=== PATIENT | male | born 1960 | race Caucasian/White ===

== ENCOUNTER 2016-09-09 06:21 | Emergency (ER) | payer OTHER ==
[~2016-09-09] VITALS: Ht 180.3 cm; Wt 150.7 kg
[~2016-09-09 06:21] MED LIST: METF-382 PO; MULTTAB PO; RANI300C PO
[2016-09-09 06:26] VITALS: Ht 180.3 cm; Wt 150.7 kg
--- NOTE | 2016-09-09 07:19 | DIAGNOSTIC IMAGING REPORT ---
LEFT KNEE 3 VIEWS CLINICAL HISTORY: fall, pain trauma. Pain. COMPARISON: None. DISCUSSION: Severe degenerative change medial joint compartment as well as patellofemoral joint. Small joint effusion. Moderate reactive osteophytic changes throughout. Lateral compartment is generally intact. There is no evidence for soft tissue swelling. IMPRESSION: Severe degenerative change. No acute bony abnormality. Electronically signed by: Adalberto Carrillo M.D. 09/09/2016 7:18 AM Dictated Date/Time: 09/09/2016 7:16 AM
[2016-09-09] MEDS ORDERED: IBUPROFEN 600 MG TAB PO STA (07:20)
[2016-09-09 08:09] VITALS: BP 142/96; PULSE 107; TEMP 36.7; O2SAT 97
--- NOTE | 2016-09-09 08:38 | EMERGENCY ROOM VISIT NOTE ---
History Report prepared by Raheel: Julieta Thomas Under the Supervision of: Dr. Hermelindo Mondragon M.D. First contact with patient: 06:37 Chief Complaint: KNEEPAIN Stated Complaint: FELL- HURT LEFT KNEE History of Present Illness The patient is a 56 year old male who presents to the Emergency Room with complaints of left knee pain that has worsened since yesterday afternoon. The patient was working outside in the snow yesterday and had a mechanical fall. Denies hitting his head. Since then, he has had left knee pain. He is able to walk, but states that his knee pain is worse with walking. He has had his right knee replaced and was told he will also eventually need a left knee replacement. Currently, his worst pain is around his medial and posterior knee. He reports that his left knee is more swollen than baseline. He used a knee brace yesterday, but it became very uncomfortable to wear due to the swelling so he took it off. He is not on a blood thinner. He has not taken anything for pain. He denies any other injuries from the fall. Source of History: patient Onset: yesterday afternoon Position: knee (left) Timing: worsening Modifying Factors (Worsening): other (walking) Review of Systems See HPI for pertinent positives & negatives. A total of 6 systems reviewed and were otherwise negative. Past Medical & Surgical Medical Problems: (1) Hypertension Surgical Problems: (1) History of appendectomy (2) History of right knee joint replacement Family History Diabetes mellitus FH: heart disease Hypertension Social History Smoking Status: Never Smoker Alcohol Use: none Drug Use: none Marital Status: Occupation Status: retired Current/Historical Medications No Active Prescriptions or Reported Meds Allergies Coded Allergies: Quinolones (Verified Allergy, Mild, HIVES, 09/09/16) Sibutramine (Verified Allergy, Unknown, TACHYCARDIA, 09/09/16) Physical Exam Vital Signs Date Time Temp Pulse Resp B/P Pulse Ox O2 Delivery O2 Flow Rate FiO2 09/09/16 08:09 36.7 107 24 142/96 97 09/09/16 06:26 36.5 71 20 169/99 95 Room Air Physical Exam GENERAL: Sitting on the stretcher, no acute distress. NEURO: Awake, alert, oriented x3, no focal motor deficits. EXTREMITIES : The left knee is swollen with a joint effusion, there is no erythema or warmth, no focal bony discomfort, the knee in general is diffusely tender, no laxity of the joint appreciated, pain noted with flexion of the knee. Medical Decision & Procedures ER Provider Diagnostic Interpretation: Radiology results and stated below per my review and radiologist interpretation: LEFT KNEE 3 VIEWS CLINICAL HISTORY: fall, pain trauma. Pain. COMPARISON: None. DISCUSSION: Severe degenerative change medial joint compartment as well as patellofemoral joint. Small joint effusion. Moderate reactive osteophytic changes throughout. Lateral compartment is generally intact. There is no evidence for soft tissue swelling. IMPRESSION: Severe degenerative change. No acute bony abnormality. Electronically signed by: Adalberto Carrillo M.D. 09/09/2016 7:18 AM Dictated Date/Time: 09/09/2016 7:16 AM Medications Administered Medications (Trade) Dose Ordered Sig/Suzi Route Start Time Stop Time Status Last Admin Dose Admin Ibuprofen (Motrin Tab) 600 mg NOW STAT PO 09/09/16 07:20 09/09/16 07:22 DC 09/09/16 07:36 600 MG ED Course 0716: The patient was evaluated in room B3. A complete history and physical exam was performed. 0720: Ordered Ibuprofen 600 mg PO. 0742: Reevaluated the patient. Discussed results and discharge instructions: He verbalized understanding and agreement. The patient is ready for discharge. Medical Decision Differential includes but is not limited to fracture vs. dislocation, joint effusion, contusion, strain. The patient presents with an injury to his knee. He fell onto the knee yesterday. On exam, the knee was somewhat swollen but seemed stable, there was no cellulitis. Films of the left knee show severe arthritis, no fracture, no large joint effusion. The patient was given oral Motrin, he had an Oleksandr wrap applied to the knee, he was given an ice pack. He is being discharged with the above treatment and orthopedic follow-up. The knee has been sprained and contused. Impression Primary Impression: Contusion of left knee Additional Impression: Arthritis Scribe Attestation The scribe's documentation has been prepared under my direction and personally reviewed by me in its entirety. I confirm that the note above accurately reflects all work, treatment, procedures, and medical decision making performed by me. Departure Information Dispostion Home / Self-Care Prescriptions No Active Prescriptions or Reported Meds Referrals No Doctor, Assigned (PCP) Patient Instructions My [facility] Additional Instructions motrin or advil 600 mg 3x per day for 5 days ice to the knee every few hours stay off the leg rest call orthopedics for an appt return if worsening Problem Qualifiers
[2017-02-17] MEDS ORDERED: MORP-157 PO (21:18)
[2017-02-17] MEDS ORDERED: RXC5 PO (21:18)
[2017-02-17] MEDS ORDERED: ASPEC325 PO (21:18)
[2017-02-17] MEDS ORDERED: ACET-24 PO (21:18)
== END 2016-09-09 08:12 | disposition home or self-care (01) ==
LOC: C.EDB 06:22
DX: S80.02XA Contusion of left knee, initial encounter (principal); M19.90 Unspecified osteoarthritis, unspecified site; W00.9XXA Unspecified fall due to ice and snow, initial encounter; I10 Essential (primary) hypertension; Z96.651 Presence of right artificial knee joint

== ENCOUNTER → 2016-10-13 | Outpatient (CLI) | payer OTHER ==
[~2016-10-13] MED LIST changes: +ACET-24 PO; +ASPEC325 PO; -METF-382 PO; +MORP-157 PO; -MULTTAB PO; -RANI300C PO; +RXC5 PO
--- NOTE | 2016-10-13 16:21 | DIAGNOSTIC IMAGING REPORT ---
LEFT KNEE 1 OR 2 VIEWS ROUTINE CLINICAL HISTORY: L KNEE SPRAIN PAIN COMPARISON: 09/09/2016 DISCUSSION: No acute fractures are visualized. There are moderate to severe osteoarthritic changes present, involving the medial joint compartment. There is a suprapatellar joint effusion. There are degenerative changes present within the patellofemoral joint with prominent dorsal patellar spurs. IMPRESSION: 1. No acute fractures 2. Advanced osteoarthritic changes 3. Suprapatellar joint effusion Electronically signed by: Alexys Castro M.D. 10/13/2016 4:19 PM Dictated Date/Time: 10/13/2016 4:17 PM
== END | disposition home or self-care (01) ==
LOC: C.RAD1850 15:48 → EDSTATUS 10-26 10:35
PROVIDERS: ATTEND Preventive Medicine Occupational Medicine
DX: S83.92XA Sprain of unspecified site of left knee, initial encounter (principal); X58.XXXA Exposure to other specified factors, initial encounter

== ENCOUNTER 2017-02-16 09:55 | Inpatient (IN) | payer OTHER ==
[2017-01-22 11:20] VITALS: BMI 44.0
[2017-01-22 12:27] LABS: BASO % 0.3 %; BASO ABS # 0.02 K/uL (0-0.2); COMPLETE YES; EOS % 5.8 %; IG% 0.1 %; LYMPH % 21.9 %; LYMPH ABS # 1.56 K/uL (1.2-3.4); MEAN CELL VOLUME 86.9 fL (80-100); MEAN CORPUSCULAR HEMOGLOBIN 28.2 pg (25-34); MEAN CORPUSCULAR HGB CONC 32.4 g/dl (32-36); MEAN PLATELET VOLUME 9.8 fL (7.4-10.4); MONO % 6.8 %; NEUT % 65.1 %; PLATELET COUNT 277 K/uL (130-400); RED BLOOD COUNT 5.18 M/uL (4.7-6.1); WHITE BLOOD COUNT 7.11 K/uL (4.8-10.8)
[2017-01-22 12:36] LABS: PROTHROMBIN TIME (PATIENT) 10.5 SECONDS (9.0-12.0)
--- NOTE | 2017-01-22 12:37 | DIAGNOSTIC IMAGING REPORT ---
CHEST PREADMISSION(PA/LAT) CLINICAL HISTORY: Preoperative evaluation. COMPARISON STUDY: Chest radiograph January 06, 2010. FINDINGS: Right-sided rib deformities are incidentally noted. There is no pneumothorax or pleural effusion. There is no evidence of pulmonary edema. No consolidation is identified. There is mild lung hyperexpansion. Cardiomediastinal silhouette is normal. IMPRESSION: No acute cardiopulmonary findings. Electronically signed by: Tristen Ansari M.D. 01/22/2017 12:35 PM Dictated Date/Time: 01/22/2017 12:35 PM
[2017-01-22 13:41] LABS: BUN/CREATININE RATIO 18.5 (10-20); C-REACTIVE PROTEIN 0.4 mg/dl (0-0.29); CALCIUM 8.9 mg/dl (8.5-10.1); CREATININE 0.99 mg/dl (0.60-1.40); POTASSIUM 4.7 mmol/L (3.5-5.1)
--- NOTE | 2017-02-08 19:50 | HISTORY & PHYSICAL EXAMINATION ---
DATE OF ADMISSION: 02/16/2017 CHIEF COMPLAINT: Left knee pain, discomfort and swelling. 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 He has had on and off left knee pain for several years, but it has got significantly worse over the past 6 months. This was filed initially under workers' compensation, but denied. He has got persistent pain in his knee. He has actually had to use crutches to get around. It is global in his knee. He has been treated by Dr. Goel, my partner and now sent to me for definitive treatment/knee replacement. The patient's pain is increased with weightbearing. He has failed all conservative care. PAST MEDICAL HISTORY: 1. Obesity with a BMI of 44. 2. Hypertension. PREVIOUS SURGIES: None. ALLERGIES: CIPRO. CURRENT MEDICATIONS: None. 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 He is currently going through a divorce. One to two drinks of alcohol per day. He chews snuff. He does not smoke. FAMILY HISTORY: Noncontributory. REVIEW OF SYSTEMS: Negative for diabetes, neurologic problems, vascular problems or bleeding disorders. He denies any chest pain or shortness of breath. No evidence of DVT or PE. PHYSICAL EXAMINATION: GENERAL: Reveals a healthy, pleasant and obese middle-aged male. He looks a little older than his stated age. HEENT: Benign. NECK: Supple. No lymphadenopathy. LUNGS: Clear to auscultation. HEART: Has a regular rate and rhythm. ABDOMEN: Soft, nontender and nondistended. EXTREMITIES: Grossly neurovascularly intact except as follows: Examination of the left lower extremity reveals the patient walks with an antalgic gait. He has got moderate-sized knee effusion. He has got varus alignment to his knee. He is tender over the medial joint line. Range of motion is 5-120. No instability. No particular pain with hip motion. X-RAYS: X-rays of the left knee were reviewed. It shows advanced medial compartment DJD. He has got complete loss of his medial joint space. It looks like there is a loose body in the intercondylar notch area. ASSESSMENT: A 56-year-old male, with advanced left knee aggravated by a relatively recent work-related injury. He has got longstanding arthritis. He has failed conservative treatments. He would like to have his left knee replaced. PLAN: We are going to take him to the operating room and do a left total knee replacement. The risks and benefits of this procedure were explained to the patient including but not limited to DVT, PE, , infection, neurological injury, vascular injury, bleeding problems, pain, limited range of motion, stiffness, failure to relieve her symptoms, incomplete relief of symptoms, need for further surgery in the future, fracture, leg length inequality, nerve palsy, persistent pain, need for revision surgery, etc. The patient understands and desires to proceed. Informed consent was obtained. The patient had a preoperative workup. Chest x-ray showed no acute disease. EKG was normal. Labs were all pretty normal except for just a slightly elevated CRP. We may consider putting some vancomycin in the cement due to his obesity and large body habitus. As far as discharge plans, he is going to be discharged to home likely with some home health. SOY
[2017-02-16] VITALS (7 sets, daily range): BP systolic 102–137; BP diastolic 67–97; PULSE 65–111; TEMP 34.8–37.1; O2SAT 94–98; Ht 180.3 cm; Wt 144.0 kg
[~2017-02-16] VITALS: Ht 180.3 cm; Wt 144.0 kg
[~2017-02-16 09:55] MED LIST changes: -ACET-24 PO; +ACETAMINOPHEN 500 MG TAB PO SCH; -ASPEC325 PO; +BUPIVACAINE 0.5 % 5 MG/1 ML PF 10ML VIAL ONE; +BUPIVACAINE LIPOSOME 266 MG, BUPIVACAINE/EPINEPHRINE INJ 50 ML, SODIUM CHLORIDE 0.9% PF... INFIL SCH; +BUPIVACAINE/EPINEPHRINE 0.25% 10 ML VIAL ONE; +CEFAZOLIN 3000 MG/65 ML D5W 65 ML IV SCH; +FAMOTIDINE 20 MG TAB PO SCH; +GABAPENTIN 300 MG CAP PO SCH; +LACTATED RINGER'S 1000ML 1,000 ML IV SCH; +LACTATED RINGER'S 1000ML 500 ML IV ONE; +LACTATED RINGER'S 1000ML IV SCH; +METOCLOPRAMIDE HCL 10 MG TAB PO SCH; -MORP-157 PO; -RXC5 PO; +SCOPOLAMINE 1.5 MG TDSY TD SCH; +TRANEXAMIC ACID INJ 1,000 MG in SODIUM CHLORIDE 0.9% 100ML 100 ML IV SCH
--- NOTE | 2017-02-16 10:28 | History & Physical Bridge Note ---
H&P Re-Evaluation Bridge Note: I have examined the patient, reviewed the History & Physical and in the interval since the performance of the History & Physical I have noted the following changes of clinical significance: No changes noted
[2017-02-16] MEDS ORDERED: MIDAZOLAM HCL 1 MG/ML 2ML VIAL ONE ×2 (12:07→13:50)
[2017-02-16] MEDS ORDERED: SODIUM CHLORIDE 0.9% PF 50 ML VIAL ONE (13:22)
[2017-02-16] MEDS ORDERED: BUPIVACAINE/EPINEPHRINE 0.25% 1:200,000 30 ML VIAL ONE (13:22)
[2017-02-16] MEDS ORDERED: BACITRACIN 50000 UNIT VIAL ONE (13:22)
[2017-02-16] MEDS ORDERED: BUPIVACAINE LIPOSOME 1/3% 266 MG/20 ML VIAL INFIL ONE (13:22)
[2017-02-16] MEDS ORDERED: MEPERIDINE HCL 25 MG/ML CARP IV PRN (14:15)
[2017-02-16] MEDS ORDERED: PHENYLEPHRINE 100MCG/ML 5ML SYR IV PRN (14:15)
[2017-02-16] MEDS ORDERED: VANCOMYCIN HCL 1000MG/20ML VIAL ONE (14:15)
[2017-02-16] MEDS ORDERED: FLUMAZENIL 0.1 MG/1 ML 10 ML VIAL IV PRN (14:15)
[2017-02-16] MEDS ORDERED: LABETALOL HCL IV 5 MG/ML 20ML IV PRN (14:15)
[2017-02-16] MEDS ORDERED: FENTANYL CITRATE INJ 50 MCG/1 ML 2 ML VIAL IV PRN (14:15)
[2017-02-16] MEDS ORDERED: HYDROmorphone INJ 2 MG/ML SYR/VIAL IV PRN (14:15)
[2017-02-16] MEDS ORDERED: EpHEDrine SULFATE INJ 50 MG/ML AMP IV PRN (14:15)
[2017-02-16] MEDS ORDERED: NALOXONE HCL 0.4 MG/1 ML VIAL/CARP IV PRN (14:15)
[2017-02-16] MEDS ORDERED: ONDANSETRON INJ 2 MG/ML 2 ML VIAL IV PRN ×2 (14:15→15:30)
[2017-02-16] MEDS ORDERED: ATROPINE SULFATE 0.1 MG/ML 5ML SYR IV PRN (14:15)
[2017-02-16] MEDS ORDERED: GLYCOPYRROLATE INJ 0.2 MG/ML VIAL ONE (14:40)
[2017-02-16] MEDS ORDERED: PROPOFOL IV EMULSION 10 MG/ML 20 ML VIAL IV ONE (14:40)
[2017-02-16] MEDS ORDERED: LIDOCAINE HCL 2% 2 ML VIAL (20MG/ML) ONE (14:40)
[2017-02-16] MEDS ORDERED: ONDANSETRON INJ 2 MG/ML 2 ML VIAL ONE (14:40)
[2017-02-16] MEDS ORDERED: METOCLOPRAMIDE HCL INJ 5 MG/ML 2 ML VIAL IV PRN (15:30)
[2017-02-16] MEDS ORDERED: ZOLPIDEM TARTRATE 5 MG TAB PO PRN (15:30)
[2017-02-16] MEDS ORDERED: TAMSULOSIN HCL 0.4 MG CAP PO PRN (15:30)
[2017-02-16] MEDS ORDERED: DiphenhydrAMINE HCL 50 MG/ML VIAL IV PRN (15:30)
[2017-02-16] MEDS ORDERED: BISACODYL 10 MG SUPP PR PRN (15:30)
[2017-02-16] MEDS ORDERED: MoRPHine SULFATE 2 MG/ML CARP IV PRN (15:30)
[2017-02-16] MEDS ORDERED: SILVER SULFADIAZINE 1% CR 50 GM JAR EXT PRN (15:30)
[2017-02-16] MEDS ORDERED: MAGNESIUM HYDROXIDE SUSP 30 ML UDC PO PRN (15:30)
--- NOTE | 2017-02-16 15:30 | [facility] Post Operative Brief Note ---
Immediate Operative Summary Operative Date Feb 16, 2017. Pre-Operative Diagnosis Left Knee Advanced Degenerative Joint Disease Post-Operative Diagnosis Left Knee Advanced Degenerative Joint Disease Procedure(s) Performed Left Total Knee Arthroplasty Surgeon Dr. Loaiza Handyman Surgeon(s) JAYCEE Condon Estimated Blood Loss 50 ml Findings Left Knee DJD Fluids (cc crystalloids) 800 cc Specimens A. Left Knee Bone and Tissue Drains None Anesthesia Spinal Complication(s) None Disposition Recovery Room / PACU
[2017-02-16] MEDS: CHECK SCOPOLAMINE PATCH PLACEMENT SCH (16:00)
--- NOTE | 2017-02-16 16:08 | DIAGNOSTIC IMAGING REPORT ---
LEFT KNEE 1 OR 2 VIEWS ROUTINE CLINICAL HISTORY: Postoperative evaluation. COMPARISON: Left knee radiographs October 13, 2016. FINDINGS: Alignment of the total left knee arthroplasty is anatomic. There is no fracture or unexpected radiopaque foreign body. Skin glenis are present. IMPRESSION: Expected findings following total left knee arthroplasty. Electronically signed by: Tristen Ansari M.D. 02/16/2017 4:07 PM Dictated Date/Time: 02/16/2017 4:06 PM
--- NOTE | 2017-02-16 16:26 | OPERATIVE REPORT ---
DATE OF OPERATION: 02/16/2017 SURGEON: Tommie Loaiza MD CHIEF POWER DISPATCHER: JAYCEE Roberts PREOPERATIVE DIAGNOSIS: Left knee degenerative joint disease. POSTOPERATIVE DIAGNOSIS: Same. PROCEDURE PERFORMED: Left cemented posterior stabilized total knee arthroplasty. COMPLICATIONS: None. ESTIMATED BLOOD LOSS: 50 mL. FLUID REPLACEMENT: 800 mL crystalloid fluid replacement. TOURNIQUET TIME: 63 minutes at 300 mmHg. ANESTHESIA: Spinal with adductor canal block. DRAINS: None. SPECIMENS: Left knee sent for pathology. 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 Over the past several months, he developed markedly increased left knee pain. He actually had to use crutches to get around. He was treated conservatively by my partner Dr. Goel without adequate relief. He continued to have debilitating pain and the patient elected to proceed with operative treatment. OPERATIVE FINDINGS: Operative findings revealed advanced left knee DJD. He had extensive grade 4 changes of the medial and patellofemoral compartments and some grade 3 changes of the lateral compartment. He had a large loose body in the intercondylar notch area. He had a large knee joint effusion. OPERATIVE IMPLANTS: Operative implants consisted of: 1. Biomet Vanguard size 70 left posterior stabilized femoral component. 2. Biomet size 83 tibial tray. 3. A 14-mm posterior stabilized polyethylene insert. 4. A 34 x 8.5 all poly patella. OPERATIVE PROCEDURE: The patient was taken to the operating room, identified and placed on the operating table in the supine position. All contact areas were appropriately padded. IV antibiotics were provided by anesthesia team. A spinal anesthetic and adductor canal block had been provided in the holding area. Hogan catheter was placed in sterile fashion. A left thigh tourniquet was then placed and left lower extremity was then prepped and draped in the usual sterile fashion. Left leg was elevated and exsanguinated with Esmarch and tourniquet was placed at 300 mmHg. An anterior approach to the left knee was then performed through a longitudinal incision centered over the patella. Sharp dissection was carried through the subcutaneous tissue down to the level of the extensor mechanism. A medial parapatellar arthrotomy incision was made. Some subperiosteal dissection was carried out medially. The fat pad was resected from beneath the patellar tendon. The lateral patellofemoral ligament was released. The patella was everted and the knee was flexed. The osteophytes were taken off the distal femur. Of note, the patient had extremely wide femur with a large intercondylar notch area. The ACL and PCL were then released from the distal femur and the tibia subluxated anteriorly. The external tibial alignment jig was then placed in the anterior face of the tibia and adjusted 16 mm medially. Proximal tibial cut was made to remove about 3 mm of bone from the most deficient aspect of the medial tibial plateau. I did take a fairly large piece of bone due to his significant stiffness and limited range of motion and flexion contracture preoperatively. The tibia was then sized to an 83. Attention was then drawn to the femur. The distal femur was entered with a sharp drill. The intramedullary canal was suctioned. A left 6-degree valgus cutting guide was placed. Distal femoral cutting block was pinned in place. Distal femoral cut was made to take an additional 3 mm of bone off the distal femur. The femur was then sized to a size 70. We did downsize this slightly. The AP cutting block was pinned parallel to the epicondylar axis, which was 5 degrees of external rotation. The anterior cut, anterior chamfer, posterior cut, and posterior chamfer cuts were made. Box cutting guide was placed and adjusted slightly lateral and the box cut was made. The knee was flexed. The remnants of the medial and lateral meniscus were excised. The osteophytes were taken off the posterior aspect of the femur. Trial femoral component was placed. Tibial tray was pinned in maximum external rotation and the drill and stem punch were used to create defect in the proximal tibia for the tibial tray. The knee was then trialed and the 14-mm insert fit most appropriately. There was a fairly large gap medially due to the lateralization of the component and it did create a little bit more laxity on the MCL. Attention was then drawn to the patella. The patella was cleaned of all soft tissues. Patella thickness measured 25 mm and cut down to 15. It was sized for size 34 patella. Lug holes were drilled for a 34 patella. Lateral osteophyte was removed. Patella button was placed. Knee was taken through range of motion and the patella tracked nicely with no thumbs test. Attention was then drawn toward placement of the permanent components. All trial components were removed. Bone plug was placed in the distal femur to limit blood loss. The wound was irrigated with copious amounts of pulsatile lavage solution. A double batch of Palacos G cement was mixed. A left size 70 posterior stabilized femoral component, size 83 tibial tray, 14-mm posterior stabilized polyethylene insert, and a 34 x 8.5 all poly patella were then cemented in place. Knee was brought out into full extension until cement hardened. A final cement check was then performed. Pericapsular tissues were injected with 100 mL of a combination of 20 mL of Exparel, 30 mL of normal saline, and 50 mL of 0.25% Marcaine with epinephrine. The patient did receive 1 gram of tranexamic acid. The tourniquet was let down for a tourniquet time 63 minutes. Hemostasis was assured with the use of electrocautery. The extensor mechanism was then closed with a combination of #1 PDS suture and #1 Vicryl suture in a [id number] fashion. Extensor mechanism was checked and found to be intact. The subcutaneous tissues were then closed with 2-0 Dexon suture in a buried interrupted fashion. Skin was closed skin glenis. Leg was then cleaned and dried and a sterile dressing of Xeroform, 4 x 4, sterile cast padding and Oleksandr bandage were applied. The patient then transferred to the recovery room in stable condition. The patient tolerated the procedure well with no complications. All needle and sponge counts were correct at the end of the operation. I attest to the content of the Intraoperative Record and any orders documented therein. Any exception s are noted below.
--- NOTE | 2017-02-16 16:31 | Anesthesiology Progress Note ---
Anesthesia Post Op Note Date & Time Feb 16, 2017 at 16:31 Vital Signs Pain Intensity: 0 Vital Signs Past 12 Hours Date Time Temp Pulse Resp B/P (MAP) Pulse Ox O2 Delivery O2 Flow Rate FiO2 02/16/17 16:22 36.4 50 16 126/74 (82) 95 Room Air 02/16/17 16:15 126/80 02/16/17 16:14 62 13 96 02/16/17 16:14 62 13 02/16/17 16:11 105/70 02/16/17 16:10 51 13 105/70 (81) 97 Room Air 02/16/17 16:09 66 13 02/16/17 16:09 71 13 116/74 98 02/16/17 16:00 53 18 112/70 (80) 96 Room Air 02/16/17 15:50 56 20 110/66 (81) 87 Room Air 02/16/17 15:40 36.0 85 20 86/48 (67) 93 Room Air 02/16/17 10:17 37.1 65 16 132/97 97 Room Air Notes Mental Status: alert / awake / arousable, participated in evaluation Pt Amnestic to Procedure: Yes Nausea / Vomiting: adequately controlled Pain: adequately controlled Airway Patency, RR, SpO2: stable & adequate BP & HR: stable & adequate Hydration State: stable & adequate Neuraxial Anesthesia: was administered, sensory block is resolving Anesthetic Complications: no major complications apparent
[2017-02-16] MEDS: D5W AND 1/2NSS + 20MEQ KCL 1,000 ML IV SCH (19:06)
[2017-02-16] MEDS: FERROUS GLUCONATE 324 MG TAB PO SCH (19:07)
[2017-02-16] MEDS ORDERED: OXYCODONE HCL IR 5 MG TAB (IMMEDIATE RELEASE) ONE (19:14)
[2017-02-16] MEDS: OXYCODONE HCL IR 5 MG TAB (IMMEDIATE RELEASE) PO PRN (19:15)
[2017-02-16] MEDS: TAPENTADOL ER 50 MG TABCR PO SCH (21:41)
[2017-02-16] MEDS: ASPIRIN 325 MG ECTAB PO SCH (21:41)
[2017-02-16] MEDS: DOCUSATE SODIUM 100 MG CAP PO SCH (21:41)
[2017-02-16] MEDS: SENNA 8.6 MG TAB PO SCH (21:41)
[2017-02-16] MEDS: ACETAMINOPHEN 500 MG TAB PO SCH (21:42)
[2017-02-16] MEDS: KETOROLAC TROMETHAMINE 30 MG/ML VIAL IV. SCH (21:42)
[2017-02-16] MEDS: CEFAZOLIN IV 2,000 MG in DEXTROSE 5% 50ML 50 ML IV SCH (21:53)
[2017-02-16] MEDS ORDERED: TRANEXAMIC ACID INJ 1,000 MG in SODIUM CHLORIDE 0.9% 100ML 100 ML IV SCH (22:00)
[2017-02-17] MEDS: CHECK SCOPOLAMINE PATCH PLACEMENT SCH ×4 (00:24→23:23)
[2017-02-17] MEDS: D5W AND 1/2NSS + 20MEQ KCL 1,000 ML IV SCH ×3 (00:24→14:07)
[2017-02-17 03:30] VITALS: BP 97/67; PULSE 60; TEMP 36.8; O2SAT 96
[2017-02-17] MEDS: CEFAZOLIN IV 2,000 MG in DEXTROSE 5% 50ML 50 ML IV SCH (03:39)
[2017-02-17] MEDS: KETOROLAC TROMETHAMINE 30 MG/ML VIAL IV. SCH ×4 (03:41→21:35)
[2017-02-17] MEDS: OXYCODONE HCL IR 5 MG TAB (IMMEDIATE RELEASE) PO PRN ×3 (03:45→15:44)
[2017-02-17] MEDS: ACETAMINOPHEN 500 MG TAB PO SCH ×3 (05:51→21:35)
[2017-02-17 07:16] LABS: HEMATOCRIT 36.2 % (42-52); MEAN CELL VOLUME 83.8 fL (80-100); MEAN CORPUSCULAR HEMOGLOBIN 28.7 pg (25-34); MEAN CORPUSCULAR HGB CONC 34.3 g/dl (32-36); MEAN PLATELET VOLUME 9.5 fL (7.4-10.4); PLATELET COUNT 203 K/uL (130-400); RED BLOOD COUNT 4.32 M/uL (4.7-6.1); WHITE BLOOD COUNT 9.15 K/uL (4.8-10.8)
[2017-02-17 07:30] VITALS: BP 102/66; PULSE 63; TEMP 36.9; O2SAT 97
[2017-02-17 07:52] LABS: BUN/CREATININE RATIO 8.9 (10-20); CREATININE 1.2 mg/dl (0.60-1.40); POTASSIUM 3.9 mmol/L (3.5-5.1)
--- NOTE | 2017-02-17 08:03 | Anesthesiology Progress Note ---
Anesthesia Post Op Note Date & Time Feb 17, 2017 at 08:03 Vital Signs Pain Intensity: 0.0 Vital Signs Past 12 Hours Date Time Temp Pulse Resp B/P (MAP) Pulse Ox O2 Delivery O2 Flow Rate FiO2 02/17/17 07:05 Room Air 02/17/17 03:30 36.8 60 18 97/67 (77) 96 Room Air 02/16/17 23:40 36.8 78 18 137/92 (107) 94 Room Air 02/16/17 23:30 Room Air 02/16/17 20:28 36.7 111 20 120/74 (89) 97 Room Air Notes Mental Status: alert / awake / arousable, participated in evaluation Pt Amnestic to Procedure: Yes Nausea / Vomiting: adequately controlled Pain: adequately controlled Airway Patency, RR, SpO2: stable & adequate BP & HR: stable & adequate Hydration State: stable & adequate Neuraxial Anesthesia: was administered, sensory block resolved Anesthetic Complications: no major complications apparent
[2017-02-17] MEDS: FERROUS GLUCONATE 324 MG TAB PO SCH ×3 (08:46→18:01)
[2017-02-17] MEDS: DOCUSATE SODIUM 100 MG CAP PO SCH ×2 (08:46→20:35)
[2017-02-17] MEDS: PANTOprazole SOD 40 MG TAB PO SCH (08:47)
[2017-02-17] MEDS: ASPIRIN 325 MG ECTAB PO SCH ×2 (08:47→20:35)
[2017-02-17] MEDS: MULTIVITAMIN TAB PO SCH (08:47)
[2017-02-17] MEDS: TAPENTADOL ER 50 MG TABCR PO SCH ×2 (08:49→20:35)
[2017-02-17 11:38] VITALS: BP 113/73; PULSE 63; TEMP 37; O2SAT 97
--- NOTE | 2017-02-17 15:20 | PROGRESS NOTE ---
DATE: 02/17/2017 SUBJECTIVE: A 56-year-old gentleman postop day 1 from a left knee replacement. He is doing pretty well. Knee is sore but manageable. Denies any chest pain or shortness of breath. Not feeling dizzy or lightheaded. OBJECTIVE: VITAL SIGNS: Temperature is 37.0. Vital signs stable. PHYSICAL EXAMINATION: GENERAL: Reveals a healthy, pleasant, middle-aged male. He is sitting up in bed, watching TV, looks pretty comfortable. LUNGS: Clear to auscultation. HEART: Regular rate and rhythm. ABDOMEN: Soft, nontender, nondistended. EXTREMITIES: Grossly neurovascularly intact except as follows: Examination of the left leg reveals the dressing to be in place. There is a little bit of bloody drainage on the upper portion anteriorly. He can dorsiflex and plantarflex his foot appropriately. He is neurologically intact. LABORATORY DATA: Hemoglobin 12.4. Hematocrit 36.2. Electrolytes are stable. ASSESSMENT: A 56-year-old gentleman postop day 1 from left knee replacement, doing pretty well. PLAN: 1. DVT prophylaxis including thigh-high TEDs, SCDs, and aspirin twice a day. 2. PT/OT. Weightbearing as tolerated. Left total knee protocol. 3. Pain control, doing pretty well with current pain regimen. 4. Disposition: He is planning to be discharged to home. He does not feel like he can afford the home health cost. He is going to talk with his employer about helping him out. Ideally he did have some home health versus outpatient therapy for 6 weeks.
[2017-02-17 15:24] VITALS: BP 94/57; PULSE 72; TEMP 37.4; O2SAT 95
[2017-02-17] MEDS: SENNA 8.6 MG TAB PO SCH (20:35)
[2017-02-17] MEDS: ALUMINUM/MAGNESIUM/SIMETH (MAALOX MAX) 30 ML UDC PO PRN (20:35)
[2017-02-17] MEDS ORDERED: RXC5 PO (21:18)
[2017-02-17] MEDS ORDERED: MORP-157 PO (21:18)
[2017-02-17] MEDS ORDERED: ASPEC325 PO (21:18)
[2017-02-17] MEDS ORDERED: ACET-24 PO (21:18)
--- NOTE | 2017-02-17 21:23 | Discharge Instructions ---
Discharge Instructions Date of Service Feb 17, 2017. Admission Reason for Admission: Left Knee Degenerative Joint Disease Discharge Discharge Diagnosis / Problem: Left Knee Replacement Discharge Goals Goal(s): Decrease discomfort, Improve function, Increase independence, Improve disease control, Therapeutic intervention Activity Recommendations Activity Limitations: per Instructions/Follow-up section Weightbearing Status: Left weightbearing . Instructions / Follow-Up Instructions / Follow-Up ACTIVITY RECOMMENDATIONS: Physical Therapy: * You will go to physical therapy three times each week for four to six weeks after your surgery in order to regain your knee range of motion and to retrain your knee to work properly. * It is just as important to make sure you are getting your knee perfectly straight as it is to regain your knee bend. * Taking a pain pill an hour before therapy can help you have a more productive and comfortable therapy session. Home Exercise: * You were shown a series of exercises (heel props, heel slides, etc.) in the hospital. Do these exercises three to four times each day including the exercises you were shown in physical therapy. Walking: * Get up and walk several times each day. For the first four weeks, try not to stand or walk for more than one hour at a time. If you do stand or walk for more than one hour, you will not hurt anything, but your knee and leg will likely swell. * As you feel comfortable, you may change from the walker or crutches to a cane and then to independent walking. MEDICATIONS: New Medicine: * You will likely be taking one or more of these medications: 1. MS Contin - A long-acting pain medication. Take 1 tablet twice a day for the first ten days to decrease your baseline level of pain. 2. Oxycodone - A quick and shorter-acting pain medication. Take one to two tablets every four to six hours to lessen your pain. 3. Aspirin - Thins your blood to lessen the chance of forming a blood clot. * The most common side effects of pain medicine and iron are nausea and constipation. If nausea or constipation is too much of a problem or if you have any questions about your new medicines or doses, call [facility] at [phone]. We will try to help you manage these issues. VERY IMPORTANT TO READ AND REVIEW" Pain: * The immediate post-operative period after knee replacement surgery is often quite painful. * You are given a prescription for pain medicine. You should take it, as directed, when you need it, especially before physical therapy and before going to bed. Pain that interferes with sleep is very common and can last several months. * You will likely need pain medicine for the first four to six weeks. It will not stop all of the pain. The pain will lessen and as you feel better, you may change to milder pain medicine such as Tylenol. * The most common side effects of pain medicine are nausea and constipation, so don't take more than you need. SPECIAL CARE INSTRUCTIONS: TEDs/Elastic Stockings: * The white elastic stockings help limit swelling and prevent blood clots from forming in your legs. The more you wear them, the more they work. * Wear them for six weeks after knee replacement surgery and four weeks after partial knee replacement. Prevention of Infection: * Take antibiotics one hour before any dental cleaning, dental work, urological procedure, gastrointestinal procedure or any invasive surgery in order to prevent your new joint from getting infected. * You may get the antibiotics from the doctor performing the procedure or you may call our office at before and we will call in a prescription to the pharmacy of your choice. Things to Watch For: * Drainage from the incision site that occurs more than one week after your surgery. * Severely increased knee/leg pain or swelling. * Increased redness at the incision site. * Fever above 102 degrees Fahrenheit. * Unusual chest pain or shortness of breath. * Unusual pain or burning with urination. Call [facility] at with any of the above problems or if you have any questions about your medicines or recovery. FOLLOW UP VISIT: Make an appointment to see your doctor for approximately two weeks after surgery for a progress check and staple removal by calling the office at . Current Hospital Diet Patient's current hospital diet: Regular Diet Discharge Diet Recommended Diet: Regular Diet Procedures Procedures Performed: Left Total Knee Arthroplasty Pending Studies Studies pending at discharge: no Medical Emergencies . Who to Call and When: Medical Emergencies: If at any time you feel your situation is an emergency, please call 201 immediately. . Non-Emergent Contact Non-Emergency issues call your: Surgeon . "Provider Documentation" section prepared by Tommie Loaiza. . VTE Core Measure Inpt VTE Proph given/why not?: Other Anticoagulation, T.E.D. Stockings, SCD's
[2017-02-17 23:30] VITALS: BP 93/60; PULSE 66; TEMP 36.9; O2SAT 95
[2017-02-18] MEDS: ALUMINUM/MAGNESIUM/SIMETH (MAALOX MAX) 30 ML UDC PO PRN (01:44)
[2017-02-18] MEDS: KETOROLAC TROMETHAMINE 30 MG/ML VIAL IV. SCH ×3 (03:39→16:32)
[2017-02-18] MEDS: ACETAMINOPHEN 500 MG TAB PO SCH ×3 (05:34→22:16)
[2017-02-18 07:01] VITALS: BP 102/64; PULSE 65; TEMP 36.6; O2SAT 95
[2017-02-18] MEDS: DOCUSATE SODIUM 100 MG CAP PO SCH ×2 (08:58→21:00)
[2017-02-18] MEDS: FERROUS GLUCONATE 324 MG TAB PO SCH ×3 (08:58→17:56)
[2017-02-18] MEDS: MULTIVITAMIN TAB PO SCH (08:58)
[2017-02-18] MEDS: ASPIRIN 325 MG ECTAB PO SCH ×2 (08:58→22:15)
[2017-02-18] MEDS: PANTOprazole SOD 40 MG TAB PO SCH (08:58)
[2017-02-18] MEDS: TAPENTADOL ER 50 MG TABCR PO SCH ×2 (09:01→22:16)
--- NOTE | 2017-02-18 14:28 | PROGRESS NOTE ---
DATE: 02/18/2017 DATE: 02/18/2017 SUBJECTIVE: A 56-year-old white gentleman postop day 2 from a left knee replacement. He is doing pretty well. He had quite a bit of bloody drainage from his dressing this morning and has actually bled through a little bit more. His pain is pretty well controlled. Denies any chest pain or shortness of breath. Not feeling dizzy or lightheaded. OBJECTIVE: VITAL SIGNS: Temperature 36.6. Vital signs stable. PHYSICAL EXAMINATION: EXTREMITIES: Physical examination of his left leg reveals the patient is sitting at his bedside. His dressing does have some blood on it even from just changing it about 2 hours ago. His leg is well aligned. He can dorsiflex and plantarflex his foot appropriately. He is neurologically intact. ASSESSMENT: A 56-year-old white gentleman postop day 2 from left knee replacement, doing reasonably well. He has had quite a bit of bloody drainage on his dressing. I think we need to keep an eye on this over the next day or two. We are going to decrease his knee motion to try and get this to seal up. PLAN: 1. DVT prophylaxis including thigh-high TEDs, SCDs, and aspirin twice a day. 2. PT/OT. Weightbearing as tolerated. Left total knee protocol. We are going to hold knee range of motion for now and put him in a knee immobilizer as I think he has likely been pretty noncompliant. 3. Pain control. Doing well with current pain regimen. 4. Disposition. He is planning to be discharged likely to home eventually. We need to watch his knee and his drainage here for a day or two before we can safely send him home.
[2017-02-18 15:40] VITALS: BP 115/70; PULSE 82; TEMP 37.1; O2SAT 98
[2017-02-18] MEDS: SENNA 8.6 MG TAB PO SCH (21:00)
[2017-02-18 23:41] VITALS: BP 139/89; PULSE 80; TEMP 37; O2SAT 96
[2017-02-19] MEDS: ACETAMINOPHEN 500 MG TAB PO SCH ×2 (05:40→11:57)
[2017-02-19] MEDS: OXYCODONE HCL IR 5 MG TAB (IMMEDIATE RELEASE) PO PRN (07:08)
[2017-02-19 07:12] VITALS: BP 102/68; PULSE 79; TEMP 36.6; O2SAT 96
--- NOTE | 2017-02-19 07:55 | PROGRESS NOTE ---
DATE: 02/19/2017 SUBJECTIVE: 56-year-old gentleman postop day 3 from a left knee replacement. He has had quite a bit of thigh discomfort. Initially had quite a bit of bloody drainage, but this is markedly decreased over the past day. Denies any chest pain or shortness of breath. Not feeling dizzy or lightheaded. OBJECTIVE: VITAL SIGNS: Temperature 36.6. Vital signs stable. PHYSICAL EXAMINATION: GENERAL: Reveals a pleasant, middle-aged male. I had to wake him this morning. LUNGS: Clear to auscultation. HEART: Regular rate and rhythm. ABDOMEN: Soft, nontender, nondistended. EXTREMITIES: Grossly neurovascularly intact except as follows: Examination of the left leg reveals the dressing to be in place. There is just a little bit of bloody drainage at the very top of his dressing. I looked at his wound and the wound edges are well approximated. There is no active bleeding. He does have some bruising in the front of his knee. He can do a good straight leg raise. He bends his knee quite well. ASSESSMENT: 56-year-old gentleman postop day 3 from a left knee replacement, doing pretty well. He has really not been very compliant in the hospital as we have tried to decrease his motion and he is not wearing his knee immobilizer at all. Despite this his drainage has decreased markedly. PLAN: 1. DVT prophylaxis including thigh-high TEDs, SCDs, and aspirin twice a day. 2. PT/OT. Will limit his range of motion to just therapy and then should keep it straight most of the rest of the time until this completely seals up. 3. Pain control, doing well with current pain regimen. 4. Disposition: He is planning to be discharged to home and he is going to some home health. I am a bit concerned about his compliance. We talked about drainage and limiting knee motion and I emphasized the importance of exercising just a little bit and then keeping it straight most of the rest of time. I did my best to enforce this to him regarding the importance of this. He should be discharged to home likely today with home health.
[2017-02-19] MEDS: DOCUSATE SODIUM 100 MG CAP PO SCH (09:00)
[2017-02-19] MEDS: ASPIRIN 325 MG ECTAB PO SCH (09:00)
[2017-02-19] MEDS: FERROUS GLUCONATE 324 MG TAB PO SCH ×2 (09:01→12:56)
[2017-02-19] MEDS: PANTOprazole SOD 40 MG TAB PO SCH (09:01)
[2017-02-19] MEDS: MULTIVITAMIN TAB PO SCH (09:01)
[2017-02-19] MEDS: TAPENTADOL ER 50 MG TABCR PO SCH (09:03)
[2017-02-19 13:48] VITALS: BP 102/68; PULSE 79; TEMP 36.6; O2SAT 96
--- NOTE | 2017-02-23 15:55 | DISCHARGE SUMMARY ---
ADMITTING PHYSICIAN AND SURGEON: Dr. Loaiza. ADMITTING DIAGNOSIS: Left knee degenerative joint disease. SURGERY PERFORMED: Left total knee arthroplasty. SECONDARY DIAGNOSES: Includes obesity, hypertension. CONSULTS: None obtained. HISTORY AND PHYSICAL EXAMINATION: Well documented in the patient's chart. HOSPITAL COURSE: The patient was admitted on 02/16/2017 underwent total knee arthroplasty, tolerated the procedure well, there were no complications. He was transferred to the PACU postoperatively and later to the orthopedic floor for further care. He was given Ancef for antibiotic prophylaxis, MARIO stockings, SCDs and aspirin for DVT prophylaxis. Hemoglobin, hematocrit and vital signs were monitored during his hospital stay and remained stable, did not require any blood transfusions. There were no complications during his hospital stay. By postoperative day 3, he was tolerating a general diet, pain was controlled with oral pain medicine. He was participating in physical therapy and had no signs or symptoms of deep vein thrombosis. He did have some bloody drainage from his knee from the incision area. His range of motion was limited as far as physical therapy until the drainage decreased. The drainage was decreased by postoperative day 3. On postoperative day 3, he was discharged home. He was given printed discharge instructions including new prescriptions for Extra Strength Tylenol, aspirin 325 mg b.i.d., MS Contin and oxycodone. Continue physical therapy, weightbearing as tolerated, MARIO stockings. He was instructed though as far as drainage from the knee to limit his knee motion and to keep his knee straight most of the time after his exercises. He is to follow up in 10-12 days or sooner if there are any problems or concerns.
== END 2017-02-19 15:45 | disposition home health service (06) | DRG 470 ==
LOC: C.ACU 09:55 → C.MSN 10:00 → ENRESERV 16:44
PROVIDERS: ADMIT Orthopaedic Surgery Sports Medicine; ATTEND Orthopaedic Surgery Sports Medicine
PROC: 0SRD0J9 Replacement of Left Knee Joint with Synthetic Substitute, Cemented, Open Approach (ICD-10-PCS; principal; 2017-02-16 12:30)
DX: M17.12 Unilateral primary osteoarthritis, left knee (principal); Z68.41 Body mass index [BMI] 40.0-44.9, adult; E66.9 Obesity, unspecified; I10 Essential (primary) hypertension

== ENCOUNTER 2021-01-13 20:13 | Inpatient (IN) ==
--- NOTE | 2021-01-13 20:37 | Emergency Department Note ---
Impression & Plan Suicidal ideations, Anxiety ED Provider Note NAME: VITALY CUI JR AGE: 60 SEX: M : 1960 ARRIVES VIA: Walk-In INFORMANT: Patient, PSP ED PROVIDER(S): Jaylen Novoa DO CHIEF COMPLAINT: Mental health evaluation HPI: The patient is a 60-year-old male who presented to the emergency department for an evaluation of a mental health evaluation. The patient arrived with police. He is going through break-up and at this time is very distraught because his ex- is starting to date. The ex- was with another man this evening on a date and the patient started sending text messages to her that were suggestive that he was going to harm himself. In 1 text message there was a handgun. The patient was sending text messages and stating that he was going to harm himself and then the police were notified. The patient arrives via state police. 9 state police responded to the home but the patient came out of his bedroom where he was sitting with a handgun on his own volition. At this time the patient is denying any suicidal homicidal ideation. He is never had similar symptoms in the past. He does admit that he drank some alcohol this evening. He has had no recent trauma. He has no fever. 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 The patient has never had a history of suicidal ideation or gesture in the past. ROS: See above HPI for pertinent positives & negatives. A total of 10 systems reviewed and were otherwise negative. PAST MEDICAL HISTORY: See Below PAST SURGICAL HISTORY: See Below FAMILY HISTORY: See Below SOCIAL HISTORY: See Below HOME MEDICATIONS: See Below ALLERGIES: See Below VITALS: See Below PHYSICAL EXAMINATION: GENERAL: The patient is awake and alert. He is somewhat guarded appearing. EYES: The conjunctivae are clear. The pupils are round and reactive. EARS, NOSE, MOUTH AND THROAT: The nose is without any evidence of any deformity. NECK: The neck is nontender and supple. RESPIRATORY: Normal respiratory effort is noted there is no evidence of wheezing rhonchi or rales CARDIOVASCULAR: Regular rate and rhythm noted there no murmurs rubs or gallops normal S1 normal S2. GASTROINTESTINAL: The abdomen is soft. Abdomen is nontender. MUSCULOSKELETAL/EXTREMITIES: There is no evidence of gross deformity full range of motion is noted in the hips and shoulders. SKIN: Skin was warm and dry. Trace pedal edema was noted bilaterally. NEUROLOGIC: Patient is awake alert and oriented x3. Gait is steady. PSYCH: The patient makes good eye contact for most of the evaluation. His affect is flat. He appears guarded and somewhat anxious. He is currently denying any suicidal homicidal ideation. MEDICAL DECISION MAKING: The patient is a 60-year-old male who presented to the emergency department for mental health evaluation. The patient presented with police with a 302 petition. The patient made suicidal ideation known to his ex- via text message. The text messaging was very vague but the patient appeared to be threatening himself and possibly threatening his significant other. The patient presented to the em ergency department with police who were called to intervene because of the possibility of a handgun being involved. 9 law enforcement officers presented to the patient's home but he was able to be brought to the emergency department without any harm to himself or others. The patient was very vague about the episode. He was in denial and had very poor insight into what actually happened but he did have a few episodes where he made comments that he would only hurt somebody if they hurt him. I was very concerned that the patient may require inpatient management to ensure his safety as well as safety of others around him. The patient did not agree with this and ultimately the 302 petition was up held by myself. The patient was medically cleared in the emergency department. At this time bed search is underway. The patient was referred to [facility] He was felt to be a good candidate for inpatient management and was ultimately accepted at [facility]. 302 paperwork was filled out by myself. Triage Nursing notes reviewed. Prior medical records reviewed Vital Signs: reviewed and remarkable for no significant abnormalities Differential diagnosis: Mood disorder, infection, hypoglycemia, electrolyte abnormalities, cardiac sources, intracerebral event, toxicologic, trauma, neurologic, as well as other pathologies. ER treatment provided: See below Diagnostics interpreted by me: ECG: none Laboratory studies: As stated above and show below. Imaging studies: See below Consultation(s): none Past Med/Surg History Surgical History History of appendectomy History of right knee joint replacement Social History Smoking Status: Smoker, status unknown Tobacco Type: Smokeless Tobacco (Dip or Chew) Hx Alcohol Use: Yes Alcohol type: beer Feels Safe at Home: Yes Allergies Allergies Allergy/AdvReac Type Severity Reaction Status Date / Time Quinolones Allergy Mild HIVES Verified 01/09/20 14:03 Home Meds Home Medications Medication Instructions Recorded Confirmed No Known Home Medications 01/13/21 01/13/21 Results & Data (ED) Vital Signs Vital Signs - 24 hr 01/13/21 20:21 01/13/21 23:29 Temperature 36.9 C Temperature Source Oral Pulse Rate 86 Pulse Rate [Right Finger] 77 Respiratory Rate 20 20 Respiratory Effort / Characteristics Non-Labored Respiratory Depth Normal Blood Pressure 153/93 H Blood Pressure [Left Arm] 122/74 Blood Pressure Mean 113 Blood Pressure Mean [Left Arm] 90 Pulse Oximetry 96 98 Oxygen Delivery Method Room Air Room Air Sepsis Recent Fever Within 48 Hours No Sepsis New/Unexplained Change in Mental Status N/A Sepsis Action Taken by Nursing No Action Required Laboratory Data Result diagrams: 01/13/21 20:34 01/13/21 20:34 Lab Results 01/13/21 01/13/21 01/13/21 Range/Units 20:34 20:34 20:34 WBC 7.62 (4.8-10.8) K/uL RBC 5.35 (4.7-6.1) M/uL Hgb 15.5 (14.0-18.0) g/dL Hct 45.1 (42-52) % MCV 84.3 (80-100) fL MCH 29.0 (25-34) pg MCHC 34.4 (32-36) g/dL RDW Std Deviation 41.4 (36.4-46.3) fL RDW Coeff of Charity 13.5 (11.5-14.5) % Plt Count 291 (130-400) K/uL MPV 9.3 (7.4-10.4) fL Immature Gran % (Auto) 0.1 % Neut % (Auto) 58.3 % Lymph % (Auto) 29.5 % Perkins % (Auto) 8.0 % Eos % (Auto) 3.8 % Baso % (Auto) 0.3 % Neut # (Auto) 4.44 (1.4-6.5) K/uL Lymph # (Auto) 2.25 (1.2-3.4) K/uL Perkins # (Auto) 0.61 H (0.11-0.59) K/uL Eos # (Auto) 0.29 (0-0.5) K/uL Baso # (Auto) 0.02 (0-0.2) K/uL Immature Gran # (Auto) 0.01 (0.00-0.02) K/uL Sodium 140 (136-145) mmol/L Potassium 4.1 (3.5-5.1) mmol/L Chloride 107 (98-107) mmol/L Carbon Dioxide 26 (21-32) mmol/L Anion Gap 7.0 (3-11) BUN 12 (7-18) mg/dl Creatinine 0.94 (0.6-1.4) mg/dl Est Cr Clr Drug Dosing Not Reportable Est GFR ( Amer) 101.7 ml/min Est GFR (Non-Af Amer) 87.8 ml/min BUN/Creatinine Ratio 12.9 (10-20) Glucose 102 H (70-99) mg/dl Calcium 8.6 (8.5-10.1) mg/dl Total Bilirubin 0.7 (0.2-1) mg/dl AST 21 (15-37) U/L ALT 29 (12-78) U/L Alkaline Phosphatase 88 (45-117) U/L Total Protein 7.3 (6.4-8.2) gm/dl Albumin 3.8 (3.4-5.0) gm/dl Globulin 3.5 (2.5-4.0) gm/dl Albumin/Globulin Ratio 1.1 (0.9-2) TSH 1.300 (0.300-4.500) uIu/ml Urine Color Urine Appearance (Clear) Urine pH (4.5-7.5) Ur Specific Kane (1.000-1.030) Urine Protein (Negative) Urine Glucose (UA) (Negative) Urine Ketones (Negative) Urine Blood (Negative) Urine Nitrite (Negative) Urine Bilirubin (Negative) Urine Urobilinogen (Negative) Ur Leukocyte Esterase (Negative) Salicylates < 1.7 L (2.8-20) mg/dl Urine Opiates Screen (Neg) Ur Methadone, Qual (Neg) Acetaminophen < 2 L (10-30) ug/ml Urine Barbiturates (Neg) Ur Phencyclidine (PCP) (Neg) U Amphetamin/Meth Scrn (Neg) MDMA (Ecstasy) Screen (Neg) U Benzodiazepines Scrn (Neg) Ur Cocaine Metabolite (Neg) U Marijuana (THC) Screen (Neg) Ethyl Alcohol mg/dL (0-3) mg/dl COVID-19 Eval Order SARS-CoV-2 (PCR) SARS-CoV-2, RNA, NAAT (NEGATIVE) 01/13/21 01/13/21 01/13/21 Range/Units 20:34 20:35 20:35 WBC (4.8-10.8) K/uL RBC (4.7-6.1) M/uL Hgb (14.0-18.0) g/dL Hct (42-52) % MCV (80-100) fL MCH (25-34) pg MCHC (32-36) g/dL RDW Std Deviation (36.4-46.3) fL RDW Coeff of Charity (11.5-14.5) % Plt Count (130-400) K/uL MPV (7.4-10.4) fL Immature Gran % (Auto) % Neut % (Auto) % Lymph % (Auto) % Perkins % (Auto) % Eos % (Auto) % Baso % (Auto) % Neut # (Auto) (1.4-6.5) K/uL Lymph # (Auto) (1.2-3.4) K/uL Perkins # (Auto) (0.11-0.59) K/uL Eos # (Auto) (0-0.5) K/uL Baso # (Auto) (0-0.2) K/uL Immature Gran # (Auto) (0.00-0.02) K/uL Sodium (136-145) mmol/L Potassium (3.5-5.1) mmol/L Chloride (98-107) mmol/L Carbon Dioxide (21-32) mmol/L Anion Gap (3-11) BUN (7-18) mg/dl Creatinine (0.6-1.4) mg/dl Est Cr Clr Drug Dosing Est GFR ( Amer) ml/min Est GFR (Non-Af Amer) ml/min BUN/Creatinine Ratio (10-20) Glucose (70-99) mg/dl Calcium (8.5-10.1) mg/dl Total Bilirubin (0.2-1) mg/dl AST (15-37) U/L ALT (12-78) U/L Alkaline Phosphatase (45-117) U/L Total Protein (6.4-8.2) gm/dl Albumin (3.4-5.0) gm/dl Globulin (2.5-4.0) gm/dl Albumin/Globulin Ratio (0.9-2) TSH (0.300-4.500) uIu/ml Urine Color Urine Appearance (Clear) Urine pH (4.5-7.5) Ur Specific Kane (1.000-1.030) Urine Protein (Negative) Urine Glucose (UA) (Negative) Urine Ketones (Negative) Urine Blood (Negative) Urine Nitrite (Negative) Urine Bilirubin (Negative) Urine Urobilinogen (Negative) Ur Leukocyte Esterase (Negative) Salicylates (2.8-20) mg/dl Urine Opiates Screen (Neg) Ur Methadone, Qual (Neg) Acetaminophen (10-30) ug/ml Urine Barbiturates (Neg) Ur Phencyclidine (PCP) (Neg) U Amphetamin/Meth Scrn (Neg) MDMA (Ecstasy) Screen (Neg) U Benzodiazepines Scrn (Neg) Ur Cocaine Metabolite (Neg) U Marijuana (THC) Screen (Neg) Ethyl Alcohol mg/dL < 3.0 (0-3) mg/dl COVID-19 Eval Order Covid19 at [facility] SARS-CoV-2 (PCR) Cancelled SARS-CoV-2, RNA, NAAT (NEGATIVE) 01/13/21 01/13/21 01/13/21 Range/Units 20:35 20:39 20:39 WBC (4.8-10.8) K/uL RBC (4.7-6.1) M/uL Hgb (14.0-18.0) g/dL Hct (42-52) % MCV (80-100) fL MCH (25-34) pg MCHC (32-36) g/dL RDW Std Deviation (36.4-46.3) fL RDW Coeff of Charity (11.5-14.5) % Plt Count (130-400) K/uL MPV (7.4-10.4) fL Immature Gran % (Auto) % Neut % (Auto) % Lymph % (Auto) % Perkins % (Auto) % Eos % (Auto) % Baso % (Auto) % Neut # (Auto) (1.4-6.5) K/uL Lymph # (Auto) (1.2-3.4) K/uL Perkins # (Auto) (0.11-0.59) K/uL Eos # (Auto) (0-0.5) K/uL Baso # (Auto) (0-0.2) K/uL Immature Gran # (Auto) (0.00-0.02) K/uL Sodium (136-145) mmol/L Potassium (3.5-5.1) mmol/L Chloride (98-107) mmol/L Carbon Dioxide (21-32) mmol/L Anion Gap (3-11) BUN (7-18) mg/dl Creatinine (0.6-1.4) mg/dl Est Cr Clr Drug Dosing Est GFR ( Amer) ml/min Est GFR (Non-Af Amer) ml/min BUN/Creatinine Ratio (10-20) Glucose (70-99) mg/dl Calcium (8.5-10.1) mg/dl Total Bilirubin (0.2-1) mg/dl AST (15-37) U/L ALT (12-78) U/L Alkaline Phosphatase (45-117) U/L Total Protein (6.4-8.2) gm/dl Albumin (3.4-5.0) gm/dl Globulin (2.5-4.0) gm/dl Albumin/Globulin Ratio (0.9-2) TSH (0.300-4.500) uIu/ml Urine Color Yellow Urine Appearance Clear (Clear) Urine pH 6.0 (4.5-7.5) Ur Specific Kane 1.019 (1.000-1.030) Urine Protein Negative (Negative) Urine Glucose (UA) Negative (Negative) Urine Ketones Trace H (Negative) Urine Blood Negative (Negative) Urine Nitrite Negative (Negative) Urine Bilirubin Negative (Negative) Urine Urobilinogen Negative (Negative) Ur Leukocyte Esterase Negative (Negative) Salicylates (2.8-20) mg/dl Urine Opiates Screen Neg (Neg) Ur Methadone, Qual Neg (Neg) Acetaminophen (10-30) ug/ml Urine Barbiturates Neg (Neg) Ur Phencyclidine (PCP) Neg (Neg) U Amphetamin/Meth Scrn Neg (Neg) MDMA (Ecstasy) Screen Neg (Neg) U Benzodiazepines Scrn Neg (Neg) Ur Cocaine Metabolite Neg (Neg) U Marijuana (THC) Screen Neg (Neg) Ethyl Alcohol mg/dL (0-3) mg/dl COVID-19 Eval Order SARS-CoV-2 (PCR) SARS-CoV-2, RNA, NAAT NEGATIVE (NEGATIVE) Discharge Plan Visit Data Chief Complaint: Mental Health Evaluation Stated Complaint: MENTAL HEALTH EVALUATION ED Provider: Jaylen Novoa Discharge Problem: Suicidal ideations, Anxiety Patient Disposition: Still a Patient Condition: Good Discharge Instructions Interventions: ED Discharge Assessment Last Done: 01/14/21 00:30 Forms Stand Alone Forms: [facility], Suicide Prevention Resources Prescriptions Prescriptions: No Action No Known Home Medications RF: 0 Referrals Referrals: PCP,NO [Primary Care Provider] -
[2021-01-13 20:46] LABS: Basophils # (auto) 0.02 K/uL (0-0.2); Basophils % (auto) 0.3 %; Eosinophils # (auto) 0.29 K/uL (0-0.5); Eosinophils % (auto) 3.8 %; Hematocrit (blood only) 45.1 % (42-52); Hemoglobin 15.5 g/dL (14.0-18.0); Immature Granulocytes # (auto) 0.01 K/uL (0.00-0.02); Immature Granulocytes % (auto) 0.1 %; Lymphocytes # (auto) 2.25 K/uL (1.2-3.4); Lymphocytes % (auto) 29.5 %; Mean Corpuscular Hgb Conc 34.4 g/dL (32-36); Mean Corpuscular Volume 84.3 fL (80-100); Mean Platelet Volume 9.3 fL (7.4-10.4); Monocytes # (auto) 0.61 K/uL (0.11-0.59); Neutrophils # (auto) 4.44 K/uL (1.4-6.5); Neutrophils % (auto) 58.3 %; Platelet Count 291 K/uL (130-400); RDW Coefficient of Variation 13.5 % (11.5-14.5); RDW Standard Deviation 41.4 fL (36.4-46.3); Red Blood Count 5.35 M/uL (4.7-6.1); White Blood Count 7.62 K/uL (4.8-10.8)
[2021-01-13 21:04] LABS: Alanine Aminotransferase 29 U/L (12-78); Albumin Level 3.8 gm/dl (3.4-5.0); Aspartate Aminotransferase 21 U/L (15-37); BUN Creatinine Ratio 12.9 (10-20); Blood Urea Nitrogen 12 mg/dl (7-18); Calcium 8.6 mg/dl (8.5-10.1); Carbon Dioxide 26 mmol/L (21-32); Chloride 107 mmol/L (98-107); Est GFR (African American) 101.7 ml/min; Est GFR (Non-African American) 87.8 ml/min; Glucose 102 mg/dl (70-99); Potassium 4.1 mmol/L (3.5-5.1); Sodium 140 mmol/L (136-145)
[2021-01-13 21:04] LABS: Appearance Urine Clear (Clear); Bilirubin Urine Negative (Negative); Blood Urine Negative (Negative); Color Urine Yellow; Glucose Urine UA Negative (Negative); Ketones Urine Trace (Negative); Leukocyte Esterase Urine Negative (Negative); Nitrite Urine Negative (Negative); Protein Urine Negative (Negative); Specific Gravity Urine 1.019 (1.000-1.030); Urobilinogen Urine Negative (Negative)
[2021-01-13 21:13] LABS: Albumin Globulin Ratio 1.1 (0.9-2); Alkaline Phosphatase 88 U/L (45-117); Bilirubin,Total 0.7 mg/dl (0.2-1); Globulin 3.5 gm/dl (2.5-4.0); Total Protein 7.3 gm/dl (6.4-8.2)
[2021-01-13 21:31] LABS: Acetaminophen < 2 ug/ml (10-30); Salicylate < 1.7 mg/dl (2.8-20)
[2021-01-13 22:06] LABS: Amphetamines+Metham, Urine Neg (Neg); Barbiturates, Urine Neg (Neg); Benzodiazepine, Urine Neg (Neg); Cocaine, Urine Neg (Neg); MDMA (Ecstacy), Urine Neg (Neg); Methadone, Urine Neg (Neg); Opiate, Urine Neg (Neg); Phencyclidine, Urine Neg (Neg)
--- NOTE | 2021-01-14 00:12 | Emergency Department Note ---
ED Visit Note Patient accepted to [address] [place] [address] Novoa care.
[2021-01-14] MEDS ORDERED: BISMUTH SUBSALICYLATE LIQD 236 ML PO PRN (01:41)
[2021-01-14] MEDS ORDERED: ALUMINUM/MAGNESIUM SUSP 30 ML UDC PO PRN (01:41)
[2021-01-14] MEDS ORDERED: SODIUM CHLORIDE 0.65% NA SOLN 45 ML (OCEAN) PRN (01:41)
[2021-01-14] MEDS ORDERED: MAGNESIUM HYDROXIDE SUSP 30 ML UDC PO PRN (01:41)
[2021-01-14] MEDS ORDERED: ACETAMINOPHEN 325 MG TAB PO PRN (01:41)
[2021-01-14] MEDS ORDERED: hydrOXYzine HCl 25 MG TAB PO PRN ×2 (01:41)
[2021-01-14] MEDS ORDERED: diazePAM 5 MG TABLET PO ONE (01:58)
--- NOTE | 2021-01-14 14:53 | History & Physical ---
Date of Service January 14, 2021 Impression / Recommendations Impression 60-year-old male who made a suicidal comment in the context of interpersonal relationship difficulties and alcohol use. Patient is denying any psychiatric symptoms at this time, is able to reasonably and rationally explain the situation as well as list reasons for living. We will continue to monitor patient for an additional 24 hours before making discharge decisions. (1) Suicidal ideations: The patient was admitted to the [facility] on every 15 minute checks (behavioral with suicide precautions for safety. The patient will participate in group, recreational, and milieu therapies and will be offered additional individual and family sessions as clinically appropriate. No medications for now, we will continue to monitor observe patient to determine need for further treatment. Protective Factors Assessment Employed: Yes Psychiatric History Identifying Data VITALY GRANDA is a 60-year-old M who currently lives in [place] with his 2 daughters and ex-, has no psychiatric history, and was admitted on 01/14/21 00:22 on a 302 involuntary commitment for suicidal ideation. Chief Complaint "It is a big misunderstanding, I am not suicidal, that message was only meant for 1 person.". 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 The patient reports I got stupid. He reports he is in love with a woman who doesnt love him and has been bringing another man into his home. The patient reports he isnt a violent man and would never do anything since a friend completed suicide as did his ex-wifes brother. The patient denies a history of mental health problems or attempting to harm himself. The patient reports he was going to tell his ex- he was cleaning his gun but it went differently. The patient reports he has situation with his ex- and hes trying to get help because he cant get the feelings out of his head. Officer Adriel statement reads: on 01/13/21, at approx. 1900 hrs, I was called to [address] [place] [address] to investigate Vitaly Granda threatening to harm himself. Upon my arrival I was shown text messages sent by Kalee showing a handgun in his hands. The messages I told you you pushed me to the point I dont care, and its too late for me. Upon contact with Kalee he related he had sent the messages. Met with the patient and his daughter Arline to complete [facility] Psychiatric Mental Health Evaluation. The patient continues to deny he was trying to harm himself (scored a 0 on his Suicide Assessment) when he had the gun mentioned in his 302 and denies being depressed (I just have anger issues, but Arline reports she thinks he is depressed based on things he has said and the text messages he sent to his ex- [Arline referenced messages on her phone that were the same as statements in Terell Morel statement]). The patient reports stressors of his ex- still living in their home (still on the deed) and bringing her new boyfriend into the house (reports he told her she could do anything she wants except bring new boyfriend into the house). He also reports the house is overcrowded. The patient denies being anxious and reports I wouldnt even know if I had it. The patient admits to drinking 3 16 oz. beers tonight but denies drug use (I dont like taking meds). Updated Dr. Novoa and based on patients lack of insight and judgement, 302 upheld." Upon evaluation today patient endorsed the above information is accurate. He still maintains that he was not suicidal or homicidal during this encounter, and rather that the message was made as an attempt to express his frustration to his and in the context of alcohol use. He is expressing regret for having made suicidal threats, as well as feeling embarrassed for having to come to the hospital because of it. Patient was encouraged to share his feelings but mainta ined that he has not been depressed or anxious and is void of psychiatric symptoms. He denied any hallucinations or psychotic symptoms, paranoia or sleeping difficulty. Patient goes on to explain the situation as he has been from his for 3 years yet they continue to share residence. More recently patient's ex- has been bringing her boyfriend into his house which he feels is wrong and he is in the process of trying to evict her from the house. Patient denies that he would do anything to harm himself for her. He denies any prior suicide attempts or any prior acts of violence. Patient himself has had his guns removed from the home by his adult daughter. He is unwilling to take any medication at this time. Patient was spoken to regarding his traumatic past including loss of a and child approximately 20 years ago. Patient becomes tearful when discussing this. He acknowledged that therapy may be beneficial although is unsure if he will be able to make therapy schedule work with his current work schedule. He was calm and cooperative throughout the encounter and agreeable to the plan to monitor for another 24 hours prior to making any discharge decisions. Past Psychiatric History Current Psychiatric Diagnosis: MDD Allergies Allergy/AdvReac Type Severity Reaction Status Date / Time Quinolones Allergy Mild HIVES Verified 01/09/20 14:03 Home Medications Medication Instructions Recorded Confirmed Type No Known Home Medications 01/13/21 01/13/21 History Family History Family History of: Depression and Anxiety Alcohol History Hx of Alcohol Use Over the Past 12 Months: Yes (occasional; "2 beers here and there") AUDIT Total Score: 2 Smoking Use Have You Smoked or Used Tobacco Products in the Last 30 Days: Yes tobacco type: smokeless tobacco Smoking Status: Heavy tobacco smoker Smoking packs per day: 1 Substance History Hx of Prescription Med Misuse Over the Past 12 Months: No Hx of Over the Counter Med Misuse Over the Past 12 Months: No Hx of Inhalent Misuse Over the Past 12 Months: No Hx of Organic Substance Use Over the Past 12 Months: No Hx of Illegal Substances/Street Drug Use Over Past 12 Months: No Problems as a Result of Past Substance Use: None Identified Personal History Living Arrangements: Home Highest Grade Completed: High School Graduate Marital Status: Beliefs That Will Affect Care: None Patient History Surgical History History of appendectomy History of right knee joint replacement Social History Smoking Status: Heavy tobacco smoker Tobacco Type: Smokeless Tobacco (Dip or Chew) Hx Alcohol Use: Yes Alcohol type: beer Preferred Language: Slovak Communication Ability: Effective Service Specialist Required: No Beliefs That Will Affect Care: None Feels Safe at Home: Yes Assistive Devices: Glasses Review of Systems Review of Systems: All systems reviewed & are unremarkable except as noted in HPI & below Physical Exam Psychiatric: A+Ox3, euthymic affect Orientation: alert and oriented x 3 Apperance: appropriately groomed Eye Contact: good eye contact Motor Behavior: no abnormal motor movements Speech: normal rate/rhythm/volume of speech Affect: euthymic affect Mood: no depressed mood and no dysphoric mood Thought Process: linear/logical thought process Thought Content: reality based without delusions Suicidal Thoughts: + reports suicidal thoughts and + reports suicidal plan Homicidal Thoughts: denies homicidal plan; + reports homicidal thoughts Hallucinations: no auditory hallucinations and no visual hallucinations Cognition: attention grossly intact Estimated Intelligence: consistent with education level Insight: + fair insight Judgement: + fair judgement Vital Signs (Past 24 Hours): Last Vital Signs Temp 36.5 C 01/14/21 06:43 Pulse 98 H 01/14/21 06:44 Resp 16 01/14/21 06:43 BP 105/61 01/14/21 06:44 Pulse Ox 98 01/14/21 01:43 Exam Statement: A physical exam was performed in the ER prior to admission to the unit by Dr. Novoa. I accept that physical as correct/medical clearance for the inpatient physical exam. Results & Data ([facility]) Laboratory Results Laboratory Results - last 24 hr 01/13/21 01/13/21 01/13/21 20:34 20:34 20:34 WBC 7.62 RBC 5.35 Hgb 15.5 Hct 45.1 MCV 84.3 MCH 29.0 MCHC 34.4 RDW Std Deviation 41.4 RDW Coeff of Charity 13.5 Plt Count 291 MPV 9.3 Immature Gran % (Auto) 0.1 Neut % (Auto) 58.3 Lymph % (Auto) 29.5 [place] % (Auto) 8.0 Eos % (Auto) 3.8 Baso % (Auto) 0.3 Neut # (Auto) 4.44 Lymph # (Auto) 2.25 [place] # (Auto) 0.61 H Eos # (Auto) 0.29 Baso # (Auto) 0.02 Immature Gran # (Auto) 0.01 Sodium 140 Potassium 4.1 Chloride 107 Carbon Dioxide 26 Anion Gap 7.0 BUN 12 Creatinine 0.94 Est Cr Clr Drug Dosing Not Reportable Est GFR ( Amer) 101.7 Est GFR (Non-Af Amer) 87.8 BUN/Creatinine Ratio 12.9 Glucose 102 H Calcium 8.6 Total Bilirubin 0.7 AST 21 ALT 29 Alkaline Phosphatase 88 Total Protein 7.3 Albumin 3.8 Globulin 3.5 Albumin/Globulin Ratio 1.1 TSH 1.300 Urine Color Urine Appearance Urine pH Ur Specific [place] Urine Protein Urine Glucose (UA) Urine Ketones Urine Blood Urine Nitrite Urine Bilirubin Urine Urobilinogen Ur Leukocyte Esterase Salicylates < 1.7 L Urine Opiates Screen Ur Methadone, Qual Acetaminophen < 2 L Urine Barbiturates Ur Phencyclidine (PCP) U Amphetamin/Meth Scrn MDMA (Ecstasy) Screen U Benzodiazepines Scrn Ur Cocaine Metabolite U Marijuana (THC) Screen Ethyl Alcohol mg/dL COVID-19 Eval Order SARS-CoV-2 (PCR) SARS-CoV-2, RNA, NAAT 01/13/21 01/13/21 01/13/21 20:34 20:35 20:35 WBC RBC Hgb Hct MCV MCH MCHC RDW Std Deviation RDW Coeff of Charity Plt Count MPV Immature Gran % (Auto) Neut % (Auto) Lymph % (Auto) [place] % (Auto) Eos % (Auto) Baso % (Auto) Neut # (Auto) Lymph # (Auto) [place] # (Auto) Eos # (Auto) Baso # (Auto) Immature Gran # (Auto) Sodium Potassium Chloride Carbon Dioxide Anion Gap BUN Creatinine Est Cr Clr Drug Dosing Est GFR ( Amer) Est GFR (Non-Af Amer) BUN/Creatinine Ratio Glucose Calcium Total Bilirubin AST ALT Alkaline Phosphatase Total Protein Albumin Globulin Albumin/Globulin Ratio TSH Urine Color Urine Appearance Urine pH Ur Specific [place] Urine Protein Urine Glucose (UA) Urine Ketones Urine Blood Urine Nitrite Urine Bilirubin Urine Urobilinogen Ur Leukocyte Esterase Salicylates Urine Opiates Screen Ur Methadone, Qual Acetaminophen Urine Barbiturates Ur Phencyclidine (PCP) U Amphetamin/Meth Scrn MDMA (Ecstasy) Screen U Benzodiazepines Scrn Ur Cocaine Metabolite U Marijuana (THC) Screen Ethyl Alcohol mg/dL < 3.0 COVID-19 Eval Order Covid19 at [facility] SARS-CoV-2 (PCR) Cancelled SARS-CoV-2, RNA, NAAT 01/13/21 01/13/21 01/13/21 20:35 20:39 20:39 WBC RBC Hgb Hct MCV MCH MCHC RDW Std Deviation RDW Coeff of Charity Plt Count MPV Immature Gran % (Auto) Neut % (Auto) Lymph % (Auto) [place] % (Auto) Eos % (Auto) Baso % (Auto) Neut # (Auto) Lymph # (Auto) [place] # (Auto) Eos # (Auto) Baso # (Auto) Immature Gran # (Auto) Sodium Potassium Chloride Carbon Dioxide Anion Gap BUN Creatinine Est Cr Clr Drug Dosing Est GFR ( Amer) Est GFR (Non-Af Amer) BUN/Creatinine Ratio Glucose Calcium Total Bilirubin AST ALT Alkaline Phosphatase Total Protein Albumin Globulin Albumin/Globulin Ratio TSH Urine Color Yellow Urine Appearance Clear Urine pH 6.0 Ur Specific [place] 1.019 Urine Protein Negative Urine Glucose (UA) Negative Urine Ketones Trace H Urine Blood Negative Urine Nitrite Negative Urine Bilirubin Negative Urine Urobilinogen Negative Ur Leukocyte Esterase Negative Salicylates Urine Opiates Screen Neg Ur Methadone, Qual Neg Acetaminophen Urine Barbiturates Neg Ur Phencyclidine (PCP) Neg U Amphetamin/Meth Scrn Neg MDMA (Ecstasy) Screen Neg U Benzodiazepines Scrn Neg Ur Cocaine Metabolite Neg U Marijuana (THC) Screen Neg Ethyl Alcohol mg/dL COVID-19 Eval Order SARS-CoV-2 (PCR) SARS-CoV-2, RNA, NAAT NEGATIVE Current Inpatient Medications Current Inpatient Medications: Current Inpatient Medications Acetaminophen (Acetaminophen 325 Mg Tab) 650 mg PO Q4H PRN PRN Reason: Headache or Minor Fever Stop: 02/13/21 01:40 Al Hydrox/Mg Hydrox/Simethicone (Aluminum/Magnesium Susp 30 Ml Udc) 30 ml PO Q4H PRN PRN Reason: GI Upset Stop: 02/13/21 01:40 Bismuth Subsalicylate (Bismuth Subsalicylate Liqd 236 Ml) 15 ml PO PRN PRN PRN Reason: Loose Stool Stop: 02/13/21 01:40 Hydroxyzine HCl (Hydroxyzine Hcl 25 Mg Tab) 50 mg PO HSZ PRN PRN Reason: Insomnia Stop: 02/13/21 01:40 Hydroxyzine HCl (Hydroxyzine Hcl 25 Mg Tab) 25 mg PO Q4H PRN PRN Reason: Anxiety Stop: 02/13/21 01:40 Magnesium Hydroxide (Magnesium Hydroxide Susp 30 Ml Udc) 30 ml PO DAILY PRN PRN Reason: Constipation Stop: 02/13/21 01:40 Sodium Chloride (Sodium Chloride 0.65% Na Soln 45 Ml ([place])) 1 - 2 sprays NA PRN PRN PRN Reason: Nasal Dryness/Congestion Stop: 02/13/21 01:40
--- NOTE | 2021-01-15 09:57 | Discharge Summary ---
Date of Service January 15, 2021 History of Present Illness HPI as per psychiatric showcase maker " Patient brought in by [facility] Police and Box B completed by Terell Bassett. The patient reports I got stupid. He reports he is in love with a woman who doesnt love him and has been bringing another man into his home. The patient reports he isnt a violent man and would never do anything since a friend completed suicide as did his ex-wifes brother. The patient denies a history of mental health problems or attempting to harm himself. The patient reports he was going to tell his ex- he was cleaning his gun but it went differently. The patient reports he has situation with his ex- and hes trying to get help because he cant get the feelings out of his head. Officer Adriel statement reads: on 01/13/21, at approx. 1900 hrs, I was called to [address] [place] [address] to investigate Ge Granda threatening to harm himself. Upon my arrival I was shown text messages sent by Kalee showing a handgun in his hands. The messages I told you you pushed me to the point I dont care, and its too late for me. Upon contact with Yane he related he had sent the messages. Met with the patient and his daughter Arline to complete [facility] Psychiatric Mental Health Evaluation. The patient continues to deny he was trying to harm himself (scored a 0 on his Suicide Assessment) when he had the gun mentioned in his 302 and denies being depressed (I just have anger issues, but Arline reports she thinks he is depressed based on things he has said and the text messages he sent to his ex- [Arline referenced messages on her phone that were the same as statements in Terell Morel statement]). The patient reports stressors of his ex- still living in their home (still on the deed) and bringing her new boyfriend into the house (reports he told her she could do anything she wants except bring new boyfriend into the house). He also reports the house is overcrowded. The patient denies being anxious and reports I wouldnt even know if I had it. The patient admits to drinking 3 16 oz. beers tonight but denies drug use (I dont like taking meds). Updated Dr. Novoa and based on patients lack of insight and judgement, 302 upheld." Upon evaluation today patient endorsed the above information is accurate. He still maintains that he was not suicidal or homicidal during this encounter, and rather that the message was made as an attempt to express his frustration to his and in the context of alcohol use. He is expressing regret for having made suicidal threats, as well as feeling embarrassed for having to come to the hospital because of it. Patient was encouraged to share his feelings but maintained that he has not been depressed or anxious and is void of psychiatric symptoms. He denied any hallucinations or psychotic symptoms, paranoia or sleeping difficulty. Patient goes on to explain the situation as he has been from his for 3 years yet they continue to share residence. More recently patient's ex- has been bringing her boyfriend into his house which he feels is wrong and he is in the process of trying to evict her from the house. Patient denies that he would do anything to harm himself for her. He denies any prior suicide att empts or any prior acts of violence. Patient himself has had his guns removed from the home by his adult daughter. He is unwilling to take any medication at this time. Patient was spoken to regarding his traumatic past including loss of a and child approximately 20 years ago. Patient becomes tearful when discussing this. He acknowledged that therapy may be beneficial although is unsure if he will be able to make therapy schedule work with his current work schedule. He was calm and cooperative throughout the encounter and agreeable to the plan to monitor for another 24 hours prior to making any discharge decisions. Physical Exam Psychiatric A+Ox3, euthymic affect Orientation: alert and oriented x 3 Apperance: appropriately groomed Eye Contact: good eye contact Motor Behavior: no abnormal motor movements Speech: normal rate/rhythm/volume of speech Affect: euthymic affect Mood: no depressed mood and no dysphoric mood Thought Process: linear/logical thought process Thought Content: reality based without delusions Suicidal Thoughts: + reports suicidal thoughts and + reports suicidal plan Homicidal Thoughts: denies homicidal plan; + reports homicidal thoughts Hallucinations: no auditory hallucinations and no visual hallucinations Cognition: attention grossly intact Estimated Intelligence: consistent with education level Insight: + fair insight Judgement: + fair judgement Vital Signs (Past 24 Hours) Last Vital Signs Temp 36.6 C 01/15/21 06:45 Pulse 66 01/15/21 06:46 Resp 16 01/15/21 06:45 BP 132/85 01/15/21 06:46 Pulse Ox 98 01/14/21 01:43 Principal Diagnosis Adjustment disorder Psychiatric Data See daily stay summary. In short, safety was maintained, and the patient was cooperative with care. No medication as patient was devoid of psychiatric symptoms upon arrival to the unit. He was able to reasonably and logically explain that his suicidal statement was made provocatively as a way of manipulating his . He expressed appropriate regret for having done so.he was able to list numerous protective factors and reasons for living and was future oriented throughout the entire stay. A family session was held and safety plan was completed prior to discharge. Day of Discharge Assessment Today the patient voices readiness for discharge. They note improvement in mood and deny thoughts to harm self or others. Thoughts remain organized and they are improved from admission. There is no evidence of psychosis. They are stable for discharge. It was our recommendation that patient obtain therapist in order to talk about the difficult situation he was currently living in however patient adamantly refused. Advance Directives Advance Directives Information Provided: Yes Advance Directives: No Mental Health Advance Directive: No Advance Directives on File: No Living Will: No Power of Stogie Packer: No Advance Directives Reason:: Declines as Mental Health Visit. Protective Factors Assessment Employed: Yes Discharge Data Lab Results 01/13/21 01/13/21 01/13/21 20:34 20:34 20:34 WBC 7.62 RBC 5.35 Hgb 15.5 Hct 45.1 MCV 84.3 MCH 29.0 MCHC 34.4 RDW Std Deviation 41.4 RDW Coeff of Charity 13.5 Plt Count 291 MPV 9.3 Immature Gran % (Auto) 0.1 Neut % (Auto) 58.3 Lymph % (Auto) 29.5 [place] % (Auto) 8.0 Eos % (Auto) 3.8 Baso % (Auto) 0.3 Neut # (Auto) 4.44 Lymph # (Auto) 2.25 [place] # (Auto) 0.61 H Eos # (Auto) 0.29 Baso # (Auto) 0.02 Immature Gran # (Auto) 0.01 Sodium 140 Potassium 4.1 Chloride 107 Carbon Dioxide 26 Anion Gap 7.0 BUN 12 Creatinine 0.94 Est Cr Clr Drug Dosing Not Reportable Est GFR ( Amer) 101.7 Est GFR (Non-Af Amer) 87.8 BUN/Creatinine Ratio 12.9 Glucose 102 H Calcium 8.6 Total Bilirubin 0.7 AST 21 ALT 29 Alkaline Phosphatase 88 Total Protein 7.3 Albumin 3.8 Globulin 3.5 Albumin/Globulin Ratio 1.1 TSH 1.300 Urine Color Urine Appearance Urine pH Ur Specific [place] Urine Protein Urine Glucose (UA) Urine Ketones Urine Blood Urine Nitrite Urine Bilirubin Urine Urobilinogen Ur Leukocyte Esterase Salicylates < 1.7 L Urine Opiates Screen Ur Methadone, Qual Acetaminophen < 2 L Urine Barbiturates Ur Phencyclidine (PCP) U Amphetamin/Meth Scrn MDMA (Ecstasy) Screen U Benzodiazepines Scrn Ur Cocaine Metabolite U Marijuana (THC) Screen Ethyl Alcohol mg/dL COVID-19 Eval Order SARS-CoV-2 (PCR) SARS-CoV-2, RNA, NAAT 01/13/21 01/13/21 01/13/21 20:34 20:35 20:35 WBC RBC Hgb Hct MCV MCH MCHC RDW Std Deviation RDW Coeff of Charity Plt Count MPV Immature Gran % (Auto) Neut % (Auto) Lymph % (Auto) [place] % (Auto) Eos % (Auto) Baso % (Auto) Neut # (Auto) Lymph # (Auto) [place] # (Auto) Eos # (Auto) Baso # (Auto) Immature Gran # (Auto) Sodium Potassium Chloride Carbon Dioxide Anion Gap BUN Creatinine Est Cr Clr Drug Dosing Est GFR ( Amer) Est GFR (Non-Af Amer) BUN/Creatinine Ratio Glucose Calcium Total Bilirubin AST ALT Alkaline Phosphatase Total Protein Albumin Globulin Albumin/Globulin Ratio TSH Urine Color Urine Appearance Urine pH Ur Specific [place] Urine Protein Urine Glucose (UA) Urine Ketones Urine Blood Urine Nitrite Urine Bilirubin Urine Urobilinogen Ur Leukocyte Esterase Salicylates Urine Opiates Screen Ur Methadone, Qual Acetaminophen Urine Barbiturates Ur Phencyclidine (PCP) U Amphetamin/Meth Scrn MDMA (Ecstasy) Screen U Benzodiazepines Scrn Ur Cocaine Metabolite U Marijuana (THC) Screen Ethyl Alcohol mg/dL < 3.0 COVID-19 Eval Order Covid19 at [facility] SARS-CoV-2 (PCR) Cancelled SARS-CoV-2, RNA, NAAT 01/13/21 01/13/21 01/13/21 20:35 20:39 20:39 WBC RBC Hgb Hct MCV MCH MCHC RDW Std Deviation RDW Coeff of Charity Plt Count MPV Immature Gran % (Auto) Neut % (Auto) Lymph % (Auto) [place] % (Auto) Eos % (Auto) Baso % (Auto) Neut # (Auto) Lymph # (Auto) [place] # (Auto) Eos # (Auto) Baso # (Auto) Immature Gran # (Auto) Sodium Potassium Chloride Carbon Dioxide Anion Gap BUN Creatinine Est Cr Clr Drug Dosing Est GFR ( Amer) Est GFR (Non-Af Amer) BUN/Creatinine Ratio Glucose Calcium Total Bilirubin AST ALT Alkaline Phosphatase Total Protein Albumin Globulin Albumin/Globulin Ratio TSH Urine Color Yellow Urine Appearance Clear Urine pH 6.0 Ur Specific [place] 1.019 Urine Protein Negative Urine Glucose (UA) Negative Urine Ketones Trace H Urine Blood Negative Urine Nitrite Negative Urine Bilirubin Negative Urine Urobilinogen Negative Ur Leukocyte Esterase Negative Salicylates Urine Opiates Screen Neg Ur Methadone, Qual Neg Acetaminophen Urine Barbiturates Neg Ur Phencyclidine (PCP) Neg U Amphetamin/Meth Scrn Neg MDMA (Ecstasy) Screen Neg U Benzodiazepines Scrn Neg Ur Cocaine Metabolite Neg U Marijuana (THC) Screen Neg Ethyl Alcohol mg/dL COVID-19 Eval Order SARS-CoV-2 (PCR) SARS-CoV-2, RNA, NAAT NEGATIVE Hospital Course (1) Suicidal ideations: Mental Health & Subst Abuse Tx Psychiatrist Name of Psychiatrist: Pt declining need for psychiatry Therapist Name of Therapist: Please see potential options listed below Post Discharge Appointments Primary Care Physician Name Of Family Doctor: Pt declining need for PCP Specialist Name of Specialist: Lester Bennett & Yang Song Jr Phone Number for Specialist: [phone] Date of Appointment with Specialist: 01/17/21 Time of Appointment with Specialist: 10:30 a.m. Specialty Appointment Comment: [address] [facility], [address], [place] Other #1: Name of Aftercare Appointment: Potential Therapy Option - [facility] Phone Number of Aftercare Appointment: [phone] #2: Name of Aftercare Appointment: Potential Therapy - [facility] Phone Number of Aftercare Appointment: #3: Name of Aftercare Appointment: Potential Therapy - [facility] Phone Number of Aftercare Appointment: Contact Information Discharge Discharge Address: [place] [address] Discharge Plan Discharge Items Patient Disposition: Home - Self-Care Reason For Visit: MDD Discharge Diagnosis: Adjustment Disorder Condition on Discharge: Good Activity: Resume your previous activity Non-emergency contact: Primary Care Provider Call non-emergency contact if: you have any medication questions and your symptoms worsen Follow-up/Referrals: PCP,NO [Primary Care Provider] - Diet: Regular Addtl Attending Provider Instructions: SPECIAL CARE INSTRUCTIONS: Obtain A Primary Care Provider Refer to resources if you change your mind and choose to follow our recommenda tions to obtain outpatient psychiatric providers Utilize new healthy coping skills, anger management skills, and stress management skills learned during your hospitalization. Journal feelings and process them with a support person. Identify stressors or situations that may result in relapse, deterioration or inappropriate behaviors and develop a plan to deal with those issues. If your coping skills are ineffective and you are in crisis, contact your outpatient providers for direction. If unable to reach your providers, please call the [facility] CRISIS LINE AT , go to the [facility] walk-in center at [address] [place] [address] A, [place], or go to the closest Emergency Room. Avoid alcohol and un-prescribed drugs. You have been provided with the Mental Health Advance Directives Pamphlet for your review. WHO TO CALL AND WHEN: Medical Emergencies: For questions or emergencies related to your hospital stay, please contact the Inpatient Behavioral Health Unit at [phone]. A desktop publishing operator is on-call 18/01 for the Behavioral Health Unit for emergencies At any time you feel your situation is an emergency, you may also call 911 immediately. Pending Studies at Discharge: No Stand-Alone Forms: My [employer], Smoking Cessation Medications and DC Order Prescriptions: No Action No Known Home Medications RF: 0 Discharge Orders: Discharge Order (Routine); Ordered 01/15/21 Ordered By: Jason Soto Admission Data Admit Date/Time: 01/14/21 00:22 Attending Provider: Jason Soto Admit Provider: Jason Soto Primary Care Provider: PCP,NO Other Interventions: PSY Interdisciplinary Discharge Planning Last Done: 01/14/21 11:02 Coding Level of Care Code 71374 D/C day mgmt 30 min or < Diagnoses Suicidal ideations R45.851
== END 2021-01-15 11:00 | disposition home or self-care (01) | DRG 882 ==
LOC: ED 20:13 → 3S 01-14 00:22

== ENCOUNTER 2022-04-07 11:53 | Observation (INO) ==
--- NOTE | 2022-04-06 12:59 | History & Physical Report ---
Date of Service April 06, 2022 Assessment & Plan (1) Dislocation of left shoulder joint: Plan: PRE-OP Diagnosis: Traumatic left shoulder dislocation Planned Procedure: Left shoulder arthroscopy, bony Bankart repair, possible open procedure Plan: Patient is scheduled to undergo this procedure at [facility] with a 23-hour observation admission with Dr. Coreas tomorrow Thursday April 07, 2022. Risks and complications of the procedure such as: Infection, bleeding, pain, scarring, nerve blood vessel damage, weakness, wound problems, stiffness, incomplete relief of symptoms, recurrent tear, arthritis, tendon or ligament injury, blood clots, embolism, heart attack, stroke and were explained to the patient at his visit today by Dr. Coreas and informed consent for the procedure was obtained. Patient was also advised of the risks of proceeding with surgical intervention during the COVID-19 pandemic. Currently he is asymptomatic and has not been in contact with anyone positive for the virus. Testing for this is not indicated. Patient will need a CBC and a basic metabolic panel. He will proceed to laboratory upstairs to obtain these tests. We performed an EKG while he was in our clinic today. Preoperative medical clearance not indicated. During today's visit the PDMP was checked and no red flags were raised that would prevent us from prescribing the patient an opioid analgesic for postoperative pain control. A prescription for [place] was sent to the patient's pharmacy for postoperative pain control. Patient is scheduled for his 2-week postoperative follow-up visit with Dr. Coreas on April 20 at noon. He is scheduled for his initial physical therapy appointment in our clinic on April 10 at 3:30 PM. Patient verbalized understanding of all information provided during today's visit. He thanks for t he care that he received. If he has questions or concerns should arise prior to his surgery tomorrow, he will contact clinic. This chart was completed utilizing [employer] voice recognition software. Grammatical errors, random word insertions, pronoun errors, and in complete sentences are an occasional consequence of the system. Any questions or concerns about the content, text, or information contained within the body of this dictation should be addressed directly to the physician for clarification. History of Present Illness Chief Complaint: Chief Complaint: Traumatic left shoulder injury Primary Care Provider: NO PCP History of Present Illness (including history relevant to procedure): This 62-year-old male presents the clinic today for evaluation by Dr. Coreas and subsequent preoperative history and physical. 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 He states that he was seen at the emergency department there and advised to follow-up with an orthopedist near his home. Patient states he has been using a sling since his ED evaluation. He has been taking Toradol and acetaminophen for pain control. He states that anytime he tries to move his shoulder by lifting his arm up it dislocates. Patient denies any numbness or tingling left upper extremity has constant pain. Review Of Systems: A 12 point review of systems performed is unremarkable except for those things stated in the HPI past medical history. Past Medical History: Problems: Pre-op exam Dislocation of left shoulder joint Right shoulder pain Morbid obesity Procedure History Procedure Procedure Date Comments Appendectomy Left total knee arthroplasty Allergies and Sensitivities: Cipro(hives) Social history: Patient states that he chews 1 tin of snuff per day. He denies smoking, alcohol or illicit drug use Family history: Heart disease, COPD Current Home Meds: (Last Updated 04/06 12:35) acetaminophen-HYDROcodone ([place] 5 mg-325 mg oral tablet) 1 tab PO q6h PRN: as needed for pain acetaminophen (Tylenol) ketorolac (ketorolac 10 mg oral tablet) lidocaine topical (lidocaine 4% patch) oxyCODONE (oxyCODONE 5 mg oral tablet) 5 mg PO q6h PRN: as needed for pain max 6 a day No Vital Signs Data Available Initial Wt: No Data Available Allergies Allergy/AdvReac Type Severity Reaction Status Date / Time Quinolones Allergy Mild HIVES Verified 01/09/20 14:03 Home Medications Medication Instructions Recorded Confirmed Type No Known Home Medications 01/13/21 01/13/21 History Past Med/Surg History Medical History Anxiety Suicidal ideations Surgical History History of appendectomy History of right knee joint replacement Social History Smoking Status: Heavy tobacco smoker Tobacco Type: Smokeless Tobacco (Dip or Chew) Hx Alcohol Use: Yes Alcohol type: beer Preferred Language: Latvian Communication Ability: Effective Certified Professional Midwife Required: No Beliefs That Will Affect Care: None Feels Safe at Home: Yes Assistive Devices: Glasses Review of Systems All systems reviewed & are unremarkable except as noted in Subjective Physical Exam Physical Exam: Physical Exam: (relevant to the procedure, including heart and lung evaluation) General: Alert and oriented x3 with proper grooming and hygiene Eyes: Pupils are equal react to light with accommodation. Extraocular movements are intact Throat: Deferred due to COVID-19 precautions Cardiac: Regular rate and rhythm with no murmurs or gallops appreciated Lungs: Clear to auscultation throughout no wheezing, rales or rhonchi Abdomen: Morbidly obese, nondistended, nontender with NABS Extremities: Left upper extremity: Range of motion of the patient's left shoulder was not performed. He is able to reach terminal flexion extension his elbow. Has full range of motion of his wrist. Appropriate dexterity of his fingers. He is neurovascular intact left upper extremity. Neuro: Cranial nerves II through XII intact no motor or sensory deficit Skin: Normal appearance no open skin areas or discharge
--- NOTE | 2022-04-06 15:48 | Anesthesiology Consultation ---
Date of Service April 06, 2022 Assessment & Plan (1) Encounter for pre-operative examination: - check EKG STAT am DOS. To anesthesiologist discretion if additional testing needed DOS. - COVID screening: Per rn visiting on 04/06/2022: Travel screen negative, no known COVID-19 positive contacts or current COVID-19 related symptoms in past 2 weeks. To surgeon's discretion if preop COVID testing needed. Chart Review Chart Review: Acceptable Risk for Surgery and Patient NOT seen in Pre Admission Testing History Surgery Operation Date: 04/07/22 14:00 Proposed Procedures p Left Shoulder Arthroscopy and Bony Bankart Repair, Possible Open Bony Bankart Repair - Jason Coreas MD Height/Weight Height: 5 ft 11 in Weight: 154.221 kg Allergies Allergy/AdvReac Type Severity Reaction Status Date / Time ciprofloxacin Allergy Mild Hives Verified 04/06/22 15:07 Quinolones Allergy Mild HIVES Verified 04/06/22 15:07 meridia Allergy Unknown Uncoded 04/06/22 15:46 Medications Home Medications Medication Instructions Recorded Confirmed Last Taken aspirin 325 mg tablet 325 mg PO DAILY PRN Pain 04/06/22 04/06/22 Unknown Past Medical History Medical History (Updated 04/06/22 @ 15:42 by Margarita Capone PA-C) Anxiety History of COVID-19 ?2019- flu symtoms- no hospitalization, no current issues Hypertension pt denies, no meds Past Family History Family History Other No family history of adverse response to anesthesia Past Surgical History Surgical History History of appendectomy History of left knee replacement History of surgery on arm Hx of colonoscopy Social History Smoking Status: Former smoker tobacco type: smokeless tobacco Do You Dip or Chew Tobacco: Yes (advised) Hx Alcohol Use: Yes Alcohol type: beer alcohol intake frequency: 0-2 drinks per day Hx Substance Use: No substance use type: does not use Testing Laboratory Results 04/06/2022 WBC: 6.7 H/H: 15/45 PLATELETS: 306 SODIUM: 138 POTASSIUM: 4.5 CHLORIDE: 107 CO2: 25 BUN: 20 CREATININE: 0.9 GLUCOSE: 103
[~2022-04-07 11:53] MED LIST changes: -ACETAMINOPHEN 500 MG TAB PO SCH; -BUPIVACAINE LIPOSOME 266 MG, BUPIVACAINE/EPINEPHRINE INJ 50 ML, SODIUM CHLORIDE 0.9% PF... INFIL SCH; -BUPIVACAINE/EPINEPHRINE 0.25% 10 ML VIAL ONE; -CEFAZOLIN 3000 MG/65 ML D5W 65 ML IV SCH; -FAMOTIDINE 20 MG TAB PO SCH; -GABAPENTIN 300 MG CAP PO SCH; +LACTATED RINGER'S 1,000 ML IV SCH; -LACTATED RINGER'S 1000ML 1,000 ML IV SCH; -LACTATED RINGER'S 1000ML 500 ML IV ONE; -LACTATED RINGER'S 1000ML IV SCH; +LR 15ML/HR IV SCH; -METOCLOPRAMIDE HCL 10 MG TAB PO SCH; -SCOPOLAMINE 1.5 MG TDSY TD SCH; -TRANEXAMIC ACID INJ 1,000 MG in SODIUM CHLORIDE 0.9% 100ML 100 ML IV SCH
[2022-04-07] MEDS ORDERED: MIDAZOLAM HCL 1 MG/ML 2ML VIAL ONE (12:00)
[2022-04-07] MEDS ORDERED: fentaNYL citrate 100 MCG/2 ML VIAL ONE (12:01)
[2022-04-07] MEDS ORDERED: ONDANSETRON INJ 2 MG/ML 2 ML VIAL ONE (12:03)
[2022-04-07] MEDS ORDERED: ROCURONIUM BROMIDE 10 MG/ML 5 ML VIAL IV ONE (12:03)
[2022-04-07] MEDS ORDERED: DEXAMETHASONE SOD INJ 4 MG/ML VIAL ONE (12:03)
[2022-04-07] MEDS ORDERED: LIDOCAINE 2% MPF LOCAL 5 ML VIAL INFIL ONE (12:03)
[2022-04-07] MEDS ORDERED: PROPOFOL IV EMULSION 10 MG/ML 20 ML VIAL IV ONE (12:03)
[2022-04-07] MEDS ORDERED: fentaNYL citrate 100 MCG/2 ML VIAL IV PRN (12:57)
[2022-04-07] MEDS ORDERED: ONDANSETRON INJ 2 MG/ML 2 ML VIAL IV PRN ×2 (12:57→18:08)
[2022-04-07] MEDS ORDERED: PROMETHAZINE HCL 12.5 MG in SODIUM CHLORIDE 0.9% 50 ML IV PRN (12:57)
[2022-04-07] MEDS ORDERED: ATROPINE SULFATE 0.1 MG/ML 10ML SYR IV PRN (12:57)
[2022-04-07] MEDS ORDERED: ePHEDrine sulfate 50 MG/ML AMP IV PRN (12:57)
[2022-04-07] MEDS ORDERED: HYDROmorphone INJ 2 MG/ML SYR/VIAL IV PRN (12:57)
--- NOTE | 2022-04-07 12:57 | History & Physical Bridge Note ---
Date of Service April 07, 2022 History & Physical Bridge Note I have examined the patient, reviewed the History & Physical and in the interval since the performance of the History & Physical I have noted the following changes of clinical significance: no changes noted
[2022-04-07] MEDS ORDERED: LIDOCAINE 1%/EPINEPHRINE 1:100,000 50 ML VIAL ONE (13:08)
[2022-04-07] MEDS ORDERED: EpINEphrine HCL INJ 1 MG/ML 1ML SYRINGE ONE (13:09)
[2022-04-07] MEDS ORDERED: TRANEXAMIC ACID / 0.7% NACL 1,000 MG/100 ML BAG IV ONE (14:02)
[2022-04-07] MEDS ORDERED: SUCCINYLCHOLINE CHLORIDE 20 MG/ML 10 ML VIAL IV ONE (14:04)
[2022-04-07] MEDS ORDERED: GLYCOPYRROLATE 0.2 MG/ML VIAL ONE (14:06)
[2022-04-07] MEDS ORDERED: ePHEDrine sulfate 50 MG/ML SYR ONE (14:36)
[2022-04-07] MEDS ORDERED: LABETALOL HCL IV 5 MG/ML 20ML IV ONE ×3 (14:55→15:19)
--- NOTE | 2022-04-07 14:58 | Electrocardiogram Report ---
Test Reason : Blood Pressure : / mmHG Vent. Rate : 060 BPM Atrial Rate : 060 BPM P-R Int : 160 ms QRS Dur : 088 ms QT Int : 428 ms P-R-T Axes : 054 045 034 degrees QTc Int : 428 ms Normal sinus rhythm Normal ECG When compared with ECG of 22-JAN-2017 12:03, No significant change was found Confirmed by Jaylen Guerrero ([id number]) on 04/07/2022 2:58:01 PM Referred By: Jason Coreas Confirmed By:Jaylen Guerrero
--- NOTE | 2022-04-07 16:22 | Operative Report ---
Post Operative Report Pre & Post Diagnosis Operation Date: 04/07/22 14:00 Pre-Op Diagnosis: Dislocation of Left Shoulder Joint Post-Op Diagnosis: Dislocation of Left Shoulder Joint I identified the patient and participated in the time-out.: Yes Procedure Operation Date: 04/07/22 14:00 Actual Procedures p Left Shoulder Arthroscopy and Bony Bankart Repair(Left) - Jason Coreas MD Surgeon Jason Coreas MD Acting Section Chief Olaf Bonner DO Estimated Blood Loss 10 Findings Consistent with Post-Op Diagnosis Specimens None Disposition Accompanied Patient To Recovery: Yes Disposition: Recovery Room Description of Procedure Patient was taken to the operating room where anesthesia was administered. Patient was prepped and draped in the usual sterile fashion. Please see attending's operative report for specifics of the procedure. I was present for the entire case from initial patient positioning through final wound closure. Assistance was provided in tissue retraction, hemostasis, and final wound closure. Patient was taken to the recovery room in satisfactory condition. I attest to the content of the Intraoperative Record and any orders documented therein. Any exceptions are noted below.
--- NOTE | 2022-04-07 16:36 | Operative Report ---
Post Operative Report Pre & Post Diagnosis Operation Date: 04/07/22 14:00 Pre-Op Diagnosis: Dislocation of Left Shoulder Joint with anterior glenoid rim fracture Post-Op Diagnosis: Same I identified the patient and participated in the time-out.: Yes Procedure Operation Date: 04/07/22 14:00 Actual Procedures p Left Shoulder Arthroscopy and Bony Bankart Repair(Left) - Jason Coreas MD Surgeon Jason Coreas MD Mechanical Apprentice Jerome Coelho MD, orestes Bonner DO fellow Estimated Blood Loss 10 Findings Consistent with Post-Op Diagnosis Specimens None Anesthesia Type General Regional Complications none Disposition Accompanied Patient To Recovery: No Disposition: Recovery Room Indications 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 The right shoulder has a rotator cuff tear acute on chronic. The left shoulder he dislocated. He sustained a anterior glenoid fracture and has had recurrent left shoulder instability. Has been wo rked up with x-rays MRI and CT scan. I recommended surgery he agreed to proceed on the left side. Description of Procedure Informed consent obtained. Patient identified. He identified the operative site as the left shoulder. I marked with my initials. Preop surgical timeout was performed and a preop dose of IV antibiotics was given. He was taken to the operating room positioned supine on the OR table and the anesthetic was administered. I did not do a significant examination under anesthesia as the patient's shoulder was proven to be unstable as a dislocated in the office when I had initially evaluated him. I did not want to risk further traumatic injury to the shoulder having known what the diagnosis is. He was positioned decubitus with the left side up. Bony prominences of the lower extremity were inspected and padded. The peroneal nerve was protected with foam padding pillows were placed between the knees and axillary roll was inserted the neck was held in neutral alignment the torso secured the table with a beanbag and 3 inch tape plus a strap. The Arthrex shoulder tower was utilized. The arm was prepped and draped in usual sterile fashion and placed into lateral distraction and 10 pounds of longitudinal traction. DVT prophylaxis intraoperatively with mechanical devices postoperatively mechanical devices plus early mobility. Posterior soft spot viewing portal was established followed by a anterior inferior mid glenoid working portal using the outside in technique and then then anterosuperior portal using the same technique. 8 mm cannula inferior 6 mm cannula superior. Diagnostic arthroscopy was performed. There was a moderate sized anterior inferior glenoid fracture which was displaced. The fracture site was debrided of soft tissue and mobilized with an elevator. Due to the largeness of the shoulder mobility was limited. The glenoid otherwise looked okay there was circumferential global labral deterioration and laxity. The biceps tendon appeared to be in place and intact. The middle glenohumeral ligament and the upper border the subscapularis were identified. I have visualized the rotator cuff supraspinatus infraspinatus and teres minor and saw no evidence of full-thickness tearing. There was some chondrosis of the humeral head especially posteriorly likely from the previous instability episodes. Grade 1 or 2 changes. A small Hill-Sachs lesion was noted. Multiple loose bodies were noted in front of the shoulder and these were debrided as encountered. An accessory Hyman subscapularis portal was then created using a spinal needle and this was instrumented with a 5 mm cannula. After mobilizing the Bankart bone lesion a double loaded with tapes peek three-point 0 suture tack was inserted at the central portion of the fracture on the glenoid surface but medial. This was done through the Hyman subscapularis portal. Suture management was performed. Prior to this we introduced a Jag around the fragment. We attempted to do this from the anteroinferior portal however it was not possible. We then went ahead and did percutaneously through the Hyman subscap portal and passed Truong is 1 at the upper and middle third 1 at the middle and lower third junctions. Both were placed somewhat through the bone. Manipulation with a grasper through the anterior superior portal was performed. We then manage and shuttled the sutures and then inserted 2 push lock anchors. The inferior 1 was inserted through the anterior inferior portal and the anterior superior 1 was inserted through the Hyman subscapularis portal. These were placed on the face of the glenoid and all anchors had good bony contact. These push locks were secured and deployed with excellent tension and reduction of the bony fragment. There was not room available to go inferior. We did insert a peak three-point 0 suture tack superior and repaired the labrum at the upper portion of the lesion. SCOI knot. backed up with reverse half hitches on alternating posts. This provided good security and apposition of the fracture. The shaver was run through the shoulder to parts picker loose debris. The portals were closed with 4-0 nylon after removing the cannulas. The arm was cleaned wet and dry sponges soft sterile dressing was applied Xeroform 4 x 4's ABD including the armpit and foam tape along with a sling and swath. An UltraSling would not fit around his abdomen. Patient awakened from anesthesia difficulty taken to the cover room in stable condition. There were no specimens or complications counts were correct and blood loss is estimated to be 10 cc. At the conclusion the operation spoke the patient's contact informed of my findings. Plan is to admit him to the hospital overnight for pain control. He can be rehabilitated according to the arthroscopic Bankart repair protocol with some conservative restrictions. The size of the fragment was about 3 cm top to bottom and about a centimeter on the articular surface and may be 1.5 cm medial to lateral. There was some comminution of the fragment some of the small fragments were removed. I attest to the content of the Intraoperative Record and any orders documented therein. Any exceptions are noted below.
--- NOTE | 2022-04-07 17:06 | Anesthesiology Progress Note ---
Date of Service April 07, 2022 Anesthesia Post Procedure Vital Signs Vital Signs: Temp Pulse Pulse Resp BP Pulse Ox O2 Del Method 04/07/22 17:00 36.5 C 78 15 139/67 94 Room Air 04/07/22 16:50 75 20 126/88 94 Room Air 04/07/22 16:40 76 20 152/91 H 99 Room Air 04/07/22 16:30 85 19 142/93 H 98 Oxymask 04/07/22 16:24 36.1 C L 85 16 125/94 99 Oxymask 04/07/22 12:23 36.7 C 68 20 173/102 H 96 Room Air O2 Flow Rate 04/07/22 17:00 04/07/22 16:50 04/07/22 16:40 04/07/22 16:30 9 04/07/22 16:24 9 04/07/22 12:23 Transfer of Care Handoff Completed per policy Notes Mental Status: alert / awake / arousable Patient Amnestic to Procedure: Yes Nausea / Vomiting: adequately controlled Pain: adequately controlled Airway Patency, RR, SpO2: stable & adequate BP & HR: stable & adequate Hydration State: stable & adequate Anesthetic Complications: no major complications apparent and Pt Satisfied with anesthetic care Notes: The patient is awake and comfortable.
[2022-04-07] MEDS ORDERED: TAMSULOSIN HCL 0.4 MG CAP PO PRN (18:08)
[2022-04-07] MEDS ORDERED: MAGNESIUM HYDROXIDE SUSP 30 ML UDC PO PRN (18:08)
[2022-04-07] MEDS ORDERED: HYDROmorphone INJ 0.5 MG/0.5 ML SYR IV PRN (18:08)
[2022-04-07] MEDS ORDERED: HYDROmorphone INJ 1 MG/ML SYRINGE IV PRN (18:08)
[2022-04-07] MEDS ORDERED: bisacodyL 10 MG SUPP PR PRN (18:08)
[2022-04-07] MEDS ORDERED: hydrALAZINE HCL 20 MG/ML VIAL IV PRN (18:08)
[2022-04-07] MEDS ORDERED: traMADol HCL 50 MG TABLET PO PRN (18:08)
[2022-04-07] MEDS ORDERED: oxyCODONE HCL IR 5 MG TAB (IMMEDIATE RELEASE) PO PRN (18:08)
[2022-04-07] MEDS ORDERED: METOCLOPRAMIDE HCL INJ 5 MG/ML 2 ML VIAL IV PRN (18:08)
[2022-04-07] MEDS ORDERED: diphenhydrAMINE 50 MG/ML VIAL IV PRN (18:08)
[2022-04-07] MEDS ORDERED: NALOXONE HCL 0.4 MG/1 ML VIAL/CARP IV PRN (18:08)
[2022-04-07] MEDS ORDERED: Nursing to Pharmacy Communication SCH (18:30)
[2022-04-07] MEDS ORDERED: COUGH DROP (SUGAR FREE) LOZ 24 LOZ/1 BOX BUCCAL PRN (18:56)
[2022-04-07] MEDS: KETOROLAC TROMETHAMINE 15 MG/ML VIAL IV SCH (19:46)
[2022-04-07] MEDS: SODIUM CHLORIDE 0.9% 1000ML 1,000 ML IV SCH (19:47)
[2022-04-07] MEDS: DOCUSATE SODIUM 100 MG CAP PO SCH (19:47)
[2022-04-07] MEDS ORDERED: SENNA 8.6 MG TAB PO SCH (21:00)
[2022-04-07] MEDS: ceFAZolin 2000MG 2,000 MG/15 ML SYR IV SCH (21:48)
[2022-04-07] MEDS: ACETAMINOPHEN 500 MG TAB PO SCH (21:48)
[2022-04-07] MEDS ORDERED: TRANEXAMIC ACID / 0.7% NACL 1,000 MG/100 ML BAG IV SCH (22:30)
[2022-04-08] MEDS: KETOROLAC TROMETHAMINE 15 MG/ML VIAL IV SCH ×3 (01:13→12:23)
[2022-04-08] MEDS: SODIUM CHLORIDE 0.9% 1000ML 1,000 ML IV SCH (06:03)
[2022-04-08] MEDS: ceFAZolin 2000MG 2,000 MG/15 ML SYR IV SCH (06:18)
[2022-04-08] MEDS: ACETAMINOPHEN 500 MG TAB PO SCH ×2 (06:18→14:15)
[2022-04-08] MEDS: DOCUSATE SODIUM 100 MG CAP PO SCH (08:31)
[2022-04-08] MEDS ORDERED: MULTIVITAMIN TAB PO SCH (09:00)
--- NOTE | 2022-04-08 11:34 | Progress Notes ---
DATE OF SERVICE: 04/08/2022 Postop day #1 status post left shoulder arthroscopic stabilization. No problems are reported. There is no pain in the left arm. The right arm hurts him. The arm is still on block. He is afebrile. His vital signs are stable. Sats are 95+ percent on room air. No new labs today. On exam, the dres sing is clean, dry and intact. He has trace deltoid activation. The entire arm has varying degrees o f tingling and numbness due to the block. He has a trace activation of biceps. Perhaps 3/5 triceps. Wrist and finger extension is 3/5, palmar abduction of the thumb 3/5. He is 4/5 on finger abductio n. Radial pulse is 1+. Findings from surgery are discussed and reviewed. He will need to continue in the sling and is not t o do any lifting, pulling or pushing. We will start him off on active movement of the hand, wrist, a nd elbow with some pendulums and getting him into therapy this Wednesday. Sleep in a recliner. We talk ed about his pain medication, bathing instructions, followup and things to watch out for. He will be discharged home today after PT. Elevate and ice. Job ID: [id number]
--- NOTE | 2022-04-08 12:00 | Discharge Summary ---
Date of Service April 08, 2022 Admission HPI Per Admitting Provider History of Present Illness (including history relevant to procedure): This 62-year-old male presents the clinic today for evaluation by Dr. Coreas and subsequent preoperative history and physical. 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 He states that he was seen at the emergency department there and advised to follow-up with an orthopedist near his home. Patient states he has been using a sling since his ED evaluation. He has been taking Toradol and acetaminophen for pain control. He states that anytime he tries to move his shoulder by lifting his arm up it dislocates. Patient denies any numbness or tingling left upper extremity has constant pain. Review Of Systems: A 12 point review of systems performed is unremarkable except for those things stated in the HPI past medical history. Past Medical History: Problems: Pre-op exam Dislocation of left shoulder joint Right shoulder pain Morbid obesity Procedure History Procedure Procedure Date Comments Appendectomy Left total knee arthroplasty Allergies and Sensitivities: Cipro(hives) Social history: Patient states that he chews 1 tin of snuff per day. He denies smoking, alcohol or illicit drug use Family history: Heart disease, COPD Current Home Meds: (Last Updated 04/06 12:35) acetaminophen-HYDROcodone (Newton 5 mg-325 mg oral tablet) 1 tab PO q6h PRN: as needed for pain acetaminophen (Tylenol) ketorolac (ketorolac 10 mg oral tablet) lidocaine topical (lidocaine 4% patch) oxyCODONE (oxyCODONE 5 mg oral tablet) 5 mg PO q6h PRN: as needed for pain max 6 a day No Vital Signs Data Available Initial Wt: No Data Available Discharge Data Procedures Performed Operation Date: 04/07/22 14:00 Actual Procedures p Left Shoulder Arthroscopy and Bony Bankart Repair(Left) - Jason Coreas MD Hospital Course (1) Dislocation of left shoulder joint: Patient underwent a left shoulder arthroscopy, repair of bony Bankart with Dr. Coreas on April 07, 2022 at [facility]. His surgery was performed with general anesthesia and a peripheral nerve block. He tolerated the surgery well without any intraoperative complications. He was given 3 g of IV Ancef for surgical prophylaxis which was continued for 24 hours after his procedure. He was allowed out of bed as tolerated. A sling was placed on his left upper extremity to remain on at all times. His regular home medications were continued. He was given a regular diet which he tolerated during his inpatient stay. He denies any significant pain in his left shoulder. He did h ave some continued numbness and tingling in his left upper extremity due to the peripheral nerve block. He was given oxycodone, Tylenol and tramadol for postoperative pain control. On postoperative day 1 he developed some heartburn which was unrelieved with Maalox. He then drank some milk which he states usually helps after period of time. Prior to discharge due to his unrelieved heartburn we did get an EKG which showed normal sinus rhythm. He thought that the heartburn was from the medications that he was taking. He did well out of bed and was safe for discharge to his home by occupational and physical therapy. His vital signs remained stable postoperatively. He was discharged to his home in stable condition on April 08, 2022. He will follow-up and postoperative physical therapy as scheduled on Sunday, April 10, 2022. He will also follow- up with Dr. Coreas as scheduled. All questions were answered. Discharge instructions were reviewed and as below.
[2022-04-08] MEDS ORDERED: ALUMINUM/MAGNESIUM SUSP 30 ML UDC PO PRN (12:06)
--- NOTE | 2022-04-09 22:40 | Electrocardiogram Report ---
Test Reason : Blood Pressure : / mmHG Vent. Rate : 063 BPM Atrial Rate : 063 BPM P-R Int : 162 ms QRS Dur : 094 ms QT Int : 406 ms P-R-T Axes : 061 031 044 degrees QTc Int : 415 ms Normal sinus rhythm Normal ECG When compared with ECG of 07-APR-2022 12:27, No significant change was found Confirmed by Elan Lopez ([id number]) on 04/09/2022 10:39:47 PM Referred By: Jason Coreas Confirmed By:Elan Lopez
== END 2022-04-08 16:40 | disposition home or self-care (01) ==
LOC: ASU 11:53 → 3E 11:53
DX: S43.005A Unspecified dislocation of left shoulder joint, initial encounter; Z86.16 Personal history of COVID-19; Z79.82 Long term (current) use of aspirin; Z88.1 Allergy status to other antibiotic agents; S42.142A Displaced fracture of glenoid cavity of scapula, left shoulder, initial encounter for closed fracture; Z88.8 Allergy status to other drugs, medicaments and biological substances; Z87.891 Personal history of nicotine dependence; W17.89XA Other fall from one level to another, initial encounter

== ENCOUNTER 2023-11-10 22:06 | Inpatient (IN) ==
--- NOTE | 2023-11-10 22:20 | Emergency Department Note ---
History of Present Illness General Chief Complaint: Chest Pain Stated Complaint: CHEST PAIN, SOB Time Seen by Provider: 11/10/23 22:18 History of Present Illness Provider Complaint: chest pain Onset (ago): hour(s) 1 Duration: constant Onset: during rest Pain Location: substernal Pain Radiation: neck and jaw/teeth Severity: severe Maximum Pain Intensity: 9 Current Pain Intensity: 9 Quality: + heaviness Relieved By: + nothing Exacerbated By: + nothing Context: no recent illness, no recent surgery, no recent immobilization, no recent travel or no trauma/injury Associated symptoms: no nausea, no vomiting, no syncope or no cough Treatments prior to arrival: none Allergies Allergy/AdvReac Type Severity Reaction Status Date / Time ciprofloxacin Allergy Mild Hives Verified 04/07/22 12:25 Quinolones Allergy Mild HIVES Verified 04/07/22 12:25 sibutramine Allergy Unknown Unknown Verified 04/07/22 18:49 Past Med/Surg History Problem List (Updated 11/10/23 @ 22:53 by Bandar Khalil MD) ST elevation myocardial infarction (STEMI) (Acute) Morbid obesity Fracture of thumb, right, closed (Acute) Adjustment disorder Dislocation of left shoulder joint Hypertension (Chronic) pt denies, no meds Medical History History of COVID-19 ?2020- flu symtoms- no hospitalization, no current issues Anxiety Surgical History Hx of colonoscopy History of left knee replacement History of surgery on arm Family History Other No family history of adverse response to anesthesia Social History Smoking Status: Light tobacco smoker Tobacco Type: Smokeless Tobacco (Dip or Chew) Second Hand Exposure: No; Do You Dip or Chew Tobacco: Yes (advised); Hx Alcohol Use: Yes Alcohol type: beer Hx Substance Use: No Preferred Language: Dutch Communication Ability: Effective Lpn Per Diem Required: No Beliefs That Will Affect Care: None Current Living Situation: Alone Feels Safe at Home: Yes Assistive Devices: Cane Physical Exam Vital Signs Vital Signs - 24 hr 11/10/23 22:09 11/10/23 22:28 Temperature 36.6 C Temperature Source Temporal Artery Scan Pulse Rate 68 79 Respiratory Rate 16 Respiratory Effort / Characteristics Non-Labored Spontaneous Respiratory Depth Normal Respiratory Pattern Regular Blood Pressure 187/107 H Blood Pressure Mean 133 Blood Pressure Position Sitting Pulse Oximetry 98 Oxygen Delivery Method Room Air Sepsis Recent Fever Within 48 Hours No Sepsis New/Unexplained Change in Mental Status N/A Sepsis Action Taken by Nursing No Action Required Physical Exam GENERAL: oriented to person, place, and time. appears well-developed and well- nourished. HENT: Exam performed. - Head: Normocephalic and atraumatic. EYES: Conjunctivae and EOM are normal. Right eye exhibits no discharge. Left eye exhibits no discharge. No scleral icterus. NECK: Normal range of motion. Neck supple. No JVD present. CV: Normal rate, regular rhythm, normal heart sounds and intact distal pulses. There is no peripheral edema. Palpable radial pulses bue. PULM/CHEST: Effort normal and breath sounds normal. No respiratory distress. No stridor. no wheezes. no rales. ABD: The abdomen is soft and morbidly obese. There is no tenderness. NEURO: Motor and sensation grossly intact. SKIN: Skin is warm and dry. He is not diaphoretic. PSYCH: normal mood and affect. Behavior is normal. Judgment and thought content normal. Course Course 2217: The patient was evaluated in room C8. A complete history and physical exam was performed Cardiac monitoring: An order was placed for continuous cardiac monitoring. The monitor shows a rate of 80 with sinus rhythm interpreted by me heart alert called fentanyl 100 asa 324 and zofran ordered metoprolol 5 mg IVP ordered 2300: Dr. Koo at bedside and will take the patient to Ward Attendant. Medical Decision Making Laboratory Data Attestation: I reviewed the patient's lab results. 11/10/23 22:29 11/10/23 22:29 Labs: Lab Results 11/10/23 11/10/23 Range/Units 22:29 22:34 WBC 12.97 H (4.8-10.8) K/ul RBC 5.68 (4.70-6.10) M/uL Hgb 15.8 (14.0-18.0) g/dl POC Hgb 16.3 (14.0-18.0) g/dl Hct 46.8 (42.0-52.0) % POC Hct 48 (42-52) % MCV 82.4 (80.0-100.0) fL MCH 27.8 (25.0-34.0) pg MCHC 33.8 (32.0-36.0) g/dL RDW Std Deviation 41.3 (36.4-46.3) fL RDW Coeff of Charity 13.8 (11.5-14.5) % Plt Count 338 (130-400) K/uL MPV 9.2 L (9.4-12.4) fL Immature Gran % (Auto) 0.3 % Neut % (Auto) 68.1 % Lymph % (Auto) 21.1 % Sumter % (Auto) 7.1 % Eos % (Auto) 2.9 % Baso % (Auto) 0.5 % Neut # (Auto) 8.82 H (1.40-6.50) K/uL Lymph # (Auto) 2.74 (1.20-3.40) K/uL Sumter # (Auto) 0.92 H (0.11-0.59) K/uL Eos # (Auto) 0.38 (0.00-0.50) K/uL Baso # (Auto) 0.07 (0.00-0.20) K/uL Immature Gran # (Auto) 0.04 (0.01-0.20) K/uL POC Sodium 138 (135-144) mmol/L Sodium 137 (136-145) mmol/L POC Potassium 3.9 (3.3-5.0) mmol/L Potassium 4.0 (3.5-5.1) mmol/L POC Chloride 101 (101-112) mmol/L Chloride 102 (98-107) mmol/L Carbon Dioxide 27 (21-32) mmol/L POC Total CO2 26 (24-31) mmol/L Anion Gap 8 (3-11) POC Anion Gap 17.0 (16-25) mmol/L POC BUN 20 H (7-18) mg/dl BUN 19 (6-23) mg/dl Creatinine 1.16 (0.6-1.4) mg/dl POC Creatinine 1.1 (0.6-1.3) mg/dl Est Cr Clr Drug Dosing Not Reportable Est GFR ( Amer) 77.2 ml/min Est GFR (Non-Af Amer) 66.7 ml/min BUN/Creatinine Ratio 16.4 (10-20) Glucose 164 H (70-99(Fasting)) mg/dl POC Glucose (other) 166 H (70-99) mg/dl Calcium 9.5 (8.6-10.3) mg/dl POC Ioniz Calcium Rm 1.17 (1.12-1.32) mmol/l Magnesium 1.9 (1.7-2.4) mg/dl Total Bilirubin 0.9 (0.2-1.0) mg/dl AST 18 (13-39) U/L ALT 12 (7-52) U/L Alkaline Phosphatase 96 (34-104) U/L Total Creatine Kinase 121 (30-223) U/L B-Natriuretic Peptide 37 (0-100) pg/ml Total Protein 7.3 (6.0-8.3) gm/dl Albumin 4.2 (3.4-5.0) gm/dl Globulin 3.1 (2.5-4.0) gm/dl Albumin/Globulin Ratio 1.4 (0.9-2) Lipase 19 (11-82) U/L Imaging Data Chest x-ray: Attestation: I personally reviewed and interpreted this imaging study as follows: My impression: Airway clear. No pneumothorax. No consolidation. cardiomegaly with mild cephalization.. No free air under the diaphragm. No fractures of the skeletal structures. ECG Data Attestation: I personally reviewed and interpreted this ECG as follows: Indication: chest pain Rate (beats per minute): 69 Rhythm: normal sinus Findings: + ST depression (avL V1V2) and + ST elevation (II, III, aVF); no prolonged QT MDM Narrative 2218: The patient was evaluated in room C8. A complete history and physical exam was performed Cardiac monitoring: An order was placed for continuous cardiac monitoring. The monitor shows a rate of 80 with sinus rhythm interpreted by me heart alert called fentanyl 100 asa 324 and zofran ordered metoprolol 5 mg IVP ordered 2300: Dr. Koo at bedside and will take the patient to Ward Attendant. Impression & Plan ST elevation myocardial infarction (STEMI) Critical Care Time Critical Care Time: Yes Total Critical Care Time: 46 I have personally spent greater than 46 minutes of critical care time in the direct management of this patient. This includes bedside care, interpretation of diagnostic studies, and testing, discussion with consultants, patient, and family members, and other required patient management activities. This 46 minutes is in excess of all separately billable procedures. Discharge Plan Visit Data Chief Complaint: Chest Pain Stated Complaint: CHEST PAIN, SOB ED Provider: Bandar Khalil Discharge Problem: ST elevation myocardial infarction (STEMI) Patient Disposition: Admitted As Inpatient Forms Stand Alone Forms: Count Includes [facility] Referrals Referrals: PCP,NO [Primary Care Provider] - Discharge Problem: ST elevation myocardial infarction (STEMI) Qualifiers: Involved coronary artery: right coronary artery Qualified Code(s): I21.11 - ST elevation (STEMI) myocardial infarction involving right coronary artery
[2023-11-10] MEDS: ONDANSETRON INJ 2 MG/ML 2 ML VIAL IV STA (22:21)
[2023-11-10] MEDS: fentaNYL citrate PF 100 MCG/2 ML VIAL IV STA ×2 (22:21→22:54)
[2023-11-10] MEDS: ASPIRIN CHEW 324 MG PO STA (22:21)
[2023-11-10] MEDS: METOPROLOL TARTRATE 1 MG/ML VIAL IV PRN (22:29)
[2023-11-10] MEDS: TICAGRELOR 90 MG TAB PO ONE (22:43)
[2023-11-10 22:45] LABS: Basophils # (auto) 0.07 K/uL (0.00-0.20); Basophils % (auto) 0.5 %; Eosinophils # (auto) 0.38 K/uL (0.00-0.50); Eosinophils % (auto) 2.9 %; Hematocrit (blood only) 46.8 % (42.0-52.0); Hemoglobin 15.8 g/dl (14.0-18.0); Immature Granulocytes # (auto) 0.04 K/uL (0.01-0.20); Immature Granulocytes % (auto) 0.3 %; Lymphocytes # (auto) 2.74 K/uL (1.20-3.40); Lymphocytes % (auto) 21.1 %; Mean Corpuscular Hemoglobin 27.8 pg (25.0-34.0); Mean Corpuscular Hgb Conc 33.8 g/dL (32.0-36.0); Mean Corpuscular Volume 82.4 fL (80.0-100.0); Mean Platelet Volume 9.2 fL (9.4-12.4); Monocytes # (auto) 0.92 K/uL (0.11-0.59); Monocytes % (auto) 7.1 %; Neutrophils # (auto) 8.82 K/uL (1.40-6.50); Neutrophils % (auto) 68.1 %; Platelet Count 338 K/uL (130-400); RDW Coefficient of Variation 13.8 % (11.5-14.5); RDW Standard Deviation 41.3 fL (36.4-46.3); Red Blood Count 5.68 M/uL (4.70-6.10); White Blood Count 12.97 K/ul (4.8-10.8)
[2023-11-10 22:46] LABS: iSTAT Creatinine 1.1 mg/dl (0.6-1.3); iSTAT Hemoglobin 16.3 g/dl (14.0-18.0); iSTAT Ionized Calcium 1.17 mmol/l (1.12-1.32); iSTAT Potassium 3.9 mmol/L (3.3-5.0)
[2023-11-10 23:02] LABS: Alanine Aminotransferase 12 U/L (7-52); Albumin Globulin Ratio 1.4 (0.9-2); Albumin Level 4.2 gm/dl (3.4-5.0); Alkaline Phosphatase 96 U/L (34-104); Anion Gap 8 (3-11); Aspartate Aminotransferase 18 U/L (13-39); BUN Creatinine Ratio 16.4 (10-20); Bilirubin,Total 0.9 mg/dl (0.2-1.0); Blood Urea Nitrogen 19 mg/dl (6-23); Calcium 9.5 mg/dl (8.6-10.3); Carbon Dioxide 27 mmol/L (21-32); Chloride 102 mmol/L (98-107); Creatine Kinase 121 U/L (30-223); Est GFR (African American) 77.2 ml/min; Est GFR (Non-African American) 66.7 ml/min; Globulin 3.1 gm/dl (2.5-4.0); Glucose 164 mg/dl (70-99(Fasting)); Lipase 19 U/L (11-82); Magnesium 1.9 mg/dl (1.7-2.4); Sodium 137 mmol/L (136-145); Total Protein 7.3 gm/dl (6.0-8.3)
--- NOTE | 2023-11-10 23:03 | Pre Anesthesia Assessment ---
Date of Service November 10, 2023 Pre Sedation Assessment Vital Signs Temp Pulse Resp BP Pulse Ox O2 Del Method 11/10/23 22:28 79 11/10/23 22:09 36.6 C 68 16 187/107 H 98 Room Air Cardiovascular RRR, no murmur, no edema Respiratory normal respiratory effort, lungs clear to auscultation Pre-Sedation Airway Assessment Smoking Status: Light tobacco smoker MALLAMPATI 3 ASA 4 Notes The planned sedation has been discussed with the patient. Informed Consent was obtained. I have identified the patient, determined the appropriateness of sedation and have assessed the patient immediately prior to the procedure. All medicine(s) and interventions are by my order. [facility] Procedure Codes (Charges) Indication for Procedure Indication for procedure: STEMI
[2023-11-10 23:18] LABS: Thyroid Stimulating Hormone 2.637 uIu/ml (0.300-4.500)
[2023-11-10 23:20] LABS: Troponin I High Sensitivity 96.3 pg/ml (0-20)
[2023-11-10] MEDS: ASPIRIN CHEW 324 MG ONE (23:36)
[2023-11-10 23:37] LABS: Partial Thromboplastin Ratio 0.9; Partial Thromboplastin Time 24 Seconds (21-31); Prothrombin Time 10.6 Seconds (9.0-12.0)
[2023-11-10] MEDS: fentaNYL citrate PF 100 MCG/2 ML VIAL ONE ×2 (23:37→23:40)
[2023-11-10] MEDS: NITROGLYCERIN/D5W 100MCG/ML 20ML SYR ONE (23:39)
[2023-11-10] MEDS: NITROGLYCERIN 2% OINTMENT 30GM TUBE EXT ONE (23:41)
[2023-11-10] MEDS: METOPROLOL TARTRATE 1 MG/ML VIAL IV ONE ×2 (23:52)
--- NOTE | 2023-11-11 00:01 | Post Anesthesia Assessment ---
Date of Service November 10, 2023 Post Sedation Assessment Vital Signs Temp Pulse Resp BP Pulse Ox O2 Del Method 11/10/23 22:55 74 19 169/124 H 99 Room Air 11/10/23 22:40 72 27 H 175/139 H 97 Room Air 11/10/23 22:39 78 21 184/128 H 97 Room Air 11/10/23 22:36 78 21 201/134 H 97 Room Air 11/10/23 22:31 75 19 203/144 H 98 Room Air 11/10/23 22:28 79 11/10/23 22:27 78 15 171/115 H 98 Room Air 11/10/23 22:09 36.6 C 68 16 187/107 H 98 Room Air Recovery Score Activity: Moves 4 extremities Respiration: Deep Breath/Cough Circulation: +/-20% PreAnes Value Consciousness: Fully Awake Oxygen Saturation: > 92% On Room Air Discharge Sedation Level of Care: Fast Track Phase II Post Sedation Plan On clinical assessment, the patient appears to have tolerated the sedation without complications. Patient is recovering as anticipated. Patient will continue to be monitored by nursing and may be discharged when sedation discharge criteria are met per below protocol. Upon Completions of procedure up to 15 minutes continue every 5 minute vital signs and the P.A.R. score; then discharge to a Phase I or Fast Track to Phase II per the following guidelines: * Discharge Patient to appropriate Phase II area if PAR is 8 or greater or return to pre- procedure baseline. The post - procedure orders will be as directed. * If PAR score is less than 8 or not return to pre-procedure baseline then patient will follow Phase I monitoring till PAR is reached for Phase II. The Phase I may be done in procedure room or may call to secure a Phase I area. * If naloxone or flumazenil are used for reversal, hold in Phase I for continued monitoring from when last reversal dose was given for a minimum of 60 minutes or longer pending the nurse and/or physician discretion of patient condition before discharge to Phase II. Please call the Sedation Physician to re-evaluate and complete post-note for discharge to Phase II area. Do NOT discharge from procedure sedation or Phase 1 until post- sedation evaluation note is complete by procedure /sedation MD Sedation Discharge Instructions to be given to the patient at discharge to [place]. [facility] Codes (Charges) Indication for Procedure Indication for procedure: STEMI Sedation/Anesthesia Procedure 1: Sedation/Anesthesia: 40139 Mod Sedation by the same physician;Init15 Min Child Age 5 & Up (INITIAL 15, START 2309) Total Sedation Time (minutes): 55 Procedure 2: Sedation/Anesthesia: 26389 Mod Sedation by the same physician; Ea [id number] Minutes (ADDITIONAL 40 MIN, END 2354) Total Sedation Time (minutes): 55
[2023-11-11] MEDS ORDERED: EPTIFIBATIDE BOLUS/DRIP IV STA (00:06)
[2023-11-11] MEDS: MIDAZOLAM HCL 1 MG/ML 2ML VIAL ONE (00:15)
[2023-11-11] MEDS: HEPARIN (PORCINE) 1000 UNIT/ML 10 ML (CATH LAB USE ONLY) ONE ×2 (00:16→01:08)
[2023-11-11] MEDS: niCARdipine HCL INJ 2.5 MG/ML 10 ML AMP ONE (00:16)
[2023-11-11] MEDS: OPTIRAY 350 ONE (00:17)
[2023-11-11] MEDS: AMIODARONE 150MG / 100ML D5W (CATH LAB USE ONLY) IV ONE ×2 (00:17→01:07)
[2023-11-11] MEDS: EPTIFIBATIDE 2 MG/ML 10 ML VIAL (CATH LAB USE ONLY) IV ONE ×2 (00:18→01:05)
--- NOTE | 2023-11-11 00:27 | Critical Care Consultation ---
Date of Consultation November 11, 2023 Assessment & Plan (1) ST elevation myocardial infarction (STEMI): (2) Morbid obesity: (3) Hypertension: (4) Elevated serum glucose: Plan Reason Critically Ill: STEMI s/p LYNDSAY to LAD to the ICU post procedure for monitoring of symptoms, telemetry, and hemodynamics. Neuro - No acute needs CAM ICU: Negative Cardiac - STEMI s/p LYNDSAY to LAD, HTN, - Patient presents wtih acute STEMI- is now post LYNDSAY to LAD - He will continue on Integrilin for 12 hour infusion per interventional cardiology - BB initiated - JOHN/ARB initiated - ECHO in morning determine EF - Lipid profile in am- high intensity statin initiated - DAPT therapy per interventional cardiology - Ventricular ectopy noted non-sustained at this time- this should decrease as night progresses- If becomes constant or hemodynamic compromise- start amiodarone infusion vs. lidocaine - replete magnesium as this time Respiratory - No acute needs - Patient has body habitus consistent with metabolic syndrome- recommend follow up for BENJAMIN screening for further risk factor modificaitons - STOPBANG- 6- high risk GI - No acute needs - Consider PPI while on DAPT RENAL/LYTES No acute needs- - ICU electrolyte protocol - NO acute needs ENDO - Elevated serum glucose without diagnosis of DM - HGB A1c in am- GDM per results HEME - No acute needs - mild leukocytosis likely stress response- follow ID - No concern at this time for infective process LINES/IV ACCESS - PIV Continue use of these lines DVT PROPHYLAXIS - SCDS, ASA, Ambulation DISPO: ICU until hemodynamics proven stable following PCI with LYNDSAY to LAD I have personally spent 45 minutes of critical care time in the direct management of this patient. This is a life/limb threatening event. This includes time spent evaluating patient, direct bedside care, chart review, placing orders, interpretation of diagnostic studies, discussion with consultants, patient, and family members, as well as other required patient management activities. This time is exclusive of all separately billable procedures, and teaching time and separate from and in addition to any other critical care service time. Thank you for allowing us to participate in the care of this patient. Please refer to my attending physician's documentation for any further recommendations. Supervising Physician Co-Signing Physician Notes I have personally evaluated and examined this patient. I agree with assessment and plan of Arielle LERNER. Patient having episodes of nonsustained ventricular tachycardia. Patient to receive beta-jake this morning otherwise continued observation given ectopy. History of Present Illness Reason for Consultation: STEMI Requesting Physician: Boone Hdez MD Attending Physician: Tommie Koo MD, PhD History of Present Illness 63 YOM with medical history of : HTN, Obesity. Patient reports that he is on no medications at home and no CPAP/BIPAP at home. Patient reports that he had acute onset of chest pain earlier in the day that started in the center of his chest, 8. This was associated with nausea but no vomiting. The pain intensified and radiated up his neck into the back of his head to the top, as well as into shoulders. Patient was brought to the EMD and was noted to be hypertensive on arrival. ECG revealed acute STEMI and the patient was taken to the manager lab where by report he received 1 LYNDSAY to his LAD. Patient arrives to the ICU awake, tolerating ice chips, on no vasoactive medications and Integrilin infusion for 12 hours. He is noted with right TR band. Reveiw of notes, dose note he received 300mg IV amiodarone during the case secondary to ventricular ectopy. Patient will be admitted to the ICU for monitoring of symptoms, hemodynamics, and telemetry. CODE: FULL Allergies Allergy/AdvReac Type Severity Reaction Status Date / Time ciprofloxacin Allergy Mild Hives Verified 11/11/23 12:23 Quinolones Allergy Mild HIVES Verified 11/11/23 12:23 sibutramine Allergy Unknown Unknown Verified 11/11/23 12:23 Home Medications Medication Instructions Recorded Confirmed Type No Known Home Medications 11/11/23 11/11/23 History Patient History Medical History History of COVID-19 ?2020- flu symtoms- no hospitalization, no current issues Anxiety Surgical History Hx of colonoscopy History of left knee replacement History of surgery on arm Family History Other No family history of adverse response to anesthesia Social History Smoking Status: Never smoker Tobacco Type: Smokeless Tobacco (Dip or Chew) Second Hand Exposure: No; Do You Dip or Chew Tobacco: Yes (advised); Hx Alcohol Use: Yes Alcohol type: beer Hx Substance Use: No Preferred Language: Icelandic Communication Ability: Effective Nike Athlete Required: No Beliefs That Will Affect Care: None Current Living Situation: Alone Feels Safe at Home: Yes Safety Concerns: Feels Safe At This Time Assistive Devices: Glasses Review of Systems Review of Systems: REVIEW OF SYSTEMS: Constitutional: No fever, sweats or chills Eyes: No diplopia, no worsening or blurred vision ENT: normal hearing, no trouble swallowing Respiratory: No cough, sputum, dyspnea at rest or on exertion Cardiovascular: (+) chest pain- resolved, tightness or palpitations Abdomen: No pain, nausea, vomiting, diarrhea or constipation Musculoskeletal: No joint pain, calf pain, swelling Neurologic: No weakness, numbness/tingling, or balance problems Psychiatric: No anxiety or depression Skin: No rash or itch Physical Exam Physical Exam: PHYSICAL EXAM: General: awake, alert, no apparent distress Head: Normocephalic, atraumatic ENT: PERRL, EOMI, no pharyngeal exudate, mucous membranes moist Neuro: AAO x 3, speech clear and appropriate, strength intact bilaterally 5/5, sensation intact and equal all extremities and dermatomes, no pronator drift Chest: equal rise and fall of the chest, no accessory muscle use, no heaves or thrills, Clear to auscultation, on 2LNC, Cardiac: Regular rate and rhythm, telemetry reviewed- NSR with ventricular ectopy, skin warm dry, cap refill <3 seconds, peripheral pulses +2 no JVD, no murmur, no edema, right radial TR band in place normal sensation and movement of right hand and fingers. GI: NABS x 4 quadrants, soft, nontender to palpation, no rebound, guarding or tenderness : Spontaneously voiding, no pain, no CVA tenderness, Psych: Normal mood and affect Skin: no rash or erythema Results & Data Results & Data Vital Signs (Past 12 Hours) Vital Signs Temp Pulse Resp BP Pulse Ox O2 Del Method 11/10/23 22:55 74 19 169/124 H 99 Room Air 11/10/23 22:40 72 27 H 175/139 H 97 Room Air 11/10/23 22:39 78 21 184/128 H 97 Room Air 11/10/23 22:36 78 21 201/134 H 97 Room Air 11/10/23 22:31 75 19 203/144 H 98 Room Air 11/10/23 22:28 79 11/10/23 22:27 78 15 171/115 H 98 Room Air 11/10/23 22:09 36.6 C 68 16 187/107 H 98 Room Air Laboratory Results Abnormal lab results 11/10/23 11/10/23 11/10/23 Range/Units 22:29 22:34 23:28 WBC 12.97 H (4.8-10.8) K/ul MPV 9.2 L (9.4-12.4) fL Neut # (Auto) 8.82 H (1.40-6.50) K/uL [place] # (Auto) 0.92 H (0.11-0.59) K/uL Activ Coag Time Kaolin 839 H (94-140) SECONDS POC BUN 20 H (7-18) mg/dl Glucose 164 H (70-99(Fasting)) mg/dl POC Glucose (other) 166 H (70-99) mg/dl Troponin I High Sens 96.3 H* (0-20) pg/ml 11/10/23 Range/Units 23:43 WBC (4.8-10.8) K/ul MPV (9.4-12.4) fL Neut # (Auto) (1.40-6.50) K/uL [place] # (Auto) (0.11-0.59) K/uL Activ Coag Time Kaolin 206 H (94-140) SECONDS POC BUN (7-18) mg/dl Glucose (70-99(Fasting)) mg/dl POC Glucose (other) (70-99) mg/dl Troponin I High Sens (0-20) pg/ml Coding Level of Care Code 40296 CRITICAL CARE 1ST 30-74M Diagnoses ST elevation myocardial infarction (STEMI) I21.11 Involved coronary artery: right coronary artery Morbid obesity E66.01 Hypertension I10 Elevated serum glucose R73.9 (1) ST elevation myocardial infarction (STEMI) Involved coronary artery: right coronary artery Qualified Code(s): I21.11 - ST elevation (STEMI) myocardial infarction involving right coronary artery
--- NOTE | 2023-11-11 00:37 | Cardiology Consultation ---
Date of Consultation November 11, 2023 Assessment & Plan (1) ST elevation myocardial infarction (STEMI): Acute occlusion of the large OM branch status post PCI with large caliber drug- eluting stents. Good angiographic result. He will remain on dual antiplatelet therapy with aspirin 81 mg and Brilinta 90 mg p.o. twice daily. He will complete 12 hours of Integrilin infusion. He is admitted to the ICU for approximately 24 hours per standard of care. We will obtain an echocardiogram to evaluate LV function, wall motion abnormalities, and valvular function. We will also trend his cardiac troponin. We will be obtaining lipid panel as well as hemoglobin A1c regarding risk factor assessment. And nutrition consultation has been placed for dietary evaluation. We are initiating guideline directed medical therapy for secondary prevention of coronary disease including; low-dose aspirin, high intensity statin therapy, beta-jake, plus or minus JOHN inhibitor/ARB. I strongly encouraged him to participate in cardiac rehab after discharge. Consultation has been requested. We will adjust the plan of care based upon the findings of his additional testing/labs. (2) Hypertension: Blood pressure was very elevated on admission. We initiated metoprolol tartrate 25 mg p.o. twice daily. Will likely also initiate angiotensin receptor jake/JOHN inhibitor and titrate as tolerated by blood pressure, heart rate, and renal function. We will additionally consider a long-acting nitrate. In the short-term, we can utilize hydralazine IV as needed to maintain systolic blood pressure below 150 mmHg. (3) Atherogenic dyslipidemia: Patient is high risk. High intensity statin therapy is initiated with a atorvastatin 40 mg daily. Fasting lipid panel this morning. Per guidelines, we are targeting a greater than or equal to 50% of untreated baseline LDL reduction target. History of Present Illness Reason for Consultation: ST elevation NJ Attending Physician: Tommie Koo MD, PhD History of Present Illness 63-year-old morbidly obese gentleman who denies a history of diabetes, high blood pressure, smoking, or dyslipidemia developed sudden onset chest pain with radiation to the neck and jaw with associated dyspnea while walking at [facility]. Came to the emergency department where initial EKG suggested acute inferior ST elevation NJ. A "heart alert" was called on on my arrival patient continued with severe pain. He received Brilinta and aspirin in the emergency department as well as metoprolol for very elevated blood pressure. Patient admitted that he chews tobacco but does not smoke. Also drinks alcohol but states that no alcohol was involved recently. We discussed my recommendation for emergent cardiac catheterization to which she agreed to undergo the procedure. He was taken emergently to the cardiac catheterization suite where he underwent diagno stic coronary angiography and PCI of a very large obtuse marginal branch of the circumflex with implantation of a single large caliber drug-eluting stent. Good angiographic results. Mild nonocclusive residual disease in the LAD and a nondominant RCA. He did have AIVR associated with reperfusion and was placed on amiodarone during the procedure. Had a fairly large thrombus burden but this did resolve with judicious heparin and initiation of Integrilin drip. At this time he is asymptomatic postprocedure with good angiographic results of the PCI. He is being admitted to the ICU for further workup and management. Patient denies preceding chest pain to today's episode. He does have dyspnea on exertion. No syncope, near syncope, orthopnea, PND, racing heartbeat, palpitations, or edema. Patient has a family history positive for premature coronary disease in his father who at age 51 from myocardial infarction. He is accompanied by his friend who is also his neighbor. She confirms history of today's event. Allergies Allergy/AdvReac Type Severity Reaction Status Date / Time ciprofloxacin Allergy Mild Hives Verified 04/07/22 12:25 Quinolones Allergy Mild HIVES Verified 04/07/22 12:25 sibutramine Allergy Unknown Unknown Verified 04/07/22 18:49 Home Medications Medication Instructions Recorded Confirmed Type Unobtainable 11/10/23 11/10/23 History Patient History Medical History History of COVID-19 ?2020- flu symtoms- no hospitalization, no current issues Anxiety Surgical History Hx of colonoscopy History of left knee replacement History of surgery on arm Family History Other No family history of adverse response to anesthesia Social History Smoking Status: Light tobacco smoker Tobacco Type: Smokeless Tobacco (Dip or Chew) Second Hand Exposure: No; Do You Dip or Chew Tobacco: Yes (advised); Hx Alcohol Use: Yes Alcohol type: beer Hx Substance Use: No Preferred Language: German Communication Ability: Effective Veterinary Pathologist Required: No Beliefs That Will Affect Care: None Current Living Situation: Alone Feels Safe at Home: Yes Assistive Devices: Cane Review of Systems Review of Systems: Negative except as per HPI Physical Exam Constitutional: WD/WN, vitals as above Eyes: Extraocular muscles intact. Sclera are anicteric. ENMT: Oral mucosa is pink moist and intact. Neck: Thick. No JVD appreciated. Respiratory: Clear to auscultation bilaterally. No wheezing, rhonchi, or rales. Fair air movement. Cardiovascular: Regular rate and rhythm. Distant heart sounds. I do not appreciate any rubs or murmurs. No edema. Musculoskeletal: no cyanosis or clubbing, extremities motor strength 5/5 (Right radial artery access is intact. TR band in place.) Neurologic: Cognition is intact. Speech is fluent. No focal deficits. Psychiatric: A+Ox3, euthymic affect Results & Data Vital Signs (Past 12 Hours) Vital Signs Temp Pulse Resp BP Pulse Ox O2 Del Method 11/10/23 22:55 74 19 169/124 H 99 Room Air 11/10/23 22:40 72 27 H 175/139 H 97 Room Air 11/10/23 22:39 78 21 184/128 H 97 Room Air 11/10/23 22:36 78 21 201/134 H 97 Room Air 11/10/23 22:31 75 19 203/144 H 98 Room Air 11/10/23 22:28 79 11/10/23 22:27 78 15 171/115 H 98 Room Air 11/10/23 22:09 36.6 C 68 16 187/107 H 98 Room Air PG Care Time/CCT Total # of Minutes Spent Total Time Spent with Patient: Total time spent is greater than 50% in coordination of care (as documented) at patient's floor/unit and/or counseling patient: Total Critical Care Time: 55 I spent a total of 55 minutes critical care time in the initial evaluation/examination of the patient, review of the records in the emergency department as well as later in the Tennis Racket Repairer, discussion with the medical staff in the emergency department and in the Tennis Racket Repairer in addition to discussion with the patient and family. Furthermore, this time includes formulation and implementation of a plan of care and all associated documentation. This time is exclusive of the time spent for the procedure. Coding Level of Care Code 93130 CRITICAL CARE 1ST 30-74M Diagn[address] ST elevation myocardial infarction (STEMI) I21.11 Involved coronary artery: right coronary artery Hypertension I10 Atherogenic dyslipidemia E78.5 Time Spent (min) 55 (1) ST elevation myocardial infarction (STEMI) Involved coronary artery: right coronary artery Qualified Code(s): I21.11 - ST elevation (STEMI) myocardial infarction involving right coronary artery
[2023-11-11] MEDS: EPTIFIBATIDE 0.75 MG/ML 75MG VIAL (CATH LAB USE ONLY) IV ONE (00:42)
[2023-11-11] MEDS ORDERED: hydrALAZINE HCL 20 MG/ML VIAL IV PRN (00:50)
[2023-11-11] MEDS ORDERED: GLUCAGON FOR INJ 1 MG VIAL SQ PRN (01:05)
[2023-11-11] MEDS ORDERED: CARBOHYDRATES FOR HYPOGLYCEMIA PO PRN (01:05)
[2023-11-11] MEDS ORDERED: GLUCOSE 40% GEL 15 GM TUBE PO PRN (01:05)
[2023-11-11] MEDS ORDERED: DEXTROSE 50% 50 ML SYRINGE IV PRN (01:05)
[2023-11-11] MEDS ORDERED: GLUCOSE 10 TAB/TUBE PO PRN (01:05)
[2023-11-11] MEDS: Patient's HEIGHT &/or WEIGHT Needed SCH (01:07)
[2023-11-11] MEDS: ONDANSETRON INJ 2 MG/ML 2 ML VIAL IV STA (01:08)
[2023-11-11] MEDS: SODIUM CHLORIDE 0.9% 1,000 ML IV SCH (01:24)
[2023-11-11] MEDS: MAGNESIUM SULFATE / D5W 1 GM/100 ML BAG IV SCH (01:25)
[2023-11-11] MEDS: EPTIFIBATIDE 75 MG/100 ML VIAL IV SCH (02:01)
[2023-11-11 02:28] LABS: Basophils # (auto) 0.05 K/uL (0.00-0.20); Basophils % (auto) 0.3 %; Eosinophils # (auto) 0.06 K/uL (0.00-0.50); Eosinophils % (auto) 0.4 %; Hemoglobin 14.9 g/dl (14.0-18.0); Immature Granulocytes # (auto) 0.06 K/uL (0.01-0.20); Immature Granulocytes % (auto) 0.4 %; Lymphocytes # (auto) 1.44 K/uL (1.20-3.40); Lymphocytes % (auto) 9.9 %; Mean Corpuscular Hemoglobin 27.7 pg (25.0-34.0); Mean Corpuscular Hgb Conc 33.9 g/dL (32.0-36.0); Mean Corpuscular Volume 81.8 fL (80.0-100.0); Mean Platelet Volume 9.1 fL (9.4-12.4); Monocytes # (auto) 0.63 K/uL (0.11-0.59); Monocytes % (auto) 4.4 %; Neutrophils # (auto) 12.24 K/uL (1.40-6.50); Neutrophils % (auto) 84.6 %; Platelet Count 318 K/uL (130-400); RDW Coefficient of Variation 13.9 % (11.5-14.5); RDW Standard Deviation 40.9 fL (36.4-46.3); Red Blood Count 5.38 M/uL (4.70-6.10); White Blood Count 14.48 K/ul (4.8-10.8)
[2023-11-11 02:40] LABS: Chol HDL Ratio 5.2 (0-5)
[2023-11-11 03:16] LABS: Troponin I High Sensitivity 75441.2 pg/ml (0-20)
--- NOTE | 2023-11-11 03:58 | History & Physical Report ---
"Date of Service November 11, 2023 Assessment & Plan (1) Elevated serum glucose: (2) Atherogenic dyslipidemia: (3) ST elevation myocardial infarction (STEMI): (4) Morbid obesity: (5) Hypertension: Plan STEMI | Post-Cardiac Catheterization with LYNDSAY to LAD -S/P cardiac cath with LYNDSAY to LAD -Management per ICU and cardiology -Trend troponin: 96.3 -> 75141.2 -Lipid panel pending, will start atorvastatin 40mg -DAPT with aspirin and Brilinta -Echocardiogram ordered -Cardiology recommending cardiac rehab at discharge and nutrition consult Hypertension -IV hydralazine PRN -Started on metoprolol tartrate 25mg BID by cardiology Elevated Serum Glucose -No prior diagnosis of diabetes mellitus -Hgb A1C pending * Patient would benefit from establishing with a PCP at time of discharge in addition to following up with cardiology Admit to ICU Diet: Heart healthy Code Status: Full Code Admission and Anticipated Discharge Date Admission Date: November 11, 2023 History of Present Illness Primary Care Provider: NO PCP Ge Granda is a 63 year-old male without significant past medical history who presented to the ED for concerns of acute onset of chest pain. He endorses that prior to arrival at the hospital he experienced sudden onset chest pain and shortness of breath. He was evaluated in the ED and diagnosed with STEMI, a heart alert was called and patient subsequently underwent cardiac catheterization and had drug eluting stent placement. After completion of catheterization, patient was transferred to ICU for standard monitoring. Patient denies any current chest pain, shortness of breath, nausea/vomiting upon exam post-cath. Patient denies taking any home medications and states that he does does not go to the doctor so he does not have a PCP. He endorses cardiac history in both parents (states they both had NJ), is the youngest of five siblings but states he is the first sibling to have cardiac disease. 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 ED Course: -EKG, chest x-ray -CBC, CMP, troponin, magnesium, lipase, TSH -Received Fentanyl, aspirin, Zofran, Metoprolol Allergies Allergy/AdvReac Type Severity Reaction Status Date / Time ciprofloxacin Allergy Mild Hives Verified 11/11/23 12:23 Quinolones Allergy Mild HIVES Verified 11/11/23 12:23 sibutramine Allergy Unknown Unknown Verified 11/11/23 12:23 Home Medications Medication Instructions Recorded Confirmed Type No Known Home Medications 11/11/23 11/11/23 History Past Med/Surg History Problem List (Updated 11/11/23 @ 14:00 by Tommie Koo MD, PhD) Ischemic cardiomyopathy Elevated serum glucose Atherogenic dyslipidemia ST elevation myocardial infarction (STEMI) (Acute) Morbid obesity Fracture of thumb, right, closed (Acute) Adjustment disorder Dislocation of left shoulder joint Hypertension (Chronic) pt denies, no meds Medical History History of COVID-19 ?2020- flu symtoms- no hospitalization, no current issues Anxiety Surgical History Hx of colonoscopy History of left knee replacement History of surgery on arm Family History Other No family history of adverse response to anesthesia Social History Smoking Status: Never smoker Tobacco Type: Smokeless Tobacco (Dip or Chew) Second Hand Exposure: No; Do You Dip or Chew Tobacco: Yes (advised); Hx Alcohol Use: Yes Alcohol type: beer Hx Substance Use: No Preferred Language: Norwegian Communication Ability: Effective Mud Boss Required: No Beliefs That Will Affect Care: None Current Living Situation: Alone Feels Safe at Home: Yes Safety Concerns: Feels Safe At This Time Assistive Devices: Glasses Review of Systems Review of Systems: As per above Physical Exam Constitutional: + obese and cooperative; no acute distre ss Eyes: + anicteric sclerae; no conjunctival abn ormality ENMT: Ears: no external ear abnormality Nose: no external nose abnormality Moist mucous membranes Respiratory: normal respiratory effort, lungs clear to auscultation Cardiovascular: Rate/Rhythm: regular rate and regular rhythm No significant lower extremity edema Gastrointestinal (Abdomen): Inspection/Auscultation: abdomen normal to inspection Percussion/Palpation: + abdomen tender and abdomen soft; no guarding Musculoskeletal: Moves all limbs independently Skin: no rashes, warm and dry Neurologic: no focal motor deficits Psychiatric: A+Ox3, euthymic affect Results & Data Results & Data Vital Signs (Past 12 Hours) Vital Signs Temp Pulse Pulse Resp BP BP Pulse Ox 11/11/23 03:35 62 23 137/88 96 11/11/23 03:00 36.5 C 66 137/87 96 11/11/23 02:31 62 22 143/92 H 96 11/11/23 02:01 120/70 11/11/23 02:00 70 25 H 96 11/11/23 02:00 36.8 C 61 21 120/70 95 11/11/23 01:31 124/68 11/11/23 01:31 73 24 96 11/11/23 01:30 72 19 96 11/11/23 01:11 71 22 92 11/11/23 01:03 70 22 141/90 H 95 11/10/23 22:55 74 19 169/124 H 99 11/10/23 22:40 72 27 H 175/139 H 97 11/10/23 22:39 78 21 184/128 H 97 11/10/23 22:36 78 21 201/134 H 97 11/10/23 22:31 75 19 203/144 H 98 11/10/23 22:28 79 11/10/23 22:27 78 15 171/115 H 98 11/10/23 22:09 36.6 C 68 16 187/107 H 98 O2 Del Method 11/11/23 03:35 Room Air 11/11/23 03:00 Room Air 11/11/23 02:31 Room Air 11/11/23 02:01 11/11/23 02:00 11/11/23 02:00 Room Air 11/11/23 01:31 11/11/23 01:31 11/11/23 01:30 11/11/23 01:11 11/11/23 01:03 Room Air 11/10/23 22:55 Room Air 11/10/23 22:40 Room Air 11/10/23 22:39 Room Air 11/10/23 22:36 Room Air 11/10/23 22:31 Room Air 11/10/23 22:28 11/10/23 22:27 Room Air 11/10/23 22:09 Room Air Critical Care Time 40 minutes Supervising Physician Co-Signing Physician Notes Attending addendum: I have physically seen this patient, have supervised the medical residents activities, and agree with the H&P unless as otherwise noted. Assessment and Plan: Inferior wall STEMI/hypertension- Heart alert EKG with ST elevations in leads II, III and aVF Taken emergently to the cardiac Vision Mixer, with LYNDSAY to LAD Admission to ICU Dual antiplatelet therapy with aspirin and Brilinta Echocardiogram in the a.m. Metoprolol tartrate 25 mg p.o. twice daily Check a fasting lipid panel and hemoglobin A1c Hyperglycemia- Check hemoglobin A1c as noted Morbid obesity- Dietary counseling Resident Activity Tracking Resident Involvement: Resident Care Provided Care Provided: Adult Hospital Medicine (3) ST elevation myocardial infarction (STEMI) Involved coronary artery: right coronary artery Qualified Code(s): I21.11 - ST elevation (STEMI) myocardial infarction involving right coronary artery"
[2023-11-11 06:18] LABS: Calcium 9.3 mg/dl (8.6-10.3); Magnesium 2.2 mg/dl (1.7-2.4); Potassium 4.4 mmol/L (3.5-5.1)
[2023-11-11 06:24] LABS: BUN Creatinine Ratio 18.5 (10-20); Creatinine Clr Calc Pharmacy 124.9 ml/min; Est GFR (African American) 102.2 ml/min; Est GFR (Non-African American) 88.2 ml/min; Phosphorus 3.9 mg/dl (2.5-4.9)
[2023-11-11] MEDS: ICU ELECTROLYTE REPLACEMENT PROTOCOL SCH (06:36)
--- NOTE | 2023-11-11 07:01 | XRay Report ---
XR chest 1V not portable CLINICAL HISTORY: Chest pain, nonspecific TECHNIQUE: Single frontal radiograph of the chest was obtained. Comparison: Comparison is made to chest radiographs 05/25/2017 FINDINGS: No lines and tubes are seen. Cardiomegaly is noted. The lungs are clear. No evidence of pleural effus ion or pneumothorax. IMPRESSION: No acute chest disease. Cardiomegaly is noted. ACT 112: Negative or not required by law. Electronically signed by: Michele Arana M.D. 11/11/2023 6:59 AM
[2023-11-11 07:16] LABS: Estimated Average Glucose 123 mg/dl; Hemoglobin A1C 5.9 % (4.5-5.6)
[2023-11-11] MEDS: ICU Protocol for HYPERglycemia SCH (07:22)
[2023-11-11] MEDS ORDERED: ICU Protocol for HYPERglycemia SCH (07:30)
--- NOTE | 2023-11-11 08:02 | Electrocardiogram Report ---
Test Reason : Blood Pressure : / mmHG Vent. Rate : 069 BPM Atrial Rate : 069 BPM P-R Int : 156 ms QRS Dur : 098 ms QT Int : 402 ms P-R-T Axes : 055 045 076 degrees QTc Int : 430 ms Normal sinus rhythm Inferior infarct , possibly acute Lateral injury pattern ACUTE PR / STEMI Abnormal ECG When compared with ECG of 08-APR-2022 16:28, ST elevation now present in Inferior leads ST now depressed in Anterior leads Confirmed by Gunnar Chou ([id number]) on 11/11/2023 8:02:16 AM Referred By: Tommie Koo Confirmed By:Manuel Chou
[2023-11-11] MEDS: ASPIRIN 81 MG ECTAB PO SCH (10:09)
[2023-11-11] MEDS: METOPROLOL TARTRATE 25 MG TAB PO SCH (10:09)
[2023-11-11] MEDS: ATORVASTATIN 40 MG TAB PO SCH (10:09)
--- NOTE | 2023-11-11 14:01 | Cardiology Progress Note ---
Date of Service November 11, 2023 Assessment & Plan (1) ST elevation myocardial infarction (STEMI): Plan: Integrilin drip has been completed. He will continue with aspirin 81 mg daily and Brilinta 90 mg p.o. twice daily. His heart rate and blood pressure are also at target. Continue guideline directed medical therapy with aspirin 81 mg daily, atorvastatin 40 mg daily, and metoprolol tartrate 25 mg p.o. twice daily. Strongly encouraged him to participate in cardiac rehab. Also encouraged him to discontinue tobacco use. (2) Atherogenic dyslipidemia: Plan: High risk. High intensity statin therapy initiated with a atorvastatin 40 mg daily. His untreated baseline LDL was 115 mg/dL. Target LDL under aggressive LDL reduction strategy is 68 mg/dL. (3) Hypertension: Plan: Blood pressure well-controlled. Continue metoprolol tartrate 25 mg p.o. twice daily. Utilizing hydralazine as needed for SBP greater than 150 mmHg. We will consider the addition of an angiotensin receptor jake prior to discharge. His renal function has improved and it appears he has prediabetes. (4) Ischemic cardiomyopathy: Plan: No evidence of volume overload today. EF around 40% by echo. No significant valvular pathology. Significant wall motion abnormalities consistent with recent large territory circumflex distribution occlusion. He does not require defibrillator. He has borderline criteria for JOHN inhibitor/ARB/Entresto. We will likely change his metoprolol to tartrate to metoprolol succinate on discharge. Has not yet required any loop diuretic. Similarly, has not required spironolactone although he may be candidate for that. We should also consider Jardiance, particularly if he has diabetes/prediabetes. Plan He will be okay for transfer to [facility] this evening. Admission and Anticipated Discharge Date Admission Date: November 11, 2023 Subjective Patient was seen in the ICU. He reported 1 episode of chest discomfort overnight lasting just a minute or 2. Today, he reports feeling well. Only complaint is of fatigue. No pain at the radial access site and no recurrence of discomfort. Review of Systems Review of Systems: Negative except as per HPI Physical Exam Constitutional: WD/WN, vitals as above (Obese.) Neck: No JVD or bruits Respiratory: Clear to auscultation bilaterally. No wheezing, rhonchi, or rales. Cardiovascular: Regular rate and rhythm. S4 gallop. No rubs or murmurs. No edema. Musculoskeletal: no cyanosis or clubbing, extremities motor strength 5/5 (Right radial access is clean dry and intact. Good distal perfusion.) Neurologic: Cognition intact. Speech fluent. No focal deficits. Psychiatric: A+Ox3, euthymic affect Results & Data Vital Signs (Past 12 Hours) Vital Signs Temp Pulse Pulse Resp BP BP Pulse Ox 11/11/23 13:00 63 14 97 11/11/23 12:03 66 18 94 11/11/23 11:01 141/71 H 11/11/23 11:01 69 18 97 11/11/23 10:34 68 18 100 11/11/23 10:34 132/99 11/11/23 10:30 132/99 11/11/23 08:00 60 11/11/23 08:00 129/73 11/11/23 08:00 68 21 97 11/11/23 08:00 36.7 C 11/11/23 07:00 62 24 97 11/11/23 07:00 132/78 11/11/23 06:00 36.5 C 69 18 118/85 96 11/11/23 05:30 126/77 11/11/23 05:30 61 19 96 11/11/23 05:00 129/79 11/11/23 05:00 72 19 96 11/11/23 04:30 127/95 11/11/23 04:30 69 20 96 11/11/23 04:28 67 18 128/85 97 11/11/23 04:01 67 19 96 11/11/23 04:01 128/85 11/11/23 04:00 83 33 H 93 11/11/23 04:00 36.5 C 67 24 128/85 95 11/11/23 03:35 62 23 137/88 96 11/11/23 03:30 65 24 96 11/11/23 03:30 137/88 11/11/23 03:00 64 20 96 11/11/23 03:00 137/87 11/11/23 03:00 36.5 C 66 137/87 96 11/11/23 02:31 143/92 H 11/11/23 02:31 59 L 22 96 11/11/23 02:31 62 22 143/92 H 96 11/11/23 02:30 65 18 95 11/11/23 02:01 66 18 96 11/11/23 02:01 120/70 11/11/23 02:00 70 25 H 96 11/11/23 02:00 36.8 C 61 21 120/70 95 O2 Del Method 11/11/23 13:00 11/11/23 12:03 11/11/23 11:01 11/11/23 11:01 11/11/23 10:34 11/11/23 10:34 11/11/23 10:30 11/11/23 08:00 11/11/23 08:00 11/11/23 08:00 11/11/23 08:00 11/11/23 07:00 11/11/23 07:00 Room Air 11/11/23 06:00 11/11/23 05:30 11/11/23 05:30 11/11/23 05:00 11/11/23 05:00 11/11/23 04:30 11/11/23 04:30 11/11/23 04:28 Room Air 11/11/23 04:01 11/11/23 04:01 11/11/23 04:00 11/11/23 04:00 Room Air 11/11/23 03:35 Room Air 11/11/23 03:30 11/11/23 03:30 11/11/23 03:00 11/11/23 03:00 11/11/23 03:00 Room Air 11/11/23 02:31 11/11/23 02:31 11/11/23 02:31 Room Air 11/11/23 02:30 11/11/23 02:01 11/11/23 02:01 11/11/23 02:00 11/11/23 02:00 Room Air PG Care Time/CCT Total # of Minutes Spent Total Time Spent with Patient: Total time spent is greater than 50% in coordination of care (as documented) at patient's floor/unit and/or counseling patient: Coding Level of Care Code 94121 SUB INP/OBS CARE 3/50MIN Diagnoses ST elevation myocardial infarction (STEMI) I21.11 Involved coronary artery: right coronary artery Atherogenic dyslipidemia E78.5 Hypertension I10 Ischemic cardiomyopathy I25.5 (1) ST elevation myocardial infarction (STEMI) Involved coronary artery: right coronary artery Qualified Code(s): I21.11 - ST elevation (STEMI) myocardial infarction involving right coronary artery
--- NOTE | 2023-11-11 14:41 | XCELERA ---
[id number]
[2023-11-11] MEDS: TICAGRELOR 90 MG TAB PO ONE (15:08)
--- NOTE | 2023-11-11 15:33 | Cardiac Catheterization ---
[facility] Data: Phlebotomy Specialist Cardiac Status Clinical evaluation leading to the procedure CAD Presenation: STEMI Anginal Classification: CCS IV Heart Failure: No Cardiogenic Shock within 24 Hours: No Cardiac Arrest within 24 Hours: No Imaging Studies Past 6 Months: No STEMI OR Non-STEMI Symptom Onset Date: 11/10/23 Symptom Onset Time: 21:30 Thrombolytics: No Coronary Anatomy Dominant: Co-Dominant LAD (% Stenosis): Mid (30%) D1 (% Stenosis): Proximal (40%) Circumflex (% Stenosis): Mid (20 to 30%) and Distal (40%) OM1 (% Stenosis): Proximal (100% thrombotic) L PL1 (% Stenosis): Normal RCA (% Stenosis): Normal R PDA (% Stenosis): Normal Diagnostic Physicians Name: Tommie Koo MD, PhD Closure Device Percutaneous Entry Location: Radial Closure Device: Radial Band Recommendations: Medical Therapy and/or Counseling and PCI without planned CABG PCI Indication: PCI for STEMI - Unstable First Noted: First EKG Lesion Segment Name: Proximal OM1 Culprit Artery: Yes Stenosis Prior to Rx (%): 100% Chronic Total Occlusion: No Pre-Procedure ANTHONY Flow: 0 Previously Treated Lesion: No Lesion Complexity: Non-High/Non-C Lesion Length (mm): 20 Thrombus Present: Yes Bifurcation Lesion: No Guidewire Across Lesion: Yes Intraprocedure Events Significant Disection: No Perforation: No Cardiac Cath Procedure Full Procedure Date November 10, 2023 Pre-Procedure Diagnosis Pre-Procedure Diagnosis: STEMI AUC Score AUC Score: 09 Post-Procedure Diagnosis Post-Procedure Diagnosis: Severe CAD and Successful PCI Procedure(s) Performed Procedure(s) Performed: Coronary Angiography and Drug Eluting Stent Reflesher Tommie Koo MD, PhD Estimated Blood Loss Estimated Blood Loss: 10 cc Medication(s) Medication(s): Fentanyl, Heparin, Integrilin, Lidocaine 1%, Nicardipine, Nitroglycerin and Versed Medication(s): Amiodarone Summary of Findings Brief description: Patient was brought emergently to the cardiac catheterization suite where he was shaved and prepped in a sterile fashion. Sedated using IV Versed and fentanyl. Soft tissues of the right wrist were anesthetized using 2 mL of 1% Xylocaine. The right radial artery was accessed using a modified Seldinger technique and a 6 [place] radial artery glide sheath was placed. All catheters were advanced and exchanged over a 0.035 J-tip wire. The patient was provided anticoagulation with IV heparin and antispasmodics including nicardipine and nitroglycerin. A 6 [place] JR4 guide catheter was advanced over the J-wire and used to engage the right coronary in anticipation of RCA stenosis. Right coronary angiography was performed. This was not the culprit vessel. Therefore we moved to left coronary angiography. A 6 [place] EBU 3.0 guide catheter was used to engage the left coronary system. As it turns out, there were separate ostia and the catheter engaged the left circumflex. Coronary angiography was performed in orthogonal views. This was the culprit for acute AZ so we proceeded immediately with PCI. ACT was checked and additional heparin was provided as needed to maintain therapeutic anticoagulation. A BMW universal guidewire was advanced through the guide catheter and under fluoroscopic guidance positioned distal to the lesion. Lesion was predilated with a 2.5 x 12 mm trek balloon initially 2 inflations at 8 tarik followed by 3 inflations at 12 tarik. The balloon was removed and network operations specialist angiography performed. Patient developed AIVR and then ventricular tachycardia. He was placed on amiodarone with a 300 mg bolus. Patient was also started on Integrilin as a double bolus administration followed by drip. A 3.0 x 22 mm [place] drug-eluting stent was then advanced and positioned across the lesion where it was deployed at 14 tarik. The stent balloon was removed and angiography was performed. There was significant residual clot downstream from the stent although the vessel was large. Therefore, a 2.5 x 12 mm trek balloon was advanced and used to "DOTTER" the clot and the guidewire was then advanced further. This resulted in resolution of the clot. The balloon and coronary guidewire were subsequently removed. The guide catheter was then exchanged for a 5 [place] JL 4 diagnostic catheter to complete left coronary angiography. This catheter did not fit properly and was exchanged for a 5 [place] JL 3.5 diagnostic catheter. Left coronary angiography was performed in orthogonal views. Diagnostic catheter was removed. Radial artery sheath was removed. Hemostasis was obtained using the TR band. Patient was hemodynamically stable and asymptomatic. He was subsequently admitted to the ICU for further workup and management. This ended the case. Coronary angiography findings: No left main, separate ostia for LAD and circumflex arising from the left coronary sinus of Valsalva. GOF-rfqhy-tuomugp and transapical vessel. Gives to large septal branches. Gives a very large branching first diagonal which also is transapical. The LAD and D1 are in fact essentially twin vessels. The LAD also provides a small second diagonal and smaller septal branches. Proximal LAD without disease. Mid vessel with 30% stenosis just after the ostium of the first diagonal. Distal vessel is relatively small with luminal irregularities. D1 has a proximal 40% stenosis. ARm-knhkl-rlvpuod and codominant. Travels in the AV groove providing a large OM1. The proximal AV groove vessel has luminal irregularities. The mid and distal AV groove vessel have 30% and 40% stenosis respectively and then the AV groove vessel terminates in the left PDA. This is small caliber and relatively short. The OM1 has a proximal 100% occlusion with ANTHONY 0 flow. Post PCI it is found to be large and branching. Distally it trifurcates into 3 relatively large branches. RCA-medium caliber and codominant. There is separate ostia of the large RV marginal branch. The RCA has no significant disease and terminates distally is a long small caliber PDA. PCI-0% residual stenosis post PCI of the OM1. ANTHONY-3 flow post PCI No evidence of dissection or perforation post PCI There is a branch which is small in caliber arising within the stented segment which is jailed but with good flow. Following the stent there is up to 20% stenosis before the trifurcation. This may represent mild vasospasm. Summary: 1. Severe occlusive thrombotic stenosis of the large OM1 branch. Culprit for inferolateral myocardial infarction. 2. Mild nonocclusive coronary disease in the remaining coronary arteries 3. Successful PCI of the OM 1 using a single large caliber drug-eluting stent 4. Initiate guideline directed medical therapy for secondary prevention of coronary disease including; low-dose aspirin, high intensity statin therapy, beta-jake, plus or minus JOHN inhibitor/ARB. 5. Patient will remain on dual antiplatelet therapy using aspirin 81 mg daily and Brilinta 90 mg p.o. twice daily. In addition, we will keep him on the Integrilin drip for 12 hours given the large clot burden identified on catheterization. 6. Highly recommend patient participate in CARDIAC REHAB following discharge. Hemodynamics Rest Ao:: 179/122 mmHg Final Ao: 120/88 mmHg LV: Not performed Recommendations Recommendations: Medical Therapy and/or Counseling and PCI without planned CABG Radiation Exposure (mGy) 3046 mGy, fluoroscopy time 11.2 minutes Contrast (mls) 190 mL Anesthesia 1 mg IV Versed, 150 mcg IV fentanyl start time 2309, end time 2354 Procedural Complication(s) None Disposition ICU I attest to the content of the Intraoperative Record and any orders documented therein. Any exceptions are noted below. [facility] Card Cath Procedure Codes Cardiac Catheterization Procedure 1: Cardiovascular Cath Procedures: 68163 Coronaries Moderate Sedation Procedure 1: Sedation/Anesthesia: 12530 Mod Sedation by the same physician;Init15 Min Child Age 5 & Up (Initial 15 min, start 2309) Procedure 2: Sedation/Anesthesia: 34368 Mod Sedation by the same physician; Ea [id number] Minutes (Additional 30 min, End 1154) Stenting Procedure 1: Cardiovascular Stent Procedures: 45955 Perc transluminal revascularization of acute sub/total occl, aMI (LCx/OM) PG Care Time/CCT Total # of Minutes Spent Total Time Spent with Patient: Total time spent is greater than 50% in coordination of care (as documented) at patient's floor/unit and/or counseling patient:
--- NOTE | 2023-11-11 19:14 | Billing Data ---
Date of Service November 11, 2023 Coding Level of Care Code 34803 CRITICAL CARE -M
[2023-11-11] MEDS: TICAGRELOR 90 MG TAB PO SCH (20:43)
[2023-11-12 00:52] LABS: Basophils # (auto) 0.06 K/uL (0.00-0.20); Basophils % (auto) 0.5 %; Eosinophils # (auto) 0.27 K/uL (0.00-0.50); Hematocrit (blood only) 42.1 % (42.0-52.0); Hemoglobin 14.1 g/dl (14.0-18.0); Immature Granulocytes # (auto) 0.05 K/uL (0.01-0.20); Immature Granulocytes % (auto) 0.4 %; Lymphocytes # (auto) 2.35 K/uL (1.20-3.40); Lymphocytes % (auto) 17.7 %; Mean Corpuscular Hemoglobin 27.5 pg (25.0-34.0); Mean Corpuscular Hgb Conc 33.5 g/dL (32.0-36.0); Mean Corpuscular Volume 82.2 fL (80.0-100.0); Mean Platelet Volume 9.4 fL (9.4-12.4); Monocytes # (auto) 1.36 K/uL (0.11-0.59); Monocytes % (auto) 10.3 %; Neutrophils # (auto) 9.17 K/uL (1.40-6.50); Neutrophils % (auto) 69.1 %; Platelet Count 295 K/uL (130-400); RDW Coefficient of Variation 13.9 % (11.5-14.5); RDW Standard Deviation 40.9 fL (36.4-46.3); Red Blood Count 5.12 M/uL (4.70-6.10); White Blood Count 13.26 K/ul (4.8-10.8)
[2023-11-12] MEDS ORDERED: 0.2 MICRON FILTER SET 1 EACH IV STA (03:21)
[2023-11-12] MEDS ORDERED: STAT IV Infusion **Titration per Protocol STA (03:21)
[2023-11-12] MEDS ORDERED: AMIODARONE IV BOLUS & DRIP IV STA (03:21)
--- NOTE | 2023-11-12 03:22 | Communication Note ---
Date of Service: November 12, 2023 Notified by nursing this evening that patient went into atrial fibrillation, confirmed by EKG with HR 90s-120s. Patient was asymptomatic and subsequently re turned to sinus rhythm with HR 70s-80s. Several hours later at approximately 3am, patient returned to a. fib with HR 90s-110s and BP 127/85. Discussed with attending physician as patient is one day post MS with stent placement, will start amio drip at this time.
[2023-11-12] MEDS: AMIODARONE / D5W 150 MG/100 ML BAG IV STA (03:30)
[2023-11-12] MEDS: AMIODARONE / D5W 360 MG/200 ML BAG IV ONE (03:43)
[2023-11-12] MEDS: METOPROLOL TARTRATE 1 MG/ML VIAL IV STA (03:46)
[2023-11-12 06:45] LABS: BUN Creatinine Ratio 13.3 (10-20); Calcium 8.9 mg/dl (8.6-10.3); Creatinine Clr Calc Pharmacy 117.2 ml/min; Est GFR (African American) 94.7 ml/min; Est GFR (Non-African American) 81.7 ml/min; Magnesium 1.9 mg/dl (1.7-2.4); Phosphorus 2.9 mg/dl (2.5-4.9)
[2023-11-12] MEDS: AMIODARONE / D5W 360 MG/200 ML BAG IV SCH (09:30)
--- NOTE | 2023-11-12 10:34 | Electrocardiogram Report ---
Test Reason : Blood Pressure : / mmHG Vent. Rate : 092 BPM Atrial Rate : 087 BPM P-R Int : 000 ms QRS Dur : 088 ms QT Int : 386 ms P-R-T Axes : 000 -19 146 degrees QTc Int : 477 ms Poor data quality, interpretation may be adversely affected Sinus rhythm with frequent and consecutive PACs Inferior infarct , age undetermined Abnormal ECG Confirmed by Gunnar Chou ([id number]) on 11/12/2023 10:33:42 AM Referred By: Tommie Koo Confirmed By:Manuel Chou
--- NOTE | 2023-11-12 10:43 | Electrocardiogram Report ---
Test Reason : Blood Pressure : / mmHG Vent. Rate : 074 BPM Atrial Rate : 072 BPM P-R Int : 000 ms QRS Dur : 160 ms QT Int : 458 ms P-R-T Axes : 000 254 060 degrees QTc Int : 508 ms Suspect arm lead reversal, interpretation assumes no reversal Sinus rhythm with PVCs and an idioventricular rhythm Right ventricular hypertrophy Inferior infarct , age undetermined Abnormal ECG Confirmed by Gunnar Chou ([id number]) on 11/12/2023 10:42:54 AM Referred By: Tommie Koo Confirmed By:Manuel Chou
--- NOTE | 2023-11-12 11:56 | Hospitalist Progress Note ---
"Date of Service November 12, 2023 Assessment & Plan (1) Elevated serum glucose: (2) Atherogenic dyslipidemia: (3) ST elevation myocardial infarction (STEMI): (4) Morbid obesity: (5) Hypertension: (6) Paroxysmal A-fib: Plan STEMI | Post-Cardiac Catheterization with LYNDSAY to LAD -S/P cardiac cath with LYNDSAY to LAD Continue aspirin and Brilinta and also statin Cardiology recommending cardiac rehab at discharge and nutrition consult Paroxysmal atrial fibrillation Patient went into paroxysmal atrial fibrillation last night and was started on amiodarone infusion Patient currently on sinus rhythm with PVCs. Cardiology is on consult, pressure recommendations Ischemic cardiomyopathy 2D echo showed ejection fraction 40 to 45% with diastolic dysfunction Patient is now status post cardiac cath Hypertension -IV hydralazine PRN -Started on metoprolol tartrate 25mg BID by cardiology Elevated Serum Glucose -No prior diagnosis of diabetes mellitus -Hgb A1C pending * Patient would benefit from establishing with a PCP at time of discharge in addition to following up with cardiology Admit to ICU Diet: Heart healthy Code Status: Full Code Admission and Anticipated Discharge Date Admission Date: November 11, 2023 Subjective Patient seen and examined, denies chest pain or shortness of breath, only mild chest discomfort whenever he moves around. Review of Systems Review of Systems: All systems reviewed are negative, apart from the ones contained in the history. Physical Exam Physical Exam: The patient is awake, alert and oriented 3, well developed and well nourished, normocephalic and atraumatic, lying in bed and in no acute distress. HEENT--PERRL, EOMI, mucous membranes and oropharynx mildly dry Neck--supple. No JVD. No bruits. Thyroid normal, trachea midline, no adenopathy. Heart--normal S1 and S2. No murmurs, rubs or gallops. Lungs--clear bilaterally, no respiratory distress, no accessory muscle use. Abdomen--normal bowel sounds and soft. Extremities--no cyanosis or clubbing. No edema. Dermatologic--normal skin turgor, normal color, no abnormal lymph nodes, no rash. Neurologic--cranial nerves II through XII grossly intact. Rheumatologic--normal range of motion. Psychiatric--normal affect. Results & Data Results & Data Vital Signs (Past 12 Hours) Vital Signs Temp Pulse Pulse Resp BP Pulse Ox O2 Del Method 11/12/23 11:04 97.9 F 78 18 114/80 97 Room Air 11/12/23 10:53 Room Air 11/12/23 07:08 100.4 F H 100 H 18 106/68 95 Room Air 11/12/23 02:54 99.1 F 100 H 18 127/85 94 Room Air 11/12/23 00:27 76 PG Care Time/CCT Total # of Minutes Spent Total Time Spent with Patient: Total time spent is greater than 50% in coordination of care (as documented) at patient's floor/unit and/or counseling patient: Coding Level of Care Code 20463 SUB INP/OBS CARE 2/35MIN Diagnoses Elevated serum glucose R73.[address] elevation myocardial infarction (STEMI) I21.11 Involved coronary artery: right coronary artery Morbid obesity E66.01 Hypertension I10 Paroxysmal A-fib I48.0 Time Spent (min) 35 (3) ST elevation myocardial infarction (STEMI) Involved coronary artery: right coronary artery Qualified Code(s): I21.11 - ST elevation (STEMI) myocardial infarction involving right coronary artery"
[2023-11-12] MEDS ORDERED: LORazepam 1 MG in SYRINGE 0.5 ML IV PRN (15:34)
--- NOTE | 2023-11-12 16:37 | Cardiology Progress Note ---
Date of Service November 12, 2023 Assessment & Plan (1) Paroxysmal A-fib: Plan: This is a new diagnosis. He is currently in sinus rhythm after receiving amiodarone plus drip. He had also received 300 mg IV in the Compensation And Benefits Analyst for wide- complex tachycardia post reperfusion. In addition to his coronary disease, ischemic cardiomyopathy, hypertension, he also has alcohol abuse issues. All of these increase the likelihood of recurrent atrial fibrillation. Amiodarone may be a poor long-term management medication because of his alcohol use and potential for liver issues. I will try to control his heart rate with increased dose of beta-jake. He also needs to be on oral anticoagulation. It would be preferable for him to use a DOAC since he is to not have significant issues with alcohol use and do not require frequent labs. At issue will be the cost. I will ask social work to see if we can find an affordable solution for his need to be on anticoagulation. At the very least he will need to be on warfarin at discharge but obviously a DOAC is greatly preferred. (2) Ischemic cardiomyopathy: Plan: No significant volume overload at this time. Once we have identified MAME tolerable beta-jaek dose I would like to change his metoprolol to tartrate to metoprolol succinate at the same 24-hour dose. (3) Atherogenic dyslipidemia: Plan: Patient is high risk. High intensity statin therapy ongoing with atorvastatin. Continue current medical management. (4) Hypertension: Plan: Blood pressure has been at target. He was on metoprolol tartrate 25 mg p.o. twice daily plus amiodarone which can drop the blood pressure some. Stopping the amiodarone drip and his next dose of beta-jake will be metoprolol to tartrate 50 mg p.o. twice daily. Will see how he tolerates this dose. He may end up requiring 37.5 mg p.o. twice daily if he becomes hypotensive from the 50 mg dose. This could be changed to metoprolol succinate ER 75 mg daily by discharge. (5) ST elevation myocardial infarction (STEMI): Plan: Status post PCI. He requires dual antiplatelet therapy. Currently on aspirin and Brilinta. However because of his insurance status I do not think that the Brilinta will be cost effective. Therefore I will be changing him to Plavix. He will have a 300 mg p.o. loading dose this evening and then tomorrow he will begin 75 mg p.o. daily. Because he also requires anticoagulant current guidelines recommend that we should discontinue the aspirin to avoid "triple therapy". Current blood pressure is at target but his heart rate is a bit fast. We are increasing the beta-jake which should slow the heart rate. Additionally, he may be having some early withdrawal signs from his alcohol use. I do recommend that he be placed on a benzodiazepine taper. Exact protocol per hospitalist. Plan Earliest discharge would be tomorrow. That assumes that he has no complications either from a cardiac standpoint or from blood thrall. Is also assumes that we will be able to adjust his medical regimen optimally and that he will be able to tolerate it as well as afford it for discharge. Admission and Anticipated Discharge Date Admission Date: November 11, 2023 Subjective Patient developed atrial fibrillation with rapid ventricular response. Placed on amiodarone drip with conversion to sinus rhythm. Not placed on any anticoagulation at this point. Patient admits to drinking at least 64 ounces of beer every night or every other night. His last drink was 48 hours ago. Patient is uninsured and has no prescription coverage. He tells me that he does not have any chest pain heaviness or tightness at this point. No shortness of breath. Overall feeling fairly well. No other complaints or concerns at this time. Review of Systems Review of Systems: Negative except as per HPI Physical Exam Constitutional: WD/WN, vitals as above (Obese.) Neck: No JVD or bruits Respiratory: Clear to auscultation bilaterally. No wheezing, rhonchi, or rales. Cardiovascular: Regular rate and rhythm. S4 gallop. No rubs or murmurs. No edema. Musculoskeletal: no cyanosis or clubbing, extremities motor strength 5/5 (Right radial access is clean dry and intact. Good distal perfusion.) Neurologic: Cognition intact. Speech fluent. No focal deficits. Psychiatric: A+Ox3, euthymic affect Results & Data Vital Signs (Past 12 Hours) Vital Signs Temp Pulse Resp BP Pulse Ox O2 Del Method 11/12/23 15:47 37.3 C 95 H 16 124/78 97 Room Air 11/12/23 11:04 36.6 C 78 18 114/80 97 Room Air 11/12/23 10:53 Room Air 11/12/23 07:08 38 C H 100 H 18 106/68 95 Room Air PG Care Time/CCT Total # of Minutes Spent Total Time Spent with Patient: Total time spent is greater than 50% in coordination of care (as documented) at patient's floor/unit and/or counseling patient: Coding Level of Care Code 06337 SUB INP/OBS CARE 2/35MIN Diagnoses Paroxysmal A-fib I48.0 Ischemic cardiomyopathy I25.5 Atherogenic dyslipidemia E78.[address] elevation myocardial infarction (STEMI) I21.11 Involved coronary artery: right coronary artery (5) ST elevation myocardial infarction (STEMI) Involved coronary artery: right coronary artery Qualified Code(s): I21.11 - ST elevation (STEMI) myocardial infarction involving right coronary artery
[2023-11-12] MEDS: FOLIC ACID 1 MG TAB PO SCH (16:53)
[2023-11-12] MEDS: THIAMINE HCL 100 MG TAB PO SCH (16:53)
[2023-11-12] MEDS: APIXABAN 5 MG TABLET PO SCH (20:45)
[2023-11-12] MEDS: METOPROLOL TARTRATE 50 MG TAB PO SCH (20:46)
[2023-11-12] MEDS: CLOPIDOGREL BISULFATE 300 MG TAB PO ONE (20:49)
[2023-11-12] MEDS: CLOPIDOGREL BISULFATE 75 MG TAB PO ONE (21:09)
[2023-11-13 01:06] LABS: Basophils # (auto) 0.04 K/uL (0.00-0.20); Basophils % (auto) 0.3 %; Eosinophils # (auto) 0.12 K/uL (0.00-0.50); Eosinophils % (auto) 0.9 %; Hematocrit (blood only) 41.8 % (42.0-52.0); Hemoglobin 14.1 g/dl (14.0-18.0); Immature Granulocytes # (auto) 0.05 K/uL (0.01-0.20); Immature Granulocytes % (auto) 0.4 %; Lymphocytes # (auto) 2.15 K/uL (1.20-3.40); Lymphocytes % (auto) 15.3 %; Mean Corpuscular Hemoglobin 27.4 pg (25.0-34.0); Mean Corpuscular Hgb Conc 33.7 g/dL (32.0-36.0); Mean Corpuscular Volume 81.3 fL (80.0-100.0); Mean Platelet Volume 9.3 fL (9.4-12.4); Monocytes # (auto) 1.22 K/uL (0.11-0.59); Monocytes % (auto) 8.7 %; Neutrophils # (auto) 10.47 K/uL (1.40-6.50); Neutrophils % (auto) 74.4 %; Platelet Count 278 K/uL (130-400); RDW Coefficient of Variation 13.7 % (11.5-14.5); RDW Standard Deviation 40.3 fL (36.4-46.3); Red Blood Count 5.14 M/uL (4.70-6.10); White Blood Count 14.05 K/ul (4.8-10.8)
[2023-11-13 07:13] LABS: Hematocrit (blood only) 41.2 % (42.0-52.0); Hemoglobin 13.9 g/dl (14.0-18.0); Mean Corpuscular Hemoglobin 27.4 pg (25.0-34.0); Mean Corpuscular Hgb Conc 33.7 g/dL (32.0-36.0); Mean Corpuscular Volume 81.1 fL (80.0-100.0); Mean Platelet Volume 9.2 fL (9.4-12.4); Platelet Count 277 K/uL (130-400); RDW Coefficient of Variation 13.7 % (11.5-14.5); RDW Standard Deviation 40.4 fL (36.4-46.3); Red Blood Count 5.08 M/uL (4.70-6.10); White Blood Count 12.86 K/ul (4.8-10.8)
[2023-11-13 07:41] LABS: BUN Creatinine Ratio 18.6 (10-20); Creatinine Clr Calc Pharmacy 121.5 ml/min; Est GFR (Non-African American) 92.3 ml/min; Phosphorus 3.3 mg/dl (2.5-4.9); Potassium 4.1 mmol/L (3.5-5.1)
[2023-11-13] MEDS: CLOPIDOGREL BISULFATE 75 MG TAB PO SCH (09:17)
--- NOTE | 2023-11-13 10:32 | Hospitalist Progress Note ---
"Date of Service November 13, 2023 Assessment & Plan (1) Elevated serum glucose: (2) Atherogenic dyslipidemia: (3) ST elevation myocardial infarction (STEMI): (4) Morbid obesity: (5) Hypertension: (6) Paroxysmal A-fib: (7) Alcohol withdrawal: Plan STEMI | Post-Cardiac Catheterization with LYNDSAY to LAD -S/P cardiac cath with LYNDSAY to LAD Continue Plavix and also statin. Stop Aspirin due to Eliquis for Afib Cardiology recommending cardiac rehab at discharge and nutrition consult Paroxysmal atrial fibrillation Patient went into paroxysmal atrial fibrillation last night and was started on amiodarone infusion Patient currently on sinus rhythm with PVCs. Cardiology is on consult, Initially on Amiodarone drip, this has been discontinued Now on Eliquis 5mg BID, Metoprolol 50mg BID Ischemic cardiomyopathy 2D echo showed ejection fraction 40 to 45% with diastolic dysfunction Patient is now status post cardiac cath Hypertension -IV hydralazine PRN -Started on metoprolol tartrate 25mg BID by cardiology Elevated Serum Glucose -No prior diagnosis of diabetes mellitus -Hgb A1C pending Patient would benefit from establishing with a PCP at time of discharge in addition to following up with cardiology Alcohol Withdrawal: Admits to regular alcohol drinking On CIWA protocol No tremors on exam today Admit to ICU Diet: Heart healthy Code Status: Full Code Admission and Anticipated Discharge Date Admission Date: November 11, 2023 Subjective patient seen and examined, no chest pains, will like to be discharged Review of Systems Review of Systems: All systems reviewed are negative, apart from the ones contained in the history. Physical Exam Physical Exam: The patient is awake, alert and oriented 3, well developed and well nourished, normocephalic and atraumatic, lying in bed and in no acute distress. HEENT--PERRL, EOMI, mucous membranes and oropharynx mildly dry Neck--supple. No JVD. No bruits. Thyroid normal, trachea midline, no adenopathy. Heart--normal S1 and S2. No murmurs, rubs or gallops. Lungs--clear bilaterally, no respiratory distress, no accessory muscle use. Abdomen--normal bowel sounds and soft. Extremities--no cyanosis or clubbing. No edema. Dermatologic--normal skin turgor, normal color, no abnormal lymph nodes, no rash. Neurologic--cranial nerves II through XII grossly intact. Rheumatologic--normal range of motion. Psychiatric--normal affect. Results & Data Results & Data Vital Signs (Past 12 Hours) Vital Signs Temp Pulse Pulse Resp BP Pulse Ox O2 Del Method 11/13/23 07:54 98.2 F 74 16 110/77 98 Room Air 11/13/23 03:00 99.1 F 79 19 114/83 93 Room Air 11/12/23 23:31 76 11/12/23 22:48 98.6 F 71 17 104/68 96 Room Air PG Care Time/CCT Total # of Minutes Spent Total Time Spent with Patient: Total time spent is greater than 50% in coordination of care (as documented) at patient's floor/unit and/or counseling patient: Coding Level of Care Code 75706 SUB INP/OBS CARE 2/35MIN Diagnoses Elevated serum glucose R73.[address] elevation myocardial infarction (STEMI) I21.11 Involved coronary artery: right coronary artery Morbid obesity E66.01 Hypertension I10 Paroxysmal A-fib I48.0 Alcohol withdrawal F10.939 Time Spent (min) 35 (3) ST elevation myocardial infarction (STEMI) Involved coronary artery: right coronary artery Qualified Code(s): I21.11 - ST elevation (STEMI) myocardial infarction involving right coronary artery"
[2023-11-13] MEDS: DOCUSATE SODIUM 100 MG CAP PO ONE (12:33)
--- NOTE | 2023-11-13 14:36 | Discharge Summary ---
"Date of Service November 13, 2023 Admission HPI Per Admitting Provider Ge Granda is a 63 year-old male without significant past medical history who presented to the ED for concerns of acute onset of chest pain. He endorses that prior to arrival at the hospital he experienced sudden onset chest pain and shortness of breath. He was evaluated in the ED and diagnosed with STEMI, a heart alert was called and patient subsequently underwent cardiac catheterization and had drug eluting stent placement. After completion of catheterization, patient was transferred to ICU for standard monitoring. Patient denies any current chest pain, shortness of breath, nausea/vomiting upon exam post-cath. Patient denies taking any home medications and states that he does does not go to the doctor so he does not have a PCP. He endorses cardiac history in both parents (states they both had DE), is the youngest of five siblings but states he is the first sibling to have cardiac disease. 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 ED Course: -EKG, chest x-ray -CBC, CMP, troponin, magnesium, lipase, TSH -Received Fentanyl, aspirin, Zofran, Metoprolol Principal Diagnosis STEMI Discharge Exam The patient is awake, alert and oriented 3, well developed and well nourished, normocephalic and atraumatic, lying in bed and in no acute distress. HEENT--PERRL, EOMI, mucous membranes and oropharynx mildly dry Neck--supple. No JVD. No bruits. Thyroid normal, trachea midline, no adenopathy. Heart--normal S1 and S2. No murmurs, rubs or gallops. Lungs--clear bilaterally, no respiratory distress, no accessory muscle use. Abdomen--normal bowel sounds and soft. Extremities--no cyanosis or clubbing. No edema. Dermatologic--normal skin turgor, normal color, no abnormal lymph nodes, no rash. Neurologic--cranial nerves II through XII grossly intact. Rheumatologic--normal range of motion. Psychiatric--normal affect. Discharge Data Allergies Allergy/AdvReac Type Severity Reaction Status Date / Time ciprofloxacin Allergy Mild Hives Verified 11/11/23 12:23 Quinolones Allergy Mild HIVES Verified 11/11/23 12:23 sibutramine Allergy Unknown Unknown Verified 11/11/23 12:23 Consultations 11/10/23 23:02 ED Decision to Admit Stat 11/11/23 00:17 Consult Cardiac Rehabilitation Routine Procedures Performed Operation Date: 11/10/23 23:00 Actual Procedures p Aspiration/PCI w/LYNDSAY for Stemi - Tommie Koo MD, PhD s Cineradiography w/Routine Exam - Tommie Koo MD, PhD p Cath, Coronaries ONLY (no LV) - Tommie Koo MD, PhD Ordered Studies 11/10/23 22:34 CL Cath Imgs for PACS use only Stat Hospital Course (1) Elevated serum glucose: (2) Atherogenic dyslipidemia: (3) ST elevation myocardial infarction (STEMI): (4) Morbid obesity: (5) Hypertension: (6) Paroxysmal A-fib: (7) Alcohol withdrawal: Plan STEMI | Post-Cardiac Catheterization with LYNDSAY to LAD -S/P cardiac cath with LYNDSAY to LAD Continue Plavix and also statin. Stop Aspirin due to Eliquis for Afib Cardiology recommending cardiac rehab at discharge and nutrition consult Paroxysmal atrial fibrillation Patient went into paroxysmal atrial fibrillation last night and was started on amiodarone infusion Patient currently on sinus rhythm with PVCs. Cardiology is on consult, Initially on Amiodarone drip, this has been discontinued Now on Eliquis 5mg BID, Metoprolol 50mg BID Ischemic cardiomyopathy 2D echo showed ejection fraction 40 to 45% with diastolic dysfunction Patient is now status post cardiac cath Hypertension -IV hydralazine PRN -Started on metoprolol tartrate 25mg BID by cardiology Elevated Serum Glucose -No prior diagnosis of diabetes mellitus -Hgb A1C pending Patient would benefit from establishing with a PCP at time of discharge in addition to following up with cardiology Alcohol Withdrawal: Admits to regular alcohol drinking On CIWA protocol No tremors on exam today Admit to ICU Diet: Heart healthy Code Status: Full Code Total Time Total Time Spent Total Time Spent (In Minutes): 35 Discharge Plan Discharge Items Reason For Visit: STEMI Discharge Diagnosis: STEMI, afib Activity: Resume your previous activity Non-emergency contact: Freight Inspector Call non-emergency contact if: you have any medication questions Follow-up/Referrals: PCP,NO [Primary Care Provider] - Diet: Regular Addtl Attending Provider Instructions: Please establish care with a p[[facility] doctor, follow up with your tool maker apprentice Pending Studies at Discharge: No Stand-Alone Forms: My [facility], Smoking Cessation Medications and DC Order Prescriptions: New Eliquis 5 mg (74 tabs) tablets,dose pack 5 mg PO BID Qty: 74 0RF atorvastatin 40 mg Tablet 40 mg PO QAM 30 Days Qty: 30 0RF clopidogrel 75 mg Tablet 75 mg PO QAM 30 Days Qty: 30 0RF metoprolol succinate 50 mg tablet extended release 24 hr 75 mg PO BID 30 Days Qty: 90 0RF Admission Data Admit Date/Time: 11/11/23 00:05 Attending Provider: Sarah Reid Admit Provider: Anais Waters Primary Care Provider: PCP,NO Other Providers: Boone Hdez Coding Level of Care Code 75925 INP/OBS DISCH >30 MIN Diagnoses Elevated serum glucose R73.[address] elevation myocardial infarction (STEMI) I21.11 Involved coronary artery: right coronary artery Morbid obesity E66.01 Hypertension I10 Paroxysmal A-fib I48.0 Alcohol withdrawal F10.939 Time Spent (min) 35"
== END 2023-11-13 16:39 | disposition home or self-care (01) | DRG 322 ==
LOC: ED 22:06 → CC 22:57 → SUATTDRO 11-11 00:05 → 1E 11-11 00:05 → 2S 11-11 18:44
PROC: CLB.CCO (2023-11-10 23:00)

== ENCOUNTER 2023-12-30 12:34 | Observation (INO) ==
--- NOTE | 2023-12-30 12:50 | Emergency Department Note ---
Impression & Plan Chest pain, Abnormal EKG ED Provider Note NAME: VITALY CUI Jr AGE: 63 SEX: M : 1960 ARRIVES VIA: Walk-In INFORMANT: Patient, ED PROVIDER(S): Jaylen Novoa DO CHIEF COMPLAINT: Chest pain HPI: The patient is a 63-year-old male who presented to the emergency department for an evaluation of chest pain. The patient describes neck tightness. He feels a tightness in the back of his neck. He had a similar episode 2 months ago. At that time he was found to have a STEMI which led to the patient receiving a cardiac catheterization with resultant stenting. The patient has been taking Plavix. He is also been taking metoprolol and medication for cholesterol but he has not been able to afford his Eliquis. He does have a history of paroxysmal atrial fibrillation. He denies having any lower extremity swelling or pain. He had some shortness of breath. This pain occurred at rest. ROS: See above HPI for pertinent positives & negatives. A total of 10 systems reviewed and were otherwise negative. PAST MEDICAL HISTORY: See Below PAST SURGICAL HISTORY: See Below FAMILY HISTORY: See Below SOCIAL HISTORY: See Below HOME MEDICATIONS: See Below ALLERGIES: See Below VITALS: See Below PHYSICAL EXAMINATION: GENERAL: The patient is awake and alert. He is somewhat anxious appearing EYES: The conjunctivae are clear. The pupils are round and reactive. EARS, NOSE, MOUTH AND THROAT: The nose is without any evidence of any deformity. NECK: The neck is nontender and supple. RESPIRATORY: Normal respiratory effort is noted there is no evidence of wheezing rhonchi or rales CARDIOVASCULAR: Regular rate and rhythm noted there no murmurs rubs or gallops normal S1 normal S2. GASTROINTESTINAL: The abdomen is soft. Abdomen is nontender. MUSCULOSKELETAL/EXTREMITIES: There is no evidence of gross deformity full range of motion is noted in the hips and shoulders. SKIN: There is no obvious evidence of any rash. There are no petechiae, pallor or cyanosis noted. NEUROLOGIC: Patient is awake alert and oriented x3 MEDICAL DECISION MAKING: The patient is a 63-year-old male who presented to the emergency department for an evaluation of chest pain. The patient describes a tightness in the back of his neck that he thinks is consistent with his previous episode of cardiac ischemia. He was recently in our facility in October of this year. He had a STEMI and also received an OM1 stent. I discussed patient's laboratory and radiographic studies with him. He was treated in usual fashion with aspirin but he was also given pain medication. Troponin was negative x 2. EKG shows ischemic changes however it looks similar to his previous EKG. I feel this is most likely a evolution of his post STEMI EKG. I discussed the limitations of the emergency department workup with the patient. I discussed his condition with his primary wool dyer. Given the patient's risk factors he would be at high risk and may likely be suffering from acute coronary syndrome. For this reason I discussed his condition with the on-call [facility] hospitalist. The Patient Will Be for serial troponins as well as possible echocardiogram for further evaluation of his symptoms. The patient was not tachycardic or hypoxic Triage Nursing notes reviewed. Prior medical records reviewed Vital Signs: reviewed and remarkable for no significant abnormalities Differential diagnosis: Cardiac ischemia, aortic dissection, pulmonary embolism, pneumothorax, pneumonia, pericarditis, myocarditis, esophageal rupture, GERD, cholecystitis, pancreatitis, musculoskeletal, as well as other pathologies. ER treatment provided: See below Diagnostics interpreted by me: ECG: EKG was obtained in the emergency department. My interpretation is sinus bradycardia at 52 bpm. There is no ectopy. Inferior and low lateral T wave versions were noted. This was compared to a tracing from November 11, 2023. No specific changes were noted A second EKG was obtained in the emergency department. My interpretation is normal sinus rhythm at 59 bpm. There is no ectopy. Continued T wave versions were noted in the inferior and low lateral leads. This compares similar to the initial tracing obtained in the emergency department. Cardiac Monitoring: An order was placed for continuous cardiac monitoring. The monitor shows a rate of 52 bpm with sinus bradycardia Laboratory studies: As stated above and show below. Imaging studies: See below. Radiographic imaging was reviewed by myself Consultation(s): I discussed this case with Dr. Guerrero who is on for the [facility] cardiology group. I discussed this case with Dr. Bower who is on-call for the [place] hospitalist group. Past Med/Surg History Problem List (Updated 12/30/23 @ 17:12 by Jaylen Novoa DO) Abnormal EKG (Acute) Chest pain (Acute) Paroxysmal A-fib Ischemic cardiomyopathy Elevated serum glucose Atherogenic dyslipidemia Morbid obesity Fracture of thumb, right, closed (Acute) Adjustment disorder Dislocation of left shoulder joint Hypertension (Chronic) pt denies, no meds Medical History Alcohol withdrawal ST elevation myocardial infarction (STEMI) History of COVID-19 ?2020- flu symtoms- no hospitalization, no current issues Anxiety Surgical History Hx of colonoscopy History of left knee replacement History of surgery on arm Family History Other No family history of adverse response to anesthesia Social History Smoking Status: Never smoker Tobacco Type: Smokeless Tobacco (Dip or Chew) Second Hand Exposure: No; Do You Dip or Chew Tobacco: Yes (advised); Hx Alcohol Use: Yes Alcohol type: beer Hx Substance Use: No Preferred Language: Omani Communication Ability: Effective High Risk Case Manager Required: No Beliefs That Will Affect Care: None Current Living Situation: Alone Feels Safe at Home: Yes Assistive Devices: None Allergies Allergies Allergy/AdvReac Type Severity Reaction Status Date / Time ciprofloxacin Allergy Mild Hives Verified 12/30/23 14:45 Quinolones Allergy Mild HIVES Verified 12/30/23 14:45 sibutramine Allergy Unknown Unknown Verified 12/30/23 14:45 Home Meds Home Medications Medication Instructions Recorded Confirmed aspirin 81 mg tablet,delayed 81 mg PO DAILY 12/30/23 12/30/23 release atorvastatin 40 mg tablet 40 mg PO QAM 12/30/23 12/30/23 clopidogrel 75 mg tablet 75 mg PO DAILY 12/30/23 12/30/23 metoprolol succinate 50 mg 75 mg PO BID 12/30/23 12/30/23 tablet,extended release 24 hr Results & Data (ED) Vital Signs Vital Signs - 24 hr 12/30/23 12:36 12/30/23 12:45 12/30/23 12:57 Temperature 36.9 C Temperature Source Temporal Artery Scan Pulse Rate 61 60 57 L Pulse Rate from SpO2 Sensor Respiratory Rate 18 20 Respiratory Effort / Characteristics Non-Labored Spontaneous Respiratory Depth Normal Blood Pressure 136/92 Blood Pressure Mean 106 Blood Pressure Position Sitting Pulse Oximetry 97 Oxygen Delivery Method Room Air Sepsis Recent Fever Within 48 Hours No Sepsis New/Unexplained Change in Mental Status N/A Sepsis Action Taken by Nursing No Action Required 12/30/23 12:59 12/30/23 13:03 12/30/23 13:27 Temperature Temperature Source Pulse Rate 54 L 55 L Pulse Rate from SpO2 Sensor Respiratory Rate 15 15 Respiratory Effort / Characteristics Respiratory Depth Blood Pressure 128/92 Blood Pressure Mean 107 Blood Pressure Position Pulse Oximetry 97 96 Oxygen Delivery Method Room Air Room Air Sepsis Recent Fever Within 48 Hours Sepsis New/Unexplained Change in Mental Status Sepsis Action Taken by Nursing 12/30/23 13:31 12/30/23 13:42 12/30/23 14:00 Temperature Temperature Source Pulse Rate 52 L 56 L Pulse Rate from SpO2 Sensor Respiratory Rate 12 18 Respiratory Effort / Characteristics Respiratory Depth Blood Pressure 110/84 Blood Pressure Mean 90 Blood Pressure Position Pulse Oximetry 95 100 Oxygen Delivery Method Room Air Room Air Sepsis Recent Fever Within 48 Hours Sepsis New/Unexplained Change in Mental Status Sepsis Action Taken by Nursing 12/30/23 14:04 12/30/23 14:12 12/30/23 14:27 Temperature Temperature Source Pulse Rate 49 L 47 L Pulse Rate from SpO2 Sensor Respiratory Rate 22 24 Respiratory Effort / Characteristics Respiratory Depth Blood Pressure 111/70 Blood Pressure Mean 75 Blood Pressure Position Pulse Oximetry 97 98 Oxygen Delivery Method Room Air Room Air Sepsis Recent Fever Within 48 Hours Sepsis New/Unexplained Change in Mental Status Sepsis Action Taken by Nursing 12/30/23 14:30 12/30/23 14:31 12/30/23 14:42 Temperature Temperature Source Pulse Rate 47 L 48 L Pulse Rate from SpO2 Sensor Respiratory Rate 21 15 Respiratory Effort / Characteristics Respiratory Depth Blood Pressure 102/62 Blood Pressure Mean 78 Blood Pressure Position Pulse Oximetry 99 97 Oxygen Delivery Method Room Air Room Air Sepsis Recent Fever Within 48 Hours Sepsis New/Unexplained Change in Mental Status Sepsis Action Taken by Nursing 12/30/23 14:48 12/30/23 15:01 12/30/23 15:03 Temperature Temperature Source Pulse Rate 47 L 46 L Pulse Rate from SpO2 Sensor Respiratory Rate 16 20 Respiratory Effort / Characteristics Respiratory Depth Blood Pressure 98/66 L Blood Pressure Mean 74 Blood Pressure Position Pulse Oximetry 97 98 Oxygen Delivery Method Room Air Room Air Sepsis Recent Fever Within 48 Hours Sepsis New/Unexplained Change in Mental Status Sepsis Action Taken by Nursing 12/30/23 15:06 12/30/23 15:31 12/30/23 15:36 Temperature Temperature Source Pulse Rate 45 L 42 L Pulse Rate from SpO2 Sensor Respiratory Rate 19 18 Respiratory Effort / Characteristics Respiratory Depth Blood Pressure 103/68 Blood Pressure Mean 75 Blood Pressure Position Pulse Oximetry 98 100 Oxygen Delivery Method Room Air Room Air Sepsis Recent Fever Within 48 Hours Sepsis New/Unexplained Change in Mental Status Sepsis Action Taken by Nursing 12/30/23 15:57 12/30/23 16:00 12/30/23 16:00 Temperature Temperature Source Pulse Rate 44 L 48 L Pulse Rate from SpO2 Sensor 53 L Respiratory Rate 24 12 Respiratory Effort / Characteristics Respiratory Depth Blood Pressure 101/73 Blood Pressure Mean 90 Blood Pressure Position Pulse Oximetry 99 96 Oxygen Delivery Method Room Air Room Air Sepsis Recent Fever Within 48 Hours Sepsis New/Unexplained Change in Mental Status Sepsis Action Taken by Nursing 12/30/23 16:15 12/30/23 16:31 12/30/23 16:39 Temperature Temperature Source Pulse Rate 45 L 44 L Pulse Rate from SpO2 Sensor Respiratory Rate 14 21 Respiratory Effort / Characteristics Respiratory Depth Blood Pressure 116/66 Blood Pressure Mean 78 Blood Pressure Position Pulse Oximetry 100 100 Oxygen Delivery Method Room Air Room Air Sepsis Recent Fever Within 48 Hours Sepsis New/Unexplained Change in Mental Status Sepsis Action Taken by Nursing 12/30/23 17:01 Temperature Temperature Source Pulse Rate 52 L Pulse Rate from SpO2 Sensor Respiratory Rate Respiratory Effort / Characteristics Respiratory Depth Blood Pressure Blood Pressure Mean Blood Pressure Position Pulse Oximetry Oxygen Delivery Method Sepsis Recent Fever Within 48 Hours Sepsis New/Unexplained Change in Mental Status Sepsis Action Taken by [place] Medications Current Medication List: was personally reviewed by me Laboratory Data Attestation: I reviewed the patient's lab results. 12/30/23 12:44 12/30/23 12:44 Lab Results 12/30/23 12/30/23 12/30/23 Range/Units 12:44 12:49 15:13 WBC 6.77 (4.8-10.8) K/ul RBC 5.85 (4.70-6.10) M/uL Hgb 15.8 (14.0-18.0) g/dl POC Hgb 17.0 (14.0-18.0) g/dl Hct 48.2 (42.0-52.0) % POC Hct 50 (42-52) % MCV 82.4 (80.0-100.0) fL MCH 27.0 (25.0-34.0) pg MCHC 32.8 (32.0-36.0) g/dL RDW Std Deviation 40.2 (36.4-46.3) fL RDW Coeff of Charity 13.5 (11.5-14.5) % Plt Count 297 (130-400) K/uL MPV 9.8 (9.4-12.4) fL Immature Gran % (Auto) 0.1 % Neut % (Auto) 63.5 % Lymph % (Auto) 23.2 % [place] % (Auto) 7.5 % Eos % (Auto) 5.0 % Baso % (Auto) 0.7 % Neut # (Auto) 4.29 (1.40-6.50) K/uL Lymph # (Auto) 1.57 (1.20-3.40) K/uL [place] # (Auto) 0.51 (0.11-0.59) K/uL Eos # (Auto) 0.34 (0.00-0.50) K/uL Baso # (Auto) 0.05 (0.00-0.20) K/uL Immature Gran # (Auto) 0.01 (0.01-0.20) K/uL PT 11.3 (9.0-12.0) Seconds INR 1.0 (0.9-1.1) APTT 28 (21-31) Seconds PTT Ratio 1.0 POC Sodium 139 (135-144) mmol/L Sodium 136 (136-145) mmol/L POC Potassium 4.1 (3.3-5.0) mmol/L Potassium 4.1 (3.5-5.1) mmol/L POC Chloride 103 (101-112) mmol/L Chloride 103 (98-107) mmol/L Carbon Dioxide 26 (21-32) mmol/L POC Total CO2 23 L (24-31) mmol/L Anion Gap 7 (3-11) POC Anion Gap 19.0 (16-25) mmol/L POC BUN 12 (7-18) mg/dl BUN 13 (6-23) mg/dl Creatinine 0.91 (0.6-1.4) mg/dl POC Creatinine 1.0 (0.6-1.3) mg/dl Est Cr Clr Drug Dosing Not Reportable Est GFR ( Amer) 103.6 ml/min Est GFR (Non-Af Amer) 89.4 ml/min BUN/Creatinine Ratio 14.3 (10-20) Glucose 106 H (70-99(Fasting)) mg/dl POC Glucose (other) 111 H (70-99) mg/dl Calcium 10.1 (8.6-10.3) mg/dl POC Ioniz Calcium Rm 1.25 (1.12-1.32) mmol/l Total Bilirubin 2.1 H (0.2-1.0) mg/dl AST 17 (13-39) U/L ALT 16 (7-52) U/L Alkaline Phosphatase 102 (34-104) U/L Total Creatine Kinase 70 (30-223) U/L Troponin I High Sens 15.0 11.9 (0-20) pg/ml Total Protein 7.6 (6.0-8.3) gm/dl Albumin 4.7 (3.4-5.0) gm/dl Globulin 2.9 (2.5-4.0) gm/dl Albumin/Globulin Ratio 1.6 (0.9-2) Lipase 17 (11-82) U/L Administered Medications Discontinued Medications Aspirin (Aspirin Chew 324 Mg) 324 mg PO NOW STA Stop: 12/30/23 12:49 Last Admin: 12/30/23 12:52 Dose: 324 mg Documented By: [facility] Morphine Sulfate (Morphine Sulfate 4 Mg/Ml 1 Ml Carp\Vial) 4 mg IV NOW STA Stop: 12/30/23 12:49 Last Admin: 12/30/23 12:52 Dose: 4 mg Documented By: [facility] Ondansetron HCl (Ondansetron Inj 2 Mg/Ml 2 Ml Vial) 4 mg IV NOW STA Stop: 12/30/23 12:49 Last Admin: 12/30/23 12:53 Dose: 4 mg Documented By: [facility] Imaging Data Attestation: I personally reviewed and interpreted this imaging study as follows: My Impression: 1 view chest x-ray was obtained in the emergency department. My interpretation is no free air or definite infiltrate, final report below. Radiologist's Impression: Chest X-Ray 12/30/23 12:42 XR chest 1V portable CLINICAL HISTORY: Chest pain, nonspecific TECHNIQUE: Single frontal radiograph of the chest was obtained. Comparison: Comparison is made to chest radiograph 11/10/2023 FINDINGS: Exam is limited by underpenetration. Cardiomegaly is noted. The aortic arch is calcified. The lungs are clear. No evidence of pleural effusion or pneumothorax. IMPRESSION: No acute chest disease. ACT 112: Negative or not required by law. Electronically signed by: Michele Arana M.D. 12/30/2023 12:58 PM Discharge Plan Visit Data Chief Complaint: Cardiac Assessment Stated Complaint: CHEST PAIN, DIFFICULTY BREATHING ED Provider: Jaylen Novoa Discharge Problem: Chest pain, Abnormal EKG Patient Disposition: Being Evaluated by Hospitalist Forms Stand Alone Forms: [facility] Prescriptions Prescriptions: No Action atorvastatin 40 mg tablet 40 mg PO QAM metoprolol succinate 50 mg tablet extended release 24 hr 75 mg PO BID clopidogrel 75 mg tablet 75 mg PO DAILY aspirin [Aspir-Low] 81 mg Tablet,Delayed Release (Dr/Ec) 81 mg PO DAILY Referrals Referrals: PCP,NO [Primary Care Provider] - Discharge Problem: Chest pain Qualifiers: Chest pain type: unspecified Qualified Code(s): R07.9 - Chest pain, unspecified
[2023-12-30] MEDS: ASPIRIN CHEW 324 MG PO STA (12:52)
[2023-12-30] MEDS: MoRPHine SULFATE 4 MG/ML 1 ML CARP\\VIAL IV STA (12:52)
[2023-12-30] MEDS: ONDANSETRON INJ 2 MG/ML 2 ML VIAL IV STA (12:53)
--- NOTE | 2023-12-30 12:59 | XRay Report ---
XR chest 1V portable CLINICAL HISTORY: Chest pain, nonspecific TECHNIQUE: Single frontal radiograph of the chest was obtained. Comparison: Comparison is made to chest radiograph 11/10/2023 FINDINGS: Exam is limited by underpenetration. Cardiomegaly is noted. The aortic arch is calcified. The lungs a re clear. No evidence of pleural effusion or pneumothorax. IMPRESSION: No acute chest disease. ACT 112: Negative or not required by law. Electronically signed by: Michele Arana M.D. 12/30/2023 12:58 PM
[2023-12-30 13:01] LABS: iSTAT Ionized Calcium 1.25 mmol/l (1.12-1.32); iSTAT Potassium 4.1 mmol/L (3.3-5.0)
[2023-12-30 13:12] LABS: Basophils # (auto) 0.05 K/uL (0.00-0.20); Basophils % (auto) 0.7 %; Eosinophils # (auto) 0.34 K/uL (0.00-0.50); Hematocrit (blood only) 48.2 % (42.0-52.0); Hemoglobin 15.8 g/dl (14.0-18.0); Immature Granulocytes # (auto) 0.01 K/uL (0.01-0.20); Immature Granulocytes % (auto) 0.1 %; Lymphocytes # (auto) 1.57 K/uL (1.20-3.40); Lymphocytes % (auto) 23.2 %; Mean Corpuscular Hgb Conc 32.8 g/dL (32.0-36.0); Mean Corpuscular Volume 82.4 fL (80.0-100.0); Mean Platelet Volume 9.8 fL (9.4-12.4); Monocytes # (auto) 0.51 K/uL (0.11-0.59); Monocytes % (auto) 7.5 %; Neutrophils # (auto) 4.29 K/uL (1.40-6.50); Neutrophils % (auto) 63.5 %; Platelet Count 297 K/uL (130-400); RDW Coefficient of Variation 13.5 % (11.5-14.5); RDW Standard Deviation 40.2 fL (36.4-46.3); Red Blood Count 5.85 M/uL (4.70-6.10); White Blood Count 6.77 K/ul (4.8-10.8)
[2023-12-30 13:22] LABS: Alanine Aminotransferase 16 U/L (7-52); Albumin Globulin Ratio 1.6 (0.9-2); Albumin Level 4.7 gm/dl (3.4-5.0); Alkaline Phosphatase 102 U/L (34-104); Anion Gap 7 (3-11); Aspartate Aminotransferase 17 U/L (13-39); BUN Creatinine Ratio 14.3 (10-20); Bilirubin,Total 2.1 mg/dl (0.2-1.0); Blood Urea Nitrogen 13 mg/dl (6-23); Calcium 10.1 mg/dl (8.6-10.3); Carbon Dioxide 26 mmol/L (21-32); Chloride 103 mmol/L (98-107); Creatine Kinase 70 U/L (30-223); Est GFR (African American) 103.6 ml/min; Est GFR (Non-African American) 89.4 ml/min; Globulin 2.9 gm/dl (2.5-4.0); Glucose 106 mg/dl (70-99(Fasting)); Lipase 17 U/L (11-82); Potassium 4.1 mmol/L (3.5-5.1); Sodium 136 mmol/L (136-145); Total Protein 7.6 gm/dl (6.0-8.3)
[2023-12-30 13:32] LABS: Partial Thromboplastin Time 28 Seconds (21-31); Prothrombin Time 11.3 Seconds (9.0-12.0)
--- OUTSIDE RECORDS SUMMARY | 2023-12-30 13:54 | External Medical Summary | Summary of Care ---
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 [address] [place] [id number] Nova Alexander CRNP [address] [place] [address] Appointment Allergies Active Allergy Reactions Criticality Noted Date Comments Sibutramine Hydrochloride Monohydrate Tachycardia 01/07/2010 Quinolones 04/09/1998 rash---Cipro-hives all over documented as of this encounter (statuses as of 12/21/2023) Medications No known medicationsdocumented as of this encounter (statuses as of 12/21/2023) Active Problems Problem Noted Date Diagnosed Date Esophageal reflux 12/26/2008 Overview: mild to mod gastritis, acute/chronic esophageal inflammation, f/u in 9-12 mo ADVANCE DIRECTIVE INFORMATION 11/13/2005 Overview: Information given to patient Morbid obesity, BMI not known 10/23/2002 FAM HX-DIABETES MELLITUS 08/11/2001 FM [id number] DIS NEC thyroid disease 998 Urticaria HTN, goal below 140/90 Impaired fasting glucose Dyslipidemia, goal LDL below 100 documented as of this encounter (statuses as of 12/21/2023) Resolved Problems Problem Noted Date Diagnosed Date Resolved Date Dyslipidemia, goal to be determined 10/23/2002 05/17/2013 OBESITY, UNSPECIFIED 02/08/2002 009 Obesity, morbid (more than 1 00 lbs over ideal weight or BMI > 40) 08/02/2014 Overview: ICD-10 update of inactive term documented as of this encounter (statuses as of 12/21/2023) Immunizations Name Administration Dates Next Due TD - Tetanus/Diptheria (ADULT) 04/20/2006 TDAP (age 10 and older)(Boostrix) 07/19/2012 documented as of this encounter Social History Tobacco Use Types Packs/Day Years Used Date Smoking Tobacco: Former Cigarettes Smokeless Tobacco: Current Snuff, Chew Comments:chews tobacco, 1 ca n a day-started age 16 Alcohol Use Standard Drinks/Week Comments Yes 0 (1 standard drink = 0.6 oz pur e alcohol) about 1-2 beers a night Utilities Answer Date Recorded Do you have trouble paying y our heating, water, or electric bill? (Adult - for ages 18 years and over) Not on file 12/14/2023 Is your family able to pay t he heat, water, or electric bill? (Household - for ages 0-17 years) Not on file 12/14/2023 Does your family have access to good internet? (Household - for ages 0-17 years) Not on file 12/14/2023 Social Connections Answer Date Recorded How often do you feel lonely or isolated from those around you? (Adult - for ages 18 years and over) Not on file 12/14/2023 Sex and Gender Information Value Date Recorded Sex Assigned at Not on file Gender Identity Not on file Sexual Orientation Not on file documented as of this encounter Miscellaneous Notes * Telephone Encounter - Liz Oliver OSA - 12/21/2023 12:00 PM EDT Received records from [facility] for a Nutrition appt for obesity. Please call pt to schedule. documented in this encounter Plan of Treatment Health Maintenance Due Date Last Done Comments Cologuard 2005 Sigmoidoscopy 2005 Fecal Occult Blood Test 11/23/2009 11/23/2008 Zoster Vaccines (1 of 2) 2010 Depression Screening 11/06/2015 11/05/2014 GFR 02/17/2019 02/17/2018, 02/0 11/2014, 07/19/2012, Additional history exists Albumin/Creatinine Ratio 02/17/2021 02/17/2018 Diabetes Screening 02/17/2021 02/17/2018, 0 02/17/2018, 08/03/2014, Additional history exists DTaP,Tdap,and Td Vaccines (2 - Td or Tdap) 07/19/2022 07/19/2012, 04/20/2006, 09/29/1999 Colonoscopy 08/04/2022 08/04/2012 Colorectal Cancer Screening 08/04/2022 Lipid Panel 02/17/2023 02/17/2018, 02/0 11/2014, 07/19/2012, Additional history exists COVID-19 Vaccine ( - season) 2023 Influenza Vaccine (FLU shot) (Season Ended) 2024 04/24/2003, 05/11/2002, 04/09/1998 GARDASIL-HPV IMMUNIZATION SERIES Aged Out No longer eligible based on patient's age to complete this topic Hepatitis B Aged Out No longer eligi ble based on patient's age to complete this topic MENINGOCOCCAL (MENACTRA/MENVEO) Aged Out No longer eligible based on patient's age to complete this topic Pneumococcal Vaccine: Pediatrics (0 to 5 Years) and At-Risk Patients (6 to 64 Years) Aged Out No longer eligible based on patient's age to complete this topic documented as of this encounter Medical Devices Not on filedocumented as of this encounter
--- OUTSIDE RECORDS SUMMARY | 2023-12-30 13:54 | External Medical Summary | Continuity of Care Document ---
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 Name Role Phone Nova Alexander Primary Care Physician [phone] Encounter [facility] [id number] Date(s): 12/15/23 - 12/15/[address] [address] [phone] Encounter Diagnosis Body mass index [BMI] 45.0-49.9, adult(Discharge Diagnosis) - 12/15/23 STEMI (ST elevation myocardial infarction)(Discharge Diagnosis) - 12/15/23 Discharge Disposition: Home or Self Care Attending Physician: YANN Alexander Danielle B Allergies, Adverse Reactions, Alerts Substance Criticality Severity Reaction Reaction Severity Status Cipro hives Active Medications atorvastatin 40 mg oral tablet Start: 12/15/23 9:10:00 AM EDT, 1 tab, PO, Daily, Disp# 90 tab, Pharmacy: [id number] Start Date: 12/15/23 Status: Ordered clopidogrel 75 mg oral tablet Start: 12/15/23 8:43:00 AM EDT, 1 tab, PO, Daily Start Date: 12/15/23 Status: Ordered Colace 100 mg oral capsule Start: 04/10/22 12:42:00 PM EDT, 1 cap, PO, bid, Disp# 60 cap, PRN: as needed for constipation, Pharmacy: [id number] Start Date: 04/10/22 Status: Ordered Eliquis 5 mg oral tablet Start: 12/15/23 8:43:00 AM EDT, 1 tab, PO, bid Start Date: 12/15/23 Status: Ordered metoprolol succinate 50 mg oral capsule, extended release Start: 12/15/23 8:42:00 AM EDT Start Date: 12/15/23 Status: Ordered Mental Status 12/15/23 Barriers to Learning one year None evide nt Mandatory Health Literacy Documentation Yes Health Literacy Communication Barriers N ever Primary Language Icelandic Problem List Condition Confirmation Course Effective Dates Status Health St atus Informant Dislocation of left shoulder joint Confirmed Active Glenoid fracture of shoulder Confirmed Active Pre-op exam Confirmed Active Right rotator cuff tear Confirmed Active Right shoulder pain Confirmed Active Tobacco user Confirmed Active Diagnosis Diagnosis Type Effective Dates Health Status Clinical Service Informant Body mass index [BMI] 45.0-49.9, adult Discharge Diagnosis 12/15/23 Non-Specified STEMI (ST elevation myocardial infarction) Discharge Diagnosis 12/15/23 Non-Specified Procedures Procedure Date Related Diagnosis Body Site Status Arthroscopic repair of Bank[place] rt lesion 1 04/07/22 Completed 1Left shoulder Vital Signs Most recent to oldest [Reference Range]: 1 Height 177.6 cm (12/15/23 8:45 AM) Patient Weight 145.1 kg (12/15/23 8:45 AM) Body Mass Index 46 kg/m2 (12/15/23 8:45 AM) Temperature [36.5-37.9 DegC] 36.5 DegC (12/15/23 8:45 AM) Heart Rate 55 bpm (12/15/23 8:45 AM) Respiratory Rate 18 br/min (12/15/23 8:45 AM) Blood Pressure 128/78mmHg (12/15/23 8:45 AM) Cuff Pulse Pressure 50 mmHg (12/15/23 8:45 AM) Social History Social History Type Response Smoking Status Never smoked cigaret alexei Sex Male Patient Care team information Care Team Personnel Name: YANN Alexander Danielle B Position: Nurse Pract - Family Med Member Role: Primary Care Provider Address: Address: [address] [place] [address], [place] [address] Care Team Related Persons Name: SAVANNAH PRESSLEY
--- NOTE | 2023-12-30 17:57 | History & Physical Report ---
Date of Service December 30, 2023 Assessment & Plan (1) Ischemic cardiomyopathy: Plan: Chest pain Chest tightness with radiation to his neck and jaw same quality as with STEMI in October. This is resolved at time of bedside assessment. His symptoms may not of lasted long enough to elevate troponin as these lasted as few as 20 minutes, 40 minutes maximum. He is at increased risk for stent occlusion as he has only been on antiplatelet monotherapy since his stent was placed to OM1 in October 2019 Chest pain-free following aspirin/morphine in the ER - EKG: no acute ST segment changes, development of inferior Q waves. trop x2 negative Continue metoprolol 75 mg twice daily Last echo 11/11/2023: Reduced LVEF 40-45%, grade 1 diastolic dysfunction. Lateral posterior inferior and apical wall motion abnormalities consistent with circumflex ischemia. Repeat echo pending No evidence of volume overload on admitting exam, chest x-ray without pulmonary edema Discussed with various antiplatelet anticoagulation options with patient. He notes his biggest barrier is cost and DOAC has been over his total monthly long-term check and is absolutely not feasible for him. Discussed various options, shared decision making patient feels that Plavix and warfarin for both stent protection and A-fib prophylaxis is likely the best option. Understands that there is an upfront cost with blood draws until he is stable with a therapeutic INR, without long-term warfarin is likely the most cost effective option given that his insurance will not cover DOAC's. Started on Lovenox bridge and warfarin normal gram with goal INR 23. Patient would like follow-up with [facility], case management consulted to facilitate referrals and insurance authorizations as needed. Did discuss with cardiology, agree with Plavix/warfarin as a reasonable option (2) Paroxysmal A-fib: Plan: Paroxysmal A-fib Not on anticoagulation due to cost Admitting EKG sinus Patient is at increased [id number] risk. See anticoagulation discussion above, being bridged to warfarin Continue metoprolol twice daily (3) Chest pain: Plan DVT prophylaxis: Anticoagulated Diet: Heart healthy Disposition: Medical telemetry CODE STATUS: Full code History of Present Illness Primary Care Provider: NO PCP Devan is a 63-year-old man with a past medical history of STEMI with LYNDSAY to LAD 11/11/2023 on Eliquis/Plavix rather than DAPT, paroxysmal A-fib on Eliquis, ischemic cardiomyopathy with last EF 40-45%, daily alcohol use without tremors/CIWA scoring on prior admission who presents to the emergency department with chest pain radiating into his neck with a tight quality and into the back of his neck with a tight quality which felt similar to his prior STEMI. Patient has been compliant with Plavix, however has not been taking his Eliquis due to cost. On ER evaluation sinus bradycardia without territorial ST segment changes, lateral T wave inversions similar to 10/2023 are noted. hs-troponin x 2 is normal. Gene is seen at the bedside. Has had intermittent tight squeezing in his neck and arm although wouldn't describe it as pain, just tightness similar to his prior CA. Resolved after aspirin and morphine in the ER. No nitro. No shortness of breath or sweating. Lasted ~30 minutes total. No fevers, chills, sweats. No cough. No orthopnea. No leg swelling.Has not taken eliquis since the second dose due to cost. Has been taking plaavix every day. Was thinking about taking aspirin with this in place of the eliquis. 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 Would like to follow-up with PCP locally if possible. Notes that cost is his biggest barrier and would like to be minimize this for possible, but also wants to make sure his heart in A-fib is appropriately treated Denies history of bleeding, no GI bleeds, no epigastric discomfort Medical History: Reviewed Medications: Reviewed Surgical History: Reviewed Family history: Reviewed Allergies: Reviewed Social History: 1 whiskey in evenings, uses snuff 1 can per 2 days. No history of withdrawal with prior hospitalizations or going several days without alcohol Code Status: Full Code Allergies Allergy/AdvReac Type Severity Reaction Status Date / Time ciprofloxacin Allergy Mild Hives Verified 12/30/23 14:45 Quinolones Allergy Mild HIVES Verified 12/30/23 14:45 sibutramine Allergy Unknown Unknown Verified 12/30/23 14:45 Home Medications Medication Instructions Recorded Confirmed Type aspirin 81 mg tablet,delayed 81 mg PO DAILY 12/30/23 12/30/23 History release atorvastatin 40 mg tablet 40 mg PO QAM 12/30/23 12/30/23 History clopidogrel 75 mg tablet 75 mg PO DAILY 12/30/23 12/30/23 History metoprolol succinate 50 mg 75 mg PO BID 12/30/23 12/30/23 History tablet,extended release 24 hr Past Med/Surg History Problem List Abnormal EKG (Acute) Chest pain (Acute) Paroxysmal A-fib Ischemic cardiomyopathy Elevated serum glucose Atherogenic dyslipidemia Morbid obesity Fracture of thumb, right, closed (Acute) Adjustment disorder Dislocation of left shoulder joint Hypertension (Chronic) pt denies, no meds Medical History Alcohol withdrawal ST elevation myocardial infarction (STEMI) History of COVID-19 ?2020- flu symtoms- no hospitalization, no current issues Anxiety Surgical History Hx of colonoscopy History of left knee replacement History of surgery on arm Family History Other No family history of adverse response to anesthesia Social History Smoking Status: Never smoker Tobacco Type: Smokeless Tobacco (Dip or Chew) Second Hand Exposure: No; Do You Dip or Chew Tobacco: Yes (advised); Hx Alcohol Use: Yes Alcohol type: beer Hx Substance Use: No Preferred Language: German Communication Ability: Effective Replenishment Analyst Required: No Beliefs That Will Affect Care: None Current Living Situation: Alone Feels Safe at Home: Yes Assistive Devices: None Physical Exam Physical Exam: General: A&Ox3. NAD. Cooperative. HEENT: Atraumatic, normocephalic. PERLAA. Vision and hearing grossly intact Pulm: CTAB A&P. -wheezes, -rales, -rhonchi. Symmetrical chest rise. No increased work of breathing. No respiratory distress. Cardiac: RRR, -mrg. Radial pulses intact and symmetrical. no jvd Abdominal: Nontender, softly distended. BS present. Ext: no edema Results & Data Results & Data Vital Signs (Past 12 Hours) Vital Signs Temp Pulse Resp BP Pulse Ox O2 Del Method 12/30/23 17:01 52 L 12/30/23 16:39 44 L 21 100 Room Air 12/30/23 16:31 116/66 12/30/23 16:15 45 L 14 100 Room Air 12/30/23 16:00 101/73 12/30/23 16:00 48 L 12 96 Room Air 12/30/23 15:57 44 L 24 99 Room Air 12/30/23 15:36 42 L 18 100 Room Air 12/30/23 15:31 103/68 12/30/23 15:06 45 L 19 98 Room Air 12/30/23 15:03 46 L 20 98 Room Air 12/30/23 15:01 98/66 L 12/30/23 14:48 47 L 16 97 Room Air 12/30/23 14:42 48 L 15 97 Room Air 12/30/23 14:31 102/62 12/30/23 14:30 47 L 21 99 Room Air 12/30/23 14:27 47 L 24 98 Room Air 12/30/23 14:12 49 L 22 97 Room Air 12/30/23 14:04 111/70 12/30/23 14:00 56 L 18 100 Room Air 12/30/23 13:42 52 L 12 95 Room Air 12/30/23 13:31 110/84 12/30/23 13:27 55 L 15 96 Room Air 12/30/23 13:03 54 L 15 97 Room Air 12/30/23 12:59 128/92 12/30/23 12:57 57 L 20 12/30/23 12:45 60 12/30/23 12:36 36.9 C 61 18 136/92 97 Room Air PG Care Time/CCT Total # of Minutes Spent Total Time Spent with Patient: Total time spent is greater than 50% in coordination of care (as documented) at patient's floor/unit and/or counseling patient: Coding Level of Care Code 28495 INT INP/OBS CARE 3/75MIN Diagnoses Ischemic cardiomyopathy I25.5 Paroxysmal A-fib I48.0 Chest pain R07.9 Chest pain type: unspecified (3) Chest pain Chest pain type: unspecified Qualified Code(s): R07.9 - Chest pain, unspecified
[2023-12-30] MEDS: WARFARIN SOD 5 MG TAB PO ONE (19:12)
[2023-12-30] MEDS ORDERED: ACETAMINOPHEN 325 MG TAB PO PRN (20:44)
[2023-12-30] MEDS ORDERED: ONDANSETRON INJ 2 MG/ML 2 ML VIAL IV PRN (20:44)
[2023-12-30] MEDS: METOPROLOL SUCC 25MG EXT REL TAB PO SCH (21:36)
[2023-12-30] MEDS: ENOXAPARIN 150 MG/ML SYR SQ SCH (21:37)
[2023-12-30 22:04] VITALS: RESP 18
[2023-12-31 00:30] VITALS: TEMP 98.2
--- NOTE | 2023-12-31 07:04 | Electrocardiogram Report ---
Test Reason : Blood Pressure : / mmHG Vent. Rate : 052 BPM Atrial Rate : 052 BPM P-R Int : 168 ms QRS Dur : 094 ms QT Int : 454 ms P-R-T Axes : 053 001 -85 degrees QTc Int : 422 ms Sinus bradycardia Inferior infarct (cited on or before 10-NOV-2023) T wave abnormality, consider inferolateral ischemia Abnormal ECG When compared with ECG of 11-NOV-2023 23:49, Inverted T waves have replaced nonspecific T wave abnormality in Inferolateral leads Confirmed by Elan Lopez ([id number]) on 12/31/2023 7:03:54 AM Referred By: REFERRED SELF Confirmed By:Elan Lopez
--- NOTE | 2023-12-31 07:05 | Electrocardiogram Report ---
Test Reason : Blood Pressure : / mmHG Vent. Rate : 059 BPM Atrial Rate : 059 BPM P-R Int : 166 ms QRS Dur : 096 ms QT Int : 454 ms P-R-T Axes : 040 -05 259 degrees QTc Int : 449 ms Sinus bradycardia Inferior infarct (cited on or before 10-NOV-2023) T wave abnormality, consider inferolateral ischemia Abnormal ECG When compared with ECG of 30-DEC-2023 12:43, No significant change was found Confirmed by Elan Lopez ([id number]) on 12/31/2023 7:04:45 AM Referred By: REFERRED SELF Confirmed By:Elan Lopez
[2023-12-31] MEDS: ATORVASTATIN 40 MG TAB PO SCH (09:22)
[2023-12-31] MEDS: CLOPIDOGREL BISULFATE 75 MG TAB PO SCH (09:22)
[2023-12-31 09:25] LABS: Basophils # (auto) 0.04 K/uL (0.00-0.20); Basophils % (auto) 0.6 %; Eosinophils # (auto) 0.25 K/uL (0.00-0.50); Eosinophils % (auto) 3.8 %; Hematocrit (blood only) 44.6 % (42.0-52.0); Hemoglobin 14.6 g/dl (14.0-18.0); Immature Granulocytes # (auto) 0.01 K/uL (0.01-0.20); Immature Granulocytes % (auto) 0.2 %; Lymphocytes # (auto) 1.35 K/uL (1.20-3.40); Lymphocytes % (auto) 20.3 %; Mean Corpuscular Hemoglobin 27.6 pg (25.0-34.0); Mean Corpuscular Hgb Conc 32.7 g/dL (32.0-36.0); Mean Corpuscular Volume 84.3 fL (80.0-100.0); Monocytes # (auto) 0.42 K/uL (0.11-0.59); Monocytes % (auto) 6.3 %; Neutrophils # (auto) 4.59 K/uL (1.40-6.50); Neutrophils % (auto) 68.8 %; Platelet Count 265 K/uL (130-400); RDW Coefficient of Variation 13.5 % (11.5-14.5); RDW Standard Deviation 41.6 fL (36.4-46.3); Red Blood Count 5.29 M/uL (4.70-6.10); White Blood Count 6.66 K/ul (4.8-10.8)
[2023-12-31 09:38] LABS: BUN Creatinine Ratio 15.8 (10-20); Calcium 9.5 mg/dl (8.6-10.3); Creatinine Clr Calc Pharmacy 108.1 ml/min; Est GFR (African American) 91.3 ml/min; Est GFR (Non-African American) 78.8 ml/min; Potassium 4.3 mmol/L (3.5-5.1)
[2023-12-31 09:44] LABS: Troponin I High Sensitivity 15.7 pg/ml (0-20)
[2023-12-31 10:06] LABS: INR 1.1 (0.9-1.1); Prothrombin Time 11.4 Seconds (9.0-12.0)
[2023-12-31 11:59] LABS: Albumin Level 4.2 gm/dl (3.4-5.0); Bilirubin Direct 0.3 mg/dl (0-0.2); Bilirubin,Total 1.5 mg/dl (0.2-1.0); Total Protein 6.9 gm/dl (6.0-8.3)
[2023-12-31] MEDS: WARFARIN SOD 5 MG TAB PO ONE (14:34)
[2023-12-31] MEDS: STANDARD WARFARIN NOMOGRAM SCH (14:35)
--- NOTE | 2023-12-31 16:05 | Cardiology Consultation ---
Date of Consultation December 31, 2023 Assessment & Plan (1) Neck pain: (2) CAD (coronary artery disease): (3) S/P coronary artery stent placement: (4) Ischemic cardiomyopathy: (5) Paroxysmal A-fib: (6) Hypertension: (7) Dyslipidemia: Plan ASSESSMENT/PLAN: 1. CAD s/p OM STEMI and PCI: No angina. Presentation different than STEMI when he had chest pain and shortness of breath. Posterior neck pain persisted for at least 1 hour with negative high-sensitivity troponin x 5. Inpatient ischemic evaluation not necessary at this time. He was interested in undergoing stress testing and if so, would recommend myocardial perfusion study which would not be available until next week based on timing of the day. Continue aspirin 81 mg daily indefinitely. Continue Plavix 75 mg daily for 1 year. If he begins taking anticoagulation therapy for paroxysmal atrial fibrillation, could continue Plavix with anticoagulation therapy, rather than triple therapy. Cardiac rehab if patient agreeable. Follow-up in the cardiology office. Statin therapy. 2. Ischemic cardiomyopathy: He appears euvolemic. Continue metoprolol succinate but given bradycardia in the 40s and 50s, recommend reducing metoprolol succinate to a total of 100 mg daily. Recommend JOHN inhibitor however noncompliance is an issue and he does not follow-up. This can be considered if/when he follows up in the outpatient setting. He does not qualify for ICD for primary prevention. 3. Paroxysmal atrial fibrillation: Reported while hospitalized with STEMI. Unclear if he has repeat episodes. It was recommended that he use anticoagulation therapy at home but he could not afford Eliquis. Could consider warfarin however given his lack of follow-up, warfarin does not seem like a plausible/safe option, unless compliance improves. Continue beta-jake. If warfarin is used in the future, would recommend that he establish in the [facility] anticoagulation clinic where he can be monitored closely. Sinus rhythm here. 4. Hypertension: Blood pressure adequately controlled. Reduce beta-jake as above given bradycardia. 5. Dyslipidemia: High intensity statin therapy. 6. Disposition: Can be discharged home from a cardiology perspective when okay with hospitalist service. Have requested a follow-up appointment with Dr. Koo, who cared for him during his STEMI in October 2023. He states that he is willing to follow-up in the outpatient setting. Patient care discussed with Dr. Rinaldi of the primary hospitalist service. Today's visit was 65 minutes in duration, which includes nuao-br-ignn time, counseling patient, coordinating care, reviewing records, completing documentation. Thank you for allowing me to participate in the care of your patient. Please call for any other questions or concerns. Sincerely, Zacarias Lopez M.D. History of Present Illness Reason for Consultation: "Chest pain, anticoag/antiplatelet changes" Requesting Physician: Jason Wright MD Attending Physician: Darrel Rinaldi MD History of Present Illness Mr. Granda is a 63-year-old gentleman with history significant for CAD s/p OM STEMI and PCI (11/11/2023), ischemic cardiomyopathy, paroxysmal atrial fibrillation, hypertension, and dyslipidemia. He was hospitalized in October 2023 for STEMI and followed by Dr. Koo who performed PCI of OM vessel. He was noted to have paroxysmal atrial fibrillation and was placed on amiodarone and anticoagulation therapy. Unfortunately, melina mcnamara has not followed up with any provider since then. Eliquis was not affordable. He has been taking aspirin, Plavix, atorvastatin, and metoprolol but no other medications. Angina for his STEMI was reported as chest tightness with radiation to his neck and jaw with associated dyspnea. On 12/30/2023, he was admitted after presenting with neck pain. It was a posterior neck pain without chest pain, shortness of breath, radiation of the pain, syncope, near syncope, or diaphoresis. It occurred at rest and did not change with activity. He has had it intermittently but on presentation, it was persistent for 1 to 2 hours. He denies syncope, near syncope, palpitations, edema, melena, hematochezia, or hematuria. He is not an active person and does not exercise per his report. He consumes alcohol on a daily basis. Review of systems: As above. Review of systems otherwise negative/unremarkable. Family history: Father with ND in his 50s. Mother with ND in her 60s to 70s. Social history: He denies smoking. Consumes a glass of rum daily, at least 2 shots of rum. He has 2 biologic daughters. His stepson lives with him. 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 He was unaccompanied. Allergies Allergy/AdvReac Type Severity Reaction Status Date / Time ciprofloxacin Allergy Mild Hives Verified 12/30/23 14:45 Quinolones Allergy Mild HIVES Verified 12/30/23 14:45 sibutramine Allergy Unknown Unknown Verified 12/30/23 14:45 Home Medications Medication Instructions Recorded Confirmed Type aspirin 81 mg tablet,delayed 81 mg PO DAILY 12/30/23 12/30/23 History release atorvastatin 40 mg tablet 40 mg PO QAM 12/30/23 12/30/23 History clopidogrel 75 mg tablet 75 mg PO DAILY 12/30/23 12/30/23 History metoprolol succinate 50 mg 75 mg PO BID 12/30/23 12/30/23 History tablet,extended release 24 hr Problem List (Updated 12/31/23 @ 17:53 by Elan Lopez MD) Dyslipidemia S/P coronary artery stent placement CAD (coronary artery disease) Neck pain Abnormal EKG (Acute) Chest pain (Acute) Paroxysmal A-fib Ischemic cardiomyopathy Elevated serum glucose Atherogenic dyslipidemia Morbid obesity Fracture of thumb, right, closed (Acute) Adjustment disorder Dislocation of left shoulder joint Hypertension (Chronic) pt denies, no meds Patient History Medical History Alcohol withdrawal ST elevation myocardial infarction (STEMI) History of COVID-19 ?2020- flu symtoms- no hospitalization, no current issues Anxiety Surgical History Hx of colonoscopy History of left knee replacement History of surgery on arm Family History Other No family history of adverse response to anesthesia Social History Smoking Status: Never smoker Tobacco Type: Smokeless Tobacco (Dip or Chew) Second Hand Exposure: No; Do You Dip or Chew Tobacco: Yes; Hx Alcohol Use: Yes Alcohol type: hard liquor Hx Substance Use: No Preferred Language: Armenian Communication Ability: Effective Network Technician Required: No Beliefs That Will Affect Care: None Current Living Situation: Family Current Living Situation Comment: [place] Feels Safe at Home: Yes Safety Concerns: Feels Safe At This Time Assistive Devices: None Physical Exam Physical Exam: Gen.: No acute distress. Alert and oriented. HEENT: Anicteric sclera. Neck: No JVD. No bruits. Normal carotid upstrokes bilaterally. Cardiac: No ventricular heave. Regular and bradycardic. Normal S1-S2. No murmurs, rubs, or gallops. Pulmonary: Clear to auscultation bilaterally without wheezes, rales, or rhonchi. Abdomen: Soft, nontender, nondistended, with normoactive bowel sounds. No bruits noted. Extremities: 1+ right radial pulse. 2+ left radial pulse. 2+ posterior tibialis pulses bilaterally. No edema or cyanosis. Psychiatric: Affect appears appropriate. Results & Data Vital Signs (Past 12 Hours) Vital Signs Temp Pulse Pulse Resp BP BP Pulse Ox 12/31/23 08:38 51 L 12/31/23 07:55 36.8 C 60 18 110/67 94 12/31/23 07:27 12/31/23 04:08 36.8 C 76 18 92/50 L 94 O2 Del Method 12/31/23 08:38 12/31/23 07:55 Room Air 12/31/23 07:27 Room Air 12/31/23 04:08 Room Air Laboratory Results Laboratory Results - last 24 hr 12/31/23 12/31/23 12/31/23 02:42 08:47 14:12 WBC 6.66 RBC 5.29 Hgb 14.6 Hct 44.6 MCV 84.3 MCH 27.6 MCHC 32.7 RDW Std Deviation 41.6 RDW Coeff of Charity 13.5 Plt Count 265 MPV 10.0 Immature Gran % (Auto) 0.2 Neut % (Auto) 68.8 Lymph % (Auto) 20.3 [place] % (Auto) 6.3 Eos % (Auto) 3.8 Baso % (Auto) 0.6 Neut # (Auto) 4.59 Lymph # (Auto) 1.35 [place] # (Auto) 0.42 Eos # (Auto) 0.25 Baso # (Auto) 0.04 Immature Gran # (Auto) 0.01 PT 11.4 INR 1.1 Sodium 139 Potassium 4.3 Chloride 106 Carbon Dioxide 28 Anion Gap 5 BUN 16 Creatinine 1.01 Est Cr Clr Drug Dosing 108.1 Est GFR ( Amer) 91.3 Est GFR (Non-Af Amer) 78.8 BUN/Creatinine Ratio 15.8 Glucose 104 H Calcium 9.5 Total Bilirubin 1.5 H Direct Bilirubin 0.3 H AST 16 ALT 14 Alkaline Phosphatase 90 Troponin I High Sens 15.9 D 15.7 12.9 Total Protein 6.9 Albumin 4.2 Diagnostic Findings ECHO 12/31/23: 1. Mildly dilated left ventricle with moderately reduced systolic function. Estimated EF 40-45%. Hypokinesis of the inferolateral, anterolateral, and base to mid inferior wall segments. Moderate concentric left ventricular hypertrophy. 2. Mild mitral regurgitation. 3. Normal estimated right ventricular systolic pressure. 4. Technically difficult study, enhanced with IV Definity. 5. No significant change from prior study on 11/11/2023. Telemetry personally reviewed: Sinus bradycardia. Labs reviewed and notable for normal high-sensitivity troponin x 5. Normal potassium, stable renal function, normal blood counts. Normal transaminase levels. ECGs personally reviewed: ECG 12/30/2023 at 1243: Sinus bradycardia 52 bpm. Inferolateral T wave inversion. Inferior infarct. ECG 12/30/2023 at 1302: Sinus bradycardia 59 bpm. Inferior infarct. Inferolateral T wave inversion. Chest x-ray 12/30/2023: No acute disease per radiology. Cardiac Cath 11/11/23: Coronary angiography findings: No left main, separate ostia for LAD and circumflex arising from the left coronary sinus of Valsalva. [id number]-wfffuov and transapical vessel. Gives to large septal branches. Gives a very large branching first diagonal which also is transapical. The LAD and D1 are in fact essentially twin vessels. The LAD also provides a small second diagonal and smaller septal branches. Proximal LAD without disease. Mid vessel with 30% stenosis just after the ostium of the first diagonal. Distal vessel is relatively small with luminal irregularities. D1 has a proximal 40% stenosis. [id number]-[id number] and codominant. Travels in the AV groove providing a large OM1. The proximal AV groove vessel has luminal irregularities. The mid and distal AV groove vessel have 30% and 40% stenosis respectively and then the AV groove vessel terminates in the left PDA. This is small caliber and relatively short. The OM1 has a proximal 100% occlusion with ANTHONY 0 flow. Post PCI it is found to be large and branching. Distally it trifurcates into 3 relatively large branches. RCA-medium caliber and codominant. There is separate ostia of the large RV marginal branch. The RCA has no significant disease and terminates distally is a long small caliber PDA. PCI-0% residual stenosis post PCI of the OM1. ANTHONY-3 flow post PCI No evidence of dissection or perforation post PCI There is a branch which is small in caliber arising within the stented segment which is jailed but with good flow. Following the stent there is up to 20% stenosis before the trifurcation. This may represent mild vasospasm. Medications Administered Current Inpatient Medications Acetaminophen (Acetaminophen 325 Mg Tab) 650 mg PO Q4H PRN PRN Reason: Pain or Fever Stop: 01/29/24 20:43 Atorvastatin Calcium (Atorvastatin 40 Mg Tab) 40 mg PO QAM [facility] Stop: 01/30/24 08:59 Last Admin: 12/31/23 09:22 Dose: 40 mg Clopidogrel Bisulfate (Clopidogrel Bisulfate 75 Mg Tab) 75 mg PO DAILY [facility] Stop: 01/30/24 08:59 Last Admin: 12/31/23 09:22 Dose: 75 mg Enoxaparin Sodium (Enoxaparin 150 Mg/Ml Syr) 150 mg SQ Q12H [facility] Stop: 01/29/24 19:59 Last Admin: 12/31/23 09:22 Dose: 150 mg Metoprolol Succinate (Metoprolol Succ 25mg Ext Rel Tab) 75 mg PO BID [facility] Stop: 01/29/24 20:59 Last Admin: 12/31/23 09:22 Dose: Not Given Miscellaneous Information (Standard Warfarin Nomogram) 1 each N/A DAILY@1400 FRED; Protocol Stop: 01/30/24 13:59 Last Admin: 12/31/23 14:35 Dose: 1 each Ondansetron HCl (Ondansetron Inj 2 Mg/Ml 2 Ml Vial) 4 mg IV Q6H PRN PRN Reason: Nausea Stop: 01/29/24 20:43 PG Care Time/CCT Total # of Minutes Spent Total Time Spent: 65 Total Time Spent with Patient: Total time spent is greater than 50% in coordination of care (as documented) at patient's floor/unit and/or counseling patient: Coding Level of Care Code 19388 INT INP/OBS CARE 3/75MIN Diagnoses Neck pain M54.2 CAD (coronary artery disease) I25.10 S/P coronary artery stent placement Z95.5 Ischemic cardiomyopathy I25.5 Paroxysmal A-fib I48.0 Hypertension I10 Dyslipidemia E78.5 Time Spent (min) 65
[2023-12-31 18:57] LABS: Appearance Urine Clear (Clear); Bacteria Urine Automated None Seen (None Seen); Bilirubin Urine Negative (Negative); Blood Urine Negative (Negative); Cast Urine Automated 0-2 /lpf (0-2); Color Urine Dark Yellow; Epithelial Cell Urine Auto 0-2 /hpf (0-2); Glucose Urine UA Negative (Negative); Ketones Urine Negative (Negative); Leukocyte Esterase Urine Trace (Negative); Nitrite Urine Negative (Negative); Protein Urine Trace (Negative); RBC Urine Automated 0-2 /hpf (0-2); Specific Gravity Urine 1.027 (1.000-1.030); Urobilinogen Urine Negative (Negative); WBC Urine Automated 0-5 /hpf (0-5)
--- NOTE | 2023-12-31 19:45 | Discharge Summary ---
Date of Service date of admission - December 30, 2023 date of discharge - December 31, 2023 Admission HPI Per Admitting Provider Devan is a 63-year-old man with a past medical history of STEMI with LYNDSAY to LAD 11/11/2023 on Eliquis/Plavix rather than DAPT, paroxysmal A-fib on Eliquis, ischemic cardiomyopathy with last EF 40-45%, daily alcohol use without tremors/CIWA scoring on prior admission who presents to the emergency department with chest pain radiating into his neck with a tight quality and into the back of his neck with a tight quality which felt similar to his prior STEMI. Patient has been compliant with Plavix, however has not been taking his Eliquis due to cost. On ER evaluation sinus bradycardia without territorial ST segment changes, lateral T wave inversions similar to 10/2023 are noted. hs-troponin x 2 is normal. Gene is seen at the bedside. Has had intermittent tight squeezing in his neck and arm although wouldn't describe it as pain, just tightness similar to his prior MA. Resolved after aspirin and morphine in the ER. No nitro. No shortness of breath or sweating. Lasted ~30 minutes total. No fevers, chills, sweats. No cough. No orthopnea. No leg swelling.Has not taken eliquis since the second dose due to cost. Has been taking plaavix every day. Was thinking about taking aspirin with this in place of the eliquis. Does not follow witha PCP or community service technician, ac costa had followup since his stent was placed. Would like to follow-up with PCP locally if possible. Notes that cost is his biggest barrier and would like to be minimize this for possible, but also wants to make sure his heart in A-fib is appropriately treated Denies history of bleeding, no GI bleeds, no epigastric discomfort Medical History: Reviewed Medications: Reviewed Surgical History: Reviewed Family history: Reviewed Allergies: Reviewed Social History: 1 whiskey in evenings, uses snuff 1 can per 2 days. No history of withdrawal with prior hospitalizations or going several days without alcohol Code Status: Full Code Principal Diagnosis 1. neck discomfort - resolved; likely due to arthritis of neck; no evidence of ACS 2. history of STEMI - 10/2023 3. coronary artery disease 4. prior history of atrial fibrillation Discharge Exam gen - NAD, obese neck - with passive rotation/flexion there is obvious crepitus and reduced ROM; no JVD heart - RRR, s1 s2, no murmur lungs - CTA b/l abd - soft NT ND BS+ ext - no edema, pulses 2+ b/l psych - a/o x 3 neuro - strength 10/30 x 4 exts Discharge Data Allergies Allergy/AdvReac Type Severity Reaction Status Date / Time ciprofloxacin Allergy Mild Hives Verified 12/30/23 14:45 Quinolones Allergy Mild HIVES Verified 12/30/23 14:45 sibutramine Allergy Unknown Unknown Verified 12/30/23 14:45 Consultations [facility] Cardiology Procedures Performed Echocardiogram: Ordered Studies Chest X-Ray 12/30/23 12:42 XR chest 1V portable CLINICAL HISTORY: Chest pain, nonspecific TECHNIQUE: Single frontal radiograph of the chest was obtained. Comparison: Comparison is made to chest radiograph 11/10/2023 FINDINGS: Exam is limited by underpenetration. Cardiomegaly is noted. The aortic arch is calcified. The lungs are clear. No evidence of pleural effusion or pneumothorax. IMPRESSION: No acute chest disease. ACT 112: Negative or not required by law. Electronically signed by: Michele Arana M.D. 12/30/2023 12:58 PM Hospital Course (1) Neck pain: Patient presented with posterior neck pain He told us that the location & character of the pain was very similar to neck pains he had had in October when he had his STEMI Despite the neck pain his troponins were negative x 5 He was seen in consult by Dr Elan Lopez, [facility] Cardiology Dr Lopez did not feel that the neck pain was member services representative of coronary artery ischemia I suspect the patient was having neck pain from OA/DJD of the cervical spine He was advised to use tylenol as needed for pain He will need close f/u with his PCP & community service technician post-discharge to follow this complaint (2) CAD (coronary artery disease): h/o STEMI 11/11/23 s/p heart cath by Dr Tommie Koo at that time with the following findings: Coronary Anatomy Dominant: Co-Dominant LAD (% Stenosis): Mid (30%) D1 (% Stenosis): Proximal (40%) Circumflex (% Stenosis): Mid (20 to 30%) and Distal (40%) OM1 (% Stenosis): Proximal (100% thrombotic) L PL1 (% Stenosis): Normal RCA (% Stenosis): Normal R PDA (% Stenosis): Normal The OM1 occlusion was the cause of his STEMI s/p drug-eluting stent to OM1 Continue aspirin, plavix, statin, and metoprolol succinate (3) Ischemic cardiomyopathy: Patient had STEMI in October 2023 Echo at that time showed EF of 40-45% with multiple LV wall motion abnormalities Echo this admission with same EF and same LV wall motion pattern He was compensated during this stay He will continue on metoprolol succinate but his dose was changed to 100mg daily due to mild bradycardia seen on monitoring Ideally patient take Entresto or, at minimum, an JOHN or ARB Defer selection to the outpatient setting He will be set up with [facility] - Dr Tommie Koo - for outpatient follow-up (4) Paroxysmal A-fib: No a.fib seen on monitoring during this brief stay He was previously placed on Eliquis for anticoagulation but he had not been taking it due to very high cost (hundreds of dollars) He has been on metoprolol succinate for rate control There was some consideration towards prescribing coumadin but due to regular etoh use and concern for compliance with follow-up INR checks he was NOT discharged on coumadin Defer to his outpatient providers the initiation of either DOAC or coumadin (5) Morbid obesity: BMI 43.8 Total Time Total Time Spent Total Time Spent (In Minutes): 35 Discharge Plan Discharge Items Patient Disposition: Home - Self-Care Reason For Visit: Neck pain Discharge Diagnosis: 1. neck discomfort - resolved; likely due to arthritis of neck; no evidence of heart attack 2. history of heart attack 10/2023 3. coronary artery disease 4. prior history of atrial fibrillation Activity: Resume your previous activity Activity Comment: as tolerated Non-emergency contact: Primary Care Provider and Timber Deadener Call non-emergency contact if: you have any medication questions and your symptoms worsen Follow-up/Referrals: Tommie Koo MD, PhD [Physician] - ([facility] will be contacting you with an appointment date/time ) Nova Alexander CRNP [Outside Practitioners] - (see Ms Alexander with [facility] within 1 week ) Diet: Heart Healthy Add Attending Provider Instructions: Mr Granda, You were hospitalized after presenting with neck discomfort. Blood work for your heart on 4 checks was negative; thus, there was no evidence of any heart attack. Your EKGs were unchanged from previous EKGs. Your heart ultrasound (echocardiogram) was unchanged from October 2023. You were seen in consult by Dr Zacarias Lopez, [facility]. Repeat heart catheterization was not recommended. I am suspicious that some of your neck pain was due to arthritis of the neck. In addition, there was some discussion about using coumadin (warfarin) blood thinner in place of Eliquis for your previous atrial fibrillation. At this time I would recommend that you have close follow-up with your outpatient providers before starting coumadin at home. Coumadin requires frequent blood checks to ensure the coumadin levels are in range, regular follow-up office visits, avoidance of alcohol, etc. Please discuss the possibility of using coumadin (in place of Eliquis) with your family doctor at [facility] when you see them in the clinic. Finally, your urinalysis did not show any significant abnormalities. Additional recommendations - 1. may use tylenol [id number] as needed for neck pain/discomfort/arthritis; maximum 3000mg in 24 hours 2. please change your metoprolol succinate to 100mg once daily starting tomorrow morning, 01/01/24 (you previously were taking 75mg twice daily) Return to [facility] if - * you have chest pains * you have shortness of breath * you have severe neck pain * any other concerns Pending Studies at Discharge: No Stand-Alone Forms: My [facility], Smoking Cessation Medications and DC Order Prescriptions: Continued atorvastatin 40 mg tablet 40 mg PO QAM clopidogrel 75 mg tablet 75 mg PO DAILY aspirin 81 mg Tablet,Delayed Release (Dr/Ec) 81 mg PO DAILY Changed metoprolol succinate 50 mg tablet extended release 24 hr 100 mg PO QAM Qty: 1 0RF Discharge Orders: Discharge Order (Routine); Ordered 12/31/23 Ordered By: Darrel Rinaldi Admission Data Admit Date/Time: 12/30/23 18:31 Attending Provider: Darrel Rinaldi Admit Provider: Jason Wright Primary Care Provider: PCP,NO Other Providers: Jason Wright; Jaylen Guerrero; Elan Lopez Other Interventions: Discharge Summary Assessment (RN) Last Done: 12/31/23 20:07 Coding Level of Care Code 47523 INP/OBS DISCH >30 MIN Diagnoses Neck pain M54.2 CAD (coronary artery disease) I25.10 Ischemic cardiomyopathy I25.5 Paroxysmal A-fib I48.0 Morbid obesity E66.01
--- NOTE | 2023-12-31 20:13 | XCELERA ---
[id number]
[2023-12-31 20:29] VITALS: BP 106/64; PULSE 51; O2SAT 95
== END 2023-12-31 20:41 | disposition home or self-care (01) ==
LOC: 2N 12:34 → ED 12:34 → SUATTDRO 18:31 → 2N 20:14
DX: F41.9 Anxiety disorder, unspecified; Z88.1 Allergy status to other antibiotic agents; Z79.02 Long term (current) use of antithrombotics/antiplatelets; M54.2 Cervicalgia; I48.0 Paroxysmal atrial fibrillation; E78.5 Hyperlipidemia, unspecified; I25.5 Ischemic cardiomyopathy; Z79.899 Other long term (current) drug therapy; Z91.141 Patient's other noncompliance with medication regimen due to financial hardship; Z88.8 Allergy status to other drugs, medicaments and biological substances; F10.10 Alcohol abuse, uncomplicated; Z79.82 Long term (current) use of aspirin; Z95.5 Presence of coronary angioplasty implant and graft; R07.9 Chest pain, unspecified; R94.31 Abnormal electrocardiogram [ECG] [EKG]; I25.2 Old myocardial infarction

== ENCOUNTER 2024-03-23 16:11 | Inpatient (IN) ==
[2024-03-23 17:09] LABS: Hematocrit (blood only) 43.2 % (42.0-52.0); Hemoglobin 14.2 g/dl (14.0-18.0); Mean Corpuscular Hemoglobin 27.1 pg (25.0-34.0); Mean Corpuscular Hgb Conc 32.9 g/dL (32.0-36.0); Mean Corpuscular Volume 82.4 fL (80.0-100.0); Mean Platelet Volume 9.3 fL (9.4-12.4); Platelet Count 331 K/uL (130-400); RDW Coefficient of Variation 13.1 % (11.5-14.5); RDW Standard Deviation 38.9 fL (36.4-46.3); Red Blood Count 5.24 M/uL (4.70-6.10); White Blood Count 7.54 K/ul (4.8-10.8)
--- NOTE | 2024-03-23 17:17 | Emergency Department Note ---
Impression & Plan Bleeding, Postoperative hemorrhage involving digestive system ED Provider Note NAME: VITALY CUI Jr AGE: 63 SEX: M : 1960 ARRIVES VIA: Walk-In INFORMANT: Patient, ED PROVIDER(S): Jaylen Novoa DO CHIEF COMPLAINT: Rectal bleeding HPI: The patient is a 63-year-old male who presented to the emergency department for rectal bleeding. The patient does have a history of paroxysmal atrial fibrillation. He takes Plavix and aspirin. The patient states he takes no other blood thinners. The patient states he had a biopsy of a hemorrhoid on March 14. He denies having any trauma. He started having severe rectal bleeding prior to arrival. ROS: See above HPI for pertinent positives & negatives. A total of 10 systems reviewed and were otherwise negative. PAST MEDICAL HISTORY: See Below PAST SURGICAL HISTORY: See Below FAMILY HISTORY: See Below SOCIAL HISTORY: See Below HOME MEDICATIONS: See Below ALLERGIES: See Below VITALS: See Below PHYSICAL EXAMINATION: GENERAL: The patient is awake and alert. Patient is very anxious. EYES: The conjunctivae are clear. The pupils are round and reactive. EARS, NOSE, MOUTH AND THROAT: The nose is without any evidence of any deformity. NECK: The neck is nontender and supple. RESPIRATORY: Normal respiratory effort is noted there is no evidence of wheezing rhonchi or rales CARDIOVASCULAR: Regular rate and rhythm noted there no murmurs rubs or gallops normal S1 normal S2. GASTROINTESTINAL: The abdomen is soft and nondistended. There was an area of excoriation which was rather large with active bleeding on the left medial gluteus. MUSCULOSKELETAL/EXTREMITIES: There is no evidence of gross deformity full range of motion is noted in the hips and shoulders. SKIN: There is no obvious evidence of any rash. NEUROLOGIC: Patient is awake alert and oriented x3 MEDICAL DECISION MAKING: The patient is a 63-year-old male who presented to the emergency department for rectal bleeding. The patient had a recent biopsy of an area around his anus. He does take antiplatelet medication. He presented to the emergency department because of severe bleeding. The bleeding was controlled with packing. I discussed his condition with the on-call general surgeon who evaluated the patient the bedside. I discussed his condition with the on-call [facility] hospitalist. The patient appears to be stabilized at this time but had a large loss of blood. He will likely require inpatient management to further follow his H&H and determine if any intervention would be needed. Triage Nursing notes reviewed. Prior medical records reviewed Vital Signs: reviewed and remarkable for no significant abnormalities Differential diagnosis: Diverticulosis, AVM, coagulopathy, colitis, inflammatory bowel disease, malignancy, Sandra-Pichardo tear, esophagitis, peptic ulcer disease, variceal bleed, gastritis, epistaxis, fissure, hemorrhoids, as well as other pathologies. ER treatment provided: See below Diagnostics interpreted by me: ECG: EKG was obtained in the emergency department. My interpretation is sinus rhythm at 86 bpm. PVCs noted. Nonspecific ST segment abnormalities are noted. This was compared to a tracing from February 18, 2024. No changes were noted. Cardiac Monitoring: An order was placed for continuous cardiac monitoring. The monitor shows a rate of 61 bpm with sinus rhythm. Laboratory studies: As stated above and show below. Imaging studies: See below. Radiographic imaging was reviewed by myself Consultation(s): I discussed this case with Dr. Talley who is on-call for general surgery. The on-call [facility] hospitalist, Dr. Bower was notified about the patient. Past Med/Surg History Problem List (Updated 03/23/24 @ 21:45 by Jaylen Novoa DO) Postoperative hemorrhage involving digestive system (Acute) Bleeding (Acute) Rectal bleeding ST elevation myocardial infarction (STEMI) Ischemic cardiomyopathy Dyslipidemia S/P coronary artery stent placement CAD (coronary artery disease) Neck pain Abnormal EKG (Acute) Chest pain (Acute) Paroxysmal A-fib Elevated serum glucose Atherogenic dyslipidemia Morbid obesity Fracture of thumb, right, closed (Acute) Adjustment disorder Dislocation of left shoulder joint Medical History Ischemic cardiomyopathy Hypertension pt denies, no meds Alcohol withdrawal ST elevation myocardial infarction (STEMI) History of COVID-19 ?2020- flu symtoms- no hospitalization, no current issues Anxiety Surgical History Hx of colonoscopy History of left knee replacement History of surgery on arm Family History Other No family history of adverse response to anesthesia Social History Smoking Status: Never smoker Tobacco Type: Smokeless Tobacco (Dip or Chew) Second Hand Exposure: No; Do You Dip or Chew Tobacco: Yes; Hx Alcohol Use: Yes Alcohol type: hard liquor Hx Substance Use: No Preferred Language: Brazilian Communication Ability: Effective Corporate Giving Manager Required: No Beliefs That Will Affect Care: None Current Living Situation: Family Current Living Situation Comment: [place] Feels Safe at Home: Yes Assistive Devices: None Allergies Allergies Allergy/AdvReac Type Severity Reaction Status Date / Time ciprofloxacin Allergy Mild Hives Verified 03/23/24 19:16 Quinolones Allergy Mild HIVES Verified 12/30/23 14:45 sibutramine Allergy Unknown Unknown Verified 12/30/23 14:45 Home Meds Home Medications Medication Instructions Recorded Confirmed aspirin 81 mg tablet,delayed 81 mg PO DAILY 12/30/23 03/23/24 release atorvastatin 40 mg tablet 40 mg PO QAM 12/30/23 03/23/24 clopidogrel 75 mg tablet 75 mg PO DAILY 12/30/23 03/23/24 sennosides 8.6 mg-docusate sodium 1 tab-cap PO DAILY 03/23/24 03/23/24 50 mg tablet Previous Rx's Medication Instructions Recorded metoprolol succinate 50 mg 100 mg (2 x 50 mg) PO QAM #1 tab 12/31/23 tablet,extended release 24 hr Results & Data (ED) Vital Signs Vital Signs - 24 hr 03/23/24 16:13 03/23/24 17:03 03/23/24 17:18 Temperature 36.5 C Temperature Source Temporal Artery Scan Pulse Rate 83 80 Pulse Rate [Apical] 81 Pulse Rhythm [Apical] Regular Pulse Strength [Apical] Normal Respiratory Rate 17 18 Respiratory Effort / Characteristics Non-Labored Spontaneous Non-Labored Spontaneous Respiratory Depth Normal Normal Respiratory Pattern Regular Blood Pressure 145/84 H Blood Pressure [Left Arm] 138/80 Blood Pressure Mean 104 Blood Pressure Mean [Left Arm] 99 Blood Pressure Position Sitting Blood Pressure Position [Left Arm] Lying Pulse Oximetry 94 Oxygen Delivery Method Room Air Sepsis Recent Fever Within 48 Hours No Sepsis New/Unexplained Change in Mental Status No Sepsis Action Taken by Nursing No Action Required 03/23/24 19:45 Temperature Temperature Source Pulse Rate Pulse Rate [Apical] 61 Pulse Rhythm [Apical] Pulse Strength [Apical] Respiratory Rate 20 Respiratory Effort / Characteristics Non-Labored Spontaneous Respiratory Depth Normal Respiratory Pattern Regular Blood Pressure Blood Pressure [Left Arm] 131/83 Blood Pressure Mean Blood Pressure Mean [Left Arm] 99 Blood Pressure Position Blood Pressure Position [Left Arm] Pulse Oximetry 94 Oxygen Delivery Method Room Air Sepsis Recent Fever Within 48 Hours Sepsis New/Unexplained Change in Mental Status Sepsis Action Taken by Snf Medications Current Medication List: was personally reviewed by me Laboratory Data Attestation: I reviewed the patient's lab results. 03/23/24 16:49 03/23/24 16:49 Lab Results 03/23/24 03/23/24 Range/Units 16:49 16:56 WBC 7.54 (4.8-10.8) K/ul RBC 5.24 (4.70-6.10) M/uL Hgb 14.2 (14.0-18.0) g/dl Hct 43.2 (42.0-52.0) % MCV 82.4 (80.0-100.0) fL MCH 27.1 (25.0-34.0) pg MCHC 32.9 (32.0-36.0) g/dL RDW Std Deviation 38.9 (36.4-46.3) fL RDW Coeff of Charity 13.1 (11.5-14.5) % Plt Count 331 (130-400) K/uL MPV 9.3 L (9.4-12.4) fL PT 10.6 (9.0-12.0) Seconds INR 1.0 (0.9-1.1) APTT 25 (21-31) Seconds PTT Ratio 0.9 Sodium 140 (136-145) mmol/L Potassium 4.1 (3.5-5.1) mmol/L Chloride 107 (98-107) mmol/L Carbon Dioxide 25 (21-32) mmol/L Anion Gap 8 (3-11) BUN 18 (6-23) mg/dl Creatinine 1.00 (0.6-1.4) mg/dl Est Cr Clr Drug Dosing 106.2 ml/min Est GFR ( Amer) 92.4 ml/min Est GFR (Non-Af Amer) 79.7 ml/min BUN/Creatinine Ratio 18.0 (10-20) Glucose 112 H (70-99(Fasting)) mg/dl Calcium 9.6 (8.6-10.3) mg/dl Total Bilirubin 1.0 (0.2-1.0) mg/dl AST 12 L (13-39) U/L ALT 10 (7-52) U/L Alkaline Phosphatase 101 (34-104) U/L Troponin I High Sens 11.9 (0-20) pg/ml Total Protein 6.9 (6.0-8.3) gm/dl Albumin 4.2 (3.4-5.0) gm/dl Globulin 2.7 (2.5-4.0) gm/dl Albumin/Globulin Ratio 1.6 (0.9-2) Blood Type A Positive Antibody Screen NEGATIVE Administered Medications Ceftriaxone Sodium (Rocephin) 2,000 mg in 50 mls @ 100 mls/hr IV Q24H FRED Stop: 04/02/24 19:59 Last Admin: 03/23/24 21:01 Dose: 100 mls/hr Documented By: MADHU Discontinued Medications Pantoprazole Sodium 40 mg/ (Syringe) 10 mls @ 5 mls/min IV 2000 ONE Stop: 03/23/24 20:01 Last Admin: 03/23/24 21:01 Dose: 5 mls/min Documented By: MADHU Discharge Plan Visit Data Chief Complaint: Rectal Bleed Stated Complaint: rectal bleeding ED Provider: Jaylen Novoa Discharge Problem: Bleeding, Postoperative hemorrhage involving digestive system Patient Disposition: Being Evaluated by Hospitalist Forms Stand Alone Forms: [facility] Prescriptions Prescriptions: No Action atorvastatin 40 mg tablet 40 mg PO QAM clopidogrel 75 mg tablet 75 mg PO DAILY aspirin 81 mg Tablet,Delayed Release (Dr/Ec) 81 mg PO DAILY metoprolol succinate 50 mg tablet extended release 24 hr 100 mg PO QAM Qty: 1 0RF sennosides-docusate sodium [MARITA-COLACE] 8.6-50 mg Tablet 1 tab-cap PO DAILY Referrals Referrals: PCP,NO [Primary Care Provider] - Discharge Problem: Postoperative hemorrhage involving digestive system Qualifiers: Procedure type: non-digestive system Qualified Code(s): K91.841 - Postprocedural hemorrhage of a digestive system organ or structure following other procedure
[2024-03-23 17:26] LABS: Albumin Globulin Ratio 1.6 (0.9-2); Albumin Level 4.2 gm/dl (3.4-5.0); Calcium 9.6 mg/dl (8.6-10.3); Creatinine Clr Calc Pharmacy 106.2 ml/min; Est GFR (African American) 92.4 ml/min; Est GFR (Non-African American) 79.7 ml/min; Globulin 2.7 gm/dl (2.5-4.0); Potassium 4.1 mmol/L (3.5-5.1); Total Protein 6.9 gm/dl (6.0-8.3)
[2024-03-23 17:30] LABS: Troponin I High Sensitivity 11.9 pg/ml (0-20)
[2024-03-23 17:35] LABS: Partial Thromboplastin Ratio 0.9; Partial Thromboplastin Time 25 Seconds (21-31); Prothrombin Time 10.6 Seconds (9.0-12.0)
[2024-03-23] MEDS ORDERED: ONDANSETRON INJ 2 MG/ML 2 ML VIAL IV PRN (19:55)
--- NOTE | 2024-03-23 19:58 | History & Physical Report ---
Date of Service March 23, 2024 Assessment & Plan (1) Rectal bleeding: (2) Rectal mass: (3) Dyslipidemia: (4) S/P coronary artery stent placement: (5) CAD (coronary artery disease): (6) Paroxysmal A-fib: (7) Ischemic cardiomyopathy: (8) ST elevation myocardial infarction (STEMI): Plan Rectal bleeding status post excision of anal mass- Excision site cleaned and packed by the emergency department NPO Hemoglobin 14.2 on admission H&H every 4 hours Type and screen ordered Wound care consulted General Surgery consulted Hold clopidogrel and aspirin Ceftriaxone 2 g IV daily Zofran 4 mg IV every 6 hours as needed Pantoprazole 40 mg IV daily Acetaminophen 1 g IV every 8 hours as needed for mild pain or fever NSS + KCl 20 mill equivalents at 100 mL/h Serial CBC with differential, chemistry profile and magnesium level CAD/hypertension/paroxysmal atrial fibrillation/history of STEMI/history of coronary artery stent- The patient will be admitted to telemetry for cardiac rhythm monitoring In normal sinus rhythm Troponin 11.9 Holding clopidogrel and aspirin as noted above Pending verification of metoprolol succinate dosing, listed on current records and 100 mg daily, however, [place] records suggest 70 mg p.o. twice daily Placed on metoprolol to tartrate 25 mg p.o. twice daily at first dose this evening, with further dosing limited now due to systolic blood pressure at 120 History of Present Illness Chief Complaint: The patient presents to the emergency department with history of a rectal biopsy of an anal mass that was performed earlier in February at the outpatient [facility] offices in [place], that reportedly had some abnormal cells on pathology, and he was then referred to surgery Dr. Jaylen Rowland at [facility]. He underwent a more extensive biopsy and excision on March 14, of which he does not have the pathology results back yet. Evidently had some oozing of blood intermittently since that time, however, he had a large volume of bright red blood per rectum today, which caused him to present to the emergency department for assessment. He did report some lightheadedness associated with the bleeding today, reports that he had been feeling better since he got some IV fluids in the emergency department. He has been on clopidogrel and aspirin due to history of atrial fibrillation and coronary stent, and this was continued postprocedure, due to concerns with his underlying medical history. Primary Care Provider: NO PCP The patient is a 63-year-old male with past medical history including dyslipidemia, CAD, coronary artery stent placement, paroxysmal atrial fibrillation, ischemic cardiomyopathy, alcohol withdrawal, morbid obesity, and adjustment disorder. He presents to the emergency department with symptoms as noted above. As noted above, he has some transient lightheadedness, which has resolved at this time. He notes also that he did have a pinching sensation in his rectal area ever since procedure on 03/14, which has not changed. Allergies Allergy/AdvReac Type Severity Reaction Status Date / Time ciprofloxacin Allergy Mild Hives Verified 03/23/24 19:16 Quinolones Allergy Mild HIVES Verified 12/30/23 14:45 sibutramine Allergy Unknown Unknown Verified 12/30/23 14:45 Home Medications Medication Instructions Recorded Confirmed Type aspirin 81 mg tablet,delayed 81 mg PO DAILY 12/30/23 03/23/24 History release atorvastatin 40 mg tablet 40 mg PO QAM 12/30/23 03/23/24 History clopidogrel 75 mg tablet 75 mg PO DAILY 12/30/23 03/23/24 History metoprolol succinate 50 mg 100 mg (2 x 50 mg) PO QAM #1 tab 12/31/23 03/23/24 Rx tablet,extended release 24 hr sennosides 8.6 mg-docusate sodium 1 tab-cap PO DAILY 03/23/24 03/23/24 History 50 mg tablet Past Med/Surg History Problem List (Updated 03/23/24 @ 21:34 by Boone Hdez MD) Rectal bleeding ST elevation myocardial infarction (STEMI) Ischemic cardiomyopathy Dyslipidemia S/P coronary artery stent placement CAD (coronary artery disease) Neck pain Abnormal EKG (Acute) Chest pain (Acute) Paroxysmal A-fib Elevated serum glucose Atherogenic dyslipidemia Morbid obesity Fracture of thumb, right, closed (Acute) Adjustment disorder Dislocation of left shoulder joint Medical History Ischemic cardiomyopathy Hypertension pt denies, no meds Alcohol withdrawal ST elevation myocardial infarction (STEMI) History of COVID-19 ?2019- flu symtoms- no hospitalization, no current issues Anxiety Surgical History Hx of colonoscopy History of left knee replacement History of surgery on arm Family History Other No family history of adverse response to anesthesia Social History Smoking Status: Never smoker Tobacco Type: Smokeless Tobacco (Dip or Chew) Second Hand Exposure: No; Do You Dip or Chew Tobacco: Yes; Hx Alcohol Use: Yes Alcohol type: hard liquor Hx Substance Use: No Preferred Language: Greek Communication Ability: Effective Instrument Repairer Required: No Beliefs That Will Affect Care: None Current Living Situation: Family Current Living Situation Comment: [place] Feels Safe at Home: Yes Assistive Devices: None Review of Systems Review of Systems: The patient denies chest pain, palpitations, shortness of breath, dyspnea on exertion, cough, lower extremity swelling, sore throat, fevers, chills, sweats, weight change, fatigue, nausea, vomiting, diarrhea , constipation, abdominal pain, pelvic pain, blood in urine, dysuria, urinary frequency or urgency, headache, memory loss, loss of consciousness, rash, imbalance, focal or generalized weakness, numbness or tingling in arms or legs, generalized arthralgias or myalgias, neck pain, or night sweats. The review of systems is otherwise negative other than for that already noted above, and at least 10 systems have been reviewed. Physical Exam Physical Exam: The patient is awake, alert and oriented 3, well developed and well nourished, normocephalic and atraumatic, lying in bed and in no acute distress. HEENT--PERRL, EOMI, mucous membranes and oropharynx normal. Neck--supple. No JVD. No bruits. Thyroid normal, trachea midline, no adenopathy. Heart--normal S1 and S2. No murmurs, rubs or gallops. Lungs--clear bilaterally, no respiratory distress, no accessory muscle use. Abdomen/pelvic/rectal--normal bowel sounds and soft. Nontender. Nondistended. Refer to ED description of rectal wound Extremities--no cyanosis or clubbing. No edema. There are good distal pulses b/l. Dermatologic--normal skin turgor, normal color, no abnormal lymph nodes, no rash. Neurologic--cranial nerves II through XII grossly intact. Rheumatologic--normal range of motion. Psychiatric--normal affect. Results & Data Results & Data Vital Signs (Past 12 Hours) Vital Signs Temp Pulse Pulse Resp BP BP Pulse Ox 03/23/24 19:45 61 20 131/83 94 03/23/24 17:18 80 03/23/24 17:03 81 18 138/80 03/23/24 16:13 36.5 C 83 17 145/84 H 94 O2 Del Method 03/23/24 19:45 Room Air 03/23/24 17:18 03/23/24 17:03 03/23/24 16:13 Room Air Laboratory Results Laboratory Results WBC 7.54 K/ul (4.8-10.8) 03/23/24 16:49 RBC 5.24 M/uL (4.70-6.10) 03/23/24 16:49 Hgb 14.2 g/dl (14.0-18.0) 03/23/24 16:49 Hct 43.2 % (42.0-52.0) 03/23/24 16:49 MCV 82.4 fL (80.0-100.0) 03/23/24 16:49 MCH 27.1 pg (25.0-34.0) 03/23/24 16:49 MCHC 32.9 g/dL (32.0-36.0) 03/23/24 16:49 RDW Std Deviation 38.9 fL (36.4-46.3) 03/23/24 16:49 RDW Coeff of Charity 13.1 % (11.5-14.5) 03/23/24 16:49 Plt Count 331 K/uL (130-400) 03/23/24 16:49 MPV 9.3 fL (9.4-12.4) L 03/23/24 16:49 PT 10.6 Seconds (9.0-12.0) 03/23/24 16:49 INR 1.0 (0.9-1.1) 03/23/24 16:49 APTT 25 Seconds (21-31) 03/23/24 16:49 PTT Ratio 0.9 03/23/24 16:49 Sodium 140 mmol/L (136-145) 03/23/24 16:49 Potassium 4.1 mmol/L (3.5-5.1) 03/23/24 16:49 Chloride 107 mmol/L (98-107) 03/23/24 16:49 Carbon Dioxide 25 mmol/L (21-32) 03/23/24 16:49 Anion Gap 8 (3-11) 03/23/24 16:49 BUN 18 mg/dl (6-23) 03/23/24 16:49 Creatinine 1.00 mg/dl (0.6-1.4) 03/23/24 16:49 Est Cr Clr Drug Dosing 106.2 ml/min 03/23/24 16:49 Est GFR ( Amer) 92.4 ml/min 03/23/24 16:49 Est GFR (Non-Af Amer) 79.7 ml/min 03/23/24 16:49 BUN/Creatinine Ratio 18.0 (10-20) 03/23/24 16:49 Glucose 112 mg/dl (70-99(Fasting)) H 03/23/24 16:49 Calcium 9.6 mg/dl (8.6-10.3) 03/23/24 16:49 Total Bilirubin 1.0 mg/dl (0.2-1.0) 03/23/24 16:49 AST 12 U/L (13-39) L 03/23/24 16:49 ALT 10 U/L (7-52) 03/23/24 16:49 Alkaline Phosphatase 101 U/L (34-104) 03/23/24 16:49 Troponin I High Sens 11.9 pg/ml (0-20) 03/23/24 16:49 Total Protein 6.9 gm/dl (6.0-8.3) 03/23/24 16:49 Albumin 4.2 gm/dl (3.4-5.0) 03/23/24 16:49 Globulin 2.7 gm/dl (2.5-4.0) 03/23/24 16:49 Albumin/Globulin Ratio 1.6 (0.9-2) 03/23/24 16:49 Blood Type A Positive 03/23/24 16:56 Antibody Screen NEGATIVE 03/23/24 16:56 Code Status & VTE Plan Code Status Full code VTE Prophylaxis Plan VTE Prophylaxis will be ordered: Yes PG Care Time/CCT Total # of Minutes Spent Total Time Spent with Patient: Total time spent is greater than 50% in coordination of care (as documented) at patient's floor/unit and/or counseling patient: Coding Level of Care Code 37914 INT INP/OBS CARE 375MIN Diagnoses Rectal bleeding K62.5 Rectal mass K62.89 Dyslipidemia E78.5 S/P coronary artery stent placement Z95.5 CAD (coronary artery disease) I25.10 Paroxysmal A-fib I48.[address] elevation myocardial infarction (STEMI) I21.11 Involved coronary artery: right coronary artery (8) ST elevation myocardial infarction (STEMI) Involved coronary artery: right coronary artery Qualified Code(s): I21.11 - ST elevation (STEMI) myocardial infarction involving right coronary artery
[2024-03-23] MEDS ORDERED: METOPROLOL TARTRATE 1 MG/ML VIAL IV PRN (20:04)
[2024-03-23] MEDS: cefTRIAXone SODIUM 2,000 MG/50 ML BAG IV SCH (21:01)
[2024-03-23] MEDS: PANTOprazole 40 MG in SYRINGE 0 ML IV ONE (21:01)
[2024-03-23] MEDS: METOPROLOL TARTRATE 25 MG TAB PO SCH (22:40)
[2024-03-23] MEDS: NSS + 20MEQ KCL 20 MEQ/1,000 ML BAG IV SCH (22:40)
[2024-03-23 23:42] LABS: Hematocrit (blood only) 38.5 % (42.0-52.0); Hemoglobin 12.5 g/dl (14.0-18.0)
[2024-03-24] MEDS: ACETAMINOPHEN 1,000 MG/100 ML VIAL IV PRN (01:42)
--- OUTSIDE RECORDS SUMMARY | 2024-03-24 02:58 | External Medical Summary | Continuity of Care Document ---
Author Name Unknown Organization [address] Address [address] [place], [place] [id number] Care Team Providers Care Morning Nanny Name Role Phone Nova Alexander Primary Care Physician [phone] [id number] Date(s): 02/29/24 - 02/29/24 [facility] [address], [address] [place] [address] [phone] Discharge Disposition: Home or Self Care Attending Physician: YANN Francis Sarah A Allergies, Adverse Reactions, Alerts Substance Criticality Severity Reaction Reaction Severity Status Cipro hives Active Medications Aspirin Low Dose 81 mg oral delayed release tablet Start: 01/04/24 2:43:00 PM EDT, 1 tab, PO, Daily Start Date: 01/04/24 Status: Ordered atorvastatin 40 mg oral tablet Start: 12/15/23 9:10:00 AM EDT, 1 tab, PO, Daily, Disp# 90 tab, Pharmacy: [facility]/pharmacy #[id number] Start Date: 12/15/23 Status: Ordered clopidogrel 75 mg oral tablet Start: 12/20/23 3:56:00 PM EDT, 1 tab, PO, Daily, Disp# 90 tab, Refills: 0, Pharmacy: [facility]/pharmacy #[id number] Start Date: 12/20/23 Status: Ordered Colace 100 mg oral capsule Start: 04/10/22 12:42:00 PM EDT, 1 cap, PO, bid, Disp# 60 cap, PRN: as needed for constipation, Pharmacy: [facility]/pharmacy #[id number] Start Date: 04/10/22 Status: Ordered losartan 25 mg oral tablet Start: 02/29/24 1:50:00 PM EDT, 1 tab, PO, Daily, Disp# 90 tab, Refills: 3, Pharmacy: [facility]/pharmacy #[id number] Start Date: 02/29/24 Status: Ordered metoprolol succinate 50 mg oral tablet, extended release Start: 12/24/23 11:12:00 AM EDT, 1.5 tab, PO, bid, Disp# 135 tab, Refills: 3, Pharmacy: [facility]/pharmacy#[id number] Start Date: 12/24/23 Stop Date: 12/18/24 Status: Ordered Problem List Condition Confirmation Course Effective Dates Status Health St atus Informant Dislocation of left shoulder joint Confirmed Active Glenoid fracture of shoulder Confirmed Active STEMI (ST elevation myocardial infarction) Confirmed Active Right rotator cuff tear Confirmed Active Right shoulder pain Confirmed Active Tobacco user Confirmed Active Procedures Procedure Date Related Diagnosis Body Site Status Arthroscopic repair of Banka rt lesion 1 04/07/22 Completed 1Left shoulder Social History Social History Type Response Smoking Status Never smoked cigaret alexei Sex Male Sex Representation Male (finding) Patient Care team information Care Team Personnel Name: YANN Alexander Danielle B Position: Nurse Pract - Family Med Member Role: Primary Care Provider Address: [address] [place] [id number] [place] Name: MD Pk, Joanne Position: Physician - Pathologist Member Role: Lifetime Relationship Address: [address] [place] [id number] Care Team Related Persons Name: SAVANNAH PRESSLEY
--- OUTSIDE RECORDS SUMMARY | 2024-03-24 02:58 | External Medical Summary | Continuity of Care Document ---
Author Name Unknown Organization [address] Address [address] [place], [place] [phone] Care Team Providers Care Licensed Optician Name Role Phone Nova Alexander Primary Care Physician [phone] [id number] Date(s[facility]/29[facility]24 - 02/29/24 [facility] [address], [address] [place] [address] [phone] Discharge Disposition: Home or Self Care Attending [...] tab, PO, Daily, Disp# 90 tab, Pharmacy: [facility]/pharmacy #[id number] Start Date: 12/15/23 Status: Ordered clopidogrel 75 mg oral tablet Start: 12/20/23 3:56:00 PM EDT, 1 tab, PO, Daily, Disp# 90 tab, Refills: 0, Pharmacy: [facility]/pharmacy #[id number] Start Date: 12/20/23 Status: Ordered Colace 100 mg oral capsule Start: 04/10/22 12:42:00 PM EDT, 1 cap, PO, bid, Disp# 60 cap, PRN: as needed for constipation, Pharmacy: [facility]/pharmacy #[id number] Start Date: 04/10/22 Status: Ordered losartan 25 mg oral tablet Start: 02/29/24 1:50:00 PM EDT, 1 tab, PO, Daily, Disp# 90 tab, Refills: 3, Pharmacy: [facility]/pharmacy #[id number] Start Date: 02/29/24 Status: Ordered metoprolol succinate 50 mg oral tablet, extended release Start: 12/24/23 11:12:00 AM EDT, 1.5 tab, PO, bid, Disp# 135 tab, Refills: 3, Pharmacy: [facility]/pharmacy#[id number] Start Date: 12/24/23 Stop Date: 12/18/24 Status: [...] Med Member Role: Primary Care Provider Address: [address] [place] [address] [place] Name: MD Pk, Joanne Position: Physician - Pathologist Member Role: Lifetime Relationship Address: [address] [place] [phone] Care Team Related Persons Name: SAVANNAH PRESSLEY
--- OUTSIDE RECORDS SUMMARY | 2024-03-24 02:58 | External Medical Summary | Continuity of Care Document ---
Author Name Unknown Organization [facility] Address [address] [place] [phone] [facility]counter [facility] [id number] Date(s): 03/14/24 - 03/14/[address] [phone] Encounter Diagnosis Other specified diseases of anus and rectum(Final) - Discharge Disposition: Home or Self Care Attending Physician: MD Rowland Jeffrey S Allergies, Adverse Reactions, Alerts Substance Criticality Severity Reaction Reaction Severity Status Cipro hives Active Functional Status 03/14/24 Neurological Symptoms None ADLs Independent Facial Symmetry Symmetric Gait Unable to assess Swallowing Difficulty None Level of Consciousness Neuro Alert Hallucinations Present None History of Fall in Last 3 Months Nichole N o Presence of Secondary Diagnosis Nichole Ye s Use of Ambulatory Aid Nichole None/bedrest /nurse assist IV/Heparin Lock Fall Risk Nichole Yes Gait/Transferring Fall Risk Nichole Normal /bedrest/immobile Mental Status Fall Risk Nichole Oriented t o own ability Nichole Fall Risk Score 35 Nichole Fall Risk Low Risk Speech Pattern Clear Medications Aspirin Low Dose 81 mg oral delayed release tablet Start: 01/04/24 2:43:00 PM EDT, 1 tab, PO, qAM Start Date: 01/04/24 Status: Ordered atorvastatin 40 mg oral tablet Start: 03/13/24 6:25:00 PM EDT, 1 tab, PO, Daily, Disp# 90 tab, Refills: 0, Pharmacy: [id number] Start Date: 03/13/24 Status: Ordered clopidogrel 75 mg oral tablet Start: 12/20/23 3:56:00 PM EDT, 1 tab, PO, Daily, Disp# 90 tab, Refills: 0, Pharmacy: [facility]/pharmacy #[id number] Start Date: 12/20/23 Status: Ordered Colace 100 mg oral capsule Start: 04/10/22 12:42:00 PM EDT, 1 cap, PO, bid, Disp# 60 cap, PRN: as needed for constipation, [id number] Start Date: 04/10/22 Status: Ordered losartan 25 mg oral tablet Start: 02/29/24 1:50:00 PM EDT, 1 tab, PO, Daily, Disp# 90 tab, Refills: 3, Pharmacy: [facility]/pharmacy #[id number] Start Date: 02/29/24 Status: Ordered metoprolol succinate 50 mg oral tablet, extended release Start: 12/24/23 11:12:00 AM EDT, 1 tab, PO, Daily, Disp# 90 tab, Refills: 3, [id number] Start Date: 12/24/23 Stop Date: 12/18/24 Status: Ordered oxyCODONE 5 mg oral tablet Start: 03/14/24 5:19:00 PM EDT, 1 tab, PO, q6h, Disp# 10 tab, Refills: 0, PRN: as needed for pain, Pharmacy: [facility] Start Date: 03/14/24 Status: Ordered Problem List Condition Confirmation Course [...] of Banka rt lesion 1 04/07/22 Completed Arm-right surgery Complet ed Knee replacement- left Co mpleted Stent- heart Completed 1Left shoulder Results Laboratory List Name Date Blood Type/Antibody Screen ( for possible transfusion) (Type and Screen (for possible transfusion)) 03/14/24 Nephrology Panel 03/14/24 Partial Thromboplastin Time (PTT) 4 Prothrombin Time w/ INR (PT/INR) 03/14/24 Complete Blood Count (CBC w Platelets) Blood Type (ABO/Rh) (ABO/RH) 03/14/24 Most recent to oldest [Reference Range]: 1 2 ABO/Rh A POSITIVE *Unknown* (03/14/24 11:35 AM) A POSITIVE *Unknown* (03/14/24 11:34 AM) Antibody Scr NEGATIVE *Unknown* (03/14/24 11:34 AM) Expires at 0600AM on 03/17/2024 *Unknown* (03/14/24 11:34 AM) # Units 0 (03/14/24 11:34 AM) R Number NRQ *Unknown* (03/14/24 11:34 AM) eGFR CKD-EPI [>60 mL/min/1.73 m2] >90 mL /min/1.73 m2 (03/14/24 11:36 AM) Estimated CrCl 116.07 mL/min (03/14/24 12:36 PM) MPV [9.0-12.2 fL] 9.3 fL (03/14/24 11:36 AM) RDW [11.5-14.2 %] 13.2 % (03/14/24 11:36 AM) Component RED CELLS *Unknown* (03/14/24 11:34 AM) Anion Gap [5-14 mmol/L] 14 mmol/L (03/14/24 11:36 AM) Alb [3.5-5.2 g/dL] 4.2 g/dL (03/14/24 11:36 AM) BUN [6-23 mg/dL] 16 mg/dL (03/14/24 11:36 AM) Ca [8.4-10.2 mg/dL] 9.5 mg/dL (03/14/24 11:36 AM) Cl- [98-107 mmol/L] 106 mmol/L (03/14/24 11:36 AM) HCO3 [22-29 mmol/L] 21 mmol/L *LOW* (03/14/24 11:36 AM) Cret [0.70-1.30 mg/dL] 0.91 mg/dL (03/14/24 11:36 AM) Glu [74-109 mg/dL] 103 mg/dL 1 (03/14/24 11:36 AM) Hct [39-48 %] 43.5 % (03/14/24 11:36 AM) Hgb [13.0-17.0 g/dL] 14.4 g/dL (03/14/24 11:36 AM) INR [0.9-1.1] 1.1 2 (03/14/24 11:36 AM) K [3.5-5.1 mmol/L] 4.3 mmol/L (03/14/24 11:36 AM) MCH [28-33 pg] 27.1 pg *LOW* (03/14/24 11:36 AM) MCHC [32-36 g/dL] 33.1 g/dL (03/14/24 11:36 AM) MCV [81-96 fL] 81.9 fL (03/14/24 11:36 AM) Na [136-145 mmol/L] 141 mmol/L (03/14/24 11:36 AM) PO4 [2.5-4.5 mg/dL] 3.2 mg/dL (03/14/24 11:36 AM) Plts [150-350 K/uL] 330 K/uL (03/14/24 11:36 AM) PT [12.0-14.2 seconds] 13.8 seconds (03/14/24 11:36 AM) PTT [23-35 seconds] 29 seconds (03/14/24 11:36 AM) RBC [4.40-5.60 M/uL] 5.31 M/uL (03/14/24 11:36 AM) WBC [4.0-10.4 K/uL] 7.49 K/uL (03/14/24 11:36 AM) 1Result Comment: ADA recommendation for FASTING Serum/Plasma Glucose: Normal: 70-100 mg/dL Prediabetes: 100-125 mg/dL Diabetes: 126 mg/dL or higher 2Result Comment: Suggested therapeutic range for low-intensity Coumadin therapy for venous thromboembolism is INR 2.0-3.0 (ex: atrial fibrillation, history of TIA/stroke). For high risk patients, the suggested therapeutic range is INR 2.5-3.5 (ex: mechanical prosthetic valves). Vital Signs Most recent to oldest [Reference Range]: 1 2 3 Height 177 cm (03/14/24 10:49 AM) Patient Weight 138.5 kg (03/14/24 10:49 AM) Body Mass Index 44.21 kg/m2 (03/14/24 10:49 AM) Temperature [36.5-37.9 DegC] 36.2 DegC *LOW* (03/14/24 6:10 PM) 36.1 DegC *LOW* (03/14/24 5:49 PM) 36.1 DegC *LOW* (03/14/24 5:43 PM) Heart Rate 74 bpm (03/14/24 6:10 PM) 69 bpm (03/14/24 5:49 PM) 69 bpm (03/14/24 5:43 PM) Respiratory Rate 18 br/min (03/14/24 6:10 PM) 16 br/min (03/14/24 5:49 PM) 16 br/min (03/14/24 5:43 PM) Blood Pressure 116/80mmHg (03/14/24 6:10 PM) 143/89mmHg (03/14/24 5:49 PM) 143/89mmHg (03/14/24 5:43 PM) Mean Blood Pressure 92 mmHg (03/14/24 6:10 PM) 105 mmHg (03/14/24 5:43 PM) 105 mmHg (03/14/24 5:24 PM) Cuff Pulse Pressure 36 mmHg (03/14/24 6:10 PM) 54 mmHg (03/14/24 5:43 PM) 30 mmHg (03/14/24 5:24 PM) BP Location # 1 Left Arm, Non-invasive (03/14/24 6:10 PM) Left Arm, Non-invasive (03/14/24 5:02 PM) Social History Social History Type Response Smoking Status Never smoked cigaret alexei Sex Male Sex Representation Male (finding) Pre-OP H & P * MD Rowland Jeffrey S: PERFORM, MODIFY Event Display: Pre-OP H & P Authored Date: PRE-OPERATIVE HISTORY AND PHYSICAL Name: VITALY CUI Jr. Patient Number: [id number] : 1960 Date of Service: 03/14/2024 See H&P 02/18/2024 by Janett SURGICAL HISTORY AND PHYSICAL UPDATE - NO CHANGE Name: VITALY CUI Jr. Patient Number: [id number] : 1960 Date of Service: 03/14/2024 Patient identity, procedure and procedure site were identified by me, the attending physician. I have personally seen and examined the patient. The History and Physical was reviewed, and there are nochanges in the patient's condition. I have confirmed that the necessity for the procedure is still p resent. 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 [facility] [address], [place] [address] JSS Patient Care team information Care Team Personnel Name: MD Romario, Monica Ballesteros Position: Resident Member Role: Lifetime Relationship Address: [address] [place] [address] [place] Name: MD Chew Ping Position: Resident - Pathologist Member Role: Lifetime Relationship Address: [address] [place] [address] [place] Name: MD Whittington Ying Position: Physician - Pathologist Member Role: Lifetime Relationship Address: [address] [place] [phone] [place] Care Team Related Persons Name: SAVANNAH PRESSLEY
--- OUTSIDE RECORDS SUMMARY | 2024-03-24 02:58 | External Medical Summary | Continuity of Care Document ---
Author Name Unknown Organization [facility] [address] [place] [address] JAYCEE ESTRADA [id number] Encounter [facility] [id number] Date(s): 03/09/24 - 03/09/24 [facility] [address] [facility] [address], [address], [address] JAYCEE [place] [address] Encounter Diagnosis Pre-op exam(Discharge Diagnosis) - 03/09/24 Discharge Disposition: Home or Self Care Attending Physician: MD Virgen Wayne Referring Physician: MD Rowland Jeffrey S Allergies, Adverse Reactions, Alerts Substance Criticality Severity Reaction Reaction Severity Status Cipro hives Active Medications Aspirin Low Dose 81 mg oral delayed release tablet Start: 01/04/24 2:43:00 PM EDT, 1 tab, PO, qAM Start Date: 01/04/24 Status: Ordered atorvastatin 40 mg oral tablet Start: 12/15/23 9:10:00 AM EDT, 1 tab, PO, Daily, Disp# 90 tab, [id number] Start Date: 12/15/23 Status: Ordered clopidogrel 75 mg oral tablet Start: 12/20/23 3:56:00 PM EDT, 1 tab, PO, Daily, Disp# 90 tab, Refills: 0, Pharmacy: [id number] Start Date: 12/20/23 Status: Ordered Colace 100 mg oral capsule Start: 04/10/22 12:42:00 PM EDT, 1 cap, PO, bid, Disp# 60 cap, PRN: as needed for constipation, Pharmacy: [id number] Start Date: 04/10/22 Status: Ordered losartan 25 mg oral tablet Start: 02/29/24 1:50:00 PM EDT, 1 tab, PO, Daily, Disp# 90 tab, Refills: 3, Pharmacy: [id number] Start Date: 02/29/24 Status: Ordered metoprolol succinate 50 mg oral tablet, extended release Start: 12/24/23 11:12:00 AM EDT, 1 tab, PO, Daily, Disp# 90 tab, Refills: 3, Pharmacy: [id number] Start Date: 12/24/23 Stop Date: 12/18/24 Status: Ordered Mental Status 03/09/24 Barriers to Learning one year None evide nt Mandatory Health Literacy Documentation Yes Communication Barrier Present No Health Literacy Communication Barriers N ever Primary Language Togolese Problem List Condition Confirmation Course Effective Dates Status Health St atus Informant Dislocation of left shoulder joint Confirmed Active Glenoid fracture of shoulder Confirmed Active STEMI (ST elevation myocardial infarction) Confirmed Active Right rotator cuff tear Confirmed Active Right shoulder pain Confirmed Active Tobacco user Confirmed Active Diagnosis Diagnosis Type Effective Dates Health Status Clini reno Service Informant Pre-op exam Discharge Diagnosis 03/09/24 Procedures Procedure Date Related Diagnosis Body Site Status Arthroscopic repair of Banka rt lesion 1 04/07/22 Completed Arm-right surgery Complet ed Knee replacement- left Co mpleted Stent- heart Completed 1Left shoulder Vital Signs Most recent to oldest [Reference Range]: 1 Height 177 cm (03/09/24 8:48 AM) Patient Weight 138.5 kg (03/09/24 8:48 AM) Body Mass Index 44.21 kg/m2 (03/09/24 8:48 AM) Temperature [36.5-37.9 DegC] 36.8 DegC (03/09/24 8:48 AM) Heart Rate 77 bpm (03/09/24 8:48 AM) Respiratory Rate 18 br/min (03/09/24 8:48 AM) Blood Pressure 112/68mmHg (03/09/24 8:48 AM) Mean Blood Pressure 79 mmHg (03/09/24 8:48 AM) Cuff Pulse Pressure 44 mmHg (03/09/24 8:48 AM) BP Location # 1 Left Arm (03/09/24 8:48 AM) Social History Social History Type Response Smoking Status Never smoked cigaret alexei Sex Male Sex Representation Male (finding) Anes H&P * MD Virgen Wayne: SIGN MD Virgen Wayne: SIGN, VERIFY MD Virgen Wayne: VERIFY, MODIFY, SIGN DO Yee Lilianna Noel: MODIFY Event Display: Anes H&P Authored Date: [id number] Patient: VITALY CUI JR Age: 63 years Sex: Male : 1960 Associated Diagnoses: None Author: JOSELIN Santos Daniel Preoperative Information Anesthesia Preop Info: Procedure: EXAM UNDER ANESTHESIA OF ANUS/RECTUM, EXCISIONAL BIOPSY OF ANAL MASS Date: 03/14/24 08:40 Surgeons: MD Rowland Jeffrey S Diagnosis: ANAL MASS, HIGH GRADE DYSPLASIA CONCERNING FOR CANCER . History of Present Illness See above. Not COVID vaccinated Anesthesia History PONV: Denies. History of Motion Sickness: Denies. Patient Complications: Negative. Family History of Anesthesia Problems: PONV. Functional Capacity 4-6 METS = Moderate: Able to walk briskly (4 mph), Able to climb 1 flight of stairs at regular pacewithout stopping. Symptoms: Minimal SOB, Longstanding. Medical History Cardiovascular: [place] [facility] [place] see below for pre-op cardiac risk assessment/antiplatelet discussion). Hypertension: Beta Jeana (taken around 12:00pm daily (pt reports that the epic beacon analyst decreased this to 50mg once daily; however, it is currently prescibed at 50mg 1.5 tabs BID and I can find no documentation that this dose was changed - e-message sent to [facility] epic beacon analyst)), ARB, Well controlled. CAD: h/o STEMI 11/13/23, Cardiac Intervention ( S/P drug eluting stent (to OM1 on 11/13/23), On antiplatelet therapy, Ok to continue ASA and Plavix perioperatively per surgeons 03/04/24 addendum to 03/03/24 e-message ). Heart failure: Last EF 40-45% on 11/11/23 outside ECHO summarized in 02/29/24 [facility] [place]. Dysrhythmia: A-fib, Post op (stent placement), Currently wearing a 30-day Holter monitor to assess a fib burden. No anticoagulation therapy at this time d/t cost concerns. May start warfarin therapy pending results of holter monitor per 02/29/24 [facility] [place]. Endocrine/Metabolic: Diabetes: Diet and exercise for control, "Borderline". Gastrointestinal: Obesity: Class III obesity (BMI >=40)), BMI: 44. Orthopedics: S/P: Left TKA. Health Status Allergies: Allergic Reactions (Selected) Severity Not Documented Cipro- Hives.. Histories Procedure History: Arthroscopic repair of Bankart lesion ([id number]) on 04/07/2022 at 62 Years. Comments: 04/08/2022 13:01 AURA Nelson PA-C, Arline Lux Left shoulder Arm-right surgery ([id number]). Knee replacement- left ([id number]). Stent- heart ([id number]).. 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 Never smoked cigarettes Other Tobacco Use: Current Smokeless tobacco use Alcohol Frequency: Daily Alcohol Type: Liquor Recreational Drugs: Denies . Physical Examination VS/Measurements: 03/09/2024 08:48 Temp: 36.8 Pulse: 77 BP: 112/68 MAP: 79 RR: 18 SPO2: 98 FIO2: Wt(kg): 138.5 BMI: 44 Height(cm): 177 . General: Alert, Oriented. Airway: Mallampati classification: IV (hard palate only), Polanco. Hyomental Distance: 30-40mm. Mouth: Within normal limits. Teeth: Within normal limits. Head: Normocephalic. Neck: Good extension, Good flexion. Trachea: Midline. Respiratory: CTA bilaterally. Cardiovascular: Heart: RRR, No murmurs. Edema: Bilateral, Lower extremity, Trace, Pitting. Gastrointestinal: Obese. Musculoskeletal: Normal strength. Neurologic: No focal deficits. Assessment and Plan Medications: Pre-Surgery Medication Instructions It is very important we have an accurate list of your medications prior to your procedure. Please review this medication list with your home medications and call [phone] prior to your procedure with any changes to your prescription medications. Please bring this list with you the morning of surgery and note the date and time of the last dose taken of each medication before surgery. aspirin (Aspirin Low Dose 81 mg oral delayed release tablet) 1 tab by mouth once a day (in the morning) . continue as usual atorvastatin (atorvastatin 40 mg oral tablet) 1 tab by mouth once daily . continue as usual clopidogrel (clopidogrel 75 mg oral tablet) 1 tab by mouth once daily . continue as usual docusate (Colace 100 mg oral capsule) 2 cap by mouth daily, as needed for constipation . do not take morning of procedure losartan (losartan 25 mg oral tablet) 1 tab by mouth once daily . take day before procedure as usual metoprolol (metoprolol succinate 50 mg oral tablet, extended release) 1 tab by mouth daily . take day before procedure as usual (taken around 12:00pm) . Does patient use aspirin?: Yes. Does patient use beta blockers?: Yes. Does patient use JOHN- I/ARB drugs?: Yes. Does patient use narcotic analgesics for chronic pain? (>1 month AND >30mg morphine or equivalent daily): No. Anesthesiologist Assessment and Plan Problems: No active cardiac conditions, No previous anesthetic complications, No a/w concerns. Cardiac risk factors: CAD, CHF. Risk of major adverse cardiac event (Revised Cardiac Risk Index): 2 = 7%. Cardiovascular risk associated with the procedure: Elevated (>=1%). Disposition: No further testing or evaluation indicated preoperatively, may proceed with procedure as scheduled. ASA Classification: Class III. Anesthetic Plan: Anesthetic technique discussed: General anesthesia. Induction discussed: Intravenously. Airway plan discussed: Laryngeal mask airway, Oral endotracheal tube. Risks discussed: Nausea-vomiting, Headache, Sore throat, Serious complications. Informed consent: to be signed day of surgery. Review / Management Ordered Today: None. Diagnostics: 03/03/24 E-message: Addendum by MD Tejeda Marc Buch on March 03, 2024 15:16:12 EDT (Verified) From: MD Tejeda Marc Buch To: PRE-OP ANES VAN; GEMA Beyer, Faby San; Cc: MD Janett, Jaylen Moreno; Sent: 03/03/2024 15:16:12 EDT Subject: RE: please advise Caller Name: VITALY CUI ; Caller Number: M Jt Hobbs, We would generally want to wait approximately 3 months following a drug-eluding stent - which is right where we would be on the scheduled surgical date - so I see no problem with proceeding as planned. The patient has had close cardiology follow-up so if we can't get him in to see us the relevant medication recommendations are already documented by the epic beacon analyst on 02/28: He is undergoing work up for anal mass that colorectal surgery is suspicious for cancer. If he is to have urgent surgery for it, he does have risk of in stent re-thrombosis with holding Plavix, but that would be a risk necessary to take. His Plavix could be held for 5 days prior to his surgery. Aspirin will need to be maintained throughout. He will have a follow up echo and hopefully his EF has recovered, but if not, he will have perioperative risk for heart failure. He is also at risk for perioperative afib. I hope that helps. Quinn 02/29/24 [facility] [place]: He is undergoing work up for anal mass that colorectal surgery is suspicious for cancer. If he is to have urgent surgery for it, he does have risk of in stent re-thrombosis with holding Plavix, but that would be a risk necessary to take. His Plavix could be held for 5 days prior to his surgery. Aspirin will need to be maintained throughout. He will have a follow up echo and hopefully his EF has recovered, but if not, he will have perioperative risk for heart failure. He is also at risk for perioperative afib. . Orders placed for day of surgery: Glu. Pending issues: E-message sent to [facility] requesting clarification on metoprolol dosing. Patient Education Patient Education: [facility] Electronic Signature on File Electronically Reviewed/Signed by: Jose Santos PA-C Author Signature Dt/Tm:03/09/2024 09:19 AM Department of Anesthesia Electronically Reviewed/Signed by: Artie Carnes Signature Dt/Tm: 03/09/2024 02:57 PM Department of Anesthesia Electronically Reviewed/Signed by: Angélica Yee DO Resident Department of Anesthesia DT Patient Care team information Care Team Personnel Name: MD Whittington Ying Position: Physician - Pathologist Member Role: Lifetime Relationship [address]: [address] [place] [id number] [place] Care Team Related Persons Name: SAVANNAH PRESSLEY
--- OUTSIDE RECORDS SUMMARY | 2024-03-24 02:58 | External Medical Summary | Continuity of Care Document ---
Author Name Unknown Organization [facility] [address] [facility] Address [address] [place] [id number] Care Team Providers Care Record Filing Clerk Name Role Phone Nova Alexander Primary Care Physician [phone] [id number] Date[facility]s): 02/29/24 - 02/29/24 [facility] [address], [address] [place] [address] [phone] elevation myocardial infarction (STEMI) in recovery phase(Discharge Diagnosis) - 02/29/24 Afib(Discharge Diagnosis) - 02/29/24 HLD (hyperlipidemia)(Discharge Diagnosis) - 02/29/24 HTN (hypertension)(Discharge Diagnosis) - 02/29/24 Discharge Disposition: Home or Self Care Attending Physician: YANN Alexander Danielle B Allergies, Adverse Reactions, Alerts Substance Criticality Severity Reaction Reaction Severity Status Cipro hives Active Assessment and Plan Extracted from: Title:Cardiology Office Visit Note Author:YANN Saeed rd, Sarah A Date:02/29/24 Impression: 1. Status post STEMIMay 2023 -catheterization findings severe occlusive thrombotic stenosis of a large OM1 branchwhich was the culprit lesionPCI was performedusing a singleDES,mild nonocclusive coronary disease in the remaining coronary arteries. 2.Echo 11/11/2023 at [facility] showing borderline dilated LV with mild LVH, mildly reduced ejection fraction of 40 to 45%, grade 1 diastolic dysfunction, lateral, posterior, inferior, and apical wall motion abnormalities consistent with large circumflex territory ischemia/infarction 3. PAF post STEMI 4. HLD 5. HTN Mr. Granda's catheterization and studies during his hospitalization were reviewed with him. He is currently on dualantiplatelet therapy with Plavix and aspirin. Originally he was to be discharged with Plavix and anticoagulation but could not afford a DOAC. It is unclear what happened to organizingCoumadin for him. At this point I will leave him onDAPT andschedulehave him wear a 30-day Mcot to see what hisA-fib burden really is. He had symptoms of neck squeezing when he had A-fib but no overt symptoms such as racing heart or palpitations I am not sure that he would know if he was coming in and out of the rhythm. We can decide after the 30 dayswhether to initiateanticoagulationor whethersomething like an Agendize monitor for recurrence of A-fib might be more appropriate. It sounds like he will need to be started on Coumadin if an anticoagulant is selected. He is agreeable to starting cardiac rehab. He is not jones ARB or JOHN so I will have him start losartan 25 mg daily with a BMP in 10 days. He can continue beta-jake. He is onstatin therapy. He will have lipids with his BMP. His ejection fraction was reduced following hisMI. I will have himrepeat a study. His blood pressureis elevated today but better controlled at home. We reviewed maintaining a low sodium diet. He was congratulated on decreasing his alcohol intake and encouraged to quittobacco. He is undergoing work up for anal mass that colorectal surgery is suspicious for cancer. If he is to have urgent surgery for it, he does have risk of in stent re-thrombosis with holding Plavix, but that would be a risk necessary to take. His Plavix could be held for 5 days prior to his surgery. Aspirin will need to be maintained throughout.He will have a follow up echo and hopefully hisEF has recovered, but if not, he will have perioperative riskfor heart failure. He is also at risk for perioperative afib. He will return to the clinic in 3 months. Medications Aspirin Low Dose 81 mg oral delayed release tablet Start: 01/04/24 2:43:00 PM EDT, 1 tab, PO, Daily Start Date: 01/04/24 Status: Ordered atorvastatin 40 mg oral tablet Start: 12/15/23 9:10:00 AM EDT, 1 tab, PO, Daily, Disp# 90 tab, Pharmacy: [facility]/pharmacy #[id number] Start Date: 12/15/23 Status: Ordered clopidogrel 75 mg oral tablet Start: 12/20/23 3:56:00 PM EDT, 1 tab, PO, Daily, Disp# 90 tab, Refills: 0, Pharmacy: [facility]/pharmacy #[id number] Start Date: 12/20/23 Status: Ordered Colace 100 mg oral capsule Start: 04/10/22 12:42:00 PM EDT, 1 cap, PO, bid, Disp# 60 cap, PRN: as needed for constipation, Pharmacy: [facility]/pharmacy #[id number] Start Date: 04/10/22 Status: Ordered losartan 25 mg oral tablet Start: 02/29/24 1:50:00 PM EDT, 1 tab, PO, Daily, Disp# 90 tab, Refills: 3, Pharmacy: [facility]/pharmacy #[id number] Start Date: 02/29/24 Status: Ordered metoprolol succinate 50 mg oral tablet, extended release Start: 12/24/23 11:12:00 AM EDT, 1.5 tab, PO, bid, Disp# 135 tab, Refills: 3, [id number] Start Date: 12/24/23 Stop Date: 12/18/24 Status: Ordered Mental Status 02/29/24 Barriers to Learning one year None evide nt Mandatory Health Literacy Documentation Yes Health Literacy Communication Barriers N ever Primary Language Kiswahili Problem List Condition Confirmation Course Effective Dates Status Health St atus Informant Dislocation of left shoulder joint Confirmed Active Glenoid fracture of shoulder Confirmed Active STEMI (ST elevation myocardial infarction) Confirmed Active Right rotator cuff tear Confirmed Active Right shoulder pain Confirmed Active Tobacco user Confirmed Active Diagnosis Diagnosis Type Effective Dates Health Status Clinical Service Informant ST elevation myocardial infarction (STEMI) in recovery phase Discharge Diagnosis 02/29/24 Non-Specified HLD (hyperlipidemia) Discharge Diagnosis 02/29/24 Non-Specified HTN (hypertension) Discharge Diagnosis 02/29/24 Non-Specified Afib Discharge Diagnosis 02/29/24 Non-Specified Procedures Procedure Date Related Diagnosis Body Site Status Arthroscopic repair of Banka rt lesion 1 04/07/22 Completed 1Left shoulder Vital Signs Most recent to oldest [Reference Range]: 1 Patient Weight 137 kg (02/29/24 1:02 PM) Heart Rate 58 bpm (02/29/24 1:02 PM) Respiratory Rate 18 br/min (02/29/24 1:02 PM) Blood Pressure 152/88mmHg (02/29/24 1:02 PM) BP Location # 1 Left Arm (02/29/24 1:02 PM) Social History Social History Type Response Smoking Status Never smoked cigaret alexei Sex Male Sex Representation Male (finding) Cardiology Outpatient Note * YANN Francis Sarah A: PERFORM, MODIFY, MODIFY, MODIFY, MODIFY, MODIFY, MODIFY Event Display: Cardiology Outpt Note Authored Date: [id number] Primary Care Provider YANN Alexander Danielle B Chief Complaint Hospital DC stent . Denies resent chest pressure, Palpitations, heart racing, dizziness or lightheadedness ongoing SOB stable or continues LE History of Present Illness Mr. Granda presents for follow up of recent STEMI 11/13/2023 treated at [facility]. He presented to [facility] on November 09 with chest pain. [facility] was [facility] on EKG and received a LYNDSAY to OM1. He was placed onPlavixalong with his Eliquisand started on statin therapy. He went intoatrial fibrillation post stent and started on amiodarone infusionand converted back to normal sinus rhythm. Echo showed ejection fraction 40 to 45% with regional wall motion abnormalities. [facility] He had chest discomfort with neck and jaw pain similar to his STEMI. At the time he hadapparently only been on antiplatelet monotherapysince his stent. His troponins were negative and he had no acute STsegmentchanges on his EKG. He noted at that time that he was unable to affordthe Eliquisand so was changed to warfarin but this was apparently never actually organized for him.There was discussionof a possible outpatientnuclear medicine stress testduring that admission. On February 18 he was seen in the emergency department for rectal bleeding after an anal mass biopsy.He was evaluated by colorectal surgery prior and the mass is suspicious for cancer, no pathology resulted yet. No recent chest pain. He walks his property - 3 acres, he feels winded on hills but no chest pain.He notes that his dyspnea is not different than it has been for many years and he attributes it to his obesity. He has mild lower extremity edema which has also been ongoing for many years and not worsening. Hehas decreased his alcohol consumption- he has consumedhalf a fifth of rum (9 drinks)in three months as opposed to prior to the STEMI he was drinking 4 or more drinks a day. Feels generally weak. No snoring or daytime sleepiness. His only symptom with the afib was feeling a squeezing on the back of his neck. 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 Respiratory: Lungs are clear to auscultation, Respirations are non-labored. Cardiovascular: Normal rate, Regular rhythm, No murmur, No edema, no carotid bruits to auscultation bilaterally. Integumentary: Warm, Dry, [place] Neurologic: Alert, Oriented. Cognition and Speech: Speech clear and coherent. Psychiatric: Cooperative, Appropriate mood & affect. Assessment/Plan Impression: 1. Status post STEMIMay 2023 -catheterization findings severe occlusive thrombotic stenosis of a large OM1 branchwhich was the culprit lesionPCI was performedusing a singleDES,mild nonocclusive coronary disease in the remaining coronary arteries. 2.Echo 11/11/2023 at [facility] showing borderline dilated LV with mild LVH, mildly reduced ejection fraction of 40 to 45%, grade 1 diastolic dysfunction, lateral, posterior, inferior, and apical wall motion abnormalities consistent with large circumflex territory ischemia/infarction 3. PAF post STEMI 4. HLD 5. HTN Mr. Granda's catheterization and studies during his hospitalization were reviewed with him. He is currently on dualantiplatelet therapy with Plavix and aspirin. Originally he was to be discharged with Plavix and anticoagulation but could not afford a DOAC. It is unclear what happened to organizingCoumadin for him. At this point I will leave him onDAPT andschedulehave him wear a 30-day Mcot to see what hisA-fib burden really is. He had symptoms of neck squeezing when he had A-fib but no overt symptoms such as racing heart or palpitations I am not sure that he would know if he was coming in and out of the rhythm. We can decide after the 30 dayswhether to initiat eanticoagulationor whethersomething like an [employer] Surgical Watchto monitor for recurrence of A-fib might be more appropriate. It sounds like he will need to be started on Coumadin if an anticoagulant is selected. He is agreeable to starting cardiac rehab. He is not jones ARB or JOHN so I will have him start losartan 25 mg daily with a BMP in 10 days. He can continue beta-jake. He is onstatin therapy. He will have lipids with his BMP. His ejection fraction was reduced following hisMI. I will have himrepeat a study. His blood pressureis elevated today but better controlled at home. We reviewed maintaining a low sodium diet. He was congratulated on decreasing his alcohol intake and encouraged to quittobacco. He is undergoing work up for anal mass that colorectal surgery is suspicious for cancer. If he is to have urgent surgery for it, he does have risk of in stent re-thrombosis with holding Plavix, but that would be a risk necessary to take. His Plavix could be held for 5 days prior to his surgery. Aspirin will need to be maintained throughout.He will have a follow up echo and hopefully hisEF has recovered, but if not, he will have perioperative riskfor heart failure. He is also at risk for perioperative afib. He will return to the clinic in 3 months. Problem List/Past Medical History Ongoing Dislocation of left shoulder joint Glenoid fracture of shoulder Right rotator cuff tear Right shoulder pain STEMI (ST elevation myocardial infarction) Tobacco user Procedure/Surgical History Arthroscopic repair of Bankart lesion| Service Date: 04/07/2022 Medications aspirin(Aspirin Low Dose 81 mg oral delayed release tablet), 81 mg= 1 tab, PO, Daily atorvastatin(atorvastatin 40 mg oral tablet), 40 mg= 1 tab, PO, Daily clopidogrel(clopidogrel 75 mg oral tablet), 75 mg= 1 tab, PO, Daily docusate(Colace 100 mg oral capsule), 100 mg= 1 cap, PO, bid, PRN metoprolol(metoprolol succinate 50 mg oral tablet, extended release), 75 mg= 1.5 tab, PO, bid, 3 refills Allergies Ciprohives Social History Smoking Status Never smoked cigarettes Electronic Signature on File CC: YANN Mata [address] [facility] [place] [id number] CC: Jaylen Rowland MD, FACS [address] [place] [id number] Electronically Reviewed/Signed by: YANN Olmedo Author Signature Dt/Tm:02/29/2024 04:42 PM [facility] Patient Care team information Care Team Personnel Name: YANN Alexander, Nova Alfaro Position: Nurse Pract - Family Med Member Role: Primary Care Provider Address: [address] [place] [address], [place] [address] [place] Name: MD Pk, Joanne Position: Physician - Pathologist Member Role: Lifetime Relationship Address: [address] [place] [id number] [place] Care Team Related Persons Name: SAVANNAH PRESSLEY"
--- OUTSIDE RECORDS SUMMARY | 2024-03-24 02:58 | External Medical Summary | Continuity of Care Document ---
Author Name Unknown Organization [address] [id number] Care Team Providers Care Radio Electrician Name Role Phone BenjaminNova Angelina Primary Care Physician [phone] Encounter [facility] [id number] Date(s): 02/18/24 - 02/18/[address] [address] [phone] Encounter Diagnosis Hemorrhoid(Discharge Diagnosis) - 02/18/24 Hematochezia(Discharge Diagnosis) - 02/18/24 Anal cancer(Discharge Diagnosis) - 02/18/24 Malignant neoplasm of anus, unspecified(Final) - Unspecified hemorrhoids(Final) - Melena(Final) - Discharge Disposition: Home or Self Care Attending Physician: MD Rowland Jeffrey S Referring Physician: YANN Adame Tara Allergies, Adverse Reactions, Alerts Substance Criticality Severity Reaction Reaction Severity Status Cipro hives Active Medications Aspirin Low Dose 81 mg oral delayed release tablet Start: 01/04/24 2:43:00 PM EDT, 1 tab, PO, Daily Start Date: 01/04/24 Status: Ordered atorvastatin 40 mg oral tablet Start: 12/15/23 9:10:00 AM EDT, 1 tab, PO, Daily, Disp# 90 tab, Pharmacy: [facility]/pharmacy #[id number] Start Date: 12/15/23 Status: Ordered clopidogrel 75 mg oral tablet Start: 12/20/23 3:56:00 PM EDT, 1 tab, PO, Daily, Disp# 90 tab, Refills: 0, Pharmacy: [facility]/pharmacy #[id number] Start Date: 12/20/23 Status: Ordered Colace 100 mg oral capsule Start: 04/10/22 12:42:00 PM EDT, 1 cap, PO, bid, Disp# 60 cap, PRN: as needed for constipation, Pharmacy: [facility]/pharmacy #[id number] Start Date: 04/10/22 Status: Ordered metoprolol succinate 50 mg oral tablet, extended release Start: 12/24/23 11:12:00 AM EDT, 1.5 tab, PO, bid, Disp# 135 tab, Refills: 3, Pharmacy: [facility]/pharmacy#[id number] Start Date: 12/24/23 Stop Date: 12/18/24 Status: Ordered Mental Status 02/18/24 Barriers to Learning one year None evide nt Mandatory Health Literacy Documentation Yes Health Literacy Communication Barriers N ever Primary Language Nauruan Problem List Condition Confirmation Course Effective Dates Status Health St atus Informant Dislocation of left shoulder joint Confirmed Active Glenoid fracture of shoulder Confirmed Active STEMI (ST elevation myocardial infarction) Confirmed Active Right rotator cuff tear Confirmed Active Right shoulder pain Confirmed Active Tobacco user Confirmed Active Diagnosis Diagnosis Type Effective Dates Health Status Cl inical Service Informant Hematochezia Discharge Diagnosis 02/18/24 Hemorrhoid Discharge Diagnosis 02/18/24 Anal cancer Discharge Diagnosis 02/18/24 Procedures Procedure Date Related Diagnosis Body Site Status Arthroscopic repair of Banka rt lesion 1 04/07/22 Completed 1Left shoulder Vital Signs Most recent to oldest [Reference Range]: 1 Height 177.6 cm (02/18/24 11:26 AM) Patient Weight 138.9 kg (02/18/24 11:26 AM) Body Mass Index 44.04 kg/m2 (02/18/24 11:26 AM) Blood Pressure 128/80mmHg (02/18/24 11:26 AM) Cuff Pulse Pressure 48 mmHg (02/18/24 11:26 AM) BP Location # 1 Right Arm (02/18/24 11:26 AM) Social History Social History Type Response Smoking Status Never smoked cigaret alexei Sex Male Sex Representation Male (finding) Patient Care team information Care Team Personnel Name: YANN Alexander Danielle B Position: Nurse Pract - Family Med Member Role: Primary Care Provider Address: [address] [place] [id number] Care Team Related Persons Name: SAVANNAH PRESSLEY
[2024-03-24 05:39] LABS: Basophils # (auto) 0.04 K/uL (0.00-0.20); Basophils % (auto) 0.6 %; Eosinophils # (auto) 0.46 K/uL (0.00-0.50); Eosinophils % (auto) 6.5 %; Hematocrit (blood only) 37.5 % (42.0-52.0); Hemoglobin 12.3 g/dl (14.0-18.0); Immature Granulocytes # (auto) 0.02 K/uL (0.01-0.20); Immature Granulocytes % (auto) 0.3 %; Lymphocytes % (auto) 29.5 %; Mean Corpuscular Hgb Conc 32.8 g/dL (32.0-36.0); Mean Corpuscular Volume 82.4 fL (80.0-100.0); Mean Platelet Volume 9.4 fL (9.4-12.4); Monocytes # (auto) 0.75 K/uL (0.11-0.59); Monocytes % (auto) 10.5 %; Neutrophils # (auto) 3.74 K/uL (1.40-6.50); Neutrophils % (auto) 52.6 %; Platelet Count 254 K/uL (130-400); RDW Coefficient of Variation 13.2 % (11.5-14.5); RDW Standard Deviation 39.4 fL (36.4-46.3); Red Blood Count 4.55 M/uL (4.70-6.10); White Blood Count 7.11 K/ul (4.8-10.8)
[2024-03-24 05:54] LABS: Albumin Globulin Ratio 1.4 (0.9-2); Albumin Level 3.4 gm/dl (3.4-5.0); BUN Creatinine Ratio 17.6 (10-20); Bilirubin,Total 1.1 mg/dl (0.2-1.0); Calcium 8.7 mg/dl (8.6-10.3); Creatinine Clr Calc Pharmacy 116.7 ml/min; Est GFR (African American) 103.6 ml/min; Est GFR (Non-African American) 89.4 ml/min; Globulin 2.4 gm/dl (2.5-4.0); Potassium 4.4 mmol/L (3.5-5.1); Total Protein 5.8 gm/dl (6.0-8.3)
--- NOTE | 2024-03-24 10:15 | Hospitalist Progress Note ---
Date of Service March 24, 2024 Assessment & Plan (1) Rectal bleeding: (2) Rectal mass: (3) Dyslipidemia: (4) S/P coronary artery stent placement: (5) CAD (coronary artery disease): (6) Paroxysmal A-fib: (7) Ischemic cardiomyopathy: (8) ST elevation myocardial infarction (STEMI): Plan Patient, he had excision of his external hemorrhoids at correction about 10 days prior to presentation. Presents to the hospital for rectal bleed. This has been packaged in the emergency department, still oozing a little bit this morning. Hemoglobin stable Hemoglobin 14.2 on admission H&H every 4 hours Type and screen ordered Wound care consulted General Surgery consulted Hold clopidogrel and aspirin Ceftriaxone 2 g IV daily Zofran 4 mg IV every 6 hours as needed Pantoprazole 40 mg IV daily Acetaminophen 1 g IV every 8 hours as needed for mild pain or fever CAD/hypertension/paroxysmal atrial fibrillation/history of STEMI/history of coronary artery stent- The patient will be admitted to telemetry for cardiac rhythm monitoring In normal sinus rhythm Troponin 11.9 Holding clopidogrel and aspirin as noted above Pending verification of metoprolol succinate dosing, listed on current records and 100 mg daily, however, [facility] records suggest 70 mg p.o. twice daily Placed on metoprolol to tartrate 25 mg p.o. twice daily at first dose this evening, with further dosing limited now due to systolic blood pressure at 120 Admission and Anticipated Discharge Date Admission Date: March 23, 2024 Subjective Patient seen and examined, no longer Bleeding, (still oozing little bit Review of Systems Review of Systems: All systems reviewed are negative, apart from the ones contained in the history. Physical Exam Physical Exam: The patient is awake, alert and oriented 3, well developed and well nourished, normocephalic and atraumatic, lying in bed and in no acute distress. HEENT--PERRL, EOMI, mucous membranes and oropharynx mildly dry Neck--supple. No JVD. No bruits. Thyroid normal, trachea midline, no adenopathy. Heart--normal S1 and S2. No murmurs, rubs or gallops. Lungs--clear bilaterally, no respiratory distress, no accessory muscle use. Abdomen--normal bowel sounds and soft. Extremities--no cyanosis or clubbing. No edema. Dermatologic--normal skin turgor, normal color, no abnormal lymph nodes, no rash. Neurologic--cranial nerves II through XII grossly intact. Rheumatologic--normal range of motion. Psychiatric--normal affect. Results & Data Results & Data Vital Signs (Past 12 Hours) Vital Signs Pulse Pulse Resp BP BP Pulse Ox O2 Del Method 03/24/24 08:12 49 L 16 03/24/24 07:47 81 18 104/63 94 Room Air 03/24/24 03:57 48 L 17 113/72 97 Room Air 03/24/24 02:57 53 L 22 105/63 98 Room Air 03/24/24 02:01 56 L 17 140/75 98 Room Air 03/24/24 01:30 52 L 17 139/92 95 Room Air 03/24/24 01:30 64 18 139/92 97 Room Air 03/24/24 01:20 51 L 17 95 Room Air 03/24/24 01:06 63 20 97 Room Air 03/24/24 00:00 67 18 120/74 97 Room Air 03/23/24 23:30 63 16 120/74 98 Room Air 03/23/24 23:00 54 L 15 109/79 97 Room Air 03/23/24 22:34 64 18 97 Room Air 03/23/24 22:30 51 L 17 124/74 96 Room Air 03/23/24 22:23 50 L PG Care Time/CCT Total # of Minutes Spent Total Time Spent with Patient: Total time spent is greater than 50% in coordination of care (as documented) at patient's floor/unit and/or counseling patient: Coding Level of Care Code 87609 SUB INP/OBS CARE 2/35MIN Diagnoses Rectal bleeding K62.5 Rectal mass K62.89 Dyslipidemia E78.5 S/P coronary artery stent placement Z95.5 CAD (coronary artery disease) I25.10 Paroxysmal A-fib I48.[address]5 [address] elevation myocardial infarction (STEMI) I21.11 Involved coronary artery: right coronary artery Time Spent (min) 35 (8) ST elevation myocardial infarction (STEMI) Involved coronary artery: right coronary artery Qualified Code(s): I21.11 - ST elevation (STEMI) myocardial infarction involving right coronary artery
[2024-03-24 11:00] VITALS: RESP 18
[2024-03-24] MEDS: PANTOprazole 40 MG in SYRINGE 0 ML IV SCH (11:00)
--- NOTE | 2024-03-24 13:11 | Surgery Consultation ---
Date of Consultation March 24, 2024 Assessment & Plan (1) Rectal bleeding: wound continue dry packing dressings hold plavix/aspirin if able per medical team sitz baths and bowel regimen discharge per medical team no surgical interventions required History of Present Illness Attending Physician: Sarah Reid MD History of Present Illness This is a 63YO admitted with rectal bleeding after a rectal biopsy of an anal mass that was performed earlier in February which showed abnormal cells on pathology and subsequently had a extensive biopsy and excision on March 14, of which he does not have the pathology results back yet. He had active bleeding last night which has stopped this AM. He is on clopidogrel and aspirin due to history of atrial fibrillation and coronary stent. The wound was packed and his meds were held. Allergies Allergy/AdvReac Type Severity Reaction Status Date / Time ciprofloxacin Allergy Mild Hives Verified 03/23/24 19:16 Quinolones Allergy Mild HIVES Verified 12/30/23 14:45 sibutramine Allergy Unknown Unknown Verified 12/30/23 14:45 Home Medications Medication Instructions Recorded Confirmed Type aspirin 81 mg tablet,delayed 81 mg PO DAILY 12/30/23 03/23/24 History release atorvastatin 40 mg tablet 40 mg PO QAM 12/30/23 03/23/24 History clopidogrel 75 mg tablet 75 mg PO DAILY 12/30/23 03/23/24 History metoprolol succinate 50 mg 100 mg (2 x 50 mg) PO QAM #1 tab 12/31/23 03/23/24 Rx tablet,extended release 24 hr sennosides 8.6 mg-docusate sodium 1 tab-cap PO DAILY 03/23/24 03/23/24 History 50 mg tablet Patient History Medical History Ischemic cardiomyopathy Hypertension pt denies, no meds Alcohol withdrawal ST elevation myocardial infarction (STEMI) History of COVID-19 ?2020- flu symtoms- no hospitalization, no current issues Anxiety Surgical History Hx of colonoscopy History of left knee replacement History of surgery on arm Family History Other No family history of adverse response to anesthesia Social History Smoking Status: Never smoker Tobacco Type: Smokeless Tobacco (Dip or Chew) Second Hand Exposure: No; Do You Dip or Chew Tobacco: Yes; Hx Alcohol Use: Yes Alcohol type: hard liquor Hx Substance Use: No Preferred Language: Kazakh Communication Ability: Effective Telecommunications Line Installer Required: Yes Beliefs That Will Affect Care: None Current Living Situation: Family Current Living Situation Comment: [place] Feels Safe at Home: Yes Safety Concerns: Feels Safe At This Time Assistive Devices: Glasses Review of Systems Constitutional: no fever and no chills Eyes: no problem reported Ear, Nose, Mouth, Throat: no problem reported Respiratory: no cough and no dyspnea Cardiovascular: no chest pain Gastrointestinal: + blood in stools; no abdominal pain, no nausea and no vomiting Genitourinary: no dysuria Neurologic: no localized weakness and no generalized weakness Psychiatric: no behavioral changes Hematologic / Lymphatic: + easy bleeding and + easy bruising Physical Exam Constitutional: WD/WN, vitals as above + morbidly obese Eyes: PERRL, conjunctivae normal, anicteric sclerae ENMT: external ear and nose normal, oropharynx normal Neck: trachea midline Respiratory: normal respiratory effort, lungs clear to auscultation Cardiovascular: RRR, no murmur, no edema Gastrointestinal (Abdomen): Inspection/Auscultation: abdomen normal to inspection and normal bowel sounds; abdomen not distended Percussion/Palpation: abdomen soft; abdomen nontender Rectal Exam: + rectal laceration (wounds clean and no active bleeding this AM; clean and granulating wounds) Musculoskeletal: Head/Neck/Chest: normocephalic and head atraumatic Skin: no rashes, warm and dry Results & Data Vital Signs (Past 12 Hours) Vital Signs Pulse Pulse Resp BP BP Pulse Ox O2 Del Method 03/24/24 10:30 47 L 18 95/61 L 97 Room Air 03/24/24 08:12 49 L 16 03/24/24 07:47 81 18 104/63 94 Room Air 03/24/24 03:57 48 L 17 113/72 97 Room Air 03/24/24 02:57 53 L 22 105/63 98 Room Air 03/24/24 02:01 56 L 17 140/75 98 Room Air 03/24/24 01:30 52 L 17 139/92 95 Room Air 03/24/24 01:30 64 18 139/92 97 Room Air 03/24/24 01:20 51 L 17 95 Room Air 03/24/24 01:06 63 20 97 Room Air
--- NOTE | 2024-03-24 20:23 | Electrocardiogram Report ---
Test Reason : Blood Pressure : */* mmHG Vent. Rate : 86 BPM Atrial Rate : 86 BPM P-R Int : 154 ms QRS Dur : 92 ms QT Int : 360 ms P-R-T Axes : 57 2 -22 degrees QTcB Int : 430 ms Sinus rhythm with occasional Premature ventricular complexes Inferior infarct (cited on or before 10-Nov-2023) Abnormal ECG When compared with ECG of 18-Feb-2024 18:25, Premature ventricular complexes are now Present Confirmed by Elan Lopze ([id number]) on 03/24/2024 8:23:34 PM Referred By: REFERRED SELF Confirmed By: Elan Lopez
[2024-03-25 06:57] LABS: Basophils # (auto) 0.04 K/uL (0.00-0.20); Basophils % (auto) 0.6 %; Eosinophils # (auto) 0.43 K/uL (0.00-0.50); Eosinophils % (auto) 6.2 %; Hematocrit (blood only) 38.9 % (42.0-52.0); Hemoglobin 12.9 g/dl (14.0-18.0); Immature Granulocytes # (auto) 0.01 K/uL (0.01-0.20); Immature Granulocytes % (auto) 0.1 %; Lymphocytes # (auto) 2.02 K/uL (1.20-3.40); Lymphocytes % (auto) 28.9 %; Mean Corpuscular Hemoglobin 27.5 pg (25.0-34.0); Mean Corpuscular Hgb Conc 33.2 g/dL (32.0-36.0); Mean Corpuscular Volume 82.9 fL (80.0-100.0); Mean Platelet Volume 9.5 fL (9.4-12.4); Monocytes # (auto) 0.58 K/uL (0.11-0.59); Monocytes % (auto) 8.3 %; Neutrophils % (auto) 55.9 %; Platelet Count 293 K/uL (130-400); RDW Coefficient of Variation 13.1 % (11.5-14.5); RDW Standard Deviation 39.2 fL (36.4-46.3); Red Blood Count 4.69 M/uL (4.70-6.10); White Blood Count 6.98 K/ul (4.8-10.8)
[2024-03-25 07:33] LABS: Albumin Globulin Ratio 1.4 (0.9-2); Albumin Level 3.9 gm/dl (3.4-5.0); BUN Creatinine Ratio 9.6 (10-20); Bilirubin,Total 1.4 mg/dl (0.2-1.0); Calcium 9.2 mg/dl (8.6-10.3); Creatinine Clr Calc Pharmacy 113.2 ml/min; Est GFR (African American) 99.6 ml/min; Est GFR (Non-African American) 85.9 ml/min; Globulin 2.7 gm/dl (2.5-4.0); Potassium 4.3 mmol/L (3.5-5.1); Total Protein 6.6 gm/dl (6.0-8.3)
[2024-03-25 08:08] VITALS: PULSE 58
[2024-03-25 08:31] VITALS: TEMP 98.6; O2SAT 94
--- NOTE | 2024-03-25 09:36 | Discharge Summary ---
Date of Service March 25, 2024 Admission HPI Per Admitting Provider The patient is a 63-year-old male with past medical history including dyslipidemia, CAD, coronary artery stent placement, paroxysmal atrial fibrillation, ischemic cardiomyopathy, alcohol withdrawal, morbid obesity, and adjustment disorder. He presents to the emergency department with symptoms as noted above. As noted above, he has some transient lightheadedness, which has resolved at this time. He notes also that he did have a pinching sensation in his rectal area ever since procedure on 03/14, which has not changed. Admission Exam (Per Admitting) Constitutional The patient is awake, alert and oriented 3, well developed and well nourished, normocephalic and atraumatic, lying in bed and in no acute distress. HEENT--PERRL, EOMI, mucous membranes and oropharynx mildly dry Neck--supple. No JVD. No bruits. Thyroid normal, trachea midline, no adenopathy. Heart--normal S1 and S2. No murmurs, rubs or gallops. Lungs--clear bilaterally, no respiratory distress, no accessory muscle use. Abdomen--normal bowel sounds and soft. Extremities--no cyanosis or clubbing. No edema. Dermatologic--normal skin turgor, normal color, no abnormal lymph nodes, no rash. Neurologic--cranial nerves II through XII grossly intact. Rheumatologic--normal range of motion. Psychiatric--normal affect. Discharge Data Consultations 03/23/24 17:20 Consult General Surgery Stat 03/23/24 18:12 ED Decision to Admit Stat Hospital Course (1) Rectal bleeding: (2) Rectal mass: (3) Dyslipidemia: (4) S/P coronary artery stent placement: (5) CAD (coronary artery disease): (6) Paroxysmal A-fib: (7) Ischemic cardiomyopathy: (8) ST elevation myocardial infarction (STEMI): Plan Patient, he had excision of a rectal mass about 10 days prior to presentation. Presents to the hospital for rectal bleed. This has been packaged in the emergency department, still oozing a little bit this morning. Hemoglobin stable Hemoglobin 14.2 on admission H&H every 4 hours Type and screen ordered Wound care consulted General Surgery consulted, no surgical intervention planned No more bleeds noticed Patient expressed a willingnes to be discharged Resume clopidogrel and aspirin in view of recent stent placement (11/18) CAD/hypertension/paroxysmal atrial fibrillation/history of STEMI/history of coronary artery stent- The patient will be admitted to telemetry for cardiac rhythm monitoring In normal sinus rhythm Troponin 11.9 Resume clopidogrel and aspirin Coding Level of Care Code 65680 INP/OBS DISCH >30 MIN Diagnoses Rectal bleeding K62.5 Rectal mass K62.89 Dyslipidemia E78.5 S/P coronary artery stent placement Z95.5 CAD (coronary artery disease) I25.10 Paroxysmal A-fib I48.[address] elevation myocardial infarction (STEMI) I21.11 Involved coronary artery: right coronary artery Time Spent (min) 35
[2024-03-25 09:37] VITALS: BP 124/83
--- NOTE | 2024-03-27 08:35 | Coding Query ---
CODING QUERY To promote full compliance with coding requirements relating to patient care, provider participation is requested in all cases of supervisor steel division uncertainty. Please assist us with the question(s) below: Coding Question(s): Pt admitted with rectal bleed. Recent history of hemorrhoidal excision & anal mass. ED record stated postoperative hemorrhage s/p surgery. Please document, if known or suspected the etiology of the rectal bleed. Thanks for your help! Panchito Haile [employer]OM OPERATOR [facility] Physician's Response(s): rectal bleed due to recent rectal mass excision Principal Diagnosis: "that condition established after study, to be chiefly responsible for occasioning the admission of the patient to the hospital for care." Co-Existing Principal Diagnosis: "when two or more diagnoses equally meet the criteria for principal diagnosis as determined by the circumstances of admission, diagnostic work up, and/or therapy provided, and the Alphabetic Index, Tabular List, or another coding guideline does not provide sequencing direction, any one of the diagnoses may be sequenced first." "When the physician has documented what appears to be a current diagnosis in the body of the record, but has not included the diagnosis in the final diagnostic statement, the physician should be asked whether the diagnosis should be added." (Source Coding Clinic 2 QTR90. p3-4) SOY
== END 2024-03-25 11:11 | disposition home or self-care (01) | DRG 920 ==
LOC: ED 16:11 → EDINP 19:58 → SUATTDRO 19:58 → 4W 22:34

== ENCOUNTER 2024-08-05 00:44 | Observation (INO) ==
--- NOTE | 2024-08-05 01:10 | Emergency Department Note ---
Impression & Plan Chest pressure, Arm paresthesia, right ED Provider Note Name: VITALY CUI Jr Age: 64 Sex: Male Arrives Via: Walk-In Informant: Patient ED Provider: Jose Doll MD Chief Complaint: Chest pain and right arm paresthesia Impression: As per impressions above Medical Decision Makin-year-old gentleman with history of rectal cancer on chemotherapy last treatment over a month ago. Arrives for evaluation of substernal chest pressure and paresthesias of the right arm from elbow to fingertips. EKG on arrival without evidence of ischemia. Laboratory workup initiated along with chest x- ray. Fortunately these are unremarkable. With the paresthesias I did get a CT of the head which is fortunately unremarkable. Given the minimal symptoms and somewhat unclear true last known well would hold off on stroke alert as patient would not be a TNKase candidate nor does he have evidence of LVO. He is however not on an anticoagulant thus stroke is of higher concern given his paroxysmal A- fib history. Laboratory workup is fortunately unremarkable. There is no evidence of ACS at this time however with his previous history and stating this is how his previous cardiac issues presented I have requested hospitalist evaluate him for further management. Patient will be brought in for further evaluation workup. Triage/Nursing Notes reviewed by Me External Chart Review by me: I reviewed patient's oncologic discharge summary from 07/27/2024 discussing previous history and management Differential:Cardiac ischemia, aortic dissection, pulmonary embolism, pneumothorax, pneumonia, pericarditis, myocarditis, esophageal rupture, GERD, cholecystitis, pancreatitis, musculoskeletal, as well as other pathologies. Vital Signs: reviewed and remarkable for no significant abnormalities Labs:ED labs Reviewed by me and remarkable for no significant abnormalities Imagin view chest x-ray as per my interpretation is no infiltrate or effusion. EKG:As per my interpretation. Indication substernal chest pressure. Sinus rhythm at 60 bpm and a QTc of 402. There is no ectopy nor ischemia. Nonspecific T wave inferiorly without evidence of STEMI or ectopy. Compared to EKG of June 22, 2024 there is no significant change Cardiac/Tele Monitoring: Cardiac Monitoring: An Order was placed for continuous cardiac monitoring. The monitor shows a rate of 60 with a normal sinus rhythm. Consults:Dr Josse YOUNG Hospitalist service was consulted and they will bring in for further Plan: Disposition:Hospitalization. Condition: Good History of Present Illness: 64-year-old gentleman arrives for evaluation of chest pressure. Patient notes for the last 1 to 2 hours on and off chest pressure. Central but also left-sided. Symptoms come and go. He also notes that when he is awoken from sleeping on the couch an hour or 2 he felt tingling in his right arm. It is from the right elbow to the hand. The sensation that time there is stabbing pain. This is nearly identical to a heart attack he had several years ago resulting in stenting. Denies any significant difficulty breathing. Chest pain may get slightly worse with a deep breath. Denies any syncope, fevers, chills, back pain, abdominal pain, leg swelling or other concerning signs or symptoms. He has a history of paroxysmal A-fib and is on a blood thinner. Past Medical History:See Below Home Medications:See Below Allergies:See Below Vitals:Blood Pressure: 133/84, Pulse 68, RR 19, T 36.4C, O2 98% on RA Physical Exam: GENERAL: Patient is anxious appearing and in mild distress. RESPIRATORY: No dyspnea. Clear to auscultation and equal bilaterally. CARDIOVASCULAR: Regular rate and rhythm.No murmur appreciated. GASTROINTESTINAL: Abdomen soft, non-tender, no peritonitis. BACK: No midline tenderness, no CVA tenderness EXTREMITIES: Normal motion all extremities, no cyanosis, no edema. NEUROLOGIC: Alert and oriented. No focal neurologic deficits appreciated SKIN: No rash, no jaundice, no diaphoresis. PSYCH: Appropriate GCS: 15 ED Course: Times/Reassessments: Patient stable breathing comfortably and is agreeable to hospitalization. 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) Postoperative hemorrhage involving digestive system (Acute) Bleeding (Acute) Rectal bleeding Dyslipidemia S/P coronary artery stent placement CAD (coronary artery disease) Neck pain Abnormal EKG (Acute) Chest pain (Acute) Paroxysmal A-fib Ischemic cardiomyopathy Elevated serum glucose Atherogenic dyslipidemia ST elevation myocardial infarction (STEMI) Morbid obesity Dislocation of left shoulder joint Adjustment disorder Fracture of thumb, right, closed (Acute) Medical History On anticoagulant therapy History of atrial fibrillation History of ST elevation myocardial infarction (STEMI) 10/2023 Squamous cell carcinoma of anus Dyslipidemia Seasonal allergies Pre-diabetes Poor historian difficulty remembering details CAD (coronary artery disease) follows w/ [place] [facility] Hypertension pt denies Alcohol withdrawal h/o History of COVID-19 ?2019- flu symtoms- no hospitalization, no current issues Anxiety Surgical History Hx of appendectomy S/P coronary artery stent placement [place] 10/2023 - @ [facility] Hx of hemorrhoidectomy Hx of colonoscopy History of left knee replacement History of surgery on arm childhood Family History Father Heart disease Stroke Mother Thyroid disease Alzheimer disease Other No family history of adverse response to anesthesia Social History Smoking Status: Heavy tobacco smoker Tobacco Type: Smokeless Tobacco (Dip or Chew) Second Hand Exposure: No; Do You Dip or Chew Tobacco: Yes; Tobacco Cessation Education Requested by Patient: No Hx Alcohol Use: No Hx Substance Use: No Preferred Language: Sami Communication Ability: Effective Visual Impairment: No Limitations Hearing Ability: Normal 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 Beliefs That Will Affect Care: None marital status: Current Living Situation: Family Current Living Situation Comment: [place] current occupational status: retired How many Children do You have: 2 Other Information That Helps Us Care for You: No Feels Safe at Home: Yes Safety Concerns: Feels Safe At This Time Diet: regular Diet Comment: smaller portions since [place] in November 2023 during the past year weight has: decreased > 10 lbs Assistive Devices: None Allergies Allergies Allergy/AdvReac Type Severity Reaction Status Date / Time ciprofloxacin Allergy Mild Confusion Verified 07/17/24 10:20 Quinolones Allergy Mild HIVES Verified 07/17/24 10:20 sibutramine Allergy Unknown Unknown Verified 07/17/24 10:20 Home Meds Home Medications Medication Instructions Recorded Confirmed aspirin 81 mg tablet,delayed 81 mg PO DAILY 12/30/23 08/05/24 release atorvastatin 40 mg tablet 40 mg PO QAM 12/30/23 08/05/24 clopidogrel 75 mg tablet 75 mg PO QAM 12/30/23 08/05/24 sennosides 8.6 mg-docusate sodium 1 tab-cap PO BID PRN Constipation 08/05/24 08/05/24 50 mg capsule Previous Rx's Medication Instructions Recorded metoprolol succinate 50 mg 100 mg (2 x 50 mg) PO QAM #1 tab 12/31/23 tablet,extended release 24 hr nystatin-triamcinolone 100,000 1 applic topical QID Radiation 07/03/24 unit/gram-0.1 % topical ointment dermatitis #60 grams silver sulfadiazine 1 % topical 1 applic topical BID Radiation 07/12/24 cream (Silvadene) dermatitis #85 grams nystatin 100,000 unit/gram topical 1 applic topical BID Radiation 07/17/24 powder dermatitis #60 grams fluocinonide 0.05 % topical cream 1 applic topical QID PRN itching 07/28/24 rash lower extremities #60 grams Results & Data (ED) Vital Signs Vital Signs - 24 hr 08/05/24 00:50 08/05/24 02:05 Temperature 36.4 C L Temperature Source Temporal Artery Scan Pulse Rate 68 Pulse Rate [Apical] 60 Respiratory Rate 19 16 Respiratory Effort / Characteristics Non-Labored Spontaneous Non-Labored Spontaneous Respiratory Depth Normal Normal Respiratory Pattern Regular Blood Pressure 133/84 Blood Pressure [Left Arm] 108/67 Blood Pressure Mean 100 Blood Pressure Mean [Left Arm] 80 Pulse Oximetry 98 98 Oxygen Delivery Method Room Air Room Air Sepsis Recent Fever Within 48 Hours No Sepsis New/Unexplained Change in Mental Status N/A Sepsis Action Taken by Nursing No Action Required Laboratory Data 08/05/24 01:05 08/05/24 01:05 Lab Results 08/05/24 Range/Units 01:05 WBC 2.37 L (4.8-10.8) K/ul RBC 4.08 L (4.70-6.10) M/uL Hgb 11.0 L (14.0-18.0) g/dl Hct 32.0 L (42.0-52.0) % MCV 78.4 L (80.0-100.0) fL MCH 27.0 (25.0-34.0) pg MCHC 34.4 (32.0-36.0) g/dL RDW Std Deviation 40.9 (36.4-46.3) fL RDW Coeff of Charity 14.7 H (11.5-14.5) % Plt Count 164 (130-400) K/uL MPV 9.4 (9.4-12.4) fL Immature Gran % (Auto) 0.0 % Neut % (Auto) 58.6 % Lymph % (Auto) 18.6 % [place] % (Auto) 20.7 % Eos % (Auto) 1.7 % Baso % (Auto) 0.4 % Neut # (Auto) 1.39 L (1.40-6.50) K/uL Lymph # (Auto) 0.44 L (1.20-3.40) K/uL [place] # (Auto) 0.49 (0.11-0.59) K/uL Eos # (Auto) 0.04 (0.00-0.50) K/uL Baso # (Auto) 0.01 (0.00-0.20) K/uL Immature Gran # (Auto) 0.00 L (0.01-0.20) K/uL Sodium 139 (136-145) mmol/L Potassium 4.0 (3.5-5.1) mmol/L Chloride 106 (98-107) mmol/L Carbon Dioxide 25 (21-32) mmol/L Anion Gap 8 (3-11) BUN 12 (6-23) mg/dl Creatinine 0.75 (0.6-1.4) mg/dl Est Cr Clr Drug Dosing 129.7 ml/min eGFR 100.77 BUN/Creatinine Ratio 16.0 (10-20) Glucose 110 H (70-99(Fasting)) mg/dl Calcium 9.1 (8.6-10.3) mg/dl Magnesium 1.9 (1.7-2.4) mg/dl Troponin I High Sens 11.7 (0-20) pg/ml Imaging Data Radiologist's Impression: Head CT 08/05/24 01:09 EXAM: CT head/brain wo con CLINICAL HISTORY: loss sensation right arm TECHNIQUE: Multiple axial images are obtained from the skull base to the vertex without contrast. CT scan was performed according to ALARA (as low as reasonable achievable). COMPARISON: None. FINDINGS: There is cerebral atrophy. No evidence of space occupying lesion, hemorrhage, edema, mass effect, midline shift, extra axial collection, or hydrocephalus is noted. Basal cisterns are symmetric and normal in size and configuration. There are scattered periventricular hypodensities as can be seen with chronic microvascular ischemic changes. The solano-white matter differentiation is preserved. Mild bilateral maxillary, right ethmoid and right sphenoid sinusitis. Rest of paranasal sinuses and mastoid air cells are well aerated. Orbital contents are within normal limits. Bony structures are intact. IMPRESSION: 1. No evidence of acute intracranial abnormality is demonstrated. 2. Chronic microvascular ischemic changes. 3. Cerebral atrophy. 4. MRI maybe considered if there is high clinical concern for a stroke. Electronically signed by Juan Trevino 08-05-2024 02:48 AM Chest X-Ray 08/05/24 01:10 EXAM: XR chest 1V portable CLINICAL HISTORY: Chest pressure. TECHNIQUE: An X-ray image of the chest is obtained in AP projection. COMPARISON: No prior studies are available for comparison. FINDINGS: Pulmonary Parenchyma: Multiple tiny nodular infiltrates along with a few fibrotic bands are seen in the right lower zone. No evidence of consolidation, or collapse. No evidence of pleural effusion or pleural thickening. Heart and Mediastinum: Heart size is enlarged. The cardiothoracic ratio is 190: 369. Bilateral prominence of the hilar and perihilar vascular markings/congestion is seen. The heart shape is normal. No mediastinal masses. No hilar or mediastinal lymphadenopathy. Bony Thorax: The bony thorax appears intact without fractures or deformities. Soft Tissues: Soft tissues overlying the chest wall are unremarkable. IMPRESSION: 1. Cardiomegaly. 2. Bilateral prominence of the hilar and perihilar vascular markings/congestion. The possibility of early developing cardiac failure cannot be entirely ruled out. 3. Multiple tiny nodular infiltrates along with a few fibrotic bands are seen in the right lower zone. The possibility of infective/inflammatory etiology cannot be ruled out. 4. Clinical correlation is advised for further evaluation. Electronically signed by Minerva Victoria 08-05-2024 03:07 AM Discharge Plan Visit Data Chief Complaint: Cardiac Assessment Stated Complaint: SOB, TINGLING IN RT ARM ED Provider: Jose Doll Discharge Problem: Chest pressure, Arm paresthesia, right Patient Disposition: Admitted As Inpatient Discharge Instructions Interventions: ED Discharge Assessment Last Done: 08/05/24 04:38
[2024-08-05 01:29] LABS: Basophils # (auto) 0.01 K/uL (0.00-0.20); Basophils % (auto) 0.4 %; Eosinophils # (auto) 0.04 K/uL (0.00-0.50); Eosinophils % (auto) 1.7 %; Lymphocytes # (auto) 0.44 K/uL (1.20-3.40); Lymphocytes % (auto) 18.6 %; Mean Corpuscular Hgb Conc 34.4 g/dL (32.0-36.0); Mean Corpuscular Volume 78.4 fL (80.0-100.0); Mean Platelet Volume 9.4 fL (9.4-12.4); Monocytes # (auto) 0.49 K/uL (0.11-0.59); Monocytes % (auto) 20.7 %; Neutrophils # (auto) 1.39 K/uL (1.40-6.50); Neutrophils % (auto) 58.6 %; Platelet Count 164 K/uL (130-400); RDW Coefficient of Variation 14.7 % (11.5-14.5); RDW Standard Deviation 40.9 fL (36.4-46.3); Red Blood Count 4.08 M/uL (4.70-6.10); White Blood Count 2.37 K/ul (4.8-10.8)
[2024-08-05 01:40] LABS: Calcium 9.1 mg/dl (8.6-10.3); Creatinine Clr Calc Pharmacy 129.7 ml/min; Magnesium 1.9 mg/dl (1.7-2.4)
[2024-08-05 01:47] LABS: Troponin I High Sensitivity 11.7 pg/ml (0-20)
--- OUTSIDE RECORDS SUMMARY | 2024-08-05 01:56 | External Medical Summary | Summary of Care ---
Author Name Unknown Organization [facility] Address [address] [place] [place] [place] [address] Phone [phone] Care Team Providers Care Grid Molder Name Role Phone Unavailable Primary Care Provider Unavailabl e Encounter Details Date Type Department Care Team (Late st Contact Info) Description 07/18/2024 Population Health External Data Unspecified Department Allergies Active Allergy Reactions Criticality Noted Date Comments Sibutramine Hydrochloride Monohydrate Tachycardia 01/07/2010 Quinolones 04/09/1998 rash---Cipro-hives all over documented as of this encounter (statuses as of 07/18/2024) Medications Atorvastatin Calcium 40 MG Oral Tablet (Lipitor) Start: 03/13/24 6:25:00 PM EDT, 1 tab, PO, Daily, Disp# 90 tab, Refills: 0, Pharmacy: [id number] 12/15/2023 Active Clopidogrel Bisulfate 75 MG Oral Tablet (pLAVix) 1 Tablet. 12/20/2023 Active Losartan Potassium 25 MG Oral Tablet (Cozaar) 1 Tablet. 02/29/2024 Active Metoprolol Succinate ER 50 MG Oral Tablet Extended Release 24 Hour (toPROL XL) 1 Tablet. 12/24/2023 Active Aspirin 81 MG Oral Tablet Delayed Release (Aspirin 81) 1 Tablet. 01/04/2024 Active documented as of this encounter (statuses as of 07/18/2024) Active Problems Problem Noted Date Diagnosed Date Esophageal reflux 12/26/2008 Overview (01/29/2009): mild to mod gastritis, acute/chronic esophageal inflammation, f/u in 9-12 mo Morbid obesity, BMI not known 10/23/2002 FAM HX-DIABETES MELLITUS 08/11/2001 FM [id number] DIS NEC thyroid disease 998 Urticaria HTN, goal below 140/90 Impaired fasting glucose Dyslipidemia, goal LDL below 100 documented as of this encounter (statuses as of 07/18/2024) Resolved Problems Problem Noted Date Diagnosed Date Resolved Date ADVANCE DIRECTIVE INFORMATION 11/13/2005 05/01/2024 Overview (11/13/2005): Information given to patient Dyslipidemia, goal to be determined 10/23/2002 05/17/2013 OBESITY, UNSPECIFIED 02/08/2002 009 Obesity, morbid (more than 1 00 lbs over ideal weight or BMI > 40) 08/02/2014 Overview (09/16/2015): ICD-10 update of inactive term documented as of this encounter (statuses as of 07/18/2024) Immunizations Name Administration Dates Next Due TD [...] Recorded Sex Assigned at Not on file Legal Sex Male 5:59 AM EST Gender Identity Not on file Sexual Orientation Not on file documented as of this encounter Plan of Treatment Health Maintenance Due Date Last Done Comments Cologuard 2005 Sigmoidoscopy 2005 Fecal Occult Blood Test 11/23/2009 11/23/2008 Pneumococcal Vaccine: 50+ Years (1 of 1 - PCV) 2010 Zoster Vaccines (1 of 2) 2010 Depression Screening 11/06/2015 11/05/2014 GFR 02/17/2019 02/17/2018, 0 11/2014, 07/19/2012, Additional history exists Albumin/Creatinine Ratio 02/17/2021 02/17/2018 Diabetes Screening 02/17/2021 02/17/2018, 0 02/17/2018, 08/03/2014, Additional history exists DTap/Tdap Vaccines (2 - Td or Tdap) 07/19/2022 07/19/2012, 04/20/2006, 09/29/1999 Colonoscopy 08/04/2022 08/04/2012 Colorectal Cancer Screening 08/04/2022 Lipid Panel 02/17/2023 02/17/2018, 020 11/2014, 07/19/2012, Additional history exists COVID-19 Vaccine ( - season) 2024 Influenza Vaccine (FLU shot) (#1) 2024 04/24/2003, 05/11/2002, 04/09/1998 HPV (Gardasil) Vaccine Aged Out No lo nger eligible based on patient's age to complete this topic Hepatitis B Vaccine Aged Out No longe r eligible based on patient's age to complete this topic MENINGOCOCCAL (MENACTRA/MENVEO) Aged Out No longer eligible based on patient's age to complete this topic documented as of this encounter Medical Devices Not on filedocumented as of this encounter
[2024-08-05] MEDS ORDERED: FLUCONAZOLE 50 MG TAB PO ONE (02:24)
--- NOTE | 2024-08-05 02:48 | CT Scan Report ---
EXAM: CT head/brain wo con CLINICAL HISTORY: loss sensation right arm TECHNIQUE: Multiple axial images are obtained from the skull base to the vertex without contrast. CT scan was performed according to ALARA (as low as reasonable achievable). COMPARISON: None. FINDINGS: There is cerebral atrophy. No evidence of space occupying lesion, hemorrhage, edema, mass effect, midline shift, extra axial collection, or hydrocephalus is noted. Basal cisterns are symmetric and normal in size and configuration. There are scattered periventricular hypodensities as can be seen with chronic microvascular ischemic changes. The solano-white matter differentiation is preserved. Mild bilateral maxillary, right ethmoid and right sphenoid sinusitis. Rest of paranasal sinuses and mastoid air cells are well aerated. Orbital contents are within normal limits. Bony structures are intact. IMPRESSION: 1. No evidence of acute intracranial abnormality is demonstrated. 2. Chronic microvascular ischemic changes. 3. Cerebral atrophy. 4. MRI maybe considered if there is high clinical concern for a stroke. Electronically signed by Juan Trevino 08-05-2024 02:48 AM
--- NOTE | 2024-08-05 03:07 | XRay Report ---
EXAM: XR chest 1V portable CLINICAL HISTORY: Chest pressure. TECHNIQUE: An X-ray image of the chest is obtained in AP projection. COMPARISON: No prior studies are available for comparison. FINDINGS: Pulmonary Parenchyma: Multiple tiny nodular infiltrates along with a few fibrotic bands are seen in the right lower zone. No evidence of consolidation, or collapse. No evidence of pleural effusion or pleural thickening. Heart and Mediastinum: Heart size is enlarged. The cardiothoracic ratio is 190: 369. Bilateral prominence of the hilar and perihilar vascular markings/congestion is seen. The heart shape is normal. No mediastinal masses. No hilar or mediastinal lymphadenopathy. Bony Thorax: The bony thorax appears intact without fractures or deformities. Soft Tissues: Soft tissues overlying the chest wall are unremarkable. IMPRESSION: 1. Cardiomegaly. 2. Bilateral prominence of the hilar and perihilar vascular markings/congestion. The possibility of early developing cardiac failure cannot be entirely ruled out. 3. Multiple tiny nodular infiltrates along with a few fibrotic bands are seen in the right lower zone. The possibility of infective/inflammatory etiology cannot be ruled out. 4. Clinical correlation is advised for further evaluation. Electronically signed by Minerva Victoria 08-05-2024 03:07 AM
--- NOTE | 2024-08-05 03:19 | History & Physical Report ---
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 ED workup reveals leukopenia, H&H 11.0/32.0, troponin 11.7, EKG without ischemic changes at normal sinus rhythm [address] with chronic changes, no acute findings, CXR without acute findings, provided with fluconazole in ED. #Chest pressure Chest pressure, centrally located with some rotation to the left side, no tenderness to palpation. Associated right arm paresthesias from wrist to hand. States that this is the same symptom he had prior to having a stent placed previously. No cough, no abdominal pain, no N/V/D/C. H/o STEMI with LYNDSAY to LAD (10/2023), PAF, ischemic cardiomyopathy. - Troponin 11.7, pending repeat; EKG without acute ischemic changes, in NSR at 60 bpm - CBC with leukopenia, H&H 11.0/32; CXR bilateral prominence of hilar and perihilar vascular markings, multiple tiny nodular infiltrates - Echo 05/2024- LV SF mildly reduced, grade 1 diastolic dysfunction, regional wall motion abnormalities, mild MR - Lipids 10/2023- total 183, LDL 115, HDL 35, TG 166; pending repeat - On aspirin 81 mg daily as outpatient, DAPT for stent #RUE paresthesias Right arm paresthesias starting after falling asleep in recliner, awoke him. From level of wrist to fingers, tingling in sensation with occasional stabbing pain. No weakness, normal hose coupling joiner strength. No trauma to the area. No identifiable repetitive movements. Neurologically intact otherwise, normal physical exam. Significant cardiac history, h/o Afib, does not follow w/ PCP. 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 Please excuse any grammatical errors that may be secondary to use of this software. 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 States that the chest pressure is mainly c entral but does radiate to the left side, coming and going. Sharp in nature and "feels weird" per patietn. States that when the numbness and tingling in his arm happened, he was sleeping on his couch and then his right arm started to have this abnormal sensation, extending from the wrist to the hand. Also intermittent stabbing pain within the right hand. Last two fingers mainly affected but feels the sensation throughout entire hand. Overall patient denying SOB, palpitations, abdominal pain, N/V/D/C, numbness/tingling elsewhere, dizziness, vertigo, LUTS, fever/chills, or URI symptoms. ED workup reveals leukopenia (2.37), H&H 11.0/32, unremarkable CMP, troponin 11.7, head CT with chronic microvascular ischemic changes and cerebral atrophy, but no acute findings; CXR with cardiomegaly, bilateral prominence of hilar and perihilar vascular markings/congestion, multiple tiny nodular infiltrates along with a few fibrotic bands and RL zone; EKG was NSR rate 60 bpm, and prior infarct seen but no acute findings. Patient was provided with fluconazole in the ED. Please see Dr. Loaiza's attestation for adjustments/additions to treatment plan. Allergies Allergy/AdvReac Type Severity Reaction Status Date / Time ciprofloxacin Allergy Mild Confusion Verified 07/17/24 10:20 Quinolones Allergy Mild HIVES Verified 07/17/24 10:20 sibutramine Allergy Unknown Unknown Verified 07/17/24 10:20 Home Medications Medication Instructions Recorded Confirmed Type aspirin 81 mg tablet,delayed 81 mg PO DAILY 12/30/23 08/05/24 History release atorvastatin 40 mg tablet 40 mg PO QAM 12/30/23 08/05/24 History clopidogrel 75 mg tablet 75 mg PO QAM 12/30/23 08/05/24 History metoprolol succinate 50 mg 100 mg (2 x 50 mg) PO QAM #1 tab 12/31/23 08/05/24 Rx tablet,extended release 24 hr nystatin-triamcinolone 100,000 1 applic topical QID Radiation 07/03/24 08/05/24 Rx unit/gram-0.1 % topical ointment dermatitis #60 grams silver sulfadiazine 1 % topical 1 applic topical BID Radiation 07/12/24 08/05/24 Rx cream (Silvadene) dermatitis #85 grams nystatin 100,000 unit/gram topical 1 applic topical BID Radiation 07/17/24 08/05/24 Rx powder dermatitis #60 grams fluocinonide 0.05 % topical cream 1 applic topical QID PRN itching 07/28/24 08/05/24 Rx rash lower extremities #60 grams sennosides 8.6 mg-docusate sodium 1 tab-cap PO BID PRN Constipation 08/05/24 08/05/24 History 50 mg capsule Past Med/Surg History Problem List Paresthesia of hand Chest pressure Squamous cell carcinoma of anus (Chronic 03/14/24) Postoperative hemorrhage involving digestive system (Acute) Bleeding (Acute) Rectal bleeding Dyslipidemia S/P coronary artery stent placement CAD (coronary artery disease) Neck pain Abnormal EKG (Acute) Chest pain (Acute) Paroxysmal A-fib Ischemic cardiomyopathy Elevated serum glucose Atherogenic dyslipidemia ST elevation myocardial infarction (STEMI) Morbid obesity Dislocation of left shoulder joint Adjustment disorder Fracture of thumb, right, closed (Acute) Medical History On anticoagulant therapy History of atrial fibrillation History of ST elevation myocardial infarction (STEMI) 10/2023 Squamous cell carcinoma of anus Dyslipidemia Seasonal allergies Pre-diabetes Poor historian difficulty remembering details CAD (coronary artery disease) follows w/ [place] [facility] Hypertension pt denies Alcohol withdrawal h/o History of COVID-19 ?2020- flu symtoms- no hospitalization, no current issues Anxiety Surgical History Hx of appendectomy S/P coronary artery stent placement [place] 10/2023 - @ [facility] Hx of hemorrhoidectomy Hx of colonoscopy History of left knee replacement History of surgery on arm childhood Family History Father Heart disease Stroke Mother Thyroid disease Alzheimer disease Other No family history of adverse response to anesthesia Social History Smoking Status: Never smoker Tobacco Type: Smokeless Tobacco (Dip or Chew) Second Hand Exposure: No; Do You Dip or Chew Tobacco: Yes (advised); Hx Alcohol Use: Yes Alcohol type: hard liquor Alcohol Intake Frequency: 2-3 x/Week Hx Substance Use: No Preferred Language: Mohawk Communication Ability: Effective Visual Impairment: No Limitations Hearing Ability: Normal Roughener Required: No Beliefs That Will Affect Care: None marital status: Current Living Situation: Family Current Living Situation Comment: [place] current occupational status: retired How many Children do You have: 2 Feels Safe at Home: Yes Diet: regular Diet Comment: smaller portions since [place] in November 2023 during the past year weight has: decreased > 10 lbs Assistive Devices: Glasses Review of Systems Review of Systems: All systems reviewed & are unremarkable except as noted in Subjective Physical Exam Physical Exam: General: No acute distress Skin: Warm and dry Head: Normocephalic, atraumatic Eyes: PERRL, conjunctivae clear, sclera non-icteric ENT: External ear and ear canal without swelling; nose atraumatic; good dentition, tongue normal appearance, pharynx normal Neck: Supple, no LAD Cardio: RRR, no M/G/R, S1 and S2 normal; no tenderness to palpation of chest Resp: No respiratory distress, Lungs CTA in all lobes bilaterally, no wheezes, rales, or rhonchi Abdomen: Soft, symmetric, nontender; no masses or hepatosplenomegaly; Bowel sounds normoactive MSK: No deformities; pulses palpable and equal; no edema. Neuro: Awake, alert; Muscle strength 5/5 bilaterally in UE/LE; Sensation intact bilaterally; CN grossly intact; normal hose coupling joiner strength, no weakness Psych: Appropriate mood and affect; good judgement and insight. Results & Data Results & Data Vital Signs (Past 12 Hours) Vital Signs Temp Pulse Pulse Resp BP BP Pulse Ox 08/05/24 02:05 60 16 108/67 98 08/05/24 00:50 36.4 C L 68 19 133/84 98 O2 Del Method 08/05/24 02:05 Room Air 08/05/24 00:50 Room Air Laboratory Results 08/05/24 01:05 WBC 2.37 L RBC 4.08 L Hgb 11.0 L Hct 32.0 L MCV 78.4 L MCH 27.0 MCHC 34.4 RDW Std Deviation 40.9 RDW Coeff of Charity 14.7 H Plt Count 164 MPV 9.4 Immature Gran % (Auto) 0.0 Neut % (Auto) 58.6 Lymph % (Auto) 18.6 [place] % (Auto) 20.7 Eos % (Auto) 1.7 Baso % (Auto) 0.4 Neut # (Auto) 1.39 L Lymph # (Auto) 0.44 L [place] # (Auto) 0.49 Eos # (Auto) 0.04 Baso # (Auto) 0.01 Immature Gran # (Auto) 0.00 L Sodium 139 Potassium 4.0 Chloride 106 Carbon Dioxide 25 Anion Gap 8 BUN 12 Creatinine 0.75 Est Cr Clr Drug Dosing 129.7 eGFR 100.77 BUN/Creatinine Ratio 16.0 Glucose 110 H Calcium 9.1 Magnesium 1.9 Troponin I High Sens 11.[address] 08/05/24 01:09 EXAM: CT head/brain wo con CLINICAL HISTORY: loss sensation right arm TECHNIQUE: Multiple axial images are obtained from the skull base to the vertex without contrast. CT scan was performed according to ALARA (as low as reasonable achievable). COMPARISON: None. FINDINGS: There is cerebral atrophy. No evidence of space occupying lesion, hemorrhage, edema, mass effect, midline shift, extra axial collection, or hydrocephalus is noted. Basal cisterns are symmetric and normal in size and configuration. There are scattered periventricular hypodensities as can be seen with chronic microvascular ischemic changes. The solano-white matter differentiation is preserved. Mild bilateral maxillary, right ethmoid and right sphenoid sinusitis. Rest of paranasal sinuses and mastoid air cells are well aerated. Orbital contents are within normal limits. Bony structures are intact. IMPRESSION: 1. No evidence of acute intracranial abnormality is demonstrated. 2. Chronic microvascular ischemic changes. 3. Cerebral atrophy. 4. MRI maybe considered if there is high clinical concern for a stroke. Electronically signed by Juan Trevino 08-05-2024 02:48 AM Chest X-Ray 08/05/24 01:10 EXAM: XR chest 1V portable CLINICAL HISTORY: Chest pressure. TECHNIQUE: An X-ray image of the chest is obtained in AP projection. COMPARISON: No prior studies are available for comparison. FINDINGS: Pulmonary Parenchyma: Multiple tiny nodular infiltrates along with a few fibrotic bands are seen in the right lower zone. No evidence of consolidation, or collapse. No evidence of pleural effusion or pleural thickening. Heart and Mediastinum: Heart size is enlarged. The cardiothoracic ratio is 190: 369. Bilateral prominence of the hilar and perihilar vascular markings/congestion is seen. The heart shape is normal. No mediastinal masses. No hilar or mediastinal lymphadenopathy. Bony Thorax: The bony thorax appears intact without fractures or deformities. Soft Tissues: Soft tissues overlying the chest wall are unremarkable. IMPRESSION: 1. Cardiomegaly. 2. Bilateral prominence of the hilar and perihilar vascular markings/congestion. The possibility of early developing cardiac failure cannot be entirely ruled out. 3. Multiple tiny nodular infiltrates along with a few fibrotic bands are seen in the right lower zone. The possibility of infective/inflammatory etiology cannot be ruled out. 4. Clinical correlation is advised for further evaluation. Electronically signed by Minerva Victoria 08-05-2024 03:07 AM Medications Administered Fluconazole 150mg po ECG Additional Comments: NSR, possible inferior infarct (November 10, 2023) 60 bpm, TX 142, QRS 96, QT/QTc 402/402, PRT 39/35/-35 Code Status & VTE Plan Code Status Full Supervising Physician Co-Signing Physician Notes Patient seen and examined, chart reviewed, case discussed with JOSELIN Garcia and I agree with the assessment and plan as above PG Care Time/CCT Total # of Minutes Spent Total Time Spent with Patient: Total time spent is greater than 50% in coordination of care (as documented) at patient's floor/unit and/or counseling patient: Coding Level of Care Code 61252 INT INP/OBS CARE 375MIN Diagnoses Chest pressure R07.89 Paresthesia of hand R20.2
[2024-08-05] MEDS ORDERED: DOCUSATE SODIUM/SENNA 50/8.6MG TAB PO PRN (05:16)
[2024-08-05] MEDS ORDERED: ONDANSETRON INJ 2 MG/ML 2 ML VIAL IV PRN (05:47)
[2024-08-05] MEDS ORDERED: MELATONIN 3 MG TAB PO PRN (05:47)
[2024-08-05] MEDS ORDERED: POLYETHYLENE (MIRALAX) 17 GM PACK PO PRN (05:47)
[2024-08-05] MEDS ORDERED: MAGNESIUM HYDROXIDE SUSP 30 ML UDC PO PRN (05:47)
[2024-08-05] MEDS ORDERED: TRIAMCINOLONE ACET 0.5% CR 15 GM TUBE EXT PRN (05:47)
[2024-08-05] MEDS ORDERED: ACETAMINOPHEN 325 MG TAB PO PRN (05:47)
[2024-08-05 06:25] VITALS: O2SAT 99
--- NOTE | 2024-08-05 07:25 | Hospitalist Progress Note ---
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 ED workup reveals leukopenia, H&H 11.0/32.0, troponin 11.7, EKG without ischemic changes at normal sinus rhythm [address] with chronic changes, no acute findings, CXR without acute findings. #Chest pressure Chest pressure, centrally located with some rotation to the left side, no te nderness to palpation. Associated right arm paresthesias from wrist to hand. States that this is the same symptom he had prior to having a stent placed previously. No cough, no abdominal pain, no N/V/D/C. H/o STEMI with LYNDSAY to LAD (10/2023), PAF, ischemic cardiomyopathy. - Troponin 11.7, pending repeat; EKG without acute ischemic changes, in NSR at 60 bpm - CBC with leukopenia, H&H 11.0/32; CXR b/l prominence of hilar and perihilar vascular markings, multiple tiny nodular infiltrates - Echo 05/2024- LVEF 45-50% in May 2024; grade 1 diastolic dysfunction, regional wall motion abnormalities, mild MR - Lipids 10/2023- total 183, LDL 115, HDL 35, TG 166; pending repeat - On aspirin 81 mg daily as outpatient, DAPT for stent #Paroxysmal A-fib - [id number] score of 2-3 based on HFmrEF - See cardiology note from December 2023 regarding status of anticoagulation #RUE paresthesias Right arm paresthesias starting after falling asleep in recliner, awoke him. From level of wrist to fingers, tingling in sensation with occasional stabbing pain. 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 No trauma to the area. No identifiable repetitive movements. Neurologically intact otherwise, normal physical exam. Significant cardiac history, h/o Afib, does not follow w/ PCP. - H/o anemia; pending vitamin B12 and folate - CT head no acute findings, chronic microvascular ischemic changes, cerebral atrophy - Given history, [id number] score of 3 (CHF, HTN, vascular disease), as well as no current anticoagulation for A-fib + only DAPT, find it reasonable to confirm no CVA- pending MRI - Neurochecks #Squamous cell carcinoma of anus- Chronic, 03/14/2024; previously complicated by postop hemorrhage #HLD- Atorvastatin #HTN- Metoprolol Dispo: Admit, med/tele VTE Prophylaxis: SCDs, encourage ambulation Admission and Anticipated Discharge Date Admission Date: August 05, 2024 Subjective Gene was seen and evaluated at bedside, _. Endorses _ Denies _. Physical Exam Physical Exam: [[General: A&Ox_; in no acute distress Head: Normocephalic, atraumatic Eyes: PERRL, conjunctivae clear, sclera non-icteric ENT: External ear and ear canal without swelling; nose atraumatic; good dentition, tongue normal appearance, pharynx normal Neck: Supple, no LAD Cardio: RRR, no M/G/R, S1 and S2 normal; no tenderness to palpation of chest Resp: No respiratory distress, Lungs CTA in all lobes bilaterally, no wheezes, rales, or rhonchi GI/Abdomen: Soft, symmetric, nontender; no masses or hepatosplenomegaly; Bowel sounds normoactive MSK: No deformities; pulses palpable and equal; no edema. Neuro: Awake, alert; Muscle strength 5/5 bilaterally in UE/LE; Sensation intact bilaterally; CN grossly intact; normal commodity supervisor strength, no weakness Skin: Warm, dry Psych: Appropriate mood and affect; good judgement and insight. Results & Data Results & Data Vital Signs (Past 12 Hours) Vital Signs Temp Pulse Pulse Resp BP BP Pulse Ox 08/05/24 05:35 36.4 C L 54 L 19 112/77 99 08/05/24 04:11 53 L 16 103/64 97 08/05/24 02:05 60 16 108/67 98 08/05/24 00:50 36.4 C L 68 19 133/84 98 O2 Del Method 08/05/24 05:35 Room Air 08/05/24 04:11 Room Air 08/05/24 02:05 Room Air 08/05/24 00:50 Room Air
[2024-08-05 07:27] VITALS: RESP 18
--- NOTE | 2024-08-05 08:22 | XRay Report ---
XR orbits for MRI HISTORY: 64 years-old Male Screening for foreign body for MRI COMPARISON: Head CT 08/05/2024 TECHNIQUE: 3 views of the orbits FINDINGS: No metallic foreign body of the orbits and identified. No acute facial bone fracture. Mild to moderat e thickening of the paranasal sinuses. Mastoid air cells are clear. IMPRESSION: No opaque foreign body of the orbits identified. ACT 112: Negative or not required by law. The above report was generated using voice recognition software. It may contain grammatical, syntax o r spelling errors. Electronically signed by: Jose Muniz M.D. 08/05/2024 8:20 AM
[2024-08-05] MEDS: ATORVASTATIN 40 MG TAB PO SCH (09:27)
[2024-08-05] MEDS: ASPIRIN 81 MG ECTAB PO SCH (09:27)
[2024-08-05] MEDS: METOPROLOL SUCC 50MG EXT REL TAB PO SCH (09:28)
[2024-08-05] MEDS: CLOPIDOGREL BISULFATE 75 MG TAB PO SCH (09:28)
[2024-08-05] MEDS: GADOBUTROL 30ML VIAL IV ONE (10:27)
[2024-08-05 11:36] VITALS: TEMP 98.1
--- NOTE | 2024-08-05 11:52 | Magnetic Resonance Report ---
MR brain wo/w con HISTORY: 64 years-old Male RUE paresthesia acute stroke symptoms COMPARISON: Head CT of same day TECHNIQUE: Multiplanar multisequence MRI of the brain was obtained with and without IV contrast FINDINGS: No restricted diffusion. Midline structures appear unremarkable. Degenerative changes of the cervical spine. No acute intracranial hemorrhage, midline shift, abnormal extra-axial collection, hydrocephal us or intra-axial mass. Involutional changes with moderate T2/FLAIR hyperintense foci throughout the white matter. Cerebral venous sinuses and major arterial flow voids appear patent. Skull, orbits and soft tissues a re unremarkable. Trace right mastoid effusion. Moderate mucosal thickening of the paranasal sinuses. No abnormal enhancement. IMPRESSION: 1. No acute intracranial abnormality, specifically there is no acute or subacute infarct. 2. No abnormal enhancement. 3. Suggestion of moderate chronic microvascular ischemic disease. ACT 112: Negative or not required by law. The above report was generated using voice recognition software. It may contain grammatical, syntax o r spelling errors. Electronically signed by: Jose Muniz M.D. 08/05/2024 11:49 AM
[2024-08-05 12:32] VITALS: BP 112/77
[2024-08-05 14:21] VITALS: PULSE 55
--- NOTE | 2024-08-05 14:50 | Discharge Summary ---
Date of Service August 05, 2024 Admission HPI Per Admitting Provider 64-year-old male PMHx CAD s/p stenting, prior STEMI, ischemic cardiomyopathy, paroxysmal A-fib not anticoagulated due to cost, and squamous cell carcinoma of anus presenting to ED for hand numbness and tingling as well as intermittent chest pressures x 1 to 2 hours [facility]. States that the chest pressure is mainly central but does radiate to the left side, coming and going. Sharp in nature and "feels weird" per patietn. States that when the numbness and tingling in his arm happened, he was sleeping on his couch and then his right arm started to have this abnormal sensation, extending from the wrist to the hand. Also intermittent stabbing pain within the right hand. Last two fingers mainly affected but feels the sensation throughout entire hand. Overall patient denying SOB, palpitations, abdominal pain, N/V/D/C, numbness/tingling elsewhere, dizziness, vertigo, LUTS, fever/chills, or URI symptoms. ED workup reveals leukopenia (2.37), H&H 11.0/32, unremarkable CMP, troponin 11.7, head CT with chronic microvascular ischemic changes and cerebral atrophy, but no acute findings; CXR with cardiomegaly, bilateral prominence of hilar and perihilar vascular markings/congestion, multiple tiny nodular infiltrates along with a few fibrotic bands and RL zone; EKG was NSR rate 60 bpm, and prior infarct seen but no acute findings. Patient was provided with fluconazole in the ED. Admission Exam Per Admitting Provider General: No acute distress Skin: Warm and dry Head: Normocephalic, atraumatic Eyes: PERRL, conjunctivae clear, sclera non-icteric ENT: External ear and ear canal without swelling; nose atraumatic; good dentition, tongue normal appearance, pharynx normal Neck: Supple, no LAD Cardio: RRR, no M/G/R, S1 and S2 normal; no tenderness to palpation of chest Resp: No respiratory distress, Lungs CTA in all lobes bilaterally, no wheezes, rales, or rhonchi Abdomen: Soft, symmetric, nontender; no masses or hepatosplenomegaly; Bowel sounds normoactive MSK: No deformities; pulses palpable and equal; no edema. Neuro: Awake, alert; Muscle strength 5/5 bilaterally in UE/LE; Sensation intact bilaterally; CN grossly intact; normal coremaker strength, no weakness Psych: Appropriate mood and affect; good judgement and insight. Principal Diagnosis chest tightness, hx of STEMI Discharge Exam General: A&Ox3, appearing in no acute distress Head: Normocephalic, atraumatic Eyes: PERRL, EOM intact, anicteric sclerae Cardio: RRR, +s1/s2, no m/r/g heard; reproducible tenderness to palpation of L lower chest wall, no ecchymosis or other lesion seen - pulses: 2+ carotid b/l, 2+ radial b/l, good capillary refill Resp: No respiratory distress, clear to auscultation b/l, no wheeze/rales/rhonchi GI/Abdomen: +BS, abdomen soft, symmetric, nontender; no masses or hepatosplenomegaly MSK: No deformities, moves all extremities on command, 5/5 strength throughout Neuro: no facial droop, speech intact, sensation deficit from mid-medial R arm down to digits 3-5, otherwise sensation intact bilaterally; CN grossly intact; good coremaker strength; no tremors observed Skin: Warm, dry, intact Psych: mood-affect congruence Discharge Data Allergies Allergy/AdvReac Type Severity Reaction Status Date / Time ciprofloxacin Allergy Mild Confusion Verified 07/17/24 10:20 Quinolones Allergy Mild HIVES Verified 07/17/24 10:20 sibutramine Allergy Unknown Unknown Verified 07/17/24 10:20 Consultations 08/05/24 02:50 ED Decision to Admit Stat Ordered Studies 08/05/24 01:09 CT head/brain wo con Stat 08/05/24 03:50 MRI Brain [MR brain wo/w con] Stat Hospital Course (1) Paroxysmal A-fib: (2) Chest pressure: (3) History of ST elevation myocardial infarction (STEMI): (4) Squamous cell carcinoma of anus: Plan 64-year-old male PMHx CAD s/p stenting, prior STEMI, ischemic cardiomyopathy, paroxysmal A-fib not anticoagulated due to cost but on DAPT, and squamous cell carcinoma of anus presenting to ED for hand numbness and tingling as well as intermittent chest pressures x 1 to 2 hours [facility]. ED workup reveals leukopenia, H&H 11.0/32.0, troponin 11.7 -> 10.6, EKG without ischemic changes at normal sinus rhythm [address] with chronic changes, no acute findings, CXR without acute findings. #Paroxysmal A-fib - [id number] score of 3 based on HFmrEF, necessitates anticoagulation. - Patient previously unwilling to go on Eliquis for anticoag due to cost (see Cardiology note from December 2023), but per revisitation of that discussion today 08/05/24 patient is willing to go on warfarin upon followup next week at [facility]. - to remain on current home meds, including DAPT, until one may be discontinued upon starting anticoagulation outpatient. #Chest pressure Resolving, likely musculoskeletal due to r/o of acute cardiac etiology and reproducible tenderness by palpation. Describes as chest pressure, central lower left chest. Denies trauma, states that this is the same symptom he had prior to having a stent placed previously. No cough, no abdominal pain, no N/V/D/C. H/o STEMI with LYNDSAY to LAD (10/2023), PAF, ischemic cardiomyopathy. - Troponin 11.7 ->10.6; EKG without acute ischemic changes, in NSR at 60 bpm - CBC with leukopenia, H&H 11.0/32; CXR b/l prominence of hilar and perihilar vascular markings, multiple tiny nodular infiltrates - Echo 05/2024- LVEF 45-50% in May 2024; grade 1 diastolic dysfunction, regional wall motion abnormalities, mild MR - Lipids 10/2023- total 183, LDL 115, HDL 35, TG 166, continue on atorvastatin - On DAPT post stenting in October 2023 post-STEMI #RUE paresthesias Resolving, most recently only R pinky numbness. - Right arm paresthesias starting after falling asleep in recliner, awoke him. From level of wrist to fingers, tingling in sensation with occasional stabbing pain. No weakness, normal coremaker strength. No trauma to the area. No identifiable repetitive movements. Neurologically intact otherwise, normal physical exam. Significant cardiac history, h/o Afib, does not follow w/ PCP. #SSC of anus - has received radiation therapy, nystatin prescribed for radiation dermatitis - endorses he was never on fluconazole, but is prescribed fluocinonide for radiation dermatitis - followup outpatient with oncologist - H/o anemia; pending vitamin B12 and folate - CT head no acute findings, chronic microvascular ischemic changes, cerebral atrophy - Given history, [id number] score of 3 (CHF, HTN, vascular disease), as well as no current anticoagulation for A-fib + only DAPT, no CVA based on MRI brain 08/05/24 #Squamous cell carcinoma of anus- Chronic, 03/14/2024; previously complicated by postop hemorrhage #HLD- Atorvastatin #HTN- Metoprolol Dispo: Admit, med/tele VTE Prophylaxis: SCDs, encourage ambulation Total Time Total Time Spent Total Time Spent (In Minutes): 45 Discharge Plan Discharge Items Patient Disposition: Home - Self-Care Reason For Visit: CHEST PRESSURE, ARM PARESTHESIA Discharge Diagnosis: musculoskeletal chest pain, atrial fibrillation Activity: Per Instructions section Non-emergency contact: Primary Care Provider and [facility]aper Call non-emergency contact if: your symptoms worsen and your pain is not controlled Follow-up/Referrals: Alfred Mariee V., [Resident] - (PLEASE CALL YOUR PRIMARY CARE PROVIDER TO SCHEDULE A HOSPITAL DISCHARGE FOLLOW-UP APPOINTMENT WITHIN 7-10 DAYS) Diet: Heart Healthy Addtl Attending Provider Instructions: You were evaluated and treated at [facility] for chest pain and R arm numbness, due to your extensive cardiac history and report of chest pain you were admitted for diagnostic workup. EKG was unremarkable, troponin was very mildly elevated and not concerning. CT scan of your head showed chronic microvascular changes, but no acute intracranial changes. Your chest pain has since resolved a bit and is reproducible upon palpation, meaning it is most likely musculoskeletal. Your R arm numbness has also resolved to now only involve your R pinky finger and you continue to have good movement of all extremities. Because of the above, in addition to your stable vital signs, we feel you may be safely discharged home with return precautions. We also strongly encourage you to follow up as an outpatient at the [facility], where you can follow up on care with either Dr. Mariee, the resident on your care team during your time in the hospital, or another available resident. At that appointment, we are happy to start you on warfarin (Coumadin) for anticoagulat ion for your atrial fibrillation, as this will help you prevent blood clots that can result in stroke. At that time, we will also take you off one of your two antiplatelet medications. Until that time, continue taking all of your home medications as prescribed. We look forward to continuing to participate in your care. Pending Studies at Discharge: No Stand-Alone Forms: My [facility], Smoking Cessation Medications and DC Order Prescriptions: Continued nystatin-triamcinolone 100,000-0.1 unit/gram-% ointment 1 applic topical QID Qty: 60 5RF silver sulfadiazine [Silvadene] 1 % cream 1 applic topical BID Qty: 85 4RF Rx Instructions: apply a 1.5 mm thickness nystatin 100,000 unit/gram powder 1 applic topical BID Qty: 60 3RF fluocinonide 0.05 % cream 1 applic topical QID PRN (Reason: itching rash lower extremities) Qty: 60 1RF atorvastatin 40 mg tablet 40 mg PO QAM clopidogrel 75 mg tablet 75 mg PO QAM aspirin 81 mg Tablet,Delayed Release (Dr/Ec) 81 mg PO DAILY metoprolol succinate 50 mg tablet extended release 24 hr 100 mg PO QAM Qty: 1 0RF sennosides-docusate sodium 8.6-50 mg Capsule 1 tab-cap PO BID PRN (Reason: Constipation) Discharge Orders: Discharge Order (Routine); Ordered 08/05/24 Ordered By: Alfred Dejesus/Other Patient Handouts: CAD, AFib Dc, Exercising After a Heart Attack, Eating Heart-Healthy Foods, AFib Preventing Stroke Admission Data Admit Date/Time: 08/05/24 03:24 Attending Provider: Gunnar Arana Admit Provider: Mylene Loaiza Primary Care Provider: PCP,NO Other Providers: Mylene Loaiza Other Interventions: Discharge Summary Assessment (RN) Last Done: 08/05/24 12:30 Supervising Physician Co-Signing Physician Notes Attending attestation Pt seen and examined in concert with Dr. Mariee. In agreement with the documented findings as noted in the resident documentation with any exceptions or additions as noted here. Gradually improving pain in the left chest which is positional and nonexertional. Right upper extremity paresthesias resolving at time of examination. On examination, S1/S2 nl RRR no MCG. CTAB. Abd NT/ND BS+ve. TTP at the area of chest pain at the sternal border of 3rd rib reproducing complaint. FROM of the fingers, wrist, elbows with 5/5 strength throughout. MRI brain with moderate chronic microvascular ischemic disease. Paroxysmal atrial fibrillation - continue metoprolol. Extensive discussion re: anticoagulation. Unwilling to consider DOAC due to previous consideration of cost. Reviewed application of warfarin, patient is willing to consider. Would recommend follow up outpatient with PCP to discuss further and initiate at that time. Would also stop DAPT and continue single antiplatelet agent. Chest pressure - reproducible on examination and with w/u as noted. RUE paresthesia - resolved without apparent etiology. Likely positional compression at brachial plexus/neck based on sleep. MRI brain as noted above. Else see resident documentation as noted. Total attending physician time spent with this patient's care on the day of discharge: 40 minutes. Resident Activity Tracking Resident Involvement: Resident Care Provided Care Provided: Adult Hospital Medicine
--- NOTE | 2024-08-06 07:24 | Electrocardiogram Report ---
Test Reason : Blood Pressure : */* mmHG Vent. Rate : 60 BPM Atrial Rate : 60 BPM P-R Int : 142 ms QRS Dur : 96 ms QT Int : 402 ms P-R-T Axes : 39 35 -35 degrees QTcB Int : 402 ms Normal sinus rhythm Possible Inferior infarct (cited on or before 10-Nov-2023) Nonspecific T wave abnormality Abnormal ECG When compared with ECG of 22-Jun-2024 12:49, Inverted T waves have replaced nonspecific T wave abnormality in Inferior leads Confirmed by Elan Lopez ([id number]) on 08/06/2024 7:23:31 AM Referred By: REFERRED SELF Confirmed By: Elan Lopez
== END 2024-08-05 03:53 | disposition home or self-care (01) ==
LOC: SUATTDRO → ED 00:44 → 2N 00:44 → SUATTDRO 03:24 → 2N 04:38